=== PATIENT | female | born 1965 | race African-American/Black ===

== ENCOUNTER 2020-03-27 10:25 | Outpatient (REF) | payer MEDICARE, SELFPAY ==
[2020-03-27 11:06] LABS: MANUAL DIFF FLAG NO
[2020-03-27 11:11] LABS: Basophils Absolute Auto 0.1 X10*3/uL (0.0-0.2); Basophils Percent Auto 0.4 % (0-2); Eosinophils Absolute Auto 0.1 X10*3/uL (0.0-0.4); Eosinophils Percent Auto 0.5 % (0-4); Hematocrit 41.2 % (37-47); Hemoglobin 13.3 g/dl (12.0-16.0); Imm Gran Abs Auto 0.06 X10*3/uL (0.00-0.03); Imm Gran Pct Auto 0.5 % (0.0-0.4); Lymphocytes Percent Auto 23.2 % (20-40); Mean Corpuscular HGB Conc 32.3 g/dl (31.0-35.0); Mean Corpuscular Hemoglobin 26.7 pg (27.0-33.0); Mean Corpuscular Volume 82.7 fL (80-98); Mean Platelet Volume 10.6 fL (9.4-12.3); Monocytes Percent Auto 8.1 % (2-11); Neutrophils Absolute Auto 8.7 X10*3/uL (2.0-8.3); Neutrophils Percent Auto 67.3 % (45-73); Platelet Count 304 X10*3/uL (160-400); Red Blood Count 4.98 X10*6/uL (4.20-5.50); Red Cell Distribution Width 13.5 % (11.0-16.0); White Blood Count 12.9 X10*3/uL (4.8-10.8)
[2020-03-27 11:12] LABS: Estimated Average Glucose 229 mg/dL; Hemoglobin A1c % 9.6 %
[2020-03-27 11:41] LABS: Anion Gap 14 (12-20); Blood Urea Nitrogen 8 mg/dL (9-16); Calcium 9.7 mg/dL (8.4-10.2); Carbon Dioxide 30 mmol/L (22-29); Chloride 101 mmol/L (96-108); Estimated Glomerular Filt Rate > 60; Glucose Fasting 198 mg/dL (60-99); Potassium 4.3 mmol/l (3.3-5.1); Sodium 141 mmol/L (135-145)
[2020-03-27 12:03] LABS: TSH reflex Free T4 0.39 mIU/mL (0.32-4.0)
== END 2020-03-27 10:26 | disposition home or self-care (01) ==
LOC: HO.LAB 10:25
PROVIDERS: PCP Nurse Practitioner Family; Visit Provider Nurse Practitioner Family
DX: Z00.00 Encounter for general adult medical examination without abnormal findings (principal)
CPT/HCPCS: 36415; 80048; 83036; 84443; 85025

== ENCOUNTER → 2020-04-28 12:36 | Outpatient (BNV) | payer MEDICARE, MEDICAID, SELFPAY | PROVIDERS: PCP Nurse Practitioner Family; Referring Provider Nurse Practitioner Family; Visit Provider Internal Medicine | DX: Z85.3 Personal history of malignant neoplasm of breast (principal); Z90.11 Acquired absence of right breast and nipple; Z92.21 Personal history of antineoplastic chemotherapy; Z92.3 Personal history of irradiation | CPT/HCPCS: 99202; 99204; 99213 ==

== ENCOUNTER 2020-05-04 10:19 | Outpatient (REF) | payer MEDICARE, MEDICAID, SELFPAY ==
[2020-05-04 11:01] LABS: MANUAL DIFF FLAG NO
[2020-05-04 11:08] LABS: Basophils Absolute Auto 0.1 X10*3/uL (0.0-0.2); Basophils Percent Auto 0.6 % (0-2); Eosinophils Absolute Auto 0.1 X10*3/uL (0.0-0.4); Eosinophils Percent Auto 1.1 % (0-4); Hematocrit 37.8 % (37-47); Hemoglobin 12.6 g/dl (12.0-16.0); Imm Gran Abs Auto 0.02 X10*3/uL (0.00-0.03); Imm Gran Pct Auto 0.2 % (0.0-0.4); Lymphocytes Percent Auto 31.4 % (20-40); Mean Corpuscular HGB Conc 33.3 g/dl (31.0-35.0); Mean Corpuscular Hemoglobin 26.8 pg (27.0-33.0); Mean Corpuscular Volume 80.4 fL (80-98); Mean Platelet Volume 10.8 fL (9.4-12.3); Monocytes Absolute Auto 0.7 X10*3/uL (0.1-1.2); Monocytes Percent Auto 7.4 % (2-11); Neutrophils Absolute Auto 5.7 X10*3/uL (2.0-8.3); Neutrophils Percent Auto 59.3 % (45-73); Platelet Count 290 X10*3/uL (160-400); Red Cell Distribution Width 13.2 % (11.0-16.0); White Blood Count 9.6 X10*3/uL (4.8-10.8)
[2020-05-04 11:19] LABS: Estimated Average Glucose 272 mg/dL; Hemoglobin A1c % 11.1 %
[2020-05-04 11:50] LABS: Alanine Aminotransferase 12 U/L (0-31); Alkaline Phosphatase 159 U/L (39-117); Anion Gap 11 (12-20); Aspartate Amino Transferase 11 U/L (5-31); Bilirubin Total 0.5 mg/dL (0.0-1.0); Blood Urea Nitrogen 8 mg/dL (9-16); Calcium 9.2 mg/dL (8.4-10.2); Carbon Dioxide 30 mmol/L (22-29); Chloride 101 mmol/L (96-108); Cholesterol 167 mg/dL; Estimated Glomerular Filt Rate > 60; Glucose Fasting 291 mg/dL (60-99); HDL Cholesterol 42 mg/dL; LDL Cholesterol Calculated 104 mg/dl; Potassium 4.2 mmol/L (3.3-5.1); Sodium 138 mmol/L (135-145); Total Protein 6.6 g/dL (6.5-8.0); Triglycerides 105 mg/dL
[2020-05-04 12:15] LABS: Creatinine Urine 124.36 mg/dL; Microalbum/Creatinine Ratio Ur 13.6 ug/mg cr
== END 2020-05-04 10:20 | disposition home or self-care (01) ==
LOC: HO.LAB 10:19
PROVIDERS: PCP Nurse Practitioner Family; Visit Provider Nurse Practitioner Family
DX: Z00.00 Encounter for general adult medical examination without abnormal findings (principal); E78.00 Pure hypercholesterolemia, unspecified; E11.9 Type 2 diabetes mellitus without complications
CPT/HCPCS: 36415; 80053; 80061; 82043; 83036; 85025

== ENCOUNTER 2020-08-23 10:38 | Inpatient (IN) | payer MEDICARE, MEDICAID, SELFPAY ==
--- NOTE | ~2020-08-23 | CT_ITS ---
EXAMINATION: CT ABDOMEN AND PELVIS WITHOUT CONTRAST CLINICAL INFORMATION: Diffuse abdominal pain and diarrhea with elevated white count COMPARISON: None TECHNIQUE: Multidetector volumetric imaging was performed from the superior aspect of the liver through the pubic symphysis. Sagittal and coronal reformatted images were obtained on the technologist's workstation. This CT examination was performed using dose optimization techniques as appropriate, variously including the following: *Automated exposure control *Adjustment of mA and/or kV according to patient size (this includes techniques or standardized protocols for targeted exams where dose is matched to indication/reason for exam; i.e. extremities or head) *Use of iterative reconstruction technique DLP: 508 mGy-cm FINDINGS: LUNG BASES: The visualized lung bases are unremarkable. No pleural or pericardial effusion. LIVER, GALLBLADDER, AND BILIARY TREE: The liver is normal in size, shape, and attenuation. No focal hepatic lesion or biliary ductal dilatation is present. Status post cholecystectomy. PANCREAS: Unremarkable. SPLEEN: Unremarkable. ADRENAL GLANDS: Unremarkable. KIDNEYS AND URETERS: The kidneys are normal in size, shape, and attenuation. No hydronephrosis, hydroureter, or calculi seen. No perinephric stranding. BLADDER: Unremarkable. GASTROINTESTINAL TRACT: No free air is evident. There is small amount of free fluid seen about the pelvis. There are fluid distended loops of small bowel present measuring up to 4 cm in diameter the distal ileum is decompressed.. The colon is decompressed. The appendix is prominent at 9 mm in diameter however no periappendiceal inflammatory change is identified and there is noted to be some gas within the appendix. Distended loops of small bowel can be seen anteriorly and there is a grouping of loops centrally and I cannot definitely see a transition point due to difficulty in out loops of bowel. There is some matting of loops of bowel adjacent to the anterior abdominal wall previous incision site midline in position. It appears as if transition point lies somewhere in that location. No evidence of colitis. ABDOMINAL WALL: No significant hernia is appreciated. LYMPH NODES: No lymphadenopathy appreciated. VASCULAR: Unremarkable. PELVIC VISCERA: No abnormal pelvic mass identified. Small amount of free fluid is seen. There appear to be some bilateral adnexal calcifications. These may be related to dermoid tumors are possible mucinous cystic tumors or pedunculated calcified fibroids. A malignant mucus cystadenocarcinoma would seem less likely. OSSEOUS STRUCTURES: No suspicious destructive bony lesion is identified. There is degenerative change seen involving both sacroiliac joints. There is degenerative disc disease of the lower lumbar spine most significant at the L5-S1 level. CT/CT abdomen pelvis wo con IMPRESSION: Appearance of early or partial small bowel obstruction with some matting of loops of bowel without intervening fat or contrast within the bowel making it difficult to evaluate for transition point however the transition point region appears to be anterior midline aspect near the umbilicus. Small amount of free fluid about the pelvis. Prominent appendix at 9 mm in diameter but without adjacent inflammatory change. Pelvic calcifications as described.
--- NOTE | ~2020-08-23 | XR_ITS ---
EXAMINATION: XR ABDOMEN COMPLETE CLINICAL INDICATION: Small bowel obstruction, follow-up. COMPARISON: CT scan of the abdomen and pelvis dated 08/23/2020. TECHNIQUE: 2 views of the abdomen. FINDINGS: Several gas-filled loops of small bowel are seen predominantly in the left midabdomen without significant dilatation. Mild gas and stool seen within the colon distally to the rectum. Surgical clips overlie the right upper quadrant. The osseous structures are unchanged. XR/XR abdomen min 2V IMPRESSION: Nonobstructive bowel gas pattern. This represents interval improvement in appearance of small bowel loops compared to the previous CT scan. Short-term radiographic follow-up is recommended as clinically indicated to assess for change.
[2020-08-23 11:06] VITALS: BP 129/72; PULSE 102; RESP 20; TEMP 36.9; O2SAT 96; BMI 28.8
[2020-08-23 11:37] LABS: MANUAL DIFF FLAG NO
[2020-08-23 11:45] LABS: Basophils Absolute Auto 0.1 X10*3/uL (0.0-0.2); Basophils Percent Auto 0.4 % (0-2); Eosinophils Percent Auto 0.2 % (0-4); Hemoglobin 14.9 g/dl (12.0-16.0); Imm Gran Abs Auto 0.08 X10*3/uL (0.00-0.03); Imm Gran Pct Auto 0.5 % (0.0-0.4); Lymphocytes Absolute Auto 2.7 X10*3/uL (1.2-4.9); Lymphocytes Percent Auto 15.9 % (20-40); Mean Corpuscular HGB Conc 33.1 g/dl (31.0-35.0); Mean Corpuscular Hemoglobin 27.3 pg (27.0-33.0); Mean Corpuscular Volume 82.6 fL (80-98); Mean Platelet Volume 10.9 fL (9.4-12.3); Monocytes Absolute Auto 0.7 X10*3/uL (0.1-1.2); Monocytes Percent Auto 4.3 % (2-11); Neutrophils Absolute Auto 13.4 X10*3/uL (2.0-8.3); Neutrophils Percent Auto 78.7 % (45-73); Platelet Count 349 X10*3/uL (160-400); Red Blood Count 5.45 X10*6/uL (4.20-5.50); Red Cell Distribution Width 13.2 % (11.0-16.0)
[2020-08-23 12:00] VITALS: BP 133/68; PULSE 97; RESP 20; TEMP 36.9; O2SAT 96
--- NOTE | 2020-08-23 12:20 | ED_ITS ---
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 Mode of arrival: ambulatory Limitations: no limitations History of Present Illness HPI Narrative: 55 yo female hx of HTN, HLD, DM s/p breast cancer in remission here with 1 day of abdominal pain n/v/d no recent antibiotics, no sick contacts, no food exposures MD elicited complaint: nausea, vomiting, diarrhea and abdominal pain Onset (ago): day(s) (1) Associated nausea: Yes Associated abdominal pain: Yes Location of pain: diffuse Radiation: diffuse Pain consistency: constant Severity: moderate Quality: cramping Exacerbating factors: none Relieving factors: none Associated symptoms: headaches, loss of appetite, malaise and nausea/vomiting Related Data Home Medications Medication Instructions Recorded Confirmed pen needle, diabetic 32 gauge x #50 ea 05/22/20 08/22/20 insulin lispro [Humalog KwikPen 5 unit SUBCUT DAILY 08/23/20 Insulin] Previous Rx's Medication Instructions Recorded blood-glucose meter #1 ea 04/02/20 cyclobenzaprine 10 mg tablet 10 mg PO BEDTIME 30 Days #30 tab 04/02/20 ibuprofen 800 mg tablet 800 mg PO Q8H PRN 10 Days #30 tab 04/02/20 losartan 50 mg tablet 50 mg PO DAILY 90 Days #90 tab 04/02/20 insulin glargine 100 unit/mL 30 unit SUBCUT DAILY 30 Days #9 ml 04/12/20 subcutaneous solution lancets 28 gauge #100 ea 05/01/20 simvastatin 20 mg tablet 20 mg PO BEDTIME 90 Days #90 tab 05/01/20 sitagliptin 100 mg tablet 100 mg PO DAILY 90 Days #90 tab 05/01/20 blood sugar diagnostic #50 ea 05/22/20 pen needle, diabetic 32 gauge x #100 ea 05/22/20 blood sugar diagnostic #100 ea 05/23/20 gabapentin 300 mg capsule 300 mg PO DAILY 30 Days #30 cap 08/22/20 Allergies Allergy/AdvReac Type Severity Reaction Status Date / Time acetaminophen Allergy upset Verified 08/23/20 11:11 [From Dologesic-DF] stomach dexbrompheniramine Allergy upset Verified 08/23/20 11:11 [From Dologesic-DF] stomach metformin AdvReac upset Verified 08/23/20 11:11 stomach Review of Systems Review of Systems: Constitutional : No Weight loss, No Fever, pos Chills ENT/Mouth : No sore throat, No Rhinorrhea Eyes: No Swelling, No Redness Cardiovascular : No Chest Pain, No SOB, NoEdema Respiratory : No Cough, No Sputum, No Wheezing Gastrointestinal : Positive Nausea, Positive Vomiting, positive Diarrhea, posit kris abdominal Pain, No Hematochezia, No Melena Genitourinary : No Dysuria, No Urinary Frequency, No Hematuria, No Urgency Musculoskeletal : No joint pain, No Myalgias, No Joint Swelling Skin : No Skin Lesions, No rash Neuro : No Weakness, No Numbness, No Dizziness, No Headache Psych : No Anxiety/Panic, No Depression Heme/Lymph: No Bruising, No Lymphadenopathy Endocrine : No Polyuria, No Polydipsia All other systems reviewed and are negative. Gastrointestinal: Gastrointestinal: Reports nausea PMFSH Past Medical History Attestation statement: The following information was validated with the patient. Medical History Diabetes Diabetes DMII (diabetes mellitus, type 2) H/O breast lump High cholesterol Hypertension Ovarian cyst Physical exam Surgical History H/O eye surgery History of section Hx of cholecystectomy Family History Family History Father Prostate cancer Social History Social History Alcohol intake: never Patient Tobacco Use Status: Never used Tobacco Cigarette Packs Per Day: 0 Cigarettes Per Day: 0 Years Smoked: 0 Advance Directives: Yes Advance Directives Information Provided: Yes Advance Directives on File: No Patient : No Physical Exam Vital Signs: Vital Signs: Last Vital Signs Temp 98.2 F 08/23/20 15:36 Pulse 102 H 08/23/20 15:36 Resp 18 08/23/20 15:36 BP 139/67 08/23/20 15:36 Pulse Ox 98 08/23/20 15:36 Body Mass Index 28.8 Appearance: Alert. Oriented X3. No acute distress. Eyes: Pupils equal, round and reactive to light. ENT: Pharynx normal. Neck: Normal inspection. Neck supple. CVS: Normal heart rate and rhythm. Pulses normal. Respiratory: No respiratory distress. Breath sounds normal. Abdomen: Soft and mild diffuse ttp no rebound or guarding Skin: Skin warm and dry. Normal skin color. Normal skin turgor. Extremities: No lower extremity edema. No calf ttp Neuro: Oriented X 3. No motor deficit. No sensory deficit. Course Course Course Narrative: plan to admit to surgery at this time message sent to Dr. Goldman 346pm leukocytosis and tachycardia due to pain and vomiting and not infection or severe sepsis Procedures EJ/Peripheral Line Arm L: Time Out Performed: Yes Skin Cleansed in Sterile Fashion: Yes Size (gauge): 20 IV Secured and Dressing Applied: No Patient Tolerated Procedure: well MDM - Nausea/Vomiting/Diarrhea MDM Narrative Medical decision making narrative: 55 yo female hx of HTN, HLD, DM s/p breast cancer in remission here with 1 day of abdominal pain n/v/d no recent antibiotics, no sick contacts, no food exposures, prior c section and ovarian cyst removal at this time will need labs, cultures, IVF, IV morphine for pain CT scan for colitis dispo per results and findings. Lab Data Result diagrams: 08/23/20 11:30 08/23/20 11:30 Labs: Lab Results 08/23/20 08/23/20 08/23/20 Range/Units 11:30 11:30 11:30 WBC 17.0 H (4.8-10.8) X10*3/uL RBC 5.45 (4.20-5.50) X10*6/uL Hgb 14.9 (12.0-16.0) g/dl Hct 45.0 (37-47) % MCV 82.6 (80-98) fL MCH 27.3 (27.0-33.0) pg MCHC 33.1 (31.0-35.0) g/dl RDW 13.2 (11.0-16.0) % Plt Count 349 (160-400) X10*3/uL MPV 10.9 (9.4-12.3) fL Immature Gran % (Auto) 0.5 H (0.0-0.4) % Neut % (Auto) 78.7 H (45-73) % Lymph % (Auto) 15.9 L (20-40) % [place] % (Auto) 4.3 (2-11) % Eos % (Auto) 0.2 (0-4) % Baso % (Auto) 0.4 (0-2) % Lymph # (Auto) 2.7 (1.2-4.9) X10*3/uL [place] # (Auto) 0.7 (0.1-1.2) X10*3/uL Eos # (Auto) 0.0 (0.0-0.4) X10*3/uL Baso # (Auto) 0.1 (0.0-0.2) X10*3/uL Abs Immat Gran (auto) 0.08 H (0.00-0.03) X10*3/uL Absolute Neuts (auto) 13.4 H (2.0-8.3) X10*3/uL Absolute Nucleated RBC 0.000 (0.0-0.012) X10*3/uL Nucleated RBC % (auto) 0.0 (0.0-0.2) /100WBC Sodium 137 (135-145) mmol/L Potassium 4.9 (3.3-5.1) mmol/L Chloride 99 (96-108) mmol/L Carbon Dioxide 27 (22-29) mmol/L Anion Gap 16 (12-20) BUN 11 (9-16) mg/dL Creatinine 0.75 (0.5-1.4) mg/dL Estim Creat Clear Calc 86.6 Estimated GFR > 60 Random Glucose 358 H* (60-115) mg/dL Lactic Acid (0.5-2.0) mmol/L Calcium 10.0 D (8.4-10.2) mg/dL Magnesium 2.1 (1.6-2.6) mg/dL Total Bilirubin 0.7 (0.0-1.0) mg/dL Direct Bilirubin 0.2 (0.0-0.5) mg/dL AST 14 (5-31) U/L ALT 14 (0-31) U/L Alkaline Phosphatase 168 H (39-117) U/L Total Protein 7.5 (6.5-8.0) g/dL Albumin 4.4 (3.5-5.0) g/dL Lipase < 4 L (8-78) U/L Urine Color Urine Appearance Urine pH (5.0-8.0) Ur Specific [place] (1.005-1.025) Urine Protein (NEG-TRACE) MG/DL Urine Glucose (UA) (NEG) MG/DL Urine Ketones (NEG) MG/DL Urine Blood (NEG) Urine Nitrite (NEG) Ur Leukocyte Esterase (NEG) COVID-19 ([facility]) (Negative) COVID-19 Clin Com 08/23/20 08/23/20 08/23/20 Range/Units 12:48 12:48 15:38 WBC (4.8-10.8) X10*3/uL RBC (4.20-5.50) X10*6/uL Hgb (12.0-16.0) g/dl Hct (37-47) % MCV (80-98) fL MCH (27.0-33.0) pg MCHC (31.0-35.0) g/dl RDW (11.0-16.0) % Plt Count (160-400) X10*3/uL MPV (9.4-12.3) fL Immature Gran % (Auto) (0.0-0.4) % Neut % (Auto) (45-73) % Lymph % (Auto) (20-40) % [place] % (Auto) (2-11) % Eos % (Auto) (0-4) % Baso % (Auto) (0-2) % Lymph # (Auto) (1.2-4.9) X10*3/uL [place] # (Auto) (0.1-1.2) X10*3/uL Eos # (Auto) (0.0-0.4) X10*3/uL Baso # (Auto) (0.0-0.2) X10*3/uL Abs Immat Gran (auto) (0.00-0.03) X10*3/uL Absolute Neuts (auto) (2.0-8.3) X10*3/uL Absolute Nucleated RBC (0.0-0.012) X10*3/uL Nucleated RBC % (auto) (0.0-0.2) /100WBC Sodium (135-145) mmol/L Potassium (3.3-5.1) mmol/L Chloride (96-108) mmol/L Carbon Dioxide (22-29) mmol/L Anion Gap (12-20) BUN (9-16) mg/dL Creatinine (0.5-1.4) mg/dL Estim Creat Clear Calc Estimated GFR Random Glucose (60-115) mg/dL Lactic Acid 1.3 (0.5-2.0) mmol/L Calcium (8.4-10.2) mg/dL Magnesium (1.6-2.6) mg/dL Total Bilirubin (0.0-1.0) mg/dL Direct Bilirubin (0.0-0.5) mg/dL AST (5-31) U/L ALT (0-31) U/L Alkaline Phosphatase (39-117) U/L Total Protein (6.5-8.0) g/dL Albumin (3.5-5.0) g/dL Lipase (8-78) U/L Urine Color YELLOW Urine Appearance CLEAR Urine pH 6.0 (5.0-8.0) Ur Specific [place] 1.025 (1.005-1.025) Urine Protein NEG (NEG-TRACE) MG/DL Urine Glucose (UA) 500 H (NEG) MG/DL Urine Ketones >=80 (NEG) MG/DL Urine Blood NEG (NEG) Urine Nitrite NEG (NEG) Ur Leukocyte Esterase NEG (NEG) COVID-19 ([facility]) Negative (Negative) COVID-19 Clin Com See Note Discharge Plan Discharge Clinical Impression: SBO (small bowel obstruction) Abdominal pain Qualifiers: Abdominal location: generalized Qualified Code(s): R10.84 - Generalized abdominal pain Vomiting Qualifiers: Vomiting type: unspecified Vomiting Intractability: non-intractable Nausea presence: with nausea Qualified Code(s): R11.2 - Nausea with vomiting, unspecified Leukocytosis Qualifiers: Leukocytosis type: unspecified Qualified Code(s): D72.829 - Elevated white blood cell count, unspecified Patient Disposition: Admitted As Inpatient
[2020-08-23 12:36] LABS: Anion Gap 16 (12-20); Blood Urea Nitrogen 11 mg/dL (9-16); Carbon Dioxide 27 mmol/L (22-29); Chloride 99 mmol/L (96-108); Creatinine Clr Calc Pharmacy 86.6; Estimated Glomerular Filt Rate > 60; Glucose Random 358 mg/dL (60-115); Lipase < 4 U/L (8-78); Potassium 4.9 mmol/L (3.3-5.1); Sodium 137 mmol/L (135-145)
[2020-08-23] MEDS: Morphine Sulfate 4 MG/ML CARTRIDGE IVPUSH (13:04)
[2020-08-23] MEDS: ondansetron HCL 4 MG/2 ML VIAL IVPUSH (13:04)
[2020-08-23] MEDS: Insulin Regular, Human 100 UNIT/ML 3 ML VIAL IVPUSH (13:04)
[2020-08-23] MEDS: 0.9 % Sodium Chloride 1,000 ML 999 ML IVCONT (13:06)
[2020-08-23 13:54] LABS: COVID-19 Test Negative (Negative); IDNOW Serial# 9DD0AD1C
[2020-08-23 15:08] LABS: Alanine Aminotransferase 14 U/L (0-31); Albumin Level 4.4 g/dL (3.5-5.0); Alkaline Phosphatase 168 U/L (39-117); Aspartate Amino Transferase 14 U/L (5-31); Bilirubin Direct 0.2 mg/dL (0.0-0.5); Bilirubin Total 0.7 mg/dL (0.0-1.0); Magnesium 2.1 mg/dL (1.6-2.6); Total Protein 7.5 g/dL (6.5-8.0)
--- NOTE | 2020-08-23 15:08 | PC.NURSE ---
Pt very difficult stick- multiple staff members at bedside. Pt IV infiltrated in CT, removed.
[2020-08-23 15:22] VITALS: BP 115/66; PULSE 100; RESP 18; TEMP 37.1; O2SAT 98
[2020-08-23 15:31] LABS: Lactic Acid 1.3 mmol/L (0.5-2.0)
[2020-08-23 15:36] VITALS: BP 139/67; PULSE 102; RESP 18; TEMP 36.8; O2SAT 98
[2020-08-23 15:45] LABS: Appearance Urine CLEAR; Color Urine YELLOW; Glucose Urine UA 500 MG/DL (NEG); Leukocyte Esterase Urine NEG (NEG); Nitrite Urine NEG (NEG); Specific Gravity - Urine 1.025 (1.005-1.025); Urine Blood NEG (NEG); Urine Ketones >=80 MG/DL (NEG); Urine Protein NEG (NEG-TRACE)
--- NOTE | 2020-08-23 16:38 | PM.HPGS ---
History of Present Illness History of Present Illness Date of Service: 08/23/20 Chief complaint: nausea, diarrhea, abd pain Narrative: Inna Metcalf is a 55 year old female With a past medical history of hypertension, hyperlipidemia, diabetes mellitus, and breast cancer status post mastectomy now presenting with complaints of nausea and vomiting of 1 day duration. She also reports diffuse abdominal pain associated with nausea and vomiting. She reports previous episodes of similar pain usually associated with urinary retention. She reports a liquid bowel movement yesterday afternoon. Her last episode of vomiting was at approximately 11:00 o'clock this morning. She reports previous abdominal surgery for an ovarian cyst and section. She subsequent presents to the emergency department and was noted to be diffusely tender to palpation. WBC is elevated to 17,000. CT of the abdomen and pelvis revealed the appearance of an early or partial small-bowel obstruction with some matting of loops of bowel without intervening fat or contrast within the bowel making it difficult to evaluate for a transition point however the transition point region appears to be to the anterior midline aspect near the umbilicus. She is admitted to the surgical service for management of this partial small-bowel obstruction. Review of Systems Review of Systems: Yes all other systems are reviewed and are negative Constitutional: Constitutional: Reports body ache(s), Reports headache(s) and Reports poor appetite ENT: Reports headache(s) Cardiovascular: Cardiovascular: Denies dyspnea Respiratory: Respiratory: Denies chest congestion, Denies cough, Denies dyspnea, Denies stridor and Denies wheezing Gastrointestinal: Gastrointestinal: Reports abdominal pain, Denies melena, Denies hematochezia, Denies heartburn, Reports diarrhea, Reports nausea and Reports vomiting Genitourinary: Genitourinary: Reports no additional female genitourinary complaints Neurologic: Reports headache(s) Hematologic/Lymphatic: Hematologic/Lymphatic: Denies lymphadenopathy Allergic/Immunologic: Allergic/Immunologic: Denies wheezing PMFSH Past Medical History Medical History Diabetes Diabetes DMII (diabetes mellitus, type 2) H/O breast lump High cholesterol Hypertension Ovarian cyst Physical exam Family History Family History Father Prostate cancer Surgical History Surgical History H/O eye surgery History of section Hx of cholecystectomy Social History Social History Alcohol intake: never Patient Tobacco Use Status: Never used Tobacco Cigarette Packs Per Day: 0 Cigarettes Per Day: 0 Years Smoked: 0 Advance Directives: Yes Advance Directives Information Provided: Yes Advance Directives on File: No Patient : No Meds Allergies Allergy/AdvReac Type Severity Reaction Status Date / Time acetaminophen Allergy upset Verified 08/23/20 11:11 [From Dologesic-DF] stomach dexbrompheniramine Allergy upset Verified 08/23/20 11:11 [From Dologesic-DF] stomach metformin AdvReac upset Verified 08/23/20 11:11 stomach Active Medications: Current Medications Generic Name Dose Route Start Last Admin Trade Name Freq PRN Reason Stop Dose Admin Pharmacy Consult 1 each 08/23/20 15:47 Consult Rx Perform Med Rec MISCELLANE ONCE PRN Consult order Home Medications Medication Instructions Recorded Confirmed Last Taken Type pen needle, diabetic 32 gauge x #50 ea 05/22/20 08/22/20 Unknown History insulin lispro [Humalog KwikPen 5 unit SUBCUT DAILY 08/23/20 Unknown History Insulin] Physical Exam Vital Signs: Vital Signs: Last Vital Signs Temp 98.2 F 08/23/20 15:36 Pulse 102 H 08/23/20 15:36 Resp 18 08/23/20 15:36 BP 139/67 08/23/20 15:36 Pulse Ox 98 08/23/20 15:36 Body Mass Index 28.8 Const: General: cooperative, comfortable, no acute distress, alert and awake Nutritional Appearance: average body habitus Orientation/consciousness: patient oriented x3 Eyes: Sclerae: sclerae normal EOM: EOMs intact bilaterally Resp: Effort & Inspection: normal respiratory effort Auscultation: clear to auscultation bilaterally GI: Inspection: Yes normal to inspection Palpation (GI): Soft to palpation, Tenderness to palpation present (GI) in the LUQ, no guarding, not rigid and hepatosplenomegaly present Percussion: Yes normal to percussion Rectal Exam - Female: deferred Skin: General skin exam: no rashes or lesions noted Neuro: General: patient oriented x3 Extrem: General: Yes no clubbing, cyanosis or edema Results Results Labs: Short CBC 08/23/20 Range/Units 11:30 WBC 17.0 H (4.8-10.8) X10*3/uL Hgb 14.9 (12.0-16.0) g/dl Hct 45.0 (37-47) % Plt Count 349 (160-400) X10*3/uL BMP 08/23/20 11:30 Sodium 137 Potassium 4.9 Chloride 99 Carbon Dioxide 27 BUN 11 Creatinine 0.75 Calcium 10.0 D Liver Function 08/23/20 Range/Units 11:30 Total Bilirubin 0.7 (0.0-1.0) mg/dL Direct Bilirubin 0.2 (0.0-0.5) mg/dL AST 14 (5-31) U/L ALT 14 (0-31) U/L Alkaline Phosphatase 168 H (39-117) U/L Albumin 4.4 (3.5-5.0) g/dL Urine. 08/23/20 Range/Units 15:38 Urine Color YELLOW Urine Appearance CLEAR Urine pH 6.0 (5.0-8.0) Ur Specific [place] 1.025 (1.005-1.025) Urine Protein NEG (NEG-TRACE) MG/DL Urine Glucose (UA) 500 H (NEG) MG/DL Assessment and Plan (1) Partial obstruction of small intestine: Status: Acute 55-year-old female patient with prior history of abdominal surgery presenting now with complaints of nausea, vomiting, diarrhea, found to have dilated loops of small bowel suggestive of an early small-bowel obstruction. Laboratories are noted for a elevated WBC. She denies any current nausea or vomiting since 11:00 o'clock this morning. I recommended a admission with bowel rest and possible nasogastric tube if nausea and vomiting returns. She expressed understanding and agrees with the plan Procedures Date of Service Date of Service: 08/23/20
[2020-08-23] MEDS: Lactated Ringers 1,000 ML 100 ML IVCONT (17:35)
[2020-08-23 17:39] VITALS: BP 115/66; PULSE 102; RESP 18; TEMP 37.2; O2SAT 98
--- NOTE | 2020-08-23 17:45 | HE.PHANOTE ---
Pharmacy Consult ? Medication Reconciliation Pharmacy has completed the medication reconciliation and the following issue requires provider intervention: the patient states that she hasn't been taking her insulin. She states that she injected some last night but wasn't sure which kind. She was recently prescribed Gabapentin for neuropathy but hasn't picked up the new prescription yet. Elizabeth Tamayo, PharmD [phone]
--- NOTE | 2020-08-23 18:53 | PC.NURSE ---
Tried to call nurse-nurse report at [phone]. Nurse unavailable and will call back.
[2020-08-23 20:00] VITALS: BP 146/88; PULSE 95; RESP 19; TEMP 37.1; O2SAT 97
[2020-08-23 20:25] LABS: Glucose, Whole Blood 227 mg/dL (60-115)
[2020-08-23] MEDS: Insulin Lispro 100 UNIT/ML 3 ML VIAL SUBCUT (21:29)
[2020-08-24] VITALS (7 sets, daily range): BP systolic 106–118; BP diastolic 63–74; PULSE 85–93; RESP 14–18; TEMP 36.1–36.7; O2SAT 94–98
[2020-08-24] MEDS: Lactated Ringers 1,000 ML 100 ML IVCONT ×3 (03:23→23:43)
[2020-08-24 06:25] LABS: MANUAL DIFF FLAG NO
[2020-08-24 06:50] LABS: Basophils Absolute Auto 0.1 X10*3/uL (0.0-0.2); Basophils Percent Auto 0.4 % (0-2); Eosinophils Absolute Auto 0.2 X10*3/uL (0.0-0.4); Eosinophils Percent Auto 1.3 % (0-4); Hematocrit 38.6 % (37-47); Hemoglobin 12.7 g/dl (12.0-16.0); Imm Gran Abs Auto 0.04 X10*3/uL (0.00-0.03); Imm Gran Pct Auto 0.3 % (0.0-0.4); Lymphocytes Absolute Auto 3.7 X10*3/uL (1.2-4.9); Lymphocytes Percent Auto 30.8 % (20-40); Mean Corpuscular HGB Conc 32.9 g/dl (31.0-35.0); Mean Corpuscular Hemoglobin 27.1 pg (27.0-33.0); Mean Corpuscular Volume 82.3 fL (80-98); Mean Platelet Volume 10.7 fL (9.4-12.3); Monocytes Absolute Auto 1.1 X10*3/uL (0.1-1.2); Monocytes Percent Auto 8.8 % (2-11); Neutrophils Percent Auto 58.4 % (45-73); Platelet Count 269 X10*3/uL (160-400); Red Blood Count 4.69 X10*6/uL (4.20-5.50); Red Cell Distribution Width 13.2 % (11.0-16.0)
[2020-08-24 07:09] LABS: Blood Urea Nitrogen 12 mg/dL (9-16); Estimated Glomerular Filt Rate > 60; Glucose Random 183 mg/dL (60-115)
[2020-08-24 07:29] LABS: Anion Gap 14 (12-20); Calcium 8.8 mg/dL (8.4-10.2); Carbon Dioxide 25 mmol/L (22-29); Chloride 104 mmol/L (96-108); Potassium 3.5 mmol/L (3.3-5.1); Sodium 139 mmol/L (135-145)
[2020-08-24 07:54] LABS: Glucose, Whole Blood 182 mg/dL (60-115)
[2020-08-24] MEDS: Insulin Lispro 100 UNIT/ML 3 ML VIAL SUBCUT ×3 (08:00→21:08)
[2020-08-24] MEDS: Ibuprofen 400 MG TABLET PO ×2 (08:00→17:57)
--- NOTE | 2020-08-24 08:00 | PM.PNGS ---
Subjective Subjective Date of Service: 08/24/20 Interval history: Inna was evaluated today with the assistance of an cognos tm1 developer. she reports no abdominal pain, nausea, or vomiting. She is passing some flatus but denies any bowel movement. She reports being hungry and would like to start some liquids. Physical Exam Vital Signs: Vital Signs: Last Vital Signs Temp 97.6 F 08/24/20 03:05 Pulse 87 08/24/20 03:05 Resp 16 08/24/20 03:05 BP 109/65 08/24/20 03:05 Pulse Ox 96 08/24/20 03:05 Body Mass Index 28.8 Const: General: cooperative, comfortable, no acute distress, alert and awake Resp: Effort & Inspection: normal respiratory effort GI: Inspection: Yes normal to inspection Palpation (GI): Soft to palpation, nontender and no guarding Percussion: Yes normal to percussion Auscultation: normal bowel sounds Skin: Other: Warm, dry, no rash Progress Note: A&P Assessment and plan (1) Partial obstruction of small intestine: Status: Acute Assessment and Plan: 55-year-old female with a previous history of previous pelvic surgery admitted with a partial small-bowel obstruction and abdominal pain. Her symptoms are much improved this morning and she denies any further nausea, vomiting, or abdominal pain. A nasogastric tube was not placed due to her improving symptoms. I will start clear liquids today and advance slowly over the next 24 hours. If she tolerates a clear liquids she will be advanced to a solid diet. Fall Risk Details Current Medications: Current Medications Generic Name Dose Route Start Last Admin Trade Name Freq PRN Reason Stop Dose Admin Hydromorphone HCl 0.5 mg 08/23/20 17:06 Hydromorphone Hcl 0.5 Mg/0.5 Ml Syringe IVPUSH Q4H PRN Pain, Severe (Pain Scale 7-10) Lactated Ringer's 1,000 mls @ 100 mls/hr 08/23/20 17:00 08/24/20 03:23 Lr IVCONT 100 mls/hr .Q10H JOE Administration Ibuprofen 400 mg 08/24/20 07:49 Ibuprofen 400 Mg Tablet PO Q6H PRN headache Insulin Human Lispro 0 unit 08/23/20 21:00 08/23/20 21:29 Insulin Lispro 100 Unit/Ml 3 Ml Vial SUBCUT 4 unit QIDACHS [facility] Administration Protocol Ondansetron HCl 4 mg 08/23/20 17:06 Ondansetron Hcl 4 Mg/2 Ml Vial IVPUSH Q8H PRN Nausea and Vomiting Pharmacy Consult 1 each 08/23/20 15:47 Consult Rx Perform Med Rec MISCELLANE ONCE PRN Consult order Sodium Chloride 3 ml 08/24/20 00:00 08/24/20 07:29 0.9 % Sodium Chloride Flush 3 Ml Syringe IVFLUSH Not Given QSHIFT [facility] Temazepam 15 mg 08/23/20 17:06 Temazepam 15 Mg Capsule PO BEDTIME PRN Insomnia Time Spent With Patient Time: Total time spent is greater than 50% in coordination of care (as documented) at patient's floor/unit and/or counseling patient: Time with patient: 15 - 24 minutes Procedures Date of Service Date of Service: 08/24/20
[2020-08-24 11:20] LABS: Glucose, Whole Blood 207 mg/dL (60-115)
--- NOTE | 2020-08-24 12:26 | MHC.CM.PN ---
CM MET WITH PT WITH THE ASSISTANCE OF [facility] [place]. PT REPORTS SHE LIVES WITH HER SISTER, IS INDEPENDENT WITH SELF CARE AND USES NO DME. PT REPORTS SHE DOES NOT HAVE SERVICES AT HOME HOWEVER SHE IS WORKING ON GETTING THEM. PT REPORTS SHE ONLY MOVED FROM [place] IN [place] SO HAS NO YET BEEN ABLE TO ESTABLISH SERVICES. PT REPORTS SHE DOES HAVE A PCP BUT SHE DOES NOT KNOW THE NAME SHE HAS ONLY SEEN THEM ONCE AND IS UNSURE OF THE OFFICE NAME OR LOCATION THE AREA IS STILL FAIRLY NEW TO HER. SHE BELIEVES IT MAY BE [facility], CM WILL CALL TO CONFIRM. IMM DELIVERED VERBALLY. CURRENT DC PLAN IS HOME WITH NO SERVICES FAMILY TO TRANSPORT
--- NOTE | 2020-08-24 15:08 | MHC.CLN ---
PT REPORTED WT LOSS X 3 YEARS AGO R/T NEW DX DM AND CHANGE IN EATING HABITS. PT STATED SHE IS CURRENTLY HAPPY AT HER CURRENT WT 167# AND GOAL IS TO MAINTAIN WT PT DOES NOT TRIGGER FOR SIGNIFICANT WT LOSS AT THIS TIME PO INTAKE FAIR TO GOOD TOLERATING C/L DIET WILL F/U NEEDED
[2020-08-24 16:28] LABS: Glucose, Whole Blood 114 mg/dL (60-115)
[2020-08-24] MEDS: ondansetron HCL 4 MG/2 ML VIAL IVPUSH (16:42)
[2020-08-24] MEDS: HYDROmorphone HCl 0.5 MG/0.5 ML SYRINGE IVPUSH (16:42)
[2020-08-24 21:03] LABS: Glucose, Whole Blood 185 mg/dL (60-115)
[2020-08-25 03:29] VITALS: BP 120/67; PULSE 87; RESP 18; TEMP 36.2; O2SAT 95
[2020-08-25 07:23] VITALS: BP 131/75; PULSE 90; RESP 18; TEMP 36.1; O2SAT 97
[2020-08-25 07:49] LABS: Glucose, Whole Blood 115 mg/dL (60-115)
--- NOTE | 2020-08-25 07:52 | P.PNGS_ITS ---
Subjective Subjective Date of Service: 08/25/20 Interval history: Patient evaluated with the assistance of a medical reception. She reports minimal abdominal pain in the lower abdomen. She reports passing flatus but no BM in the last 24 hours. She denies nausea or vomiting after taking the liquids. Physical Exam Vital Signs: Vital Signs: Last Vital Signs Temp 97.0 F 08/25/20 07:23 Pulse 90 08/25/20 07:23 Resp 18 08/25/20 07:23 BP 131/75 08/25/20 07:23 Pulse Ox 97 08/25/20 07:23 Body Mass Index 28.8 Const: General: cooperative, healthy appearing, comfortable and no acute distress Resp: Effort & Inspection: normal respiratory effort GI: Other: soft, non-distended, non-tympanic, mild tenderness to deep palpation in the lower abdomen. Skin: General skin exam: no rashes or lesions noted Extrem: General: Yes capillary refill normal and Yes no clubbing, cyanosis or edema Progress Note: A&P Assessment and plan (1) Partial obstruction of small intestine: Status: Acute Assessment and Plan: Overall patient is improved and is passing flatus this morning. She is tolerating clear liquids and would like to try solid diet today. I encouraged to ambulate with assistance today which will help with her bowel function. I will check and abdominal xray today to follow up the SBO. Fall Risk Details Current Medications: Current Medications Generic Name Dose Route Start Last Admin Trade Name Freq PRN Reason Stop Dose Admin Acetaminophen 650 mg 08/24/20 08:00 Acetaminophen 325 Mg Tablet PO QID PRN headache, temp > 101 Hydromorphone HCl 0.5 mg 08/23/20 17:06 08/24/20 16:42 Hydromorphone Hcl 0.5 Mg/0.5 Ml Syringe IVPUSH 0.5 mg Q4H PRN Administration Pain, Severe (Pain Scale 7-10) Lactated Ringer's 1,000 mls @ 100 mls/hr 08/23/20 17:00 08/24/20 23:43 Lr IVCONT 100 mls/hr .Q10H JOE Administration Ibuprofen 400 mg 08/24/20 07:49 08/24/20 17:57 Ibuprofen 400 Mg Tablet PO 400 mg Q6H PRN Administration headache Insulin Human Lispro 0 unit 08/23/20 21:00 08/24/20 21:08 Insulin Lispro 100 Unit/Ml 3 Ml Vial SUBCUT 2 unit QIDACHS [facility] Administration Protocol Ondansetron HCl 4 mg 08/23/20 17:06 08/24/20 16:42 Ondansetron Hcl 4 Mg/2 Ml Vial IVPUSH 4 mg Q8H PRN Administration Nausea and Vomiting Pharmacy Consult 1 each 08/23/20 15:47 Consult Rx Perform Med Rec MISCELLANE ONCE PRN Consult order Sodium Chloride 3 ml 08/24/20 00:00 08/25/20 01:02 0.9 % Sodium Chloride Flush 3 Ml Syringe IVFLUSH Not Given QSHIFT [facility] Temazepam 15 mg 08/23/20 17:06 Temazepam 15 Mg Capsule PO BEDTIME PRN Insomnia Time Spent With Patient Time: Total time spent is greater than 50% in coordination of care (as documented) at patient's floor/unit and/or counseling patient: Time with patient: 15 - 24 minutes Procedures Date of Service Date of Service: 08/25/20
--- NOTE | 2020-08-25 09:42 | P.PNIM_ITS ---
Subjective Subjective Date of Service: 08/25/20 Interval History: feels betterr this am c/o mild abd pain ,passing flatus tolerated clear liquid det no nausea no vomiting no issues overnight. ROS General no headache, no dizziness, no fever chills. CVS no chest pain, no palpitation. Respiratory no cough ,no sob. Gastrointestinal no nausea no vomiting, mild abdominal pain Physical Exam Vital Signs: Vital Signs: Last Vital Signs Temp 97.0 F 08/25/20 07:23 Pulse 90 08/25/20 07:23 Resp 18 08/25/20 07:23 BP 131/75 08/25/20 07:23 Pulse Ox 97 08/25/20 07:23 Body Mass Index 28.8 General resting comfortably in no acute distress. Neck supple no JVD. CVS regular rate rhythm, Respiratory lungs clear to auscultation, no respiratory distress, no wheeze, no rhonchi. Gastrointestinal abdomen soft, nontender, bowel sounds audible, no guarding , no rigidity. Extremities no edema. Neuro nonfocal, speech clear. Skin no rash Objective Data Current Medications Generic Name Dose Route Start Last Admin Trade Name Freq PRN Reason Stop Dose Admin Acetaminophen 650 mg 08/24/20 08:00 Acetaminophen 325 Mg Tablet PO QID PRN headache, temp > 101 Hydromorphone HCl 0.5 mg 08/23/20 17:06 08/24/20 16:42 Hydromorphone Hcl 0.5 Mg/0.5 Ml Syringe IVPUSH 0.5 mg Q4H PRN Administration Pain, Severe (Pain Scale 7-10) Lactated Ringer's 1,000 mls @ 100 mls/hr 08/23/20 17:00 08/25/20 09:09 Lr IVCONT Infused .Q10H JOE Infusion Ibuprofen 400 mg 08/24/20 07:49 08/24/20 17:57 Ibuprofen 400 Mg Tablet PO 400 mg Q6H PRN Administration headache Insulin Human Lispro 0 unit 08/23/20 21:00 08/25/20 09:08 Insulin Lispro 100 Unit/Ml 3 Ml Vial SUBCUT Not Given QIDACHS [facility] Protocol Ondansetron HCl 4 mg 08/23/20 17:06 08/24/20 16:42 Ondansetron Hcl 4 Mg/2 Ml Vial IVPUSH 4 mg Q8H PRN Administration Nausea and Vomiting Pharmacy Consult 1 each 08/23/20 15:47 Consult Rx Perform Med Rec MISCELLANE ONCE PRN Consult order Sodium Chloride 3 ml 08/24/20 00:00 08/25/20 09:08 0.9 % Sodium Chloride Flush 3 Ml Syringe IVFLUSH Not Given QSHIFT JOE Temazepam 15 mg 08/23/20 17:06 Temazepam 15 Mg Capsule PO BEDTIME PRN Insomnia Labs CBC & Chem 7: 08/24/20 05:53 08/24/20 05:53 Microbiology Microbiology Results: Microbiology 08/23/20 12:48 Blood - Venous Blood Culture - Preliminary No growth after 24 hours. 08/23/20 12:48 Blood - Venous Blood Culture - Preliminary No growth after 24 hours. Assessment and Plan (1) Partial obstruction of small intestine: Status: Acute (2) DMII (diabetes mellitus, type 2): Status: Acute (3) Leukocytosis: Status: Acute (4) Hypertension: Status: Acute (5) High cholesterol: Status: Acute Assessment and Plan: 55-year-old female admitted with abdominal pain nausea and vomiting and diagnosed to have partial small-bowel obstruction Partial small-bowel obstruction Patient feeling better passing flatus, but no bowel movement, no nausea,no vomiting, tolerating clear liquid diet, being followed by General surgery diet advanced to regular today Will DC IV fluid encourage out of bed to chair and ambulation, WBC trending down. Further treatment plan as per surgery Diabetes mellitus Blood sugar 115 this a.m. Lantus and pre meal insulin on hold since patient was on clear liquid, continue insulin sliding scale Patient started on regular diet today if by mouth intake is stable resume home medication. resume gabapentin upon dc Hypertension blood pressure stable,not on antihypertensive medications. Hyperlipidemia follow low-fat diet not on statins. History of breast cancer is status post right mastectomy outpatient follow-up with Dr. Gallegos.
--- NOTE | 2020-08-25 10:26 | CONS_ITS ---
DATE OF SERVICE: 08/24/2020 CONSULTING PHYSICIAN: Dr. Goldman. REASON FOR CONSULTATION: Medical management for diabetes. HISTORY OF PRESENTING ILLNESS: This is a 55-year-old female patient with past medical history significant for diabetes mellitus, on insulin; history of hyperlipidemia, history of breast cancer; status post resection of ovarian cyst; status post ; and cholecystectomy, presented to [facility] due to symptoms of nausea, vomiting, and diffuse abdominal pain. Blood work revealed a WBC count of 17,000. CT abdomen and pelvis revealed early or partial small-bowel obstruction. The patient admitted under General Surgery, and Medicine was consulted. At present, the patient is feeling better, complaining of mild abdominal discomfort and nausea that improved with use of Zofran. She has had no vomiting since this morning, has been dry heaving. She has had no bowel movement but passing flatus. She denies any headache, denies any urinary symptoms. She has been managed conservatively by General Surgery, currently on clear liquid diet and IV fluids. PAST MEDICAL HISTORY: Significant for, 1. Diabetes mellitus type 2, on insulin. 2. Hyperlipidemia. 3. Hypertension. PAST SURGICAL HISTORY: Status post section, status post cholecystectomy, status post eye surgery. FAMILY HISTORY: Father had prostate cancer. No other significant family history. SOCIAL HISTORY: The patient denies tobacco use or alcohol abuse. Denies illicit drug use. REVIEW OF SYSTEMS: [employer]TS MARK[employer]ER: The patient denies any headache. Had mild lightheadedness earlier that is now improved. GI: Had some nausea, dry heaving, and complain of persistent mild left lower abdominal discomfort. : No urinary symptoms of urgency or frequency. SKIN: Denies any rashes. All other systems are reviewed and are negative. PHYSICAL EXAMINATION: GENERAL: The patient is resting comfortably, no acute distress. NECK: Supple. No JVD. LUNGS: Clear to auscultation bilaterally. No wheeze or rhonchi. HEART: Regular rate and rhythm. ABDOMEN: Soft, mild left lower quadrant tenderness. No rebound. No rigidity. No palpable masses. Bowel sounds are audible. EXTREMITIES: Without clubbing, cyanosis, or edema. NEURO: Nonfocal. LABORATORY DATA: WBC count 12,000, hemoglobin 12.7, hematocrit 38.6, and a platelet count of 269. Sodium 139, potassium 3.5, chloride 104, bicarb 25, BUN 12 and a creatinine of 0.57, blood sugar 114. ASSESSMENT/PLAN: This is a 55-year-old female with prior history of , status post cholecystectomy, presented to [facility] with nausea, vomiting, abdominal pain, and diagnosed to have partial small-bowel obstruction, currently being managed by General Surgery conservatively with improvement in symptoms, now on clear liquid diet. 1. Diabetes mellitus. Since the patient is on clear liquid diet with decreased by mouth intake, we will hold off on scheduled Lantus and premeal insulin. Continue the patient on insulin sliding scale and follow blood sugars q.i.d. 2. History of hyperlipidemia, not on statins. Recommend low-fat diet. 3. History of hypertension. Current blood pressure is stable. Hold off on antihypertensive medications. 4. Deep vein thrombosis prophylaxis. Continue compression boots as per General Surgery. Thank you for allowing us to participate in the care of this patient. We will continue to follow this patient along with you. MD JD Frank/HIRAL / [phone]
[2020-08-25 11:39] VITALS: BP 135/82; PULSE 88; RESP 18; TEMP 36.1; O2SAT 96
[2020-08-25 11:45] LABS: Glucose, Whole Blood 277 mg/dL (60-115)
[2020-08-25] MEDS: Insulin Lispro 100 UNIT/ML 3 ML VIAL SUBCUT ×3 (11:52→20:55)
[2020-08-25] MEDS: Acetaminophen 325 MG TABLET 650 MG PO (14:47)
[2020-08-25 15:45] VITALS: BP 113/68; PULSE 86; RESP 15; TEMP 36.2; O2SAT 96
[2020-08-25 16:05] LABS: Glucose, Whole Blood 238 mg/dL (60-115)
[2020-08-25] MEDS: 0.9 % Sodium Chloride Flush 3 ML SYRINGE IVFLUSH ×2 (17:42→23:54)
[2020-08-25] MEDS: ondansetron HCL 4 MG/2 ML VIAL IVPUSH (17:47)
[2020-08-25 20:00] VITALS: BP 136/71; PULSE 88; RESP 15; TEMP 36.2; O2SAT 97
[2020-08-25 20:37] LABS: Glucose, Whole Blood 279 mg/dL (60-115)
[2020-08-26] VITALS: BP 107/53; PULSE 81; RESP 16; TEMP 36.5; O2SAT 96
[2020-08-26 03:59] VITALS: BP 119/57; PULSE 84; RESP 16; TEMP 36.5; O2SAT 98
[2020-08-26 07:09] VITALS: BP 112/56; PULSE 94; RESP 16; O2SAT 99
[2020-08-26] MEDS: Acetaminophen 325 MG TABLET 650 MG PO (07:36)
[2020-08-26] MEDS: Insulin Lispro 100 UNIT/ML 3 ML VIAL SUBCUT ×2 (07:36→11:46)
[2020-08-26] MEDS: 0.9 % Sodium Chloride Flush 3 ML SYRINGE IVFLUSH (07:37)
[2020-08-26 07:57] LABS: Glucose, Whole Blood 157 mg/dL (60-115)
[2020-08-26] MEDS: SITagliptin Phosphate 100 MG TABLET PO (10:30)
[2020-08-26] MEDS: Insulin Glargine,Hum.rec.anlog 100 UNIT/ML 10 ML VIAL 15 UNIT SUBCUT (10:30)
[2020-08-26 11:11] LABS: Glucose, Whole Blood 288 mg/dL (60-115)
[2020-08-26 11:45] VITALS: BP 119/63; PULSE 84; RESP 16; TEMP 36.1; O2SAT 99
--- NOTE | 2020-08-26 12:56 | P.PNIM_ITS ---
Subjective Subjective Date of Service: 08/26/20 Interval History: history taken in Croatian from pt tolerating solid diet, passing flatus, denies abd pain/distension Physical Exam Vital Signs: Vital Signs: Last Vital Signs Temp 97 F 08/26/20 11:45 Pulse 84 08/26/20 11:45 Resp 16 08/26/20 11:45 BP 119/63 08/26/20 11:45 Pulse Ox 99 08/26/20 11:45 Body Mass Index 28.8 Gen: in no acute distress HEENT: sclera anicteric, moist mucus membranes Neck: supple Lungs: clear to auscultation bilaterally Heart: regular rate and rhythm, no murmurs Abd: soft, non-tender, non-distended, normal active bowel sounds present Ext: no edema Skin: warm/well-perfused Neuro: alert and oriented Psych: appropriate affect Objective Data Current Medications Generic Name Dose Route Start Last Admin Trade Name Freq PRN Reason Stop Dose Admin Acetaminophen 650 mg 08/24/20 08:00 08/26/20 07:36 Acetaminophen 325 Mg Tablet PO 650 mg QID PRN Administration headache, temp > 101 Hydromorphone HCl 0.5 mg 08/23/20 17:06 08/24/20 16:42 Hydromorphone Hcl 0.5 Mg/0.5 Ml Syringe IVPUSH 0.5 mg Q4H PRN Administration Pain, Severe (Pain Scale 7-10) Ibuprofen 400 mg 08/24/20 07:49 08/24/20 17:57 Ibuprofen 400 Mg Tablet PO 400 mg Q6H PRN Administration headache Insulin Glargine 15 unit 08/26/20 09:00 08/26/20 10:30 Insulin Glargine,Hum.Rec.Anlog 100 Unit/Ml 10 Ml Vial SUBCUT 15 unit DAILY JOE Administration Insulin Human Lispro 0 unit 08/23/20 21:00 08/26/20 11:46 Insulin Lispro 100 Unit/Ml 3 Ml Vial SUBCUT 6 unit QIDACHS JOE Administration Protocol Ondansetron HCl 4 mg 08/23/20 17:06 08/25/20 17:47 Ondansetron Hcl 4 Mg/2 Ml Vial IVPUSH 4 mg Q8H PRN Administration Nausea and Vomiting Pharmacy Consult 1 each 08/23/20 15:47 Consult Rx Perform Med Rec MISCELLANE ONCE PRN Consult order Sitagliptin Phosphate 100 mg 08/26/20 09:00 08/26/20 10:30 Sitagliptin Phosphate 100 Mg Tablet PO 100 mg DAILY JOE Administration Sodium Chloride 3 ml 08/24/20 00:00 08/26/20 07:37 0.9 % Sodium Chloride Flush 3 Ml Syringe IVFLUSH 3 ml QSHIFT JOE Administration Temazepam 15 mg 08/23/20 17:06 Temazepam 15 Mg Capsule PO BEDTIME PRN Insomnia Labs CBC & Chem 7: 08/24/20 05:53 08/24/20 05:53 Microbiology Microbiology Results: Microbiology 08/23/20 12:48 Blood - Venous Blood Culture - Preliminary No growth after 48 hours. 08/23/20 12:48 Blood - Venous Blood Culture - Preliminary No growth after 48 hours. Assessment and Plan (1) Partial obstruction of small intestine: Status: Acute (2) DMII (diabetes mellitus, type 2): Status: Acute (3) Leukocytosis: Status: Acute (4) Hypertension: Status: Acute (5) High cholesterol: Status: Acute Assessment and Plan: hospital d#4 55yo F with DM2, HTN admitted to surgical service with pSBO medicine consultation for management of comorbid conditions # DM2, A1c 11.1 (05/04/20) - resume Lantus (half-dose, then full-dose upon d/c home) and Januvia, continue correction-dose Humalog, f/u with PCP # HTN - not on meds and BP is controlled # hx breast CA - s/p R mastectomy, outpt f/u with Dr Gallegos # pSBO - off IV fluids, diet advanced, dispo as per Surgery # VTE ppx - SCDs
--- NOTE | 2020-08-26 14:23 | PM.PNGS ---
Subjective Subjective Date of Service: 08/26/20 Interval history: Patient reports feeling well today. She denies any nausea vomiting or abdominal pain. She is tolerating regular diet without difficulty. She also reports passing gas. Physical Exam Vital Signs: Vital Signs: Last Vital Signs Temp 97 F 08/26/20 11:45 Pulse 84 08/26/20 11:45 Resp 16 08/26/20 11:45 BP 119/63 08/26/20 11:45 Pulse Ox 99 08/26/20 11:45 Body Mass Index 28.8 Const: General: cooperative, healthy appearing, comfortable and no acute distress GI: Inspection: Yes normal to inspection, No distended and Yes obesity Palpation (GI): Soft to palpation, not firm, nontender, no guarding, not rigid and No hepatosplenomegaly present Extrem: General: Yes normal to inspection, Yes full ROM, Yes no clubbing, cyanosis or edema and Yes no calf tenderness Progress Note: A&P Assessment and plan (1) Partial obstruction of small intestine: Status: Acute Assessment and Plan: This is a 55-year-old lady who was admitted with partial small bowel obstruction that now has evidence of return of bowel function. Patient will be discharged home and to follow up with her primary care doctor once she is discharged. Fall Risk Details Current Medications: Current Medications Generic Name Dose Route Start Last Admin Trade Name Freq PRN Reason Stop Dose Admin Acetaminophen 650 mg 08/24/20 08:00 08/26/20 07:36 Acetaminophen 325 Mg Tablet PO 650 mg QID PRN Administration headache, temp > 101 Hydromorphone HCl 0.5 mg 08/23/20 17:06 08/24/20 16:42 Hydromorphone Hcl 0.5 Mg/0.5 Ml Syringe IVPUSH 0.5 mg Q4H PRN Administration Pain, Severe (Pain Scale 7-10) Ibuprofen 400 mg 08/24/20 07:49 08/24/20 17:57 Ibuprofen 400 Mg Tablet PO 400 mg Q6H PRN Administration headache Insulin Glargine 15 unit 08/26/20 09:00 08/26/20 10:30 Insulin Glargine,Hum.Rec.Anlog 100 Unit/Ml 10 Ml Vial SUBCUT 15 unit DAILY JOE Administration Insulin Human Lispro 0 unit 08/23/20 21:00 08/26/20 11:46 Insulin Lispro 100 Unit/Ml 3 Ml Vial SUBCUT 6 unit QIDACHS JOE Administration Protocol Ondansetron HCl 4 mg 08/23/20 17:06 08/25/20 17:47 Ondansetron Hcl 4 Mg/2 Ml Vial IVPUSH 4 mg Q8H PRN Administration Nausea and Vomiting Pharmacy Consult 1 each 08/23/20 15:47 Consult Rx Perform Med Rec MISCELLANE ONCE PRN Consult order Sitagliptin Phosphate 100 mg 08/26/20 09:00 08/26/20 10:30 Sitagliptin Phosphate 100 Mg Tablet PO 100 mg DAILY JOE Administration Sodium Chloride 3 ml 08/24/20 00:00 08/26/20 07:37 0.9 % Sodium Chloride Flush 3 Ml Syringe IVFLUSH 3 ml QSHIFT JOE Administration Temazepam 15 mg 08/23/20 17:06 Temazepam 15 Mg Capsule PO BEDTIME PRN Insomnia Time Spent With Patient Time: Total time spent is greater than 50% in coordination of care (as documented) at patient's floor/unit and/or counseling patient: Time with patient: less than 15 minutes Procedures Date of Service Date of Service: 08/26/20
--- NOTE | 2020-08-26 15:24 | MHC.CM.PN ---
PT CLEARED TO DC HOME TODAY WITH NO SERVICES. FAMILY TO TRANSPORT
--- NOTE | 2020-08-27 11:15 | P.DS_ITS ---
DS: Providers Provider Date of Service: 08/26/20 Date of admission: 08/23/20 16:56 Date of discharge: 08/26/20 Primary care physician: Annalise Arguelles NP Admitting clinician: Waldo Goldman Consults: 08/23/20 17:06 Consult to Hospitalist Routine Consulting Provider: Hospitalist Reason For Exam: partial small-bowel obstruction, DM, med manageme Attending physician on discharge: Waldo Goldman DS: Diagnosis Discharge Diagnosis (1) Partial obstruction of small intestine: Status: Acute DS: Medications Discharge Medications Home Medications: Home Medications Medication Instructions Recorded Confirmed pen needle, diabetic 32 gauge x #50 ea 05/22/20 08/22/20 cyclobenzaprine 10 mg PO BEDTIME PRN 08/23/20 08/23/20 insulin lispro [Humalog KwikPen 16 unit SUBCUT TID 08/23/20 08/23/20 Insulin] Previous Rx's Medication Instructions Recorded blood-glucose meter #1 ea 04/02/20 insulin glargine 100 unit/mL 30 unit SUBCUT DAILY 30 Days #9 ml 04/12/20 subcutaneous solution lancets 28 gauge #100 ea 05/01/20 sitagliptin 100 mg tablet 100 mg PO DAILY 90 Days #90 tab 05/01/20 blood sugar diagnostic #50 ea 05/22/20 pen needle, diabetic 32 gauge x #100 ea 05/22/20 blood sugar diagnostic #100 ea 05/23/20 gabapentin 300 mg capsule 300 mg PO DAILY 30 Days #30 cap 08/22/20 DS: Summary Time Spent with Patient Time attestation: Inna Metcalf is a 55 year old female with a past medical history of hypertension, hyperlipidemia, diabetes mellitus, and breast cancer status post mastectomy now presenting with complaints of nausea and vomiting of 1 day duration. She also reports diffuse abdominal pain associated with nausea and vomiting. She reports previous episodes of similar pain usually associated with urinary retention. She reports a liquid bowel movement yesterday afternoon. Her last episode of vomiting was at approximately 11:00 o'clock this morning. She reports previous abdominal surgery for an ovarian cyst and section. She subsequent presents to the emergency department and was noted to be diffusely tender to palpation. WBC is elevated to 17,000. CT of the abdomen and pelvis revealed the appearance of an early or partial small-bowel obstruction with some matting of loops of bowel without intervening fat or contrast within the bowel making it difficult to evaluate for a transition point however the transition point region appears to be to the anterior midline aspect near the umbilicus. She is admitted to the surgical service for management of this partial small-bowel obstruction. On the 2nd hospital day the patient reported that her symptoms were much improved she denied any nausea, vomiting, or abdominal pain. On examination her abdomen is soft and nondistended with normal bowel sounds. Her small-bowel obstruction appeared to be improving therefore she was started on clear liquids with a plan to advance over the next 24 hours if tolerated well. On the 3rd hospital day the patient again reported improvement in her symptoms. She tolerated the clear liquids without increased pain or nausea and vomiting. She felt ready to advance her diet. Abdominal x-ray confirmed resolution of the dilated a loops of small bowel. On examination her abdomen is soft and nondistended. No tenderness was elicited. She was subsequently advanced to a soft diet. After 24 hours this diet was well tolerated without nausea and vomiting she was subsequently discharged to home on hospital day 4. She was instructed to remain on a low residue diet . She should follow up in our office in approximately 1-2 weeks and call sooner for increased abdominal pain, nausea or vomiting. Discharge coordination time: Less than 30 minutes Quality: Stroke Does the patient have a stroke diagnosis?: No Physical Exam Vital Signs: Vital Signs: Last Vital Signs Temp 97 F 08/26/20 11:45 Pulse 84 08/26/20 11:45 Resp 16 08/26/20 11:45 BP 119/63 08/26/20 11:45 Pulse Ox 99 08/26/20 11:45 Body Mass Index 28.8 Const: General: cooperative, healthy appearing, comfortable and no acute distress Resp: Effort & Inspection: normal respiratory effort, no stridor and not tachypneic Auscultation: no wheezes GI: Inspection: Yes normal to inspection Palpation (GI): Soft to palpation, not firm, nontender, no guarding, not rigid and no hepatosplenomegaly Skin: General skin exam: no rashes or lesions noted Extrem: General: No edema DS: Data Data Completed and Pending Completed studies during hospitalization [Text1]: Procedures Insertion of Infusion Device into Upper Vein, Percutaneous Approach (08/23/20) Labs on day of discharge: Preliminary micro results at discharge 08/23/20 12:48 Blood Culture - Preliminary Blood - Venous No growth after 48 hours. 08/23/20 12:48 Blood Culture - Preliminary Blood - Venous No growth after 48 hours. Discharge Plan Discharge Patient Disposition: Home, Self-Care Discharge Diagnosis: Partial small-bowel obstruction Referrals: Annalise Arguelles NP [Primary Care Provider] - 1 Week Discharge Medications: Continued (DME) blood-glucose meter [FreeStyle [place] Lite] Kit See Rx Instructions .ROUTE .MEDSUPPLY Qty: 1 RF: 0 Lantus U-100 Insulin 100 unit/mL solution 30 unit subcut DAILY 30 Days Qty: 9 RF: 0 (DME) pen needle, diabetic [Comfort EZ Pen [employer]] 32 gauge x 5/32 needle See Rx Instructions .ROUTE .MEDSUPPLY Qty: 50 RF: 0 (DME) pen needle, diabetic [[employer] Pen Needle] 32 gauge x 5/32 needle See Rx Instructions .ROUTE .MEDSUPPLY Qty: 100 RF: 0 (DME) blood sugar diagnostic Strip See Rx Instructions .ROUTE .MEDSUPPLY Qty: 50 RF: 1 (DME) Freestyle [employer] Test Strips Strip See Rx Instructions .ROUTE .MEDSUPPLY Qty: 100 RF: 0 insulin lispro [Humalog KwikPen Insulin] 100 unit/mL insulin pen 16 unit subcut TID RF: 0 cyclobenzaprine 10 mg tablet 10 mg PO BEDTIME PRN (Reason: Muscle Spasm) RF: 0 gabapentin 300 mg capsule 300 mg PO DAILY 30 Days Qty: 30 RF: 3 Januvia 100 mg tablet 100 mg PO DAILY 90 Days Qty: 90 RF: 0 (DME) lancets [FreeStyle Lancets] 28 gauge misc See Rx Instructions .ROUTE .MEDSUPPLY Qty: 100 RF: 0 Discharge Orders: Discharge Order (Routine); Ordered 08/26/20 Ordered By: Yuliya Pineda Activity on Discharge: As tolerated Stand Alone Forms: Patient Portal Discharge page Activity Restrictions/Additional Instructions: Patient may resume prehospitalization activities, diet, and medications. Patient should follow up with her primary care doctor once discharged within 2 weeks. Patient should call Dr. Goldman's office with any questions or concerns such as increasing abdominal pain persistent nausea or vomiting. Care Plan Goals: Returned to baseline health Health Concerns: Obesity Plan of Treatment: Patient will follow-up with her primary care doctor as an outpatient. Assessment: Resolution of partial small bowel obstruction Discharge Date/Time: 08/26/20 16:30
== END 2020-08-26 16:30 | disposition home or self-care (01) | DRG 390 ==
LOC: HO.ED 15:49 → HO.EDOVER 17:26 → HO.S3 18:39
PROVIDERS: Admitting Provider Surgery; Emergency Provider Emergency Medicine; PCP Nurse Practitioner Family; Visit Provider Surgery
DX: K56.600 Partial intestinal obstruction, unspecified as to cause (principal); E11.9 Type 2 diabetes mellitus without complications; E78.5 Hyperlipidemia, unspecified; Z90.11 Acquired absence of right breast and nipple; Z20.822 Contact with and (suspected) exposure to COVID-19; Z85.3 Personal history of malignant neoplasm of breast; Z79.4 Long term (current) use of insulin; Z79.899 Other long term (current) drug therapy
CPT/HCPCS: 36415; 74019; 74176; 80048; 80076; 81003; 82947; 83605; 83690; 83735; 85025; 87040; 87635; 96374; 96375; 99285; J1170; J2270; J2405

== ENCOUNTER → 2020-09-20 14:14 | Outpatient (BNVA) | payer MEDICARE, MEDICAID, SELFPAY | PROVIDERS: PCP Physician Assistant; Visit Provider Nurse Practitioner Gerontology | DX: E11.65 Type 2 diabetes mellitus with hyperglycemia (principal); E11.40 Type 2 diabetes mellitus with diabetic neuropathy, unspecified; E78.00 Pure hypercholesterolemia, unspecified | CPT/HCPCS: 82947; 96372; 99212; J1815 ==

== ENCOUNTER → 2020-09-27 10:19 | Outpatient (BNVA) | payer MEDICARE, MEDICAID, SELFPAY | PROVIDERS: PCP Physician Assistant; Visit Provider Nurse Practitioner Gerontology | DX: E11.65 Type 2 diabetes mellitus with hyperglycemia (principal); E11.40 Type 2 diabetes mellitus with diabetic neuropathy, unspecified; E78.00 Pure hypercholesterolemia, unspecified | CPT/HCPCS: 82947; 96372; 99212; J1815 ==

== ENCOUNTER → 2020-10-10 10:34 | Outpatient (BNVA) | payer MEDICARE, MEDICAID, SELFPAY | PROVIDERS: PCP Physician Assistant; Visit Provider Dietitian, Registered | DX: E11.65 Type 2 diabetes mellitus with hyperglycemia (principal); Z79.4 Long term (current) use of insulin | CPT/HCPCS: 97802 ==

== ENCOUNTER → 2020-11-07 09:04 | Outpatient (BNVA) | payer MEDICARE, MEDICAID, SELFPAY | PROVIDERS: PCP Physician Assistant; Visit Provider Dietitian, Registered | DX: E11.65 Type 2 diabetes mellitus with hyperglycemia (principal) | CPT/HCPCS: 97803 ==

== ENCOUNTER → 2020-12-19 09:51 | Outpatient (BNVA) | payer MEDICARE, MEDICAID, SELFPAY | PROVIDERS: PCP Physician Assistant; Visit Provider Dietitian, Registered | DX: E11.65 Type 2 diabetes mellitus with hyperglycemia (principal); Z71.3 Dietary counseling and surveillance | CPT/HCPCS: 97803 ==

== ENCOUNTER → 2021-01-11 14:03 | Outpatient (BNVA) | payer MEDICARE, MEDICAID, SELFPAY | PROVIDERS: PCP Physician Assistant; Visit Provider Nurse Practitioner Gerontology | DX: E11.65 Type 2 diabetes mellitus with hyperglycemia (principal); E11.40 Type 2 diabetes mellitus with diabetic neuropathy, unspecified; E78.00 Pure hypercholesterolemia, unspecified; E78.5 Hyperlipidemia, unspecified; I10 Essential (primary) hypertension; Z88.6 Allergy status to analgesic agent; Z88.8 Allergy status to other drugs, medicaments and biological substances; Z79.4 Long term (current) use of insulin; Z79.899 Other long term (current) drug therapy | CPT/HCPCS: 82947; 83036; 99212 ==

== ENCOUNTER → 2021-01-30 10:15 | Outpatient (BNVA) | payer MEDICARE, MEDICAID, SELFPAY | PROVIDERS: PCP Physician Assistant; Visit Provider Dietitian, Registered | DX: E11.65 Type 2 diabetes mellitus with hyperglycemia (principal) | CPT/HCPCS: 97803 ==

== ENCOUNTER → 2021-03-14 10:43 | Outpatient (BNVA) | payer MEDICARE, MEDICAID, SELFPAY | PROVIDERS: PCP Physician Assistant; Visit Provider Dietitian, Registered | DX: E11.65 Type 2 diabetes mellitus with hyperglycemia (principal); Z79.4 Long term (current) use of insulin | CPT/HCPCS: 97803 ==

== ENCOUNTER → 2021-05-02 12:49 | Outpatient (BNVA) | payer MEDICARE, MEDICAID, SELFPAY | PROVIDERS: PCP Physician Assistant; Visit Provider Dietitian, Registered | DX: E11.65 Type 2 diabetes mellitus with hyperglycemia (principal); Z79.4 Long term (current) use of insulin; Z79.84 Long term (current) use of oral hypoglycemic drugs | CPT/HCPCS: 97803 ==

== ENCOUNTER → 2021-05-21 12:46 | Outpatient (BNVA) | payer MEDICARE, MEDICAID, SELFPAY | PROVIDERS: PCP Physician Assistant; Visit Provider Registered Nurse Diabetes Educator | DX: E11.9 Type 2 diabetes mellitus without complications (principal) | CPT/HCPCS: 95250 ==

== ENCOUNTER 2021-05-29 10:16 | Outpatient (REF) | payer MEDICARE, MEDICAID, SELFPAY ==
--- NOTE | ~2021-05-29 | MM_ITS ---
EXAMINATION: MM SCREENING DIGITAL BREAST TOMOSYNTHESIS, LEFT CLINICAL INFORMATION: Screening. Asymptomatic. Prior outside mammography from [place] unavailable. Personal history right mastectomy, 2007. No known family history breast cancer. Age 56. COMPARISON: None (current study represents new baseline exam). TECHNIQUE: Digital breast tomosynthesis is performed in both the craniocaudal and mediolateral oblique views along with computer-aided detection (CAD). Synthesized 2D images are generated from the tomosynthesis. FINDINGS: There are scattered areas of fibroglandular density (ACR BI-RADS breast composition Category b). Parenchymal pattern is unremarkable. There is no mass or architectural abnormality. No skin thickening or coarsening of the Fei's ligaments. Axillary nodes are unremarkable. There are grouped circumferentially arranged relatively coarse calcifications mid 12:00 position. As this represents new baseline, patient will be recalled to obtain additional magnification views to fully characterize. MM/MM tomosynthesis screening LT IMPRESSION: Grouped relatively coarse calcifications central 12:00 mid breast. ASSESSMENT: BI-RADS 0: Incomplete - Need Additional Imaging Evaluation RECOMMENDATION: 1. Additional views of the left breast (magnification CC, magnification ML). 2. Radiology department staff will contact the patient for additional imaging. This patient's information was entered into a reminder system with a target due date for their next mammogram.
== END 2021-05-29 10:17 | disposition home or self-care (01) ==
LOC: HO.MAMMO 10:16
PROVIDERS: PCP Physician Assistant; Visit Provider Physician Assistant
DX: Z12.31 Encounter for screening mammogram for malignant neoplasm of breast (principal)
CPT/HCPCS: 77063; 77067

== ENCOUNTER → 2021-06-04 12:52 | Outpatient (BNVA) | payer MEDICARE, MEDICAID, SELFPAY | PROVIDERS: PCP Physician Assistant; Visit Provider Nurse Practitioner Gerontology | DX: E11.65 Type 2 diabetes mellitus with hyperglycemia (principal); E11.40 Type 2 diabetes mellitus with diabetic neuropathy, unspecified; E78.00 Pure hypercholesterolemia, unspecified; Z79.4 Long term (current) use of insulin | CPT/HCPCS: 82947; 99212 ==

== ENCOUNTER 2021-06-26 08:53 | Outpatient (REF) | payer MEDICARE, MEDICAID, SELFPAY ==
--- NOTE | ~2021-06-26 | MM_ITS ---
EXAMINATION: MM DIAGNOSTIC DIGITAL MAMMOGRAPHY, LEFT CLINICAL INFORMATION: Recall from new baseline screening for grouped relatively coarse calcifications central mid 12:00 left breast. Prior history right mastectomy for mass, 2007. Prior outside mammography from [place] no longer available. COMPARISON: Mammography: 05/29/2021 (new baseline, BI-RADS 0). TECHNIQUE: Digital mammography is performed in the following views: Magnification CC, magnification ML FINDINGS: There are scattered areas of fibroglandular density (ACR BI-RADS breast composition Category b). The magnification views show loosely grouped relatively coarse calcifications in the central 12:00 left breast. They are peripherally arranged on the CC view. This may be related to fibroadenomatous change. Chronicity is unknown. Results are discussed with the patient at time of visit, using an full time staff interpreter. MM/MM added views LT IMPRESSION: Loosely grouped relatively coarse calcifications central 12:00 mid left breast, possibly fibroadenomatous change. Chronicity unknown, prior outside mammography no longer available. ASSESSMENT: BI-RADS 3: Probably Benign RECOMMENDATION: Diagnostic left mammography in 6 months. This patient's information was entered into a reminder system with a target due date for their next mammogram.
== END 2021-06-26 08:54 | disposition home or self-care (01) ==
LOC: HO.MAMMO 08:53
PROVIDERS: PCP Physician Assistant; Visit Provider Physician Assistant
DX: R92.1 Mammographic calcification found on diagnostic imaging of breast (principal)
CPT/HCPCS: 77065

== ENCOUNTER → 2021-07-03 12:50 | Outpatient (BNVA) | payer MEDICARE, MEDICAID, SELFPAY | PROVIDERS: PCP Physician Assistant; Visit Provider Dietitian, Registered | DX: E11.65 Type 2 diabetes mellitus with hyperglycemia (principal) | CPT/HCPCS: 97803 ==

== ENCOUNTER → 2021-07-04 12:46 | Outpatient (BNVA) | payer MEDICARE, MEDICAID, SELFPAY | PROVIDERS: PCP Physician Assistant; Visit Provider Registered Nurse Diabetes Educator | DX: E11.40 Type 2 diabetes mellitus with diabetic neuropathy, unspecified (principal); Z79.4 Long term (current) use of insulin | CPT/HCPCS: 99211 ==

== ENCOUNTER → 2021-08-07 12:17 | Outpatient (BNVA) | payer MEDICARE, MEDICAID, SELFPAY | PROVIDERS: PCP Physician Assistant; Visit Provider Registered Nurse Diabetes Educator | DX: E11.40 Type 2 diabetes mellitus with diabetic neuropathy, unspecified (principal); Z79.4 Long term (current) use of insulin | CPT/HCPCS: 99211 ==

== ENCOUNTER 2021-08-14 09:19 | Outpatient (REF) | payer MEDICARE, MEDICAID, SELFPAY ==
[2021-08-14 09:51] LABS: Hemoglobin 13.3 g/dl (12.0-16.0); Mean Corpuscular HGB Conc 31.7 g/dl (31.0-35.0); Mean Corpuscular Hemoglobin 26.3 pg (27.0-33.0); Mean Corpuscular Volume 83.2 fL (80.0-98.0); Mean Platelet Volume 10.4 fL (9.4-12.3); Platelet Count 303 X10*3/uL (160-400); Red Blood Count 5.05 X10*6/uL (4.20-5.50); Red Cell Distribution Width 13.9 % (11.0-16.0); White Blood Count 12.8 X10*3/uL (4.8-10.8)
[2021-08-14 10:34] LABS: Estimated Average Glucose 260 mg/dL; Hemoglobin A1c % 10.7 %
[2021-08-14 10:44] LABS: Alanine Aminotransferase 14 U/L (0-31); Alkaline Phosphatase 127 U/L (39-117); Anion Gap 12 (12-20); Aspartate Amino Transferase 12 U/L (5-31); Bilirubin Total 0.4 mg/dL (0.0-1.0); Blood Urea Nitrogen 8 mg/dL (9-16); Calcium 9.5 mg/dL (8.4-10.2); Carbon Dioxide 27 mmol/L (22-29); Chloride 105 mmol/L (96-108); Cholesterol 130 mg/dL; Estimated Glomerular Filt Rate > 60; Glucose Fasting 183 mg/dL (60-99); HDL Cholesterol 43 mg/dL; LDL Cholesterol Calculated 72 mg/dl; Potassium 4.5 mmol/L (3.3-5.1); Sodium 139 mmol/L (135-145); Total Protein 6.7 g/dL (6.5-8.0); Triglycerides 77 mg/dL
== END 2021-08-14 09:20 | disposition home or self-care (01) ==
LOC: HO.LAB 09:19
PROVIDERS: Absent Provider Physician Assistant; PCP Physician Assistant; Visit Provider Nurse Practitioner Gerontology
DX: E11.65 Type 2 diabetes mellitus with hyperglycemia (principal); I10 Essential (primary) hypertension; Z79.4 Long term (current) use of insulin
CPT/HCPCS: 36415; 80053; 80061; 82043; 83036; 85027

== ENCOUNTER → 2021-10-16 12:05 | Outpatient (BNVA) | payer MEDICARE, MEDICAID, SELFPAY | PROVIDERS: PCP Physician Assistant; Visit Provider Registered Nurse Diabetes Educator | DX: E11.65 Type 2 diabetes mellitus with hyperglycemia (principal) | CPT/HCPCS: 99211 ==

== ENCOUNTER → 2021-11-06 12:46 | Outpatient (BNVA) | payer MEDICARE, MEDICAID, SELFPAY | PROVIDERS: PCP Physician Assistant; Visit Provider Dietitian, Registered | DX: E11.65 Type 2 diabetes mellitus with hyperglycemia (principal); Z71.3 Dietary counseling and surveillance | CPT/HCPCS: 97803 ==

== ENCOUNTER 2021-12-25 13:04 | Outpatient (REF) | payer MEDICARE, MEDICAID, SELFPAY ==
--- NOTE | ~2021-12-25 | MM_ITS ---
EXAMINATION: MM DIAGNOSTIC DIGITAL BREAST TOMOSYNTHESIS, LEFT CLINICAL INFORMATION: Right mastectomy, 2007. Probable benign calcifications central left breast noted at new baseline 2021. COMPARISON: Mammography: 06/26/2021, 05/29/2021 (new baseline, BI-RADS 0). TECHNIQUE: Digital breast tomosynthesis is performed in both the craniocaudal and mediolateral oblique views along with computer-aided detection (CAD). Synthesized 2D images are generated from the tomosynthesis. Additional magnification left CC x2 and magnification left ML views are obtained. FINDINGS: There are scattered areas of fibroglandular density (ACR BI-RADS breast composition Category b). Parenchymal pattern is similar to prior studies. No developing density or interval mass or architectural abnormality. The axilla and skin contours are unremarkable. The relatively coarse circumferentially oriented calcifications central 12:00 mid left breast are stable from prior diagnostic exam, possibly fibroadenomatous change. They will be reassessed again in 6 months at time of annual exam. Results are provided to the patient at time of visit by the technologist. MM/MM tomosynthesis diagnostic LT IMPRESSION: Probable benign calcifications central 12:00 similar to prior diagnostic exam. ASSESSMENT: BI-RADS 3: Probably Benign RECOMMENDATION: Diagnostic mammography in 6 months. This patient's information was entered into a reminder system with a target due date for their next mammogram.
== END 2021-12-25 13:05 | disposition home or self-care (01) ==
LOC: HO.MAMMO 13:04
PROVIDERS: Visit Provider Physician Assistant
DX: R92.1 Mammographic calcification found on diagnostic imaging of breast (principal)
CPT/HCPCS: 77061; 77065

== ENCOUNTER → 2022-02-13 12:52 | Outpatient (BNVA) | payer MEDICARE, MEDICAID, SELFPAY | PROVIDERS: PCP Physician Assistant; Visit Provider Dietitian, Registered | DX: E11.65 Type 2 diabetes mellitus with hyperglycemia (principal) | CPT/HCPCS: 97803 ==

== ENCOUNTER → 2022-02-26 13:44 | Outpatient (BNVA) | payer MEDICARE, MEDICAID, SELFPAY | PROVIDERS: PCP Physician Assistant; Visit Provider Registered Nurse Diabetes Educator | DX: E11.65 Type 2 diabetes mellitus with hyperglycemia (principal) | CPT/HCPCS: 99211 ==

== ENCOUNTER → 2022-03-20 08:38 | Outpatient (BNVA) | payer MEDICARE, MEDICAID, SELFPAY | PROVIDERS: PCP Physician Assistant; Visit Provider Registered Nurse Diabetes Educator | DX: E11.65 Type 2 diabetes mellitus with hyperglycemia (principal); Z79.4 Long term (current) use of insulin | CPT/HCPCS: 99211 ==

== ENCOUNTER 2022-06-06 07:59 | Outpatient (REF) | payer MEDICARE, MEDICAID, SELFPAY ==
[2022-06-06 09:01] LABS: Hematocrit 41.5 % (37.0-47.0); Hemoglobin 13.4 g/dl (12.0-16.0); Mean Corpuscular HGB Conc 32.3 g/dl (31.0-35.0); Mean Corpuscular Volume 83.5 fL (80.0-98.0); Mean Platelet Volume 10.6 fL (9.4-12.3); Platelet Count 309 X10*3/uL (160-400); Red Blood Count 4.97 X10*6/uL (4.20-5.50); Red Cell Distribution Width 13.5 % (11.0-16.0); White Blood Count 11.7 X10*3/uL (4.8-10.8)
[2022-06-06 09:12] LABS: Estimated Average Glucose 232 mg/dL; Hemoglobin A1c % 9.7 %
[2022-06-06 09:33] LABS: Alanine Aminotransferase 16 U/L (0-31); Alkaline Phosphatase 153 U/L (39-117); Anion Gap 12 (12-20); Aspartate Amino Transferase 13 U/L (5-31); Bilirubin Total 0.5 mg/dL (0.0-1.0); Blood Urea Nitrogen 10 mg/dL (9-16); Calcium 9.5 mg/dL (8.4-10.2); Carbon Dioxide 29 mmol/L (22-29); Chloride 104 mmol/L (96-108); Cholesterol 139 mg/dL; Estimated Glomerular Filt Rate > 60; Glucose Fasting 244 mg/dL (60-99); HDL Cholesterol 40 mg/dL; LDL Cholesterol Calculated 75 mg/dl; Potassium 4.7 mmol/L (3.3-5.1); Sodium 140 mmol/L (135-145); Total Protein 6.5 g/dL (6.5-8.0); Triglycerides 121 mg/dL
[2022-06-06 09:55] LABS: TSH reflex Free T4 0.34 uIU/mL (0.32-4.0)
[2022-06-06 10:16] LABS: Creatinine Urine 146.72 mg/dL; Microalbum/Creatinine Ratio Ur 8.8 ug/mg cr
== END 2022-06-06 08:00 | disposition home or self-care (01) ==
LOC: HO.LAB 07:59
PROVIDERS: PCP Physician Assistant; Visit Provider Physician Assistant
DX: I10 Essential (primary) hypertension (principal); E78.00 Pure hypercholesterolemia, unspecified; E11.40 Type 2 diabetes mellitus with diabetic neuropathy, unspecified; Z79.4 Long term (current) use of insulin
CPT/HCPCS: 36415; 80053; 80061; 82043; 83036; 84443; 85027

== ENCOUNTER → 2022-06-18 12:22 | Outpatient (BNVA) | payer MEDICARE, MEDICAID, SELFPAY | PROVIDERS: PCP Physician Assistant; Visit Provider Dietitian, Registered | DX: E11.65 Type 2 diabetes mellitus with hyperglycemia (principal); Z79.4 Long term (current) use of insulin | CPT/HCPCS: 97803 ==

== ENCOUNTER 2022-06-26 13:04 | Outpatient (REF) | payer OTHER, SELFPAY ==
--- NOTE | ~2022-06-26 | MM_ITS ---
EXAMINATION: MM DIAGNOSTIC DIGITAL BREAST TOMOSYNTHESIS, LEFT CLINICAL INFORMATION: Short interval six-month follow-up calcifications left breast initially noted at new baseline mammography 05/29/2021. Personal history right mastectomy, 2007. COMPARISON: Mammography: 12/25/2021, 06/26/2021, 05/29/2021 (new baseline, BI-RADS 0). TECHNIQUE: Digital breast tomosynthesis is performed in both the craniocaudal and mediolateral oblique views along with computer-aided detection (CAD). Synthesized 2D images are generated from the tomosynthesis. Additional magnification left CC x4 and magnification left ML views are obtained. FINDINGS: There are scattered areas of fibroglandular density (ACR BI-RADS breast composition Category b). Parenchymal pattern is similar to prior studies and there is no developing density or interval architectural abnormality. The axilla and skin contours are unremarkable. The left breast calcifications for follow-up central breast mid depth are increased in number from prior diagnostic exam. The calcifications are relatively coarse, although new smaller heterogeneous forms are also present which vary in size and morphology. Stereotactic sampling is therefore recommended. Results are discussed with the patient at time of visit, using an surveillance sensor officer. Results and biopsy recommendation called to chief contract officer (Radha) for provider TRISHA Harper on 06/26/2022. MM/MM tomosynthesis diagnostic LT IMPRESSION: Increased heterogeneous calcifications mid left breast. ASSESSMENT: BI-RADS 4: Suspicious RECOMMENDATION: Stereotactic sampling left breast calcifications. This patient's information was entered into a reminder system with a target due date for their next mammogram.
== END 2022-06-26 13:05 | disposition home or self-care (01) ==
LOC: HO.MAMMO 13:04
PROVIDERS: PCP Physician Assistant; Visit Provider Physician Assistant
DX: R92.1 Mammographic calcification found on diagnostic imaging of breast (principal); Z90.11 Acquired absence of right breast and nipple
CPT/HCPCS: 77061; 77065

== ENCOUNTER 2022-07-19 09:05 | Outpatient (REF) | payer OTHER, SELFPAY ==
--- NOTE | ~2022-07-19 | MM_ITS ---
EXAMINATION: STEREOTACTIC TOMOSYNTHESIS-GUIDED VACUUM-ASSISTED BREAST BIOPSY, LEFT BREAST SPECIMEN RADIOGRAPH, LEFT BREAST POST PROCEDURE DIGITAL MAMMOGRAM, LEFT BREAST CLINICAL INFORMATION: Indeterminate grouping of calcifications central left breast. COMPARISON: June 26, 2022 and studies dating back to May 29, 2021 . TECHNIQUE/PROCEDURE: Informed consent was obtained from the patient after discussion of the benefits, risks, and alternatives to biopsy today. Patient appeared to understand. Gave opportunity for questions. Patient signed consent form. BIOPSY TABLE: [employer] Affirm Prone Biopsy System. LESION: Grouping of calcifications central left breast. LOCAL ANESTHESIA: 10 mL 1% lidocaine; 20 mL 1% lidocaine with epinephrine. DERMATOTOMY: Single skin kamila dermatotomy performed. NEEDLE: Subarctic Limitediva 9-gauge vacuum assisted core biopsy device. APPROACH: craniocaudal. TARGETING: Digital breast tomosynthesis used for targeting. CORES: 13. CLIP: StionurMark T-shaped marker. SPECIMEN RADIOGRAPH: Specimen radiograph is taken in separate room using digital mammography. The index calcifications are in the excised cores. POST PROCEDURE UNILATERAL DIGITAL MAMMOGRAM: The post biopsy mammogram is performed in separate room using separate digital mammography equipment from the biopsy procedure. 2 views are obtained. There are scattered areas of fibroglandular density (breast composition category: b). The clip marker is in position. The calcifications are markedly decreased at the biopsy site. No gross hematoma. The patient tolerated the procedure well. No immediate complications. Home instructions reviewed with the patient. Final pathology results are pending. MM/MM stereotactic biopsy LT IMPRESSION: 1. Digital tomosynthesis-guided core biopsy left breast with clip placement. 2. Specimen radiograph taken and post procedure mammogram. There is satisfactory positioning of the biopsy clip. 3. Final pathology results pending. An addendum report will be issued.
[2022-07-19] MEDS: Lidocaine HCl 1 % 20 ML VIAL 9 ML SUBCUT (11:35)
[2022-07-19] MEDS: Sodium Bicarbonate 8.4% 50 MEQ/50 ML VIAL SUBCUT (11:36)
[2022-07-19] MEDS: Lidocaine HCl 1% PF/Epi 1:200,000 30 ML VIAL 20 ML SUBCUT (11:38)
== END 2022-07-19 09:06 | disposition home or self-care (01) ==
LOC: HO.MAMMO 09:05
PROVIDERS: PCP Physician Assistant; Visit Provider Surgery
DX: R92.0 Mammographic microcalcification found on diagnostic imaging of breast (principal)
CPT/HCPCS: 19081; 88305; 99202; A4648

== ENCOUNTER → 2022-07-26 10:59 | Outpatient (BNVA) | payer OTHER, SELFPAY | PROVIDERS: PCP Physician Assistant; Referring Provider Physician Assistant; Visit Provider Surgery | DX: R92.0 Mammographic microcalcification found on diagnostic imaging of breast (principal) | CPT/HCPCS: 99212 ==

== ENCOUNTER → 2022-07-29 10:48 | Outpatient (BNVA) | payer OTHER, SELFPAY | PROVIDERS: PCP Physician Assistant; Visit Provider Registered Nurse Diabetes Educator | DX: E11.40 Type 2 diabetes mellitus with diabetic neuropathy, unspecified (principal); Z79.4 Long term (current) use of insulin | CPT/HCPCS: 99211 ==

== ENCOUNTER → 2022-07-30 12:07 | Outpatient (BNVA) | payer OTHER, SELFPAY | PROVIDERS: PCP Physician Assistant; Visit Provider Internal Medicine Endocrinology, Diabetes & Metabolism | DX: E11.65 Type 2 diabetes mellitus with hyperglycemia (principal); E78.5 Hyperlipidemia, unspecified; E11.40 Type 2 diabetes mellitus with diabetic neuropathy, unspecified | CPT/HCPCS: 82947; 99212 ==

== ENCOUNTER → 2022-09-25 11:27 | Outpatient (BNVA) | payer OTHER, SELFPAY | PROVIDERS: PCP Physician Assistant; Visit Provider Dietitian, Registered | DX: E11.65 Type 2 diabetes mellitus with hyperglycemia (principal) | CPT/HCPCS: 97803 ==

== ENCOUNTER 2023-01-06 09:54 | Outpatient (AMB) | payer OTHER, SELFPAY ==
[2023-01-06 09:55] VITALS: BP 122/78; PULSE 86; RESP 16; O2SAT 99; BMI 31.7
--- NOTE | 2023-01-06 09:55 | MHC.PC.OV ---
Vital Signs 01/06/23 09:55 Height 5 ft 4 in Weight 184 lb 8 oz BMI 31.7 BP 122/78 Blood Pressure Location Lt brachial Position Sitting Respiration 16 Pulse 86 Pulse Source Pulse Oximeter Pulse Oximetry (%) 99 Oxygen Delivery Method Room Air Intake Visit Reasons: DM F/U Industrial Relations Manager Required: Yes Industrial Relations Manager Language: [place]an Accompanied by: Self / Same As Patient Allergies acetaminophen [From [facility]] Allergy (Verified 01/06/23 10:13) upset stomach dexbrompheniramine [From [facility]] Allergy (Verified 01/06/23 10:13) upset stomach metformin Adverse Reaction (Verified 01/06/23 10:13) upset stomach Medication List - Last Reconciled 01/06/23 by Alan Nesbitt PA-C albuterol sulfate 2.5 mg (3 mL) inhalation Q6H PRN 30 days albuterol sulfate 90 mcg/actuation 1 inh inhalation QID PRN 30 days atorvastatin 20 mg PO BEDTIME 90 days blood sugar diagnostic As directed blood sugar diagnostic (OneTouch Ultra Test strips) Testing 4 times a day blood-glucose meter (OneTouch Ultra2 Meter) Testing 4 times a day cyclobenzaprine 5 mg PO DAILY 10 days [Diabetic shoes & 3 pair inserts as directed] docusate sodium 100 mg PO BID 30 days dulaglutide (Trulicity) 3 mg (0.5 mL) subcut QWEEK 28 days empagliflozin (Jardiance) 25 mg PO QAM 90 days flash glucose scanning reader (FreeStyle Ashley 2 Gleason) As directed flash glucose sensor (FreeStyle Ashley 2 Sensor kit) As directed change every 14 days insulin glargine (Lantus Solostar U-100 Insulin) 25 units (0.25 mL) subcut QAM lancets Testing 4 times a day meloxicam 15 mg PO DAILY 30 days nebulizers (VixOne Nebulizer-Adult Mask) As directed nebulizers As directed Novolog FlexPen U-100 Insulin (insulin aspart U-100) 12 units (0.12 mL) subcut TID NS pen needle, diabetic (Comfort EZ Pen [place]) As directed pen needle, diabetic (BD Ultra-Fine Carmen Pen Needle) As directed pen needle, diabetic (AboutTime Pen Needle) Daily Tobacco use date assessed: 09/11/22 Dental Screening Dental Screen Date: 01/06/23 Did you have a dental visit in the last 12 months?: No Did you have a dental problem in the last 6 months where you did not have access to dental care?: No Was dental information given to patient?: Patient declined HPI DM F/U HPI Details Patient is a 57-year-old female here today for follow-up visit. ? ?Patient is [place]an-speaking so we have used a translator and interpreter. 56-year-old female with past medical history significant for breast cancer right total mastectomy, diabetes, high cholesterol, hypertension. CHRONIC MEDICAL CONDITIONS--> .. Breast cancer :? Patient was diagnosed with right breast cancer at the age of 43 in [place].? She underwent right mastectomy followed by adjuvant chemotherapy and radiation. Is followed by a oncologist annually.? Seems that there is an order for mammogram patient has not been called. .. DMII:? Continues to follow Endocrinology.? Has been more compliant with using her insulin injections in her A1c has improved.? Now seeing an assembly leader. Also was given the freestyle Ashley though has not been able to use this as she does not understand how to place it on herself. She reports having low sugars in the night (55-60) (Today in office used nurse navigator to help give some Education on placing on the Ashley.) ?Report blood sugars are 150-250 she reports less polyuria. Reports she is seeing a analytical laboratory technician now whom advised her on low carb diet and taking her insulin daily. She seems to have some developmental delay and her sister (Stephanie) helps her with her medications and medical decisions. .. Asthma:? Reports her asthma has been okay.? Now has her own home nebulizer and rescue inhaler.? She denies any asthma exacerbations. . Hyperlipidemia:? Patient's cholesterol acceptable for a cardiovascular risk.? Will continue her current dose of atorvastatin. Goal LDL to be below 100 Laboratory Tests 09/11/22 10:38 Hgb A1c (Clinic) 9.4 H [facility] Medical History (Updated 01/06/23 @ 10:16 by Alan Nesbitt PA-C) COVID-19 Type 2 diabetes mellitus with diabetic neuropathy, unspecified Diabetes type 2, uncontrolled H/O breast lump DMII (diabetes mellitus, type 2) Hypertension High cholesterol Ovarian cyst Diabetes Physical exam Surgical History History of breast biopsy Hx of subtotal mastectomy of right breast (~2007) H/O eye surgery Hx of cholecystectomy History of section Family History Father Prostate cancer Mother Diabetes Brother Diabetes Social History Household Members: Family Housing: House Do you presently have visiting nurse or other home services: No Alcohol intake: never Patient Tobacco Use Status: Never used Tobacco Cigarette Packs Per Day: 0 Cigarettes Per Day: 0 Years Smoked: 0 e-Cigarette/Vaping Use: Never Used Second Hand Smoke Exposure: No service: No Current occupational status: unemployed Cognitive needs: No Hearing needs: No Vision needs: Yes Questionnaire Thrive Questionnaire Date Thrive assessed: 06/11/22 JASON-7 AMB Questionnaire JASON-7 Date JASON - 7 assessed: 06/11/22 Source: Developed by Drs. Darrell Gomez, Peggy Ferrer, Lam Alvarado and colleagues, with an educational oren from [employer]. Review of Systems Const Denies headache(s) Eyes Denies loss of vision ENT Denies vertigo, Denies dizziness, Denies headache(s) and Denies sore throat Card Denies chest pain, Denies leg edema and Denies lightheadedness Resp Denies cough, Denies hemoptysis and Denies wheezing GI Denies abdominal pain, Denies melena, Denies constipation, Denies diarrhea and Denies vomiting Denies urinary frequency, Denies dysuria and Denies urinary urgency Musc Denies arthralgias, Denies joint swelling, Denies numbness and Denies tingling Neuro Denies Abnormal speech present, Denies behavioral changes, Denies vertigo, Denies dizziness, Denies headache(s), Denies loss of vision, Denies memory loss, Denies numbness and Denies tingling Psych Denies anxiety, Denies behavioral changes, Denies depression, Denies memory loss and Denies panic attacks Nakul/Lymph Denies easy bleeding and Denies easy bruising Aller/Immun Denies wheezing Physical exam (Primary Care) Vital Signs: Last Vital Signs Pulse 86 01/06/23 09:55 Resp 16 01/06/23 09:55 BP 122/78 01/06/23 09:55 Pulse Ox 99 01/06/23 09:55 Oxygen Delivery Method Room Air 01/06/23 09:55 BMI result Body Mass Index 31.7 Tobacco/Smoking Status: Tobacco use Status Tobacco use date assessed 09/11/22 01/06/23 09:55 Patient Tobacco Use Status Never used Tobacco 01/06/23 09:55 e-Cigarette/Vaping Use Never Used 01/06/23 09:55 Thrive Assessment: Date of Thrive Assessment Date Thrive assessed 06/11/22 01/06/23 09:55 Const General: healthy appearing, no acute distress, alert and awake Nutritional Appearance: well nourished Orientation/consciousness: oriented to person, oriented to place and oriented to time HENMT Ears: TM's normal bilaterally General nose exam: Normal nasal mucous membranes and turbinates present Eyes Conjunctivae: conjunctivae normal Sclerae: sclerae normal Pupils: Equal, round and reactive pupils present Neck Neck: Yes no lymphadenopathy and Yes no JVD Thyroid: Thyroid normal Carotids: no bruits Resp Effort & Inspection: normal respiratory effort and not tachypneic Auscultation: no crackles, no rales, no rhonchi and no wheezes Cardio Rate: regular rate Rhythm: regular rhythm Heart sounds: no murmurs and normal S1 and S2 GI Palpation (GI): Soft to palpation, nontender, no hepatomegaly and no splenomegaly Auscultation: normal bowel sounds Skin General skin exam: no rashes or lesions noted and dry skin Neuro General: oriented to person, oriented to place and oriented to time Cranial nerves: Yes Equal, round and reactive pupils present Speech: No Abnormal speech present Gait exam (Neuro): Normal gait present Motor exam (neuro): no tremor noted Extrem Right upper extremity: full ROM Left upper extremity: full ROM Right lower extremity: full ROM; no edema Left lower extremity: full ROM; no edema Psych Mental Status: mental status grossly normal Speech and movement: Normal speech and movement present Affect: normal affect Attitude: cooperative Thought process: Normal thought process present Office Procedures Flu Questionnaire Does the patient have a severe egg allergy?: No Does the patient have severe life threatening allergies?: No Does the patient have a fever or illness today?: No Has the patient ever had Guillain-Drummond Syndrome?: No Has the patient ever had any past reaction to a flu shot?: No Results AMB Hemoglobin A1c AMB Hemoglobin A1c 10.3 % Last Edit by MARIO Sherman on 01/06/23 10:18 Immunizations flu vacc [id number] 6mos up(PF) 60 mcg(15 mcgx4)/0.5 mL IM syringe Performing Provider: Alan Nesbitt PA-C Performing Location: [facility] Administered by: MARIO Sherman on 01/06/23 10:18 Dose Route Admin Location Dispensed Lot Number Expiration Date NDC Blindstitch Machine Operator 0.5 mL IM Left Deltoid 0.5 mL [id number] 09/21/23 [id number] [employer] VIS Given Date VIS Provided VIS Publication Date 01/06/23 Single Vaccine 20 Eligibility Eligibility Date Funding Source Not VFC Eligible 01/06/23 Private Results Reviewed Results Reviewed: Laboratory Last Values Hgb A1c (Clinic) 10.3 % (4.0-6.0) H 01/06/23 10:18 Assessment and Plan Assessment & Plan (1) Type 2 diabetes mellitus with diabetic neuropathy, unspecified: Code(s): E11.40 - Type 2 diabetes mellitus with diabetic neuropathy, unspecified Qualifiers: Diabetes mellitus skilled nursing insulin use: with skilled nursing use Qualified Code(s): E11.40 - Type 2 diabetes mellitus with diabetic neuropathy, unspecified; Z79.4 - shelter (current) use of insulin Plan: Patient's type 2 diabetes suboptimally controlled with A1c at 10.3. She reports during her day program she does eat a lot of carbohydrates that is offered to her (bread and rice). Will increase her NovoLog dose from 12 to 15 units before each meal. She is using glucose monitor. She does report having some low sugars throughout the night. Advised to change her Lantus to nighttime administration. Would like to see change management consultant for foot care and nail grooming. Will be follow-up with endocrinology (2) Hypertension: Code(s): I10 - Essential (primary) hypertension Qualifiers: Hypertension type: primary hypertension Qualified Code(s): I10 - Essential (primary) hypertension Plan: Patient blood pressure acceptable today in office. Has been able to manage blood pressure without medication. Goal blood pressure to be below 140/90 (3) Obese: Code(s): E66.9 - Obesity, unspecified Qualifiers: Body mass index: BMI 30.0-30.9 Obesity classification: adult class 1 (BMI 30 - 34.9) Obesity type: due to excess calories Serious obesity comorbidity presence: with serious comorbidity Qualified Code(s): E66.09 - Other obesity due to excess calories; Z68.30 - Body mass index [BMI] 30.0-30.9, adult Plan: Patient does understand her BMI is over 30 will work on being more physically active and adapting to diabetic diet speaks weight. (4) High cholesterol: Code(s): E78.00 - Pure hypercholesterolemia, unspecified Plan: Patient's most recent fasting lipid panel showing acceptable total cholesterol and LDL . Goal LDL is to remain below 100 Orders: Orders AMB Hemoglobin A1c 01/06/23 E11.40 - Type 2 diabetes mellitus with diabetic neuropathy, unspecified, E11.65 - Type 2 diabetes mellitus with hyperglycemia Influenza [id number] Immunization 01/06/23 Z23 - Encounter for immunization Referrals Podiatry Referral E11.40 - Type 2 diabetes mellitus with diabetic neuropathy, unspecified, Z79.4 - shelter (current) use of insulin Medications: Changed From Novolog FlexPen U-100 Insulin (insulin aspart U-100) 12 units (0.12 mL) subcut TID 15 mL 5RF NS E11.40 - Type 2 diabetes mellitus with diabetic neuropathy, unspecified, Z79.4 - terminal operations supervisor (current) use of insulin To Novolog FlexPen U-100 Insulin (insulin aspart U-100) 15 units (0.15 mL) subcut TID 15 mL 5RF NS E11.40 - Type 2 diabetes mellitus with diabetic neuropathy, unspecified, Z79.4 - terminal operations supervisor (current) use of insulin Refilled atorvastatin 20 mg PO BEDTIME 90 days 90 tabs 2RF E78.00 - Pure hypercholesterolemia, unspecified docusate sodium 100 mg PO BID 30 days 60 caps 3RF K59.01 - Slow transit constipation Novolog FlexPen U-100 Insulin (insulin aspart U-100) 12 units (0.12 mL) subcut TID 15 mL 5RF NS empagliflozin (Jardiance) 25 mg PO QAM 90 days 90 tabs 2RF E11.65 - Type 2 diabetes mellitus with hyperglycemia insulin glargine (Lantus Solostar U-100 Insulin) 25 units (0.25 mL) subcut QAM 15 mL 2RF E11.40 - Type 2 diabetes mellitus with diabetic neuropathy, unspecified Coding Level of Care Code Est Pt Level 4 (11524) Diagnoses Type 2 diabetes mellitus with diabetic neuropathy, with long-term current use of insulin E11.40; Z79.4 Diabetes mellitus long term care social worker insulin use: with long term care social worker use Primary hypertension I10 Hypertension type: primary hypertension Class 1 obesity due to excess calories with serious comorbidity and body mass index (BMI) of 30.0 to 30.9 in adult E66.09; Z68.30 Body mass index: BMI 30.0-30.9 Obesity classification: adult class 1 (BMI 30 - 34.9) Obesity type: due to excess calories Serious obesity comorbidity presence: with serious comorbidity High cholesterol E78.00
== END 2023-01-06 10:32 | disposition home or self-care (01) ==
PROVIDERS: PCP Physician Assistant; Visit Provider Physician Assistant
DX: E11.40 Type 2 diabetes mellitus with diabetic neuropathy, unspecified (principal); E11.65 Type 2 diabetes mellitus with hyperglycemia; Z23 Encounter for immunization
CPT/HCPCS: 83036; 90471; 90686; 99214

== ENCOUNTER 2023-01-21 13:30 | Outpatient (AMB) | payer OTHER, SELFPAY ==
[2023-01-21 13:50] VITALS: BMI 30.9
--- NOTE | 2023-01-21 13:50 | A.OFFVIS_ITS ---
Intake VS Expanded 01/21/23 13:50 Height 5 ft 4 in Weight 180 lb 1.883 oz BMI 30.9 Intake Visit Reasons: T2DM Allergies acetaminophen [From Dologesic-DF] Allergy (Verified 01/06/23 10:13) upset stomach dexbrompheniramine [From Dologesic-DF] Allergy (Verified 01/06/23 10:13) upset stomach metformin Adverse Reaction (Verified 01/06/23 10:13) upset stomach HPI Nutrition Presentation Details Pt presents for MNT f/u for T2DM Pt reports having had episodes of increased frequency of pastries related to fam activities and omitting dm meds. Pt reports participating in [facility] prog in [facility], participates from [employer] kfast and lunch there and nurse assist with medication management while at the program. typical meal coffee w diet sugar B: scrambled eggs with urrutia, 2 slice of bread and milk /coffee Lunch: potato salad with chicken and glass of milk Dinner: salad (chicken, lettuce , tomato, vinegar ) or baked potato with ground beef Water fruits 1-2 /d ve serving/ 5 x/wk milk 2-3 serving/d protein 6-10 oz/d starches> 20 serving/d fluids: water, crystal light exercise: treadmill avail at the program, tries to walk 10 min daily Most Recent Diabetes Results: No Data to Display [facility] Medical History (Updated 01/06/23 @ 10:16 by Alan Nesbitt PA-C) COVID-19 Type 2 diabetes mellitus with diabetic neuropathy, unspecified Diabetes type 2, uncontrolled H/O breast lump DMII (diabetes mellitus, type 2) Hypertension High cholesterol Ovarian cyst Diabetes Physical exam Surgical History History of breast biopsy Hx of subtotal mastectomy of right breast (~2007) H/O eye surgery Hx of cholecystectomy History of section Family History Father Prostate cancer Mother Diabetes Brother Diabetes Social History Household Members: Family Housing: House Do you presently have visiting nurse or other home services: No Alcohol intake: never Patient Tobacco Use Status: Never used Tobacco Cigarette Packs Per Day: 0 Cigarettes Per Day: 0 Years Smoked: 0 e-Cigarette/Vaping Use: Never Used Second Hand Smoke Exposure: No service: No Current occupational status: unemployed Cognitive needs: No Hearing needs: No Vision needs: Yes Assessment & Plan Assessment & Plan (1) Diabetes type 2, uncontrolled: Code(s): E11.65 - Type 2 diabetes mellitus with hyperglycemia Qualifiers: Glycemic state: with hyperglycemia Qualified Code(s): E11.65 - Type 2 diabetes mellitus with hyperglycemia Plan: Review modification of simples sugars , snacks Rec: 1400 carlos /day high fiber, low in fat Exercise Recommendation and engaging in physical activity goal 30 minutes daily for overall health est kcal needs: 1400 ( MSJ ) est prot needs: 76 g/day (1 g/kg bw) est fluid needs: 1900 ml/d (25 ml/kg bw) Educate patient on: (R= Reviewed, V = verbalizes understanding N/R= Needs review N/A= not applicable) * food and its relationship to blood sugar and insulin (humalog)- R * Sources of carbohydrates and foods sources without carbohydrates - R * low sugar options for over the counter medications and always confirm with pharmacist: R * Healthy Plate method concept: R V Patient Instructions: Escoja theo fruta y theo racion de proteina en vez de reposteria - bernardo la lista de opciones Mantenganse en movimiento, camine 15-20 minutes diario Coja todos cathy medicamentos nae los receto hammond medico HAve a fruit in place of pastries or have a lean protein Keep physically active as able, walking 15-20 minutes daily take all medications as prescribed by your doctor Coding Level of Care Code Nutr Indiv Subseq (41476) Diagnoses Uncontrolled type 2 diabetes mellitus with hyperglycemia E11.65 Glycemic state: with hyperglycemia Time Spent (min) 30
== END 2023-01-21 14:07 | disposition home or self-care (01) ==
PROVIDERS: PCP Physician Assistant; Visit Provider Dietitian, Registered
DX: E11.65 Type 2 diabetes mellitus with hyperglycemia (principal)

== ENCOUNTER → 2023-01-21 13:30 | Outpatient (BNVA) | payer OTHER, SELFPAY | PROVIDERS: PCP Physician Assistant; Visit Provider Dietitian, Registered | DX: E11.65 Type 2 diabetes mellitus with hyperglycemia (principal) | CPT/HCPCS: 97803 ==

== ENCOUNTER 2023-01-22 14:05 | Outpatient (REF) | payer OTHER, SELFPAY ==
--- NOTE | ~2023-01-22 | MM_ITS ---
EXAMINATION: MM DIAGNOSTIC DIGITAL MAMMOGRAPHY, LEFT CLINICAL INFORMATION: 6 month follow-up status post benign biopsy for calcifications in the 12:00 axis left breast. Pathology demonstrated fibroadenomatous change with calcifications and focal usual ductal hyperplasia. No evidence of malignancy or atypia. COMPARISON: Mammography: Stereotactic biopsy 07/11/2022. Left mammography 06/26/2022, 12/25/2021, 06/26/2021, and 05/29/2021. TECHNIQUE: Digital left mammography is performed in craniocaudal and mediolateral oblique views along with computer-aided detection (CAD). FINDINGS: There are scattered areas of fibroglandular density (ACR BI-RADS breast composition Category b). All the previously seen calcifications at the 12:00 axis have been removed. There are no persisting calcifications. There is a small 1.0 cm hematoma which appears to be resolving at the biopsy site. Of note, the biopsy clip appears position 7 cm below and 2 cm anteromedial biopsy site. There are no suspicious masses, new suspicious grouped calcifications, or areas of architectural distortion in the left breast. The parenchymal pattern is stable from prior exams. MM/MM diagnostic mammo unilat LT IMPRESSION: 1. 1.0 cm resolving hematoma at the biopsy site 12:00 left breast. Because of this, recommend six-month interval follow-up diagnostic left breast mammography to include standard views, in order to assess for resolution. 2. No residual calcifications present. 3. No findings suspicious for malignancy left breast. ASSESSMENT: BI-RADS BI-RADS 1 - Negative RECOMMENDATION: 1 year F/U This patient's information was entered into a reminder system with a target due date for their next mammogram.
== END 2023-01-22 14:06 | disposition home or self-care (01) ==
LOC: HO.MAMMO 14:05
PROVIDERS: PCP Physician Assistant; Visit Provider Surgery
DX: R92.0 Mammographic microcalcification found on diagnostic imaging of breast (principal)
CPT/HCPCS: 77062; 77065

== ENCOUNTER → 2023-01-22 14:30 | Outpatient (BNV) | payer OTHER, SELFPAY | PROVIDERS: PCP Physician Assistant; Visit Provider Radiology Diagnostic Radiology | DX: S20.01XA Contusion of right breast, initial encounter (principal) | CPT/HCPCS: 77065 ==

== ENCOUNTER 2023-02-04 12:16 | Outpatient (AMB) | payer OTHER, SELFPAY ==
--- NOTE | 2023-02-04 13:10 | MHC.AMDMED ---
Intake Intake Visit Reasons: DM2 f/u Computer Network And Systems Engineer Required: Yes Computer Network And Systems Engineer Language: Financial Operations Clerk Name: Elkin [id number] Information Interpreted: non-clinical & clinical Accompanied by: Self / Same As Patient Allergies acetaminophen [From Dologesic-DF] Allergy (Verified 01/06/23 10:13) upset stomach dexbrompheniramine [From Dologesic-DF] Allergy (Verified 01/06/23 10:13) upset stomach metformin Adverse Reaction (Verified 01/06/23 10:13) upset stomach HPI Comprehensive Diabetes Asmnt Most Recent Diabetes Results: Microalb/Creat Ratio 8.8 ug/mg cr 06/06/22 Cholesterol 139 mg/dL 06/06/22 HDL Cholesterol 40 mg/dL 06/06/22 Triglycerides 121 mg/dL 06/06/22 Creatinine 0.70 mg/dL (0.5-1.4) 06/06/22 Blood Urea Nitrogen 10 mg/dL (9-16) 06/06/22 Sodium 140 mmol/L (135-145) 06/06/22 Potassium 4.7 mmol/L (3.3-5.1) 06/06/22 Chloride 104 mmol/L (96-108) 06/06/22 Carbon Dioxide 29 mmol/L (22-29) 06/06/22 Calcium 9.5 mg/dL (8.4-10.2) 06/06/22 AST 13 U/L (5-31) 06/06/22 ALT 16 U/L (0-31) 06/06/22 Total Protein 6.5 g/dL (6.5-8.0) 06/06/22 Albumin 4.0 g/dL (3.5-5.0) 06/06/22 [facility] Medical History (Updated 01/06/23 @ 10:16 by Alan Nesbitt PA-C) COVID-19 Type 2 diabetes mellitus with diabetic neuropathy, unspecified Diabetes type 2, uncontrolled H/O breast lump DMII (diabetes mellitus, type 2) Hypertension High cholesterol Ovarian cyst Diabetes Physical exam Surgical History History of breast biopsy Hx of subtotal mastectomy of right breast (~2007) H/O eye surgery Hx of cholecystectomy History of section Family History Father Prostate cancer Mother Diabetes Brother Diabetes Social History Household Members: Family Housing: House Do you presently have visiting nurse or other home services: No Alcohol intake: never Patient Tobacco Use Status: Never used Tobacco Cigarette Packs Per Day: 0 Cigarettes Per Day: 0 Years Smoked: 0 e-Cigarette/Vaping Use: Never Used Second Hand Smoke Exposure: No service: No Current occupational status: unemployed Cognitive needs: No Hearing needs: No Vision needs: Yes Assessment & Plan Assessment & Plan (1) Type 2 diabetes mellitus with diabetic neuropathy, unspecified: Code(s): E11.40 - Type 2 diabetes mellitus with diabetic neuropathy, unspecified Qualifiers: Diabetes mellitus shelter insulin use: with shelter use Qualified Code(s): E11.40 - Type 2 diabetes mellitus with diabetic neuropathy, unspecified; Z79.4 - termite technician (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 0% Hyperglycemia:? 95% Time in Range:? 5% Average glucose for the last 2 weeks? 295 mg/dL Patient's last A1c done at PCP office in December 2022 10.3% That visit PCP increase NovoLog to 15 units prior to meals Patient is currently taking Lantus 25 daily, recommended to patient to increase to 20 units daily Message sent to Dr. Enamorado to either increase dose Trulicity from 3 mg weekly to 4.5 mg, patient has appointment with coming up on 02/17 consider using Jocelyn Clinical evidence of hypoglycemia on Dexcom G7 download, patient mentioned she had 1 low blood glucose of 47 mg/dL Reviewed with patient how to treat hypoglycemia with rule of 15s Hypoglycemic handout given to patient in Telugu Reviewed how to interpret trend arrows Reminded patient that to check finger sticks if symptoms do not match sensor reading. Discussed lag time between finger stick and sensor data.? Patient able to insert sensor with assistance from nurse at her day program .? Patient Instructions: Incrementar Lantus de 25 unidades a 28 unidades. Seguimiento con enfermera de educaci?n en diabetes en 2 meses. Coding Level of Care Code Est Pt Level 1 (11521) Diagnoses Type 2 diabetes mellitus with diabetic neuropathy, with long-term current use of insulin E11.40; Z79.4 Diabetes mellitus shelter insulin use: with shelter use
== END 2023-02-04 13:17 | disposition home or self-care (01) ==
LOC: HO.ENCR 12:16
PROVIDERS: PCP Physician Assistant; Visit Provider Registered Nurse Diabetes Educator
DX: E11.40 Type 2 diabetes mellitus with diabetic neuropathy, unspecified (principal); Z79.4 Long term (current) use of insulin

== ENCOUNTER → 2023-02-04 12:16 | Outpatient (BNVA) | payer OTHER, SELFPAY | PROVIDERS: PCP Physician Assistant; Visit Provider Registered Nurse Diabetes Educator | DX: E11.40 Type 2 diabetes mellitus with diabetic neuropathy, unspecified (principal); Z79.4 Long term (current) use of insulin | CPT/HCPCS: 99211 ==

== ENCOUNTER 2023-02-17 11:11 | Outpatient (AMB) | payer OTHER, SELFPAY ==
[2023-02-17 11:20] VITALS: BP 123/64; PULSE 100; BMI 30.2
--- NOTE | 2023-02-17 11:20 | MHC.OFFVIS ---
Intake Vital Signs 02/17/23 11:20 Height 5 ft 4 in Weight 176 lb BMI 30.2 BP 123/64 Blood Pressure Location Rt brachial Position Sitting Pulse 100 Intake Visit Reasons: F/u after mammogram Intake Note: Patient here f/u after mammo on 01-22-23. Patient reports no breast changes. Denies nipple discharge. Health And Nutrition Specialist Required: No Accompanied by: Self / Same As Patient Allergies acetaminophen [From Dologesic-DF] Allergy (Verified 02/17/23 11:21) upset stomach dexbrompheniramine [From Dologesic-DF] Allergy (Verified 02/17/23 11:21) upset stomach metformin Adverse Reaction (Verified 02/17/23 11:21) upset stomach HPI HPI Comments History of Present Illness Details Patient presents for follow-up status post left stereotactic biopsy 6 months ago. Postprocedure biopsy demonstrates resolving hematoma but no other acute pathology. Patient has no breast issues or complaints. She is status post right modified radical mastectomy. [facility] Medical History COVID-19 Type 2 diabetes mellitus with diabetic neuropathy, unspecified Diabetes type 2, uncontrolled H/O breast lump DMII (diabetes mellitus, type 2) Hypertension High cholesterol Ovarian cyst Diabetes Physical exam Surgical History History of breast biopsy Hx of subtotal mastectomy of right breast (~2007) H/O eye surgery Hx of cholecystectomy History of section Family History Father Prostate cancer Mother Diabetes Brother Diabetes Household Members: Family Housing: House Do you presently have visiting nurse or other home services: No Alcohol intake: never Patient Tobacco Use Status: Never used Tobacco Cigarette Packs Per Day: 0 Cigarettes Per Day: 0 Years Smoked: 0 e-Cigarette/Vaping Use: Never Used Second Hand Smoke Exposure: No service: No Current occupational status: unemployed Cognitive needs: No Hearing needs: No Vision needs: Yes Physical Exam Vital Signs: Last Vital Signs Pulse 100 02/17/23 11:20 BP 123/64 02/17/23 11:20 BMI result Body Mass Index 30.2 Chest Other: Right modified radical mastectomy scar well healed. No periclavicular axillary adenopathy. Left breast demonstrates no obvious mass , discharge , adenopathy or skin changes. Assessment & Plan Assessment & Plan (1) Abnormal finding on mammography, microcalcification: Comment: Patient is scheduled for stereotactic left breast biopsy today. She will see me in few days time for follow-up regarding results. All questions were answered. Entire interview and exam was in the presence of my biomedical engineering aide will also served as an certified nurse aide. Code(s): R92.0 - Mammographic microcalcification found on diagnostic imaging of breast Plan: Recent mammogram recommendation is for six-month follow-up left mammogram. Patient will see me after the study. She is encouraged to self breast exam during the interim. All questions answered. Orders: Orders MM diagnostic mammo unilat LT 6 Months R92.0 - Mammographic microcalcification found on diagnostic imaging of breast Coding Level of Care Code Est Pt Level 4 (48369) Diagnoses Abnormal finding on mammography, microcalcification R92.0
== END 2023-02-17 11:30 | disposition home or self-care (01) ==
PROVIDERS: PCP Physician Assistant; Visit Provider Surgery
DX: R92.0 Mammographic microcalcification found on diagnostic imaging of breast (principal)
CPT/HCPCS: 99214

== ENCOUNTER → 2023-02-17 11:11 | Outpatient (BNVA) | payer OTHER, SELFPAY | PROVIDERS: PCP Physician Assistant; Visit Provider Surgery | DX: E11.65 Type 2 diabetes mellitus with hyperglycemia (principal); E11.40 Type 2 diabetes mellitus with diabetic neuropathy, unspecified; Z79.4 Long term (current) use of insulin; Z79.85 Long-term (current) use of injectable non-insulin antidiabetic drugs; R92.0 Mammographic microcalcification found on diagnostic imaging of breast; Z90.11 Acquired absence of right breast and nipple | CPT/HCPCS: 82947; 99212 ==

== ENCOUNTER 2023-02-17 13:36 | Outpatient (AMB) | payer OTHER, SELFPAY ==
--- NOTE | 2023-02-17 13:36 | MHC.OFFVIS ---
Intake Vital Signs 02/17/23 13:39 Height 5 ft 4 in Weight 180 lb 5.41 oz BMI 31.0 BP 124/72 Blood Pressure Location Lt radial Position Sitting Pulse 93 Pulse Source Pulse Oximeter Intake Visit Reasons: DM2 Intake Note: Patient present today to follow up on Type 2 Diabetes Mellitus. Last Diabetic Eye exam: Unsure when last appointment was, Has upcoming appt on May 2023 Last Podiatry Visit: Has upcoming appt on 03/04/23. Random Glucose: 235 mg/dl HgA1C: 10.3% 01/06/23 Professor Of Biology Required: Yes Professor Of Biology Language: Noodle Maker Name: Jacquelyn, Medical Staff CMI Information Interpreted: non-clinical & clinical Accompanied by: Self / Same As Patient Allergies acetaminophen [From Dologesic-DF] Allergy (Verified 02/17/23 13:40) upset stomach dexbrompheniramine [From Dologesic-DF] Allergy (Verified 02/17/23 13:40) upset stomach metformin Adverse Reaction (Verified 02/17/23 13:40) upset stomach Medication List - Last Reconciled 02/17/23 by Darrell Enamorado MD albuterol sulfate 2.5 mg (3 mL) inhalation Q6H PRN 30 days albuterol sulfate 90 mcg/actuation 1 inh inhalation QID PRN 30 days atorvastatin 20 mg PO BEDTIME 90 days blood sugar diagnostic As directed blood sugar diagnostic (OneTouch Ultra Test strips) Testing 4 times a day blood-glucose meter (OneTouch Ultra2 Meter) Testing 4 times a day cyclobenzaprine 5 mg PO DAILY 10 days [Diabetic shoes & 3 pair inserts as directed] docusate sodium 100 mg PO BID 30 days dulaglutide (Trulicity) 3 mg (0.5 mL) subcut QWEEK 28 days empagliflozin (Jardiance) 25 mg PO QAM 90 days flash glucose scanning reader (FreeStyle Ashley 2 [place]) As directed flash glucose sensor (FreeStyle Ashley 2 Sensor kit) As directed change every 14 days insulin glargine (Lantus Solostar U-100 Insulin) 28 units subcut QAM lancets Testing 4 times a day meloxicam 15 mg PO DAILY 30 days nebulizers (VixOne Nebulizer-Adult Mask) As directed nebulizers As directed Novolog FlexPen U-100 Insulin (insulin aspart U-100) 15 units (0.15 mL) subcut TID NS pen needle, diabetic (Comfort EZ Pen [place]) As directed pen needle, diabetic (BD Ultra-Fine Carmen Pen Needle) As directed pen needle, diabetic (AboutTime Pen Needle) Daily HPI HPI Comments History of Present Illness Details Patient is a 57 year old female with DM type 2 diagnosed around the year 1999, who presents for management of diabetes. Past medical history: DM2, HLD Micro and macrovascular complications: + neuropathy, CVA, CAD, PVD Diabetes medications: Lantus 28 units, Trulicity 4.5 mg mg/dl. Jardiance 25mg Humalog S/S Humalog S/S 70-130-? take 0 units 131-180- take 2 units 181-240- 4 units ?241-300- 6 units 301- 350= 8 units 351-400- 10 units >400=- 12 units call MD Blood glucose monitoring: Dexcom download shows a sensors be 93% of the time. Average glucose is 311 with standard deviation 65. 2% range with 98 % hypoglycemia and no hypoglycemia. Pattern shows persistent hyperglycemia throughout the day with increase after breakfast Symptoms reported: + numbness, tingling, cramping in lower extremities Hypoglycemia: very rare Hyperglycemia: denies urinary frequency, +nocturia 4x/night , polydypsia Ophthalmology exam: has appt May 2023 Laboratory Tests 04/18/21 11:28 Hgb A1c (Clinic) 10.4 H PFSH Medical History COVID-19 Type 2 diabetes mellitus with diabetic neuropathy, unspecified Diabetes type 2, uncontrolled H/O breast lump DMII (diabetes mellitus, type 2) Hypertension High cholesterol Ovarian cyst Diabetes Physical exam Surgical History History of breast biopsy Hx of subtotal mastectomy of right breast (~2007) H/O eye surgery Hx of cholecystectomy History of section Family History Father Prostate cancer Mother Diabetes Brother Diabetes Household Members: Family Housing: House Do you presently have visiting nurse or other home services: No Alcohol intake: never Patient Tobacco Use Status: Never used Tobacco Cigarette Packs Per Day: 0 Cigarettes Per Day: 0 Years Smoked: 0 e-Cigarette/Vaping Use: Never Used Second Hand Smoke Exposure: No service: No Current occupational status: unemployed Cognitive needs: No Hearing needs: No Vision needs: Yes Physical Exam Vital Signs: Last Vital Signs Pulse 93 02/17/23 13:39 BP 124/72 02/17/23 13:39 BMI result Body Mass Index 31.0 Absence of Cushingoid features. Absence of acromegalic features. Neck exam reveals nl size thyroid about 15 gms. No thyroid nodules palpable. No carotid bruits present. Lungs CTA. Heart S1 S2, Reg R/R. No M/R/ G. Skin exam reveals absence of vitiligo or acanthosis nigricans. Abdominal exam reveals Soft NT/ND with NA BS. No organomegaly present. Neck Other: . Extrem Other: Visual exam of foot performed. No ulcerations or open lesions. No onchomycosis, no callouses.Pulses 2 + distally Sensation intact to monofilament exam. Vibratory sensation sensed is decreased with 128 Hz tuning fork Results Reviewed Results Reviewed: Laboratory Last Values Glucose (Clinic) 235 mg/dL (60-115) H 02/17/23 13:46 Assessment & Plan Assessment & Plan (1) Type 2 diabetes mellitus with diabetic neuropathy, unspecified: Code(s): E11.40 - Type 2 diabetes mellitus with diabetic neuropathy, unspecified Qualifiers: Diabetes mellitus senior living insulin use: with terminal make up operator use Qualified Code(s): E11.40 - Type 2 diabetes mellitus with diabetic neuropathy, unspecified; Z79.4 - ocean transportation intermediary (current) use of insulin Plan: This 57-year-old female with history of type 2 diabetes being treated with Trulicity, Jardiance and basal-bolus insulin with poor glycemic control and known microvascular and macrovascular complications namely + neuropathy, CVA, CAD, PVD. The plan is to increase the Lantus to 40 units. Will switch Trulicity to Ozempic and if not tolerated then mounjaro . Went over side effects of Ozempic and Mounjaro including but not limited to nausea, vomiting risk of pancreatitis Mounjaro 2.5 mg samples given the patient lot number [id number] expiration date 07/28/2024 Medications: New semaglutide (Ozempic) for 4 weeks 0.25 mg (0.368 mL) subcut QWEEK 3 mL 0RF Discontinued dulaglutide (Trulicity) Can be given by Nurse/ staff at [facility] staff Discontinued Reason: Doctor's Order 3 mg (0.5 mL) subcut QWEEK 28 days 2 mL 4RF E11.40 - Type 2 diabetes mellitus with diabetic neuropathy, unspecified, Z79.4 - ocean transportation intermediary (current) use of insulin Coding Level of Care Code Est Pt Level 4 (87667) Diagnoses Type 2 diabetes mellitus with diabetic neuropathy, with long-term current use of insulin E11.40; Z79.4 Diabetes mellitus terminal make up operator insulin use: with senior living use
[2023-02-17 13:39] VITALS: BP 124/72; PULSE 93; BMI 31.0
[2023-02-17 13:56] LABS: Glucose, Whole Blood 235 mg/dL (60-115)
== END 2023-02-17 14:08 | disposition home or self-care (01) ==
PROVIDERS: PCP Physician Assistant; Visit Provider Internal Medicine Endocrinology, Diabetes & Metabolism
DX: E11.40 Type 2 diabetes mellitus with diabetic neuropathy, unspecified (principal); Z79.4 Long term (current) use of insulin
CPT/HCPCS: 99214

== ENCOUNTER 2023-03-23 01:52 | Emergency (ER) | payer OTHER, SELFPAY ==
[2023-03-23 02:00] VITALS: BP 152/60; PULSE 112; O2SAT 96
[2023-03-23 02:09] LABS: Glucose, Whole Blood 67 mg/dL (60-115)
[2023-03-23 02:10] VITALS: BP 128/60; PULSE 106; RESP 16; TEMP 36.7; O2SAT 94; BMI 41.5
[2023-03-23 03:52] VITALS: BP 122/62; PULSE 96; RESP 18; TEMP 36.7; O2SAT 95
[2023-03-23 03:59] LABS: Glucose, Whole Blood 83 mg/dL (60-115)
--- NOTE | 2023-03-23 04:06 | ECG_ITS ---
Test Reason : PALPITATIONS Blood Pressure : / mmHG Vent. Rate : 090 BPM Atrial Rate : 090 BPM P-R Int : 144 ms QRS Dur : 070 ms QT Int : 382 ms P-R-T Axes : 040 006 003 degrees QTc Int : 467 ms Normal sinus rhythm Normal ECG No previous ECGs available Referred By: Generic ED Physician Electronically Signed By:WILSON TESFAYE
[2023-03-23 04:33] LABS: Basophils Absolute Auto 0.1 X10*3/uL (0.0-0.2); Basophils Percent Auto 0.5 % (0-2); Eosinophils Absolute Auto 0.1 X10*3/uL (0.0-0.4); Eosinophils Percent Auto 0.6 % (0-4); Hematocrit 38.8 % (37.0-47.0); Hemoglobin 12.7 g/dl (12.0-16.0); Imm Gran Abs Auto 0.08 X10*3/uL (0.00-0.03); Imm Gran Pct Auto 0.5 % (0.0-0.4); Lymphocytes Percent Auto 11.2 % (20-40); MANUAL DIFF FLAG NO; Mean Corpuscular HGB Conc 32.7 g/dl (31.0-35.0); Mean Corpuscular Hemoglobin 26.5 pg (27.0-33.0); Mean Platelet Volume 10.5 fL (9.4-12.3); Monocytes Absolute Auto 1.1 X10*3/uL (0.1-1.2); Monocytes Percent Auto 6.3 % (2-11); Neutrophils Absolute Auto 14.4 x10*3/uL (2.0-8.3); Neutrophils Percent Auto 80.9 % (45-73); Platelet Count 248 X10*3/uL (160-400); Red Blood Count 4.79 X10*6/uL (4.20-5.50); Red Cell Distribution Width 14.2 % (11.0-16.0); White Blood Count 17.7 X10*3/uL (4.8-10.8)
--- NOTE | 2023-03-23 06:43 | ED.GENADULT ---
HPI - General Adult General Chief complaint: General Medical Stated complaint: LOW BLOOD SUGAR Time Seen by Provider: 03/23/23 06:40 Source: patient, EMS, RN notes reviewed and aba tutor Mode of arrival: EMS Limitations: no limitations History of Present Illness HPI narrative: 57 year old Malay speaking female with pmhx significant for asthma, T2DM, neuropathy, HTN, HDL presents to the ED today via EMS from home for evaluation of hypoglycemia. Patient reports being woken up by her glucose monitor at 0100 this morning and noted it read a glucose 47. She was unable to increase her sugar at home, prompting her to call EMS. On arrival, she reports slight chest pain with palpitations. EMS reported a sugar of 72 and was given aspirin enroute which resolved her pain. POC on arrival 67. Denies fever, chills, headache, dizziness, SOB, abd pain, n/v, diarrhea. Related Data Home Medications Medication Instructions Recorded Confirmed pen needle, diabetic 32 gauge x #50 ea 05/22/20 01/06/23 (Comfort EZ Pen [place]) insulin glargine 100 unit/mL (3 28 unit subcut QAM 02/17/23 mL) subcutaneous pen (Lantus Solostar U-100 Insulin) Previous Rx's Medication Instructions Recorded blood sugar diagnostic #50 ea 05/22/20 Diabetic shoes & 3 pair inserts #1 ea 01/11/21 nebulizers (VixOne Nebulizer-Adult #1 ea 04/05/21 Mask) albuterol sulfate 2.5 mg/3 mL 2.5 mg (3 mL) inhalation Q6H PRN 04/18/21 (0.083 %) solution for nebulization shortness of breath or wheezing 30 days #180 mL nebulizers #1 ea 04/18/21 blood-glucose meter (OneTouch #1 ea 07/01/22 Ultra2 Meter) flash glucose scanning reader #1 ea 08/06/22 (FreeStyle Ashley 2 [place]) flash glucose sensor (FreeStyle #2 ea 08/06/22 Ashley 2 Sensor kit) cyclobenzaprine 5 mg tablet 5 mg PO DAILY 10 days #10 tabs 09/11/22 lancets #200 ea 09/11/22 meloxicam 15 mg tablet 15 mg PO DAILY 30 days #30 tabs 09/11/22 pen needle, diabetic 32 gauge x #50 ea 09/11/22 (AboutTime Pen Needle) pen needle, diabetic 32 gauge x #100 ea 09/11/22 (BD Ultra-Fine Carmen Pen Needle) albuterol sulfate 90 mcg/actuation 1 inh inhalation QID PRN shortness 01/01/23 aerosol inhaler of breath or wheezing 30 days #8.5 grams blood sugar diagnostic (OneTouch #100 ea 01/01/23 Ultra Test strips) Novolog FlexPen U-100 Insulin 100 15 unit (0.15 mL) subcut TID #15 mL 01/06/23 unit/mL (3 mL) subcutaneous (insulin aspart U-100) atorvastatin 20 mg tablet 20 mg PO BEDTIME 90 days #90 tabs 01/06/23 docusate sodium 100 mg capsule 100 mg PO BID 30 days #60 caps 01/06/23 empagliflozin 25 mg tablet 25 mg PO QAM 90 days #90 tabs 01/06/23 (Jardiance) tirzepatide 2.5 mg/0.5 mL 2.5 mg (0.5 mL) subcut QWEEK 4 03/19/23 subcutaneous pen injector weeks #2 mL (Mountejinderro) Allergies Allergy/AdvReac Type Severity Reaction Status Date / Time acetaminophen Allergy upset Verified 02/17/23 13:40 [From Dologesic-DF] stomach dexbrompheniramine Allergy upset Verified 02/17/23 13:40 [From Dologesic-DF] stomach metformin AdvReac upset Verified 02/17/23 13:40 stomach Review of Systems Review of Systems: Constitutional: No fever, chills, fatigue, night sweats, weight changes ENT/Mouth: No ear pain, hearing loss, nasal congestion, sinus pain, rhinorrhea, sore throat Eyes: No eye pain, swelling, redness, vision changes, discharge Cardio: No chest pain, palpitations, OLSON, orthopnea, peripheral edema Pulm: No SOB, cough, sputum, wheezing, dyspnea, hemoptysis GI: No nausea, vomiting, hematemesis, abdominal pain, diarrhea, constipation, hematochezia, melena : No irregular bleeding, dysuria, frequency, urgency, hesitancy, hematuria, flank pain, urinary flow changes, urinary incontinence or retention MSK: No back pain, neck pain, joint pain, myalgias Skin: No lesions, rashes Neuro: No weakness, numbness, paresthesias, LOC, dizziness, headache All other systems reviewed and are negative. [facility] Past Medical History Attestation statement: The following information was validated with the patient. Source: old records reviewed and nursing notes reviewed Medical History COVID-19 Type 2 diabetes mellitus with diabetic neuropathy, unspecified Diabetes type 2, uncontrolled H/O breast lump DMII (diabetes mellitus, type 2) Hypertension High cholesterol Ovarian cyst Diabetes Physical exam Surgical History History of breast biopsy Hx of subtotal mastectomy of right breast (~2007) H/O eye surgery Hx of cholecystectomy History of section Family History Family History Father Prostate cancer Mother Diabetes Brother Diabetes Social History Social History Household Members: Family Housing: House Do you presently have visiting nurse or other home services: No Alcohol intake: never Patient Tobacco Use Status: Never used Tobacco Cigarette Packs Per Day: 0 Cigarettes Per Day: 0 Years Smoked: 0 e-Cigarette/Vaping Use: Never Used Second Hand Smoke Exposure: No Advance Directives: No Advance Directives Information Provided: No service: No Current occupational status: unemployed Cognitive needs: No Hearing needs: No Vision needs: Yes Physical Exam ED Vital Signs: Vital Signs - 24 hr 03/23/23 02:10 03/23/23 03:52 03/23/23 12:03 Temperature 98.0 F 98.0 F 97.7 F Pulse Rate 106 H 96 92 Respiratory Rate 16 18 16 Blood Pressure 128/60 122/62 124/64 Pulse Oximetry 94 95 97 Oxygen Delivery Method Room Air Room Air Room Air BMI result Body Mass Index 41.5 Patient initially tachycardic to 106, now vitals are within normal limits. Const General: cooperative, comfortable, no acute distress, alert and awake Orientation/consciousness: patient oriented x3 Limitations: no limitations HENMT Head: Yes normal to inspection Eyes General: appearance normal, both eyes and all related structures Conjunctivae: conjunctivae normal Sclerae: sclerae normal Pupils: Equal, round and reactive pupils present Neck Neck: Yes normal visual inspection Resp Effort & Inspection: normal respiratory effort, able to speak in complete sentences, no respiratory distress and no use of accessory muscles Auscultation: clear to auscultation bilaterally and no wheezes Cardio Rate: regular rate Rhythm: regular rhythm Heart sounds: S1 normal heart sound present Peripheral pulses: radial pulses present GI Inspection: Yes normal to inspection Palpation (GI): Soft to palpation, nontender and no guarding Skin General skin exam: no rashes or lesions noted Neuro General: patient oriented x3, gait normal and moves all extremities Cranial nerves: Yes Equal, round and reactive pupils present Extrem General: Yes normal to inspection Course Course Course Narrative: 0825- patient with leukocytosis to 17.7 with left shift. Initial POC on arrival 67. Repeat 83. POC at present 135 > no longer hypoglycemic. EKG showing normal sinus rhythm at a rate of 90 beats per minute, QT 382, QTC 467, no acute ischemic changes or ST elevations. chemistry without acute electrolyte abnormality requiring intervention. troponin 5.4 > will repeat. > on my initial exam, patient is denying complaints at present. She states she is feeling much better and her chest pain and palpitations have resolved. 1040-- Patient signed out to my colleague LYUBOV Royal pending second troponin and disposition. Patient stable at the end of my shift. Reevaluation(s) Reevaluation #1: Troponin negative x2, EKG nonischemic unlikely ACS. UA without infection. Educated patient on diagnosis and treatment plan, answered all question, patient verbalizes understanding. At this time patient will be discharged home, advised to return with new or worsening symptoms. Educated on worrisome signs and symptoms and when to return. At this time I feel comfortable discharge home. Time: 12:26 Medical Decision Making Medical Decision Making MDM Narrative: 57 year old female with pmhx significant for asthma, T2DM, neuropathy, HTN, HDL presents to the ED today via EMS from home for evaluation of hypoglycemia. Patient initially tachycardic to 106. Vital signs now WNL. Patient is nontoxic appearing and in NAD. Lying comfortably in bed. RRR. Lungs CTA b/l. Abd soft, ND/NT, no rebound or guarding. Clinical concern for hypoglycemia, electrolyte abnormality, anemia. Unlikely pneumonia, UTI, viral syndrome. Plan for EKG, labs, UA, and repeat POC. Differential Diagnosis Differential Diagnoses: The differential diagnosis associated with the presentation includes as above. Admission/Observation Consideration of admission/observation: Escalation of care including admission/observation considered In this patient with T2DM and hypoglycemia, admission was considered. Lab Data MDM Lab Attestation statement: I reviewed the patient's lab results. as above. 03/23/23 04:29 03/23/23 07:26 Labs: Lab Results 03/23/23 03/23/23 03/23/23 Range/Units 02:06 03:51 04:29 WBC 17.7 H (4.8-10.8) X10*3/uL RBC 4.79 (4.20-5.50) X10*6/uL Hgb 12.7 (12.0-16.0) g/dl Hct 38.8 (37.0-47.0) % MCV 81.0 (80.0-98.0) fL MCH 26.5 L (27.0-33.0) pg MCHC 32.7 (31.0-35.0) g/dl RDW 14.2 (11.0-16.0) % Plt Count 248 (160-400) X10*3/uL MPV 10.5 (9.4-12.3) fL Immature Gran % (Auto) 0.5 H (0.0-0.4) % Neut % (Auto) 80.9 H (45-73) % Lymph % (Auto) 11.2 L (20-40) % Carson % (Auto) 6.3 (2-11) % Eos % (Auto) 0.6 (0-4) % Baso % (Auto) 0.5 (0-2) % Lymph # (Auto) 2.0 (1.2-4.9) X10*3/uL Carson # (Auto) 1.1 (0.1-1.2) X10*3/uL Eos # (Auto) 0.1 (0.0-0.4) X10*3/uL Baso # (Auto) 0.1 (0.0-0.2) X10*3/uL Abs Immat Gran (auto) 0.08 H (0.00-0.03) X10*3/uL Absolute Neuts (auto) 14.4 H (2.0-8.3) x10*3/uL Absolute Nucleated RBC 0.000 (0.0-0.012) X10*3/uL Nucleated RBC % (auto) 0.0 (0.0-0.2) /100WBC Sodium (135-145) mmol/L Potassium (3.3-5.1) mmol/L Chloride (96-108) mmol/L Carbon Dioxide (22-29) mmol/L Anion Gap (12-20) BUN (9-16) mg/dL Creatinine (0.5-1.4) mg/dL Estim Creat Clear Calc Estimated GFR POC Glucose 67 83 (60-115) mg/dL Random Glucose (60-115) mg/dL Calcium (8.4-10.2) mg/dL Troponin I High Sens (<3.5-17.0) ng/L Urine Color Urine Appearance Urine pH (5.0-9.0) Ur Specific [place] (1.005-1.025) Urine Protein (Neg-Trace) mg/dL Urine Glucose (UA) (Negative) mg/dL Urine Ketones (Negative) mg/dL Urine Blood (Negative) Urine Nitrite (Negative) Ur Leukocyte Esterase (Negative) Urine RBC (0-2) /HPF Urine WBC (0-5) /HPF Ur Squamous Epith Cells (0-2) /HPF Urine Bacteria (None Seen) Hyaline Casts (0-2) /LPF 03/23/23 03/23/23 03/23/23 Range/Units 07:11 07:26 10:15 WBC (4.8-10.8) X10*3/uL RBC (4.20-5.50) X10*6/uL Hgb (12.0-16.0) g/dl Hct (37.0-47.0) % MCV (80.0-98.0) fL MCH (27.0-33.0) pg MCHC (31.0-35.0) g/dl RDW (11.0-16.0) % Plt Count (160-400) X10*3/uL MPV (9.4-12.3) fL Immature Gran % (Auto) (0.0-0.4) % Neut % (Auto) (45-73) % Lymph % (Auto) (20-40) % Carson % (Auto) (2-11) % Eos % (Auto) (0-4) % Baso % (Auto) (0-2) % Lymph # (Auto) (1.2-4.9) X10*3/uL Carson # (Auto) (0.1-1.2) X10*3/uL Eos # (Auto) (0.0-0.4) X10*3/uL Baso # (Auto) (0.0-0.2) X10*3/uL Abs Immat Gran (auto) (0.00-0.03) X10*3/uL Absolute Neuts (auto) (2.0-8.3) x10*3/uL Absolute Nucleated RBC (0.0-0.012) X10*3/uL Nucleated RBC % (auto) (0.0-0.2) /100WBC Sodium 137 (135-145) mmol/L Potassium 3.7 D (3.3-5.1) mmol/L Chloride 107 (96-108) mmol/L Carbon Dioxide 21 L (22-29) mmol/L Anion Gap 13 (12-20) BUN 12 (9-16) mg/dL Creatinine 0.54 (0.5-1.4) mg/dL Estim Creat Clear Calc 152.7 Estimated GFR > 60 POC Glucose 135 H (60-115) mg/dL Random Glucose 151 H (60-115) mg/dL Calcium 8.9 D (8.4-10.2) mg/dL Troponin I High Sens 5.4 5.2 (<3.5-17.0) ng/L Urine Color Urine Appearance Urine pH (5.0-9.0) Ur Specific [place] (1.005-1.025) Urine Protein (Neg-Trace) mg/dL Urine Glucose (UA) (Negative) mg/dL Urine Ketones (Negative) mg/dL Urine Blood (Negative) Urine Nitrite (Negative) Ur Leukocyte Esterase (Negative) Urine RBC (0-2) /HPF Urine WBC (0-5) /HPF Ur Squamous Epith Cells (0-2) /HPF Urine Bacteria (None Seen) Hyaline Casts (0-2) /LPF 03/23/ Range/Units 12:11 WBC (4.8-10.8) X10*3/uL RBC (4.20-5.50) X10*6/uL Hgb (12.0-16.0) g/dl Hct (37.0-47.0) % MCV (80.0-98.0) fL MCH (27.0-33.0) pg MCHC (31.0-35.0) g/dl RDW (11.0-16.0) % Plt Count (160-400) X10*3/uL MPV (9.4-12.3) fL Immature Gran % (Auto) (0.0-0.4) % Neut % (Auto) (45-73) % Lymph % (Auto) (20-40) % Carson % (Auto) (2-11) % Eos % (Auto) (0-4) % Baso % (Auto) (0-2) % Lymph # (Auto) (1.2-4.9) X10*3/uL Carson # (Auto) (0.1-1.2) X10*3/uL Eos # (Auto) (0.0-0.4) X10*3/uL Baso # (Auto) (0.0-0.2) X10*3/uL Abs Immat Gran (auto) (0.00-0.03) X10*3/uL Absolute Neuts (auto) (2.0-8.3) x10*3/uL Absolute Nucleated RBC (0.0-0.012) X10*3/uL Nucleated RBC % (auto) (0.0-0.2) /100WBC Sodium (135-145) mmol/L Potassium (3.3-5.1) mmol/L Chloride (96-108) mmol/L Carbon Dioxide (22-29) mmol/L Anion Gap (12-20) BUN (9-16) mg/dL Creatinine (0.5-1.4) mg/dL Estim Creat Clear Calc Estimated GFR POC Glucose (60-115) mg/dL Random Glucose (60-115) mg/dL Calcium (8.4-10.2) mg/dL Troponin I High Sens (<3.5-17.0) ng/L Urine Color Yellow Urine Appearance Clear Urine pH 5.5 (5.0-9.0) Ur Specific [place] >= 1.030 H (1.005-1.025) Urine Protein Negative (Neg-Trace) mg/dL Urine Glucose (UA) >=1000 H (Negative) mg/dL Urine Ketones 15 (Negative) mg/dL Urine Blood Negative (Negative) Urine Nitrite Negative (Negative) Ur Leukocyte Esterase Negative (Negative) Urine RBC 0-2 (0-2) /HPF Urine WBC 6-10 (0-5) /HPF Ur Squamous Epith Cells 3-5 (0-2) /HPF Urine Bacteria Trace (None Seen) Hyaline Casts 0-2 (0-2) /LPF Independent Interpretation I performed an independent interpretation of an: EKG Interpretation: EKG showing normal sinus rhythm at a rate of 90 beats per minute, QT 382, QTC 467, no acute ischemic changes or ST elevations. Independent Historian Clinical information obtained from an independent historian. History obtained from or confirmed by: EMS External Record Review External record reviewed: Inpatient record, Office record, Outpatient record, Prior outpatient labs, Prior outpatient radiology, Primary care record, Outside ED record and Other Chronic Conditions Patient?s care impacted by: Diabetes and Hypertension Critical Care Time Critical Care Time Critical Care Time: No Discharge Plan Discharge Clinical Impression: Hypoglycemia Patient Disposition: Home, Self-Care Additional Instructions: Take your medications as prescribed. If you were prescribed antibiotics today, it is important that you take your medication to their entirety, do not skip any doses, do not finish them early. Follow-up with your primary care provider this week. Return to the emergency department with new or worsening symptoms. Such as fevers, chills, chest pain, shortness of breath, nausea, vomiting, dizziness, headache, vision changes, lethargy In case of emergency call 911 Prescriptions: No Action (DME) pen needle, diabetic [Comfort EZ Pen [place]] 32 gauge x 5/32 needle See Rx Instructions .ROUTE .MEDSUPPLY Qty: 50 Rx Instructions: As directed (DME) blood sugar diagnostic Strip See Rx Instructions .ROUTE .MEDSUPPLY Qty: 50 1RF Rx Instructions: As directed (DME) VixOne Nebulizer-Adult Mask Misc See Rx Instructions .Route Qty: 1 0RF Rx Instructions: As directed (DME) blood-glucose meter [OneTouch Ultra2 Meter] Misc See Rx Instructions .Route Qty: 1 0RF Rx Instructions: Testing 4 times a day (DME) FreeStyle Ashley 2 [place] Misc See Rx Instructions .Route Qty: 1 0RF Rx Instructions: As directed (DME) FreeStyle Ashley 2 Sensor Kit See Rx Instructions .Route Qty: 2 5RF Rx Instructions: As directed change every 14 days albuterol sulfate 90 mcg/actuation HFA aerosol inhaler 1 inh inhalation QID PRN (Reason: shortness of breath or wheezing) 30 Days Qty: 8.5 3RF (DME) OneTouch Ultra Test Strip See Rx Instructions .Route Qty: 100 6RF Rx Instructions: Testing 4 times a day Mounjaro 2.5 mg/0.5 mL pen injector 2.5 mg subcut QWEEK 28 Days Qty: 2 4RF albuterol sulfate 2.5 mg /3 mL (0.083 %) solution for nebulization 2.5 mg inhalation Q6H PRN (Reason: shortness of breath or wheezing) 30 Days Qty: 180 3RF (DME) nebulizers [facility] [place] See Rx Instructions .Route Qty: 1 0RF Rx Instructions: As directed (DME) pen needle, diabetic [AboutTime Pen Needle] 32 gauge x 5/32 needle See Rx Instructions .ROUTE .MEDSUPPLY Qty: 50 11RF Rx Instructions: Daily (DME) pen needle, diabetic [BD Ultra-Fine Carmen Pen Needle] 32 gauge x 5/32 needle See Rx Instructions .ROUTE .MEDSUPPLY Qty: 100 6RF Rx Instructions: As directed meloxicam 15 mg tablet 15 mg PO DAILY 30 Days Qty: 30 3RF (DME) lancets [facility] [place] See Rx Instructions .Route Qty: 200 6RF Rx Instructions: Testing 4 times a day cyclobenzaprine 5 mg tablet 5 mg PO DAILY 10 Days Qty: 10 0RF atorvastatin 20 mg tablet 20 mg PO BEDTIME 90 Days Qty: 90 2RF docusate sodium 100 mg capsule 100 mg PO BID 30 Days Qty: 60 3RF Jardiance 25 mg tablet 25 mg PO QAM 90 Days Qty: 90 2RF insulin aspart U-100 [Novolog FlexPen U-100 Insulin] 100 unit/mL (3 mL) insulin pen 15 unit subcut TID Qty: 15 5RF (DME) Diabetic shoes & 3 pair inserts Diabetic shoes & 3 pair insert kit See Rx Instructions .ROUTE .MEDSUPPLY Qty: 1 0RF Rx Instructions: as directed insulin glargine [Lantus Solostar U-100 Insulin] 100 unit/mL (3 mL) insulin pen 28 unit subcut QAM Referrals: Alan Nesbitt PA-C [Primary Care Provider] - 2 days Interventions: ED Discharge Assessment Last Done: 03/23/23 12:30 Discharge Date/Time: 03/23/23 12:52
--- NOTE | 2023-03-23 07:12 | MHC.EDTECH ---
Assumed care of PT @ 0700. EKG completed.
[2023-03-23 07:17] LABS: Glucose, Whole Blood 135 mg/dL (60-115)
[2023-03-23 07:47] LABS: Anion Gap 13 (12-20); Blood Urea Nitrogen 12 mg/dL (9-16); Calcium 8.9 mg/dL (8.4-10.2); Carbon Dioxide 21 mmol/L (22-29); Chloride 107 mmol/L (96-108); Creatinine Clr Calc Pharmacy 152.7; Estimated Glomerular Filt Rate > 60; Glucose Random 151 mg/dL (60-115); Potassium 3.7 mmol/L (3.3-5.1); Sodium 137 mmol/L (135-145)
[2023-03-23 07:55] LABS: Troponin-I High Sensitivity 5.4 ng/L (<3.5-17.0)
[2023-03-23 10:44] LABS: Troponin-I High Sensitivity 5.2 ng/L (<3.5-17.0)
[2023-03-23 12:03] VITALS: BP 124/64; PULSE 92; RESP 16; TEMP 36.5; O2SAT 97
[2023-03-23 12:22] LABS: Appearance Urine Clear; Color Urine Yellow; Glucose Urine UA >=1000 mg/dL (Negative); Leukocyte Esterase Urine Negative (Negative); Nitrite Urine Negative (Negative); PH 5.5 (5.0-9.0); Specific Gravity - Urine >= 1.030 (1.005-1.025); UMIC TRIGGER UACC YES; Urine Blood Negative (Negative); Urine Ketones 15 mg/dL (Negative); Urine Protein Negative (Neg-Trace)
[2023-03-23 12:35] LABS: Bacteria Urine Trace (None Seen); Hyaline Casts Urine 0-2 /LPF (0-2); RBC Urine 0-2 /HPF (0-2); UACC Culture Trigger YES
== END 2023-03-23 12:52 | disposition home or self-care (01) ==
PROVIDERS: Physician Assistant Medical; Emergency Provider Emergency Medicine; PCP Physician Assistant
DX: E11.649 Type 2 diabetes mellitus with hypoglycemia without coma (principal); I10 Essential (primary) hypertension
CPT/HCPCS: 36415; 80048; 81001; 82947; 84484; 85025; 87086; 87147; 93005; 99284

== ENCOUNTER → 2023-03-23 04:06 | Outpatient (BNV) | payer OTHER, SELFPAY | PROVIDERS: Emergency Provider Emergency Medicine; PCP Physician Assistant; Visit Provider Internal Medicine | DX: R00.2 Palpitations (principal) | CPT/HCPCS: 93010 ==

== ENCOUNTER 2023-04-02 08:33 | Outpatient (REF) | payer OTHER, SELFPAY ==
[2023-04-02 09:54] LABS: Hematocrit 42.9 % (37.0-47.0); Hemoglobin 13.5 g/dl (12.0-16.0); Mean Corpuscular HGB Conc 31.5 g/dl (31.0-35.0); Mean Corpuscular Hemoglobin 26.3 pg (27.0-33.0); Mean Corpuscular Volume 83.5 fL (80.0-98.0); Mean Platelet Volume 10.7 fL (9.4-12.3); Platelet Count 295 X10*3/uL (160-400); Red Blood Count 5.14 X10*6/uL (4.20-5.50); Red Cell Distribution Width 14.3 % (11.0-16.0); White Blood Count 12.4 X10*3/uL (4.8-10.8)
[2023-04-02 10:43] LABS: Alanine Aminotransferase 20 U/L (0-31); Alkaline Phosphatase 137 U/L (39-117); Anion Gap 11 (12-20); Aspartate Amino Transferase 15 U/L (5-31); Bilirubin Total 0.4 mg/dL (0.0-1.0); Blood Urea Nitrogen 10 mg/dL (9-16); Calcium 9.6 mg/dL (8.4-10.2); Carbon Dioxide 29 mmol/L (22-29); Chloride 109 mmol/L (96-108); Cholesterol 122 mg/dL (<200); Estimated Glomerular Filt Rate > 60; Glucose Fasting 181 mg/dL (60-99); HDL Cholesterol 48 mg/dL (>40); LDL Cholesterol Calculated 65 mg/dL (<100); Potassium 4.1 mmol/L (3.3-5.1); Sodium 145 mmol/L (135-145); Total Protein 6.9 g/dL (6.5-8.0); Triglycerides 48 mg/dL (<150)
== END 2023-04-02 08:34 | disposition home or self-care (01) ==
LOC: HO.LAB 08:33
PROVIDERS: PCP Physician Assistant; Visit Provider Physician Assistant
DX: E11.65 Type 2 diabetes mellitus with hyperglycemia (principal)
CPT/HCPCS: 36415; 80053; 80061; 85027

== ENCOUNTER 2023-04-10 13:31 | Emergency (ER) | payer OTHER, SELFPAY ==
[2023-04-10 13:42] VITALS: BP 142/69; PULSE 98; RESP 19; TEMP 36.6; O2SAT 96; BMI 39.9
--- NOTE | 2023-04-10 13:44 | ED.GENADULT ---
HPI - General Adult General Chief complaint: Upper Respiratory Symptoms Stated complaint: Body pain, fever, congestion Time Seen by Provider: 04/10/23 15:42 Source: patient, RN notes reviewed and old records reviewed Mode of arrival: ambulatory History of Present Illness HPI narrative: 58-year-old female with a past medical history of diabetes, HTN, HLD, ovarian cyst, presenting to the ED complaining of myalgias, body aches, congestion, dry cough, chest discomfort with cough and mild SOB times 2-3 days. Denies known fever, travel, pedal edema, sore throat. Admits is in day program & exposed to many people Related Data Home Medications Medication Instructions Recorded Confirmed pen needle, diabetic 32 gauge x #50 ea 05/22/20 01/06/23 (Comfort EZ Pen [place]) insulin glargine 100 unit/mL (3 28 unit subcut QAM 02/17/23 mL) subcutaneous pen (Lantus Solostar U-100 Insulin) Previous Rx's Medication Instructions Recorded blood sugar diagnostic #50 ea 05/22/20 Diabetic shoes & 3 pair inserts #1 ea 01/11/21 nebulizers (VixOne Nebulizer-Adult #1 ea 04/05/21 Mask) albuterol sulfate 2.5 mg/3 mL 2.5 mg (3 mL) inhalation Q6H PRN 04/18/21 (0.083 %) solution for nebulization shortness of breath or wheezing 30 days #180 mL nebulizers #1 ea 04/18/21 blood-glucose meter (OneTouch #1 ea 07/01/22 Ultra2 Meter) flash glucose scanning reader #1 ea 08/06/22 (FreeStyle Ashley 2 [place]) flash glucose sensor (FreeStyle #2 ea 08/06/22 Ashley 2 Sensor kit) cyclobenzaprine 5 mg tablet 5 mg PO DAILY 10 days #10 tabs 09/11/22 lancets #200 ea 09/11/22 meloxicam 15 mg tablet 15 mg PO DAILY 30 days #30 tabs 09/11/22 pen needle, diabetic 32 gauge x #50 ea 09/11/22 (AboutTime Pen Needle) pen needle, diabetic 32 gauge x #100 ea 09/11/22 (BD Ultra-Fine Carmen Pen Needle) albuterol sulfate 90 mcg/actuation 1 inh inhalation QID PRN shortness 01/01/23 aerosol inhaler of breath or wheezing 30 days #8.5 grams blood sugar diagnostic (OneTouch #100 ea 01/01/23 Ultra Test strips) Novolog FlexPen U-100 Insulin 100 15 unit (0.15 mL) subcut TID #15 mL 01/06/23 unit/mL (3 mL) subcutaneous (insulin aspart U-100) atorvastatin 20 mg tablet 20 mg PO BEDTIME 90 days #90 tabs 01/06/23 docusate sodium 100 mg capsule 100 mg PO BID 30 days #60 caps 01/06/23 empagliflozin 25 mg tablet 25 mg PO QAM 90 days #90 tabs 01/06/23 (Jardiance) tirzepatide 2.5 mg/0.5 mL 2.5 mg (0.5 mL) subcut QWEEK 4 03/19/23 subcutaneous pen injector weeks #2 mL (Mounjaro) benzonatate 100 mg capsule 100 mg PO TID PRN cough #14 caps 04/10/23 Allergies Allergy/AdvReac Type Severity Reaction Status Date / Time acetaminophen Allergy upset Verified 02/17/23 13:40 [From Dologesic-DF] stomach dexbrompheniramine Allergy upset Verified 02/17/23 13:40 [From Dologesic-DF] stomach metformin AdvReac upset Verified 02/17/23 13:40 stomach Review of Systems Review of Systems: Constitutional: + Fever, No Chills ENT/Mouth: No Ear Pain, No Nasal Congestion, No Sinus Pain, No Hoarseness, No sore throat, N+o Rhinorrhea, No Swallowing Difficulty Cardiovascular: + Chest Pain, + SOB Respiratory: + Cough, No Sputum, No Wheezing Gastrointestinal: No Nausea, No Vomiting, No Abdominal pain Musculoskeletal: No joint pain, + Myalgias, No Joint Swelling Skin: No Skin Lesions, No rash Neuro: No Weakness Yes all other systems are reviewed and are negative Constitutional: Constitutional: Reports as per [facility] Past Medical History Attestation statement: The following information was validated with the patient. Source: old records reviewed Onset Date is defined in the Problem List Problems that require an onset date and time if occurred within 24 hrs of arrival to the ED Aortic Dissection and Rupture; Neurologic impairment; Cardiopulmonary Arrest; Endotracheal Intubation; Insertion or Replacement of Mechanical Circulatory Assist Device Medical History COVID-19 Type 2 diabetes mellitus with diabetic neuropathy, unspecified Diabetes type 2, uncontrolled H/O breast lump DMII (diabetes mellitus, type 2) Hypertension High cholesterol Ovarian cyst Diabetes Physical exam Surgical History History of breast biopsy Hx of subtotal mastectomy of right breast (~2007) H/O eye surgery Hx of cholecystectomy History of section Family History Family History Father Prostate cancer Mother Diabetes Brother Diabetes Social History Social History Household Members: Family Housing: House Do you presently have visiting nurse or other home services: No Alcohol intake: never Patient Tobacco Use Status: Never used Tobacco Cigarette Packs Per Day: 0 Cigarettes Per Day: 0 Years Smoked: 0 e-Cigarette/Vaping Use: Never Used Second Hand Smoke Exposure: No Advance Directives: No Advance Directives Information Provided: No service: No Current occupational status: unemployed Cognitive needs: No Hearing needs: No Vision needs: Yes Physical Exam ED Vital Signs: Vital Signs - 24 hr 04/10/23 13:42 Temperature 98 F Pulse Rate 98 Respiratory Rate 19 Blood Pressure 142/69 H Pulse Oximetry 96 Oxygen Delivery Method Room Air BMI result Body Mass Index 39.9 Const General: cooperative, healthy appearing and no acute distress Orientation/consciousness: patient oriented x3 Limitations: no limitations HENMT Head: Yes normal to inspection and Yes atraumatic Ears: hearing grossly normal bilaterally General nose exam: Normal external nose present Face and sinus: Yes normal facial exam Eyes General: appearance normal, both eyes and all related structures EOM: EOMs intact bilaterally Neck Neck: Yes normal visual inspection and Yes no meningeal signs Resp Effort & Inspection: normal respiratory effort and no respiratory distress Auscultation: clear to auscultation bilaterally and no wheezes Cardio Rate: regular rate Heart sounds: S1 normal heart sound present and S2 normal heart sound present Skin Rashes: no rashes Wounds: no wounds Neuro General: patient oriented x3, tone normal and no meningeal signs Cranial nerves: Yes CN's II-XII intact bilaterally Gait exam (Neuro): Normal gait present Extrem General: Yes normal to inspection and Yes no pedal edema Course Course Course Narrative: RME- 58-year-old female presents for evaluation of flu-like symptoms, cough, nasal congestion. Sent for viral swabs. She is quite well appearing with stable vital signs. -influenza a positive Results discussed with patient including worrisome signs and symptoms and strict return precautions, and when to return to the emergency department. They verbalized understanding and feel safe for discharge at this time. Medications Administered Discontinued Medications Generic Name Dose Route Start Last Admin Trade Name Freq PRN Reason Stop Dose Admin Albuterol Sulfate 2 puff 04/10/23 16:01 04/10/23 16:09 Albuterol Sulfate 90 Mcg 8 Gm Inhaler INHALE 04/10/23 16:02 2 puff ONCE ONE Administration Medical Decision Making Medical Decision Making MDM Narrative: 58-year-old female with a past medical history of diabetes, HTN, HLD, ovarian cyst, presenting to the ED complaining of myalgias, body aches, congestion, dry cough, chest discomfort with cough and mild SOB times 2-3 days. On exam vital signs stable, NAD, nontoxic appearing, lungs CTA. Talking in complete sentences. Concern for viral illness vs bronchitis. Lower suspicion for pneumonia at this time. Unlikely ACS/PE or DVT Plan: Viral testing Please refer to course for remaining clinical decision making, interpretation of labs/imaging results, and discussions with consultants and/or family members. Differential Diagnosis Differential Diagnoses: The differential diagnosis associated with the presentation includes As above Lab Data [facility] Lab Attestation statement: I reviewed the patient's lab results. Labs: Lab Results 04/10/23 Range/Units 14:24 COVID-19 (ZAHRA) Negative (Negative) COVID-19 Clin Com See Note Influenza Type A (RASHIDA) Positive A (Negative) Influenza Type B (RASHIDA) Negative (Negative) Influenza A & B Note See Note Radiology Impression Discussion of test interpretation with radiology: I have reviewed the radiologist's reading. External Record Review External record reviewed: Inpatient record, Office record, Outpatient record, Prior outpatient labs, Prior outpatient radiology, Primary care record and Outside ED record Tests considered The following testing was considered but not selected: As above Discharge Plan Discharge Clinical Impression: Influenza A Patient Disposition: Home, Self-Care Instructions: Influenza (DC) Additional Instructions: You have the flu No antibiotics are indicated at this time Make sure you are staying hydrated. Drink plenty of fluids. Rest Alternate Tylenol and Motrin at home as needed for body aches and fever Follow-up with your doctor. If symptoms persist or worsen return to the emergency department *If you are a child & not tolerating liquid or urinating for more than 6 hours, or fevers are uncontrolled with medications at home, return to the emergency department* Usted tiene la gripe No est?n indicados antibi?ticos en juan momento. Aseg?rate de mantenerte hidratado. Beber mucho l?quido. Descansar [place]ter[place] Tylenol y Motrin en casa seg?n sea necesario para los elsie corporales y la fiebre. Clarence un seguimiento con hammond m?dico. Si los s?ntomas persisten o empeoran, regrese al departamento de emergencias. *Si es ni?o y no tolera l?quidos ni orina susy m?s de 6 horas, o la fiebre no se controla con medicamentos en casa, regrese al departamento de emergencias* Prescriptions: New benzonatate 100 mg capsule 100 mg PO TID PRN (Reason: cough) Qty: 14 0RF No Action (DME) pen needle, diabetic [Comfort EZ Pen [place]] 32 gauge x 5/32 needle See Rx Instructions .ROUTE .MEDSUPPLY Qty: 50 Rx Instructions: As directed (DME) blood sugar diagnostic Strip See Rx Instructions .ROUTE .MEDSUPPLY Qty: 50 1RF Rx Instructions: As directed (DME) VixOne Nebulizer-Adult Mask Misc See Rx Instructions .Route Qty: 1 0RF Rx Instructions: As directed (DME) blood-glucose meter [OneTouch Ultra2 Meter] Misc See Rx Instructions .Route Qty: 1 0RF Rx Instructions: Testing 4 times a day (DME) FreeStyle Ashley 2 [place] Misc See Rx Instructions .Route Qty: 1 0RF Rx Instructions: As directed (DME) FreeStyle Ashley 2 Sensor Kit See Rx Instructions .Route Qty: 2 5RF Rx Instructions: As directed change every 14 days albuterol sulfate 90 mcg/actuation HFA aerosol inhaler 1 inh inhalation QID PRN (Reason: shortness of breath or wheezing) 30 Days Qty: 8.5 3RF (DME) OneTouch Ultra Test Strip See Rx Instructions .Route Qty: 100 6RF Rx Instructions: Testing 4 times a day Mounjaro 2.5 mg/0.5 mL pen injector 2.5 mg subcut QWEEK 28 Days Qty: 2 4RF albuterol sulfate 2.5 mg /3 mL (0.083 %) solution for nebulization 2.5 mg inhalation Q6H PRN (Reason: shortness of breath or wheezing) 30 Days Qty: 180 3RF (DME) nebulizers Misc See Rx Instructions .Route Qty: 1 0RF Rx Instructions: As directed (DME) pen needle, diabetic [AboutTime Pen Needle] 32 gauge x 5/32 needle See Rx Instructions .ROUTE .MEDSUPPLY Qty: 50 11RF Rx Instructions: Daily (DME) pen needle, diabetic [BD Ultra-Fine Carmen Pen Needle] 32 gauge x 5/32 needle See Rx Instructions .ROUTE .MEDSUPPLY Qty: 100 6RF Rx Instructions: As directed meloxicam 15 mg tablet 15 mg PO DAILY 30 Days Qty: 30 3RF (DME) lancets Misc See Rx Instructions .Route Qty: 200 6RF Rx Instructions: Testing 4 times a day cyclobenzaprine 5 mg tablet 5 mg PO DAILY 10 Days Qty: 10 0RF atorvastatin 20 mg tablet 20 mg PO BEDTIME 90 Days Qty: 90 2RF docusate sodium 100 mg capsule 100 mg PO BID 30 Days Qty: 60 3RF Jardiance 25 mg tablet 25 mg PO QAM 90 Days Qty: 90 2RF insulin aspart U-100 [Novolog FlexPen U-100 Insulin] 100 unit/mL (3 mL) insulin pen 15 unit subcut TID Qty: 15 5RF (DME) Diabetic shoes & 3 pair inserts Diabetic shoes & 3 pair insert kit See Rx Instructions .ROUTE .MEDSUPPLY Qty: 1 0RF Rx Instructions: as directed insulin glargine [Lantus Solostar U-100 Insulin] 100 unit/mL (3 mL) insulin pen 28 unit subcut QAM Referrals: Alan Nesbitt PA-C [Primary Care Provider] - 3 days Stand Alone Forms: Work/School Release Interventions: ED Discharge Assessment Last Done: 04/10/23 16:18 Discharge Date/Time: 04/10/23 16:18 Print Language: Polish
[2023-04-10 14:51] LABS: COVID-19 Test Negative (Negative); IDNOW Serial# 152EDE1D
[2023-04-10 14:55] LABS: IDNOW Serial# 9DB6401D; Influenza A Positive (Negative); Influenza B2 Negative (Negative)
[2023-04-10] MEDS: Albuterol Sulfate 90 MCG 8 GM INHALER 2 PUFF INHALE (16:09)
== END 2023-04-10 16:18 | disposition home or self-care (01) ==
LOC: HO.ED 16:12
PROVIDERS: Physician Assistant; Emergency Provider Emergency Medicine; PCP Physician Assistant
DX: J10.1 Influenza due to other identified influenza virus with other respiratory manifestations (principal); M79.10 Myalgia, unspecified site; R50.9 Fever, unspecified; Z11.52 Encounter for screening for COVID-19; Z20.828 Contact with and (suspected) exposure to other viral communicable diseases
CPT/HCPCS: 87502; 87635; 99282; 99284

== ENCOUNTER 2023-04-21 13:21 | Outpatient (AMB) | payer OTHER, SELFPAY ==
--- NOTE | 2023-04-21 13:52 | MHC.AMDMED ---
Intake Intake Visit Reasons: DM2/CONFIRMED Aircraft Systems Technician Required: Yes Aircraft Systems Technician Language: Data Reduction Technician Name: Manuela [facility] [place] Accompanied by: Self / Same As Patient Allergies acetaminophen [From Dologesic-DF] Allergy (Verified 02/17/23 13:40) upset stomach dexbrompheniramine [From Dologesic-DF] Allergy (Verified 02/17/23 13:40) upset stomach metformin Adverse Reaction (Verified 02/17/23 13:40) upset stomach HPI Comprehensive Diabetes Asmnt Most Recent Diabetes Results: Cholesterol 122 mg/dL (<200) 04/02/23 HDL Cholesterol 48 mg/dL (>40) 04/02/23 Triglycerides 48 mg/dL (<150) 04/02/23 Creatinine 0.62 mg/dL (0.5-1.4) 04/02/23 Blood Urea Nitrogen 10 mg/dL (9-16) 04/02/23 Sodium 145 mmol/L (135-145) 04/02/23 Potassium 4.1 mmol/L (3.3-5.1) 04/02/23 Chloride 109 mmol/L (96-108) H 04/02/23 Carbon Dioxide 29 mmol/L (22-29) 04/02/23 Calcium 9.6 mg/dL (8.4-10.2) 04/02/23 AST 15 U/L (5-31) 04/02/23 ALT 20 U/L (0-31) 04/02/23 Total Protein 6.9 g/dL (6.5-8.0) 04/02/23 Albumin 4.0 g/dL (3.5-5.0) 04/02/23 [facility] Medical History COVID-19 Type 2 diabetes mellitus with diabetic neuropathy, unspecified Diabetes type 2, uncontrolled H/O breast lump DMII (diabetes mellitus, type 2) Hypertension High cholesterol Ovarian cyst Diabetes Physical exam Surgical History History of breast biopsy Hx of subtotal mastectomy of right breast (~2007) H/O eye surgery Hx of cholecystectomy History of section Family History Father Prostate cancer Mother Diabetes Brother Diabetes Social History Household Members: Family Housing: House Do you presently have visiting nurse or other home services: No Alcohol intake: never Patient Tobacco Use Status: Never used Tobacco Cigarette Packs Per Day: 0 Cigarettes Per Day: 0 Years Smoked: 0 e-Cigarette/Vaping Use: Never Used Second Hand Smoke Exposure: No service: No Current occupational status: unemployed Cognitive needs: No Hearing needs: No Vision needs: Yes Assessment & Plan Assessment & Plan (1) Diabetes type 2, uncontrolled: Code(s): E11.65 - Type 2 diabetes mellitus with hyperglycemia Qualifiers: Glycemic state: with hyperglycemia Qualified Code(s): E11.65 - Type 2 diabetes mellitus with hyperglycemia Plan: Personal Continuous Glucose Monitor: Patients CGM information reviewed Reviewed patient's sensor data: Hypoglycemia: ? 0% Hyperglycemia:? 94% Time in Range:? 6% Average glucose for the last 2 weeks? 283 mg/dL Patient reports that she has been treated for the flu, and being given nebulizer treatments and albuterol for her asthma in the past 3 weeks Reports she is currently taking Lantus 40 units which was increased at last visit with Dr. Enamorado in January 2023 She is now taking Mounjaro 2.5 mg Discussed the effects that illness and certain medications can have on glucose levels Reviewed how to interpret trend arrows Reminded patient that to check finger sticks if symptoms do not match sensor reading. Discussed lag time between finger stick and sensor data.? Patient able to insert sensor independently at home without issue.? Message sent to Dr. Enamorado to update Lantus dose and increase measure dose if appropriate Coding Level of Care Code Est Pt Level 1 (15508) Diagnoses Uncontrolled type 2 diabetes mellitus with hyperglycemia E11.65 Glycemic state: with hyperglycemia
== END 2023-04-21 14:04 | disposition home or self-care (01) ==
PROVIDERS: PCP Physician Assistant; Visit Provider Registered Nurse Diabetes Educator
DX: E11.65 Type 2 diabetes mellitus with hyperglycemia (principal)

== ENCOUNTER → 2023-04-21 13:21 | Outpatient (BNVA) | payer OTHER, SELFPAY | PROVIDERS: PCP Physician Assistant; Visit Provider Registered Nurse Diabetes Educator | DX: E11.65 Type 2 diabetes mellitus with hyperglycemia (principal) | CPT/HCPCS: 99211 ==

== ENCOUNTER 2023-04-22 12:38 | Outpatient (AMB) | payer OTHER, SELFPAY ==
[2023-04-22 12:41] VITALS: BP 120/70; PULSE 100; O2SAT 98; BMI 39.5
--- NOTE | 2023-04-22 12:41 | A.OFFPC_ITS ---
Vital Signs 04/22/23 12:41 Height 4 ft 8 in Weight 176 lb 4 oz BMI 39.5 BP 120/70 Blood Pressure Location Lt brachial Position Sitting Pulse 100 Pulse Source Pulse Oximeter Pulse Oximetry (%) 98 Oxygen Delivery Method Room Air Intake Visit Reasons: R/S from 04/10-DM FU Intake Note: Patient is here to follow up on DMII. Furniture And Bedding Inspector Required: Yes Furniture And Bedding Inspector Language: Turkish Accompanied by: Self / Same As Patient Allergies acetaminophen [From [facility]] Allergy (Verified 04/22/23 13:03) upset stomach dexbrompheniramine [From [facility]] Allergy (Verified 04/22/23 13:03) upset stomach metformin Adverse Reaction (Verified 04/22/23 13:03) upset stomach Medication List - Last Reconciled 04/22/23 by Alan Nesbitt PA-C albuterol sulfate 2.5 mg (3 mL) inhalation Q6H PRN 30 days albuterol sulfate 90 mcg/actuation 1 inh inhalation QID PRN 30 days atorvastatin 20 mg PO BEDTIME 90 days blood sugar diagnostic As directed blood sugar diagnostic (OneTouch Ultra Test strips) Testing 4 times a day blood-glucose meter (OneTouch Ultra2 Meter) Testing 4 times a day cyclobenzaprine 5 mg PO DAILY 10 days [Diabetic shoes & 3 pair inserts as directed] docusate sodium 100 mg PO BID 30 days empagliflozin (Jardiance) 25 mg PO QAM 90 days flash glucose scanning reader (FreeStyle Ashley 2 [place]) As directed flash glucose sensor (FreeStyle Ashley 2 Sensor kit) As directed change every 14 days insulin glargine (Lantus Solostar U-100 Insulin) 40 units subcut QAM lancets Testing 4 times a day meloxicam 15 mg PO DAILY 30 days nebulizers (VixOne Nebulizer-Adult Mask) As directed nebulizers As directed Novolog FlexPen U-100 Insulin (insulin aspart U-100) 15 units (0.15 mL) subcut TID NS pen needle, diabetic (Comfort EZ Pen Hiko) As directed pen needle, diabetic (BD Ultra-Fine Carmen Pen Needle) As directed pen needle, diabetic (AboutTime Pen Needle) Daily tirzepatide (Mounjaro) 5 mg (0.5 mL) subcut QWEEK Tobacco use date assessed: 04/22/23 Dental Screening Dental Screen Date: 04/22/23 HPI R/S from 04/10-DM FU HPI Details Patient is a 58-year-old female here today for follow-up visit. ? ?Patient is Turkish-speaking so we have used a swing grinder. 56-year-old female with past medical his tory significant for breast cancer right total mastectomy, diabetes, high cholesterol, hypertension. CHRONIC MEDICAL CONDITIONS--> .. Breast cancer :? Patient was diagnosed with right breast cancer at the age of 43 in [place].? She underwent right mastectomy followed by adjuvant chemotherapy and radiation. Is followed by a oncologist annually.? Seems that there is an order for mammogram patient has not been called. .. DMII:? Continues to follow Endocrinology.? Has been more compliant with using her insulin injections . She did have an episode of hypoglycemia where her blood sugar was 37 which prompted an ER visit. Unfortunately today A1c is above 10. ?. Reports she is seeing a certified maintenance welder now whom advised her on low carb diet and taking her insulin daily. She seems to have some developmental delay and her sister (Stephanie) helps her with her medications and medical decisions. .. Asthma:? Reports her asthma has been okay.? Now has her own home nebulizer and rescue inhaler.? She denies any asthma exacerbations. . Hyperlipidemia:? Patient's cholesterol acceptable for a cardiovascular risk.? Will continue her current dose of atorvastatin. Goal LDL to be below 100 Laboratory Tests 01/06/23 04/02/23 04/02/23 10:18 08:53 08:53 WBC 12.4 H RBC 5.14 Hgb 13.5 Hgb A1c (Clinic) 10.3 H Cholesterol 122 LDL Cholesterol, C alc 65 04/22/23 12:39 WBC RBC Hgb Hgb A1c (Clinic) 10.3 H Cholesterol LDL Cholesterol, C alc [facility] Medical History COVID-19 Type 2 diabetes mellitus with diabetic neuropathy, unspecified Diabetes type 2, uncontrolled H/O breast lump DMII (diabetes mellitus, type 2) Hypertension High cholesterol Ovarian cyst Diabetes Physical exam Surgical History History of breast biopsy Hx of subtotal mastectomy of right breast (~2007) H/O eye surgery Hx of cholecystectomy History of section Family History Father Prostate cancer Mother Diabetes Brother Diabetes Social History Household Members: Family Housing: House Do you presently have visiting nurse or other home services: No Alcohol intake: never Patient Tobacco Use Status: Never used Tobacco Cigarette Packs Per Day: 0 Cigarettes Per Day: 0 Years Smoked: 0 e-Cigarette/Vaping Use: Never Used Second Hand Smoke Exposure: No service: No Current occupational status: unemployed Cognitive needs: No Hearing needs: No Vision needs: Yes Questionnaire PHQ-9 Over the last 2 weeks, how often have you been bothered by any of the following problems? 1. Little interest or pleasure in doing things: not at all 2. Feeling down, depressed, or hopeless: not at all 3. Trouble falling or staying asleep, or sleeping too much: not at all 4. Feeling tired or having little energy: not at all 5. Poor appetite or overeating: not at all 6. Feeling bad about yourself - or that you are a failure or have let yourself or your family down: not at all 7. Trouble concentrating on things, such as reading the newspaper or watching television: not at all 8. Moving or speaking so slowly that other people could have noticed. Or the opposite - being so fidgety or restless that you have been moving around a lot more than usual: not at all 9. Thoughts that you would be better off or of hurting yourself in some way: not at all Total score: 0 Depression Screening Interpretation: Negative Depression Screening Done: Yes 51921 - PHQ-9 Billing: Yes Source: Developed by Drs. Darrell Gomez, Peggy Ferrer, Lam Alvarado and colleagues, with an educational oren from [employer]. Thrive Questionnaire Date Thrive assessed: 04/22/23 I am a: Patient What is your living situation today?: I have a steady place to live Within the past 12 months, did the food you bought not last and you didn't have the money to get more?: Never true Within the past 12 months, did you worry whether your food would run out before you got money to buy more?: Never true Do you have trouble paying for medicines?: No Do you have trouble getting transportation to medical appointments?: No Do you have trouble paying your heating and electricity bill?: No Do you have trouble taking care of your child, family member or friend?: No Do you have trouble with day-to-day activities such as bathing, preparing meals, shopping, managing finances, etc.?: No Are you currently unemployed and looking for a job?: No Are you interested in more education?: No Please select the resources that you would like help with: None Currently or been in a relationship where the following occur: no concerns reported THRIVE Score: 0 AUDIT C Alcohol Use Questionnaire (AUDIT-C) 1. How often do you have a drink containing alcohol?: Never 3. How often do you have six or more drinks on one occasion?: Never Total Score: 0 JASON-7 AMB Questionnaire JASON-7 Date JASON - 7 assessed: 04/22/23 Feeling nervous, anxious, or on edge: 0 = Not at all Not being able to stop or control worryin = Not at all Worrying too much about different things: 0 = Not at all Trouble relaxin = Not at all Being so restless that it is hard to sit still: 0 = Not at all Becoming easily annoyed or irritable: 0 = Not at all Feeling afraid as if something awful might happen: 0 = Not at all Total JASON-7 score (0-4 normal; 5-9 mild; 10-14 moderate; 15-21 severe): 0 Source: Developed by Drs. Darrell Gomez, Peggy Fererr, Lam Alvarado and colleagues, with an educational oren from [employer]. JASON-7 Assessment Billing JASON-7 Assessment Tool: JASON-7 Assessment 23594 Review of Systems Const Denies headache(s) Eyes Denies loss of vision ENT Denies vertigo, Denies dizziness, Denies headache(s) and Denies sore throat Card Denies chest pain, Denies leg edema and Denies lightheadedness Resp Reports cough, Denies hemoptysis and Denies wheezing GI Denies abdominal pain, Denies melena, Denies constipation, Denies diarrhea and Denies vomiting Denies urinary frequency, Denies dysuria and Denies urinary urgency Musc Denies arthralgias, Denies joint swelling, Denies numbness and Denies tingling Neuro Denies Abnormal speech present, Denies behavioral changes, Denies vertigo, Denies dizziness, Denies headache(s), Denies loss of vision, Denies memory loss, Denies numbness and Denies tingling Psych Denies anxiety, Denies behavioral changes, Denies depression, Denies memory loss and Denies panic attacks Nakul/Lymph Denies easy bleeding and Denies easy bruising Aller/Immun Denies wheezing Physical exam (Primary Care) Vital Signs: Last Vital Signs Pulse 100 04/22/23 12:41 BP 120/70 04/22/23 12:41 Pulse Ox 98 04/22/23 12:41 Oxygen Delivery Method Room Air 04/22/23 12:41 BMI result Body Mass Index 39.5 Tobacco/Smoking Status: Tobacco use Status Tobacco use date assessed 04/22/23 04/22/23 12:47 Patient Tobacco Use Status Never used Tobacco 04/22/23 12:47 e-Cigarette/Vaping Use Never Used 04/22/23 12:47 PHQ-9: PHQ-9 Score PHQ-9: Total score 0 04/22/23 13:16 Depression Screening Interpretation: Negative Thrive Assessment: Date of Thrive Assessment Date Thrive assessed 04/22/23 04/22/23 12:51 Currently or been in a relationship where the following occur: no concerns reported Const General: healthy appearing, no acute distress, alert and awake Nutritional Appearance: well nourished Orientation/consciousness: oriented to person, oriented to place and oriented to time [facility] Ears: TM's normal bilaterally General nose exam: Normal nasal mucous membranes and turbinates present Eyes Conjunctivae: conjunctivae normal Sclerae: sclerae normal Pupils: Equal, round and reactive pupils present Neck Neck: Yes no lymphadenopathy and Yes no JVD Thyroid: Thyroid normal Carotids: no bruits Resp Effort & Inspection: normal respiratory effort and not tachypneic Auscultation: no crackles, no rales, no rhonchi and no wheezes Cardio Rate: regular rate Rhythm: regular rhythm Heart sounds: no murmurs and normal S1 and S2 GI Palpation (GI): Soft to palpation, nontender, no hepatomegaly and no splenomegaly Auscultation: normal bowel sounds Skin General skin exam: no rashes or lesions noted and dry skin Neuro General: oriented to person, oriented to place and oriented to time Cranial nerves: Yes Equal, round and reactive pupils present Speech: No Abnormal speech present Gait exam (Neuro): Normal gait present Motor exam (neuro): no tremor noted Extrem Right upper extremity: full ROM Left upper extremity: full ROM Right lower extremity: full ROM; no edema Left lower extremity: full ROM; no edema Psych Mental Status: mental status grossly normal Speech and movement: Normal speech and movement present Affect: normal affect Attitude: cooperative Thought process: Normal thought process present Results AMB Hemoglobin A1c AMB Hemoglobin A1c 10.3 % Last Edit by MARIO Sherman on 04/22/23 12:56 Results Reviewed Results Reviewed: Laboratory Last Values Hgb A1c (Clinic) 10.3 % (4.0-6.0) H 04/22/23 12:39 Assessment and Plan Assessment & Plan (1) Type 2 diabetes mellitus with diabetic neuropathy, unspecified: Code(s): E11.40 - Type 2 diabetes mellitus with diabetic neuropathy, unspecified Qualifiers: Diabetes mellitus snf insulin use: with snf use Qualified Code(s): E11.40 - Type 2 diabetes mellitus with diabetic neuropathy, unspecified; Z79.4 - halfway (current) use of insulin Plan: Patient's type 2 diabetes suboptimally controlled with A1c at 10.3. Now followed by spool cleaner hand. She reports during her day program she does eat a lot of carbohydrates that is offered to her (bread and rice). Will increase her NovoLog dose from 18 units before each meal. She is using glucose monitor. She did an episode of hypoglycemia a few weeks ago. Advised to change her Lantus to 45 U. Goal A1c is to be below 7.0 (2) Hypertension: Code(s): I10 - Essential (primary) hypertension Qualifiers: Hypertension type: primary hypertension Qualified Code(s): I10 - Essential (primary) hypertension Plan: Patient blood pressure acceptable today in office. Has been able to manage blood pressure without medication. Goal blood pressure to be below 140/90 (3) Obese: Code(s): E66.9 - Obesity, unspecified Qualifiers: Body mass index: BMI 30.0-30.9 Obesity classification: adult class 1 (BMI 30 - 34.9) Obesity type: due to excess calories Serious obesity comorbidity presence: with serious comorbidity Qualified Code(s): E66.09 - Other obesity due to excess calories; Z68.30 - Body mass index [BMI] 30.0-30.9, adult Plan: Patient does understand her BMI is over 30 will work on being more physically active and adapting to diabetic diet speaks weight. (4) High cholesterol: Code(s): E78.00 - Pure hypercholesterolemia, unspecified Plan: Patient's most recent fasting lipid panel showing acceptable total cholesterol and LDL . Goal LDL is to remain below 100 (5) Cough: Code(s): R05.9 - Cough, unspecified Qualifiers: Cough type: subacute Qualified Code(s): R05.2 - Subacute cough Plan: Recently had the flu and does have a residual cough. She reports cough tablets been helpful. Would like a refill on this cough medication Orders: Orders AMB Hemoglobin A1c 04/22/23 E11.65 - Type 2 diabetes mellitus with hyperglycemia Medications: New benzonatate 200 mg PO TID 5 days 15 caps 0RF E11.40 - Type 2 diabetes mellitus with diabetic neuropathy, unspecified, R05.9 - Cough, unspecified, Z79.4 - superintendent terminal (current) use of insulin Changed From insulin glargine (Lantus Solostar U-100 Insulin) 40 units subcut QAM E11.40 - Type 2 diabetes mellitus with diabetic neuropathy, unspecified To insulin glargine (Lantus Solostar U-100 Insulin) 45 units subcut QAM E11.40 - Type 2 diabetes mellitus with diabetic neuropathy, unspecified From Novolog FlexPen U-100 Insulin (insulin aspart U-100) 15 units (0.15 mL) subcut TID 15 mL 5RF NS E11.40 - Type 2 diabetes mellitus with diabetic neuropathy, unspecified, Z79.4 - halfway (current) use of insulin To Novolog FlexPen U-100 Insulin (insulin aspart U-100) 18 units (0.18 mL) subcut TID 15 mL 5RF NS E11.40 - Type 2 diabetes mellitus with diabetic neuropathy, unspecified, Z79.4 - halfway (current) use of insulin Coding Level of Care Code Est Pt Level 4 (47915) Diagnoses Type 2 diabetes mellitus with diabetic neuropathy, with long-term current use of insulin E11.40; Z79.4 Diabetes mellitus watermelon harvesting supervisor insulin use: with watermelon harvesting supervisor use Primary hypertension I10 Hypertension type: primary hypertension Class 1 obesity due to excess calories with serious comorbidity and body mass index (BMI) of 30.0 to 30.9 in adult E66.09; Z68.30 Body mass index: BMI 30.0-30.9 Obesity classification: adult class 1 (BMI 30 - 34.9) Obesity type: due to excess calories Serious obesity comorbidity presence: with serious comorbidity High cholesterol E78.00 Subacute cough R05.2 Cough type: subacute Additional Codes JASON-7 Assessment Billing - JASON-7 Assessment Tool: JASON-7 Assessment [id number] ([id number])
== END 2023-04-22 13:26 | disposition home or self-care (01) ==
PROVIDERS: PCP Physician Assistant; Visit Provider Physician Assistant
DX: E11.65 Type 2 diabetes mellitus with hyperglycemia (principal)
CPT/HCPCS: 83036; 99214

== ENCOUNTER 2023-04-24 17:33 | Emergency (ER) | payer OTHER, SELFPAY ==
--- NOTE | ~2023-04-24 | XR_ITS ---
EXAMINATION: XR CHEST CLINICAL INFORMATION: Weakness. COMPARISON: None available. TECHNIQUE: 2 views of the chest were obtained. FINDINGS: No airspace consolidation. No pleural effusion or pneumothorax. Unremarkable cardiomediastinal silhouette. Right upper quadrant surgical clips. XR/XR chest 2V IMPRESSION: No acute cardiopulmonary findings.
[2023-04-24 17:46] VITALS: BP 165/91; PULSE 102; RESP 20; TEMP 36.9; O2SAT 96; BMI 30.3
--- NOTE | 2023-04-24 17:51 | ED.GENADULT ---
HPI - General Adult General Chief complaint: Altered Mental Status Stated complaint: high blood sugar, in 400's Time Seen by Provider: 04/24/23 20:17 Source: patient and reimbursement specialist Mode of arrival: ambulatory History of Present Illness HPI narrative: 58-year-old female arrives from home with concerns that her blood sugar was elevated after eating. She has no other complaints of fever, chills, nausea, vomiting, abdominal discomfort or urinary symptoms. She reports that her monitor reveals the glucose is 235 presently. Related Data Home Medications Medication Instructions Recorded Confirmed pen needle, diabetic 32 gauge x #50 ea 05/22/20 04/22/23 (Comfort EZ Pen [place]) insulin glargine 100 unit/mL (3 45 unit subcut QAM 04/22/23 04/22/23 mL) subcutaneous pen (Lantus Solostar U-100 Insulin) Previous Rx's Medication Instructions Recorded blood sugar diagnostic #50 ea 05/22/20 Diabetic shoes & 3 pair inserts #1 ea 01/11/21 nebulizers (VixOne Nebulizer-Adult #1 ea 04/05/21 Mask) albuterol sulfate 2.5 mg/3 mL 2.5 mg (3 mL) inhalation Q6H PRN 04/18/21 (0.083 %) solution for nebulization shortness of breath or wheezing 30 days #180 mL nebulizers #1 ea 04/18/21 blood-glucose meter (OneTouch #1 ea 07/01/22 Ultra2 Meter) flash glucose scanning reader #1 ea 08/06/22 (FreeStyle [place] 2 [place]) flash glucose sensor (FreeStyle #2 ea 08/06/22 Ashley 2 Sensor kit) cyclobenzaprine 5 mg tablet 5 mg PO DAILY 10 days #10 tabs 09/11/22 meloxicam 15 mg tablet 15 mg PO DAILY 30 days #30 tabs 09/11/22 pen needle, diabetic 32 gauge x #50 ea 09/11/22 (AboutTime Pen Needle) pen needle, diabetic 32 gauge x #100 ea 09/11/22 (BD Ultra-Fine Carmen Pen Needle) albuterol sulfate 90 mcg/actuation 1 inh inhalation QID PRN shortness 01/01/23 aerosol inhaler of breath or wheezing 30 days #8.5 grams blood sugar diagnostic (OneTouch #100 ea 01/01/23 Ultra Test strips) atorvastatin 20 mg tablet 20 mg PO BEDTIME 90 days #90 tabs 01/06/23 docusate sodium 100 mg capsule 100 mg PO BID 30 days #60 caps 01/06/23 empagliflozin 25 mg tablet 25 mg PO QAM 90 days #90 tabs 01/06/23 (Jardiance) lancets #200 ea 04/21/23 tirzepatide 5 mg/0.5 mL 5 mg (0.5 mL) subcut QWEEK #2 mL 04/21/23 subcutaneous pen injector (Mounjaro) Novolog FlexPen U-100 Insulin 100 18 unit (0.18 mL) subcut TID #15 mL 04/22/23 unit/mL (3 mL) subcutaneous (insulin aspart U-100) benzonatate 200 mg capsule 200 mg PO TID 5 days #15 caps 04/22/23 Allergies Allergy/AdvReac Type Severity Reaction Status Date / Time acetaminophen Allergy upset Verified 04/22/23 13:03 [From Dologesic-DF] stomach dexbrompheniramine Allergy upset Verified 04/22/23 13:03 [From Dologesic-DF] stomach metformin AdvReac upset Verified 04/22/23 13:03 stomach Review of Systems Review of Systems: Pertinent positives and negatives as stated in HPI [facility], [facility] Past Medical History Source: nursing notes reviewed Medical History COVID-19 Type 2 diabetes mellitus with diabetic neuropathy, unspecified Diabetes type 2, uncontrolled H/O breast lump DMII (diabetes mellitus, type 2) Hypertension High cholesterol Ovarian cyst Diabetes Physical exam Surgical History History of breast biopsy Hx of subtotal mastectomy of right breast (~2007) H/O eye surgery Hx of cholecystectomy History of section Family History Family History Father Prostate cancer Mother Diabetes Brother Diabetes Social History Social History Household Members: Family Housing: House Do you presently have visiting nurse or other home services: No Alcohol intake: never Patient Tobacco Use Status: Never used Tobacco Cigarette Packs Per Day: 0 Cigarettes Per Day: 0 Years Smoked: 0 e-Cigarette/Vaping Use: Never Used Second Hand Smoke Exposure: No Advance Directives: No Advance Directives Information Provided: No service: No Current occupational status: unemployed Cognitive needs: No Hearing needs: No Vision needs: Yes Physical Exam ED Vital Signs: Vital Signs - 24 hr 04/24/23 17:46 04/24/23 20:30 Temperature 98.4 F 98.2 F Pulse Rate 102 H 93 Respiratory Rate 20 17 Blood Pressure 165/91 H 127/61 Pulse Oximetry 96 97 Oxygen Delivery Method Room Air Room Air BMI result Body Mass Index 30.3 VITAL SIGNS: Reviewed. GENERAL: Well developed, well nourished, in no acute distress. HEAD: Normocephalic/atraumatic EYES: PERRLA, EOMI EARS: Ext canals without abnormality NOSE: Nares patent bilateral OROPHARYNX: no oral lesions noted, posterior pharynx clear NECK: Supple, no adenopathy LUNGS: Normal breath sounds. No adventitious sounds or accessory muscle use. SpO2<97> CARDIOVASCULAR: Regular rate and rhythm without noted murmurs, no JVD or lower extremity edema. ABDOMEN: Soft, non-tender, non-distended with bowel sounds. MUSCULOSKELETAL: No tenderness, deformities, or effusions noted on gross inspection. EXTREMITIES: No cyanosis, clubbing or edema. SKIN: Inspection of the skin reveals no rashes NEUROLOGIC: Alert and oriented x 4. Strength and sensation to light touch were grossly intact x 4. Course Course Course Narrative: RME- 58-year-old female presents for evaluation of ?high blood sugar. ? She reports her blood sugar is 383 and has been high ?because they gave me a medication for cough. She is given benzonatate on 04/10/2023 after testing positive for the flu. Medical Decision Making Medical Decision Making MDM Narrative: 58-year-old female with history and clinical presentation, DDX: Hyperglycemia without evidence of DKA or HHS. I have no clinical suspicion for acute bacterial or viral infection. I reviewed all investigations and patient has a chronically stable mild elevation of leukocyte without left shift and there is no anemia or thrombocytopenia. Chemistry indices do not demonstrate an NENITA and there is no electrolyte or liver enzyme derangements, alkaline phosphatase is chronically elevated. Urinalysis negative for UTI. Viral testing is negative for COVID-19/influenza. Chest x-ray negative for infiltrate or evidence of venous congestion otherwise my interpretation is in agreement with radiology's impression. My interpretation is patient experienced normal rise in blood sugar after eating a meal and values are now resolving and stabilizing. Patient has no concerning symptoms at this time and is otherwise discharged home. Differential Diagnosis Differential Diagnoses: The differential diagnosis associated with the presentation includes Please see the discussion above Admission/Observation Consideration of admission/observation: Escalation of care including admission/observation considered Please see the discussion above Lab Data MDM Lab Attestation statement: I reviewed the patient's lab results. Please see the discussion above 04/24/23 18:14 04/24/23 18:13 Labs: Lab Results 04/24/23 04/24/23 04/24/23 Range/Units 18:13 18:14 20:32 WBC 11.9 H (4.8-10.8) X10*3/uL RBC 4.88 (4.20-5.50) X10*6/uL Hgb 13.3 (12.0-16.0) g/dl Hct 40.1 (37.0-47.0) % MCV 82.2 (80.0-98.0) fL MCH 27.3 (27.0-33.0) pg MCHC 33.2 (31.0-35.0) g/dl RDW 13.9 (11.0-16.0) % Plt Count 397 D (160-400) X10*3/uL MPV 10.5 (9.4-12.3) fL Immature Gran % (Auto) 0.3 (0.0-0.4) % Neut % (Auto) 61.7 (45-73) % Lymph % (Auto) 27.6 (20-40) % [place] % (Auto) 9.1 (2-11) % Eos % (Auto) 0.8 (0-4) % Baso % (Auto) 0.5 (0-2) % Lymph # (Auto) 3.3 (1.2-4.9) X10*3/uL [place] # (Auto) 1.1 (0.1-1.2) X10*3/uL Eos # (Auto) 0.1 (0.0-0.4) X10*3/uL Baso # (Auto) 0.1 (0.0-0.2) X10*3/uL Abs Immat Gran (auto) 0.04 H (0.00-0.03) X10*3/uL Absolute Neuts (auto) 7.3 (2.0-8.3) x10*3/uL Absolute Nucleated RBC 0.000 (0.0-0.012) X10*3/uL Nucleated RBC % (auto) 0.0 (0.0-0.2) /100WBC Sodium 141 (135-145) mmol/L Potassium 3.3 (3.3-5.1) mmol/L Chloride 105 (96-108) mmol/L Carbon Dioxide 30 H (22-29) mmol/L Anion Gap 9 L (12-20) BUN 11 (9-16) mg/dL Creatinine 0.71 (0.5-1.4) mg/dL Estim Creat Clear Calc 97.3 Estimated GFR > 60 Random Glucose 265 H (60-115) mg/dL Calcium 9.6 (8.4-10.2) mg/dL Total Bilirubin 0.2 (0.0-1.0) mg/dL AST 13 (5-31) U/L ALT 15 (0-31) U/L Alkaline Phosphatase 184 H (39-117) U/L Total Protein 7.1 (6.5-8.0) g/dL Albumin 4.0 (3.5-5.0) g/dL Lipase 14 (8-78) U/L Beta-Hydroxybutyrate 0.07 (0.02-0.27) mmol/L COVID-19 (ZAHRA) Negative (Negative) COVID-19 Clin Com See Note Influenza Type A (RASHIDA) Negative (Negative) Influenza Type B (RASHIDA) Negative (Negative) Influenza A & B Note See Note Radiology Impression Discussion of test interpretation with radiology: I have reviewed the radiologist's reading. Radiologist Impression: Please see the discussion above External Record Review External record reviewed: Outpatient record, Prior outpatient labs and Prior outpatient radiology Chronic Conditions Patient?s care impacted by: Diabetes and Hypertension Critical Care Time Critical Care Time Critical Care Time: Yes Total Critical Care Time: 30 Attestation: I personally attest to this time spent taking care of the patient. Discharge Plan Discharge Clinical Impression: Hyperglycemia due to diabetes mellitus Patient Disposition: Home, Self-Care Instructions: Diabetic Hyperglycemia (ED) Additional Instructions: 1. Reanudar todos los medicamentos caseros seg?n lo recetado. 2. Clarence un seguimiento con hammond proveedor de atenci?n primaria el lunes por la ma?minoo. Regrese a la ce de emergencias si los s?ntomas empeoran. 1. Resume all home medications as prescribed. 2. Follow-up with your primary care provider on Friday morning. Return to the ER for any worsening symptoms. Prescriptions: No Action (DME) pen needle, diabetic [Comfort EZ Pen [place]] 32 gauge x 5/32 needle See Rx Instructions .ROUTE .MEDSUPPLY Qty: 50 Rx Instructions: As directed (DME) blood sugar diagnostic Strip See Rx Instructions .ROUTE .MEDSUPPLY Qty: 50 1RF Rx Instructions: As directed (DME) VixOne Nebulizer-Adult Mask Misc See Rx Instructions .Route Qty: 1 0RF Rx Instructions: As directed (DME) blood-glucose meter [OneTouch Ultra2 Meter] Misc See Rx Instructions .Route Qty: 1 0RF Rx Instructions: Testing 4 times a day (DME) FreeStyle Ashley 2 [place] Misc See Rx Instructions .Route Qty: 1 0RF Rx Instructions: As directed (DME) FreeStyle Ashley 2 Sensor Kit See Rx Instructions .Route Qty: 2 5RF Rx Instructions: As directed change every 14 days albuterol sulfate 90 mcg/actuation HFA aerosol inhaler 1 inh inhalation QID PRN (Reason: shortness of breath or wheezing) 30 Days Qty: 8.5 3RF (DME) OneTouch Ultra Test Strip See Rx Instructions .Route Qty: 100 6RF Rx Instructions: Testing 4 times a day (DME) lancets Misc See Rx Instructions .Route Qty: 200 6RF Rx Instructions: Testing 4 times a day Mounjaro 5 mg/0.5 mL pen injector 5 mg subcut QWEEK Qty: 2 5RF albuterol sulfate 2.5 mg /3 mL (0.083 %) solution for nebulization 2.5 mg inhalation Q6H PRN (Reason: shortness of breath or wheezing) 30 Days Qty: 180 3RF (DME) nebulizers Misc See Rx Instructions .Route Qty: 1 0RF Rx Instructions: As directed (DME) pen needle, diabetic [AboutTime Pen Needle] 32 gauge x 5/32 needle See Rx Instructions .ROUTE .MEDSUPPLY Qty: 50 11RF Rx Instructions: Daily (DME) pen needle, diabetic [BD Ultra-Fine Carmen Pen Needle] 32 gauge x 5/32 needle See Rx Instructions .ROUTE .MEDSUPPLY Qty: 100 6RF Rx Instructions: As directed meloxicam 15 mg tablet 15 mg PO DAILY 30 Days Qty: 30 3RF cyclobenzaprine 5 mg tablet 5 mg PO DAILY 10 Days Qty: 10 0RF atorvastatin 20 mg tablet 20 mg PO BEDTIME 90 Days Qty: 90 2RF docusate sodium 100 mg capsule 100 mg PO BID 30 Days Qty: 60 3RF Jardiance 25 mg tablet 25 mg PO QAM 90 Days Qty: 90 2RF insulin aspart U-100 [Novolog FlexPen U-100 Insulin] 100 unit/mL (3 mL) insulin pen 18 unit subcut TID Qty: 15 5RF insulin glargine [Lantus Solostar U-100 Insulin] 100 unit/mL (3 mL) insulin pen 45 unit subcut QAM benzonatate 200 mg capsule 200 mg PO TID 5 Days Qty: 15 0RF (DME) Diabetic shoes & 3 pair inserts Diabetic shoes & 3 pair insert kit See Rx Instructions .ROUTE .MEDSUPPLY Qty: 1 0RF Rx Instructions: as directed Referrals: Alan Nesbitt PA-C [Primary Care Provider] - Print Language: Yakut
[2023-04-24 18:35] LABS: MANUAL DIFF FLAG NO
[2023-04-24 18:38] LABS: Basophils Absolute Auto 0.1 X10*3/uL (0.0-0.2); Basophils Percent Auto 0.5 % (0-2); Eosinophils Absolute Auto 0.1 X10*3/uL (0.0-0.4); Eosinophils Percent Auto 0.8 % (0-4); Hematocrit 40.1 % (37.0-47.0); Hemoglobin 13.3 g/dl (12.0-16.0); Imm Gran Abs Auto 0.04 X10*3/uL (0.00-0.03); Imm Gran Pct Auto 0.3 % (0.0-0.4); Lymphocytes Absolute Auto 3.3 X10*3/uL (1.2-4.9); Lymphocytes Percent Auto 27.6 % (20-40); Mean Corpuscular HGB Conc 33.2 g/dl (31.0-35.0); Mean Corpuscular Hemoglobin 27.3 pg (27.0-33.0); Mean Corpuscular Volume 82.2 fL (80.0-98.0); Mean Platelet Volume 10.5 fL (9.4-12.3); Monocytes Absolute Auto 1.1 X10*3/uL (0.1-1.2); Monocytes Percent Auto 9.1 % (2-11); Neutrophils Absolute Auto 7.3 x10*3/uL (2.0-8.3); Neutrophils Percent Auto 61.7 % (45-73); Platelet Count 397 X10*3/uL (160-400); Red Blood Count 4.88 X10*6/uL (4.20-5.50); Red Cell Distribution Width 13.9 % (11.0-16.0); White Blood Count 11.9 X10*3/uL (4.8-10.8)
[2023-04-24 18:57] LABS: Alanine Aminotransferase 15 U/L (0-31); Alkaline Phosphatase 184 U/L (39-117); Anion Gap 9 (12-20); Aspartate Amino Transferase 13 U/L (5-31); Bilirubin Total 0.2 mg/dL (0.0-1.0); Blood Urea Nitrogen 11 mg/dL (9-16); Calcium 9.6 mg/dL (8.4-10.2); Carbon Dioxide 30 mmol/L (22-29); Chloride 105 mmol/L (96-108); Creatinine Clr Calc Pharmacy 97.3; Estimated Glomerular Filt Rate > 60; Glucose Random 265 mg/dL (60-115); Lipase 14 U/L (8-78); Potassium 3.3 mmol/L (3.3-5.1); Sodium 141 mmol/L (135-145); Total Protein 7.1 g/dL (6.5-8.0)
[2023-04-24 20:00] LABS: Beta-Hydroxybutyrate 0.07 mmol/L (0.02-0.27)
[2023-04-24 20:30] VITALS: BP 127/61; PULSE 93; RESP 17; TEMP 36.8; O2SAT 97
[2023-04-24 20:53] LABS: COVID-19 Test Negative (Negative); IDNOW Serial# 152EDE1D
[2023-04-24 20:56] LABS: IDNOW Serial# 08D9AD1C; Influenza A Negative (Negative); Influenza B2 Negative (Negative)
[2023-04-24 21:06] LABS: Appearance Urine Clear; Color Urine Yellow; Glucose Urine UA >=1000 mg/dL (Negative); Leukocyte Esterase Urine Negative (Negative); Nitrite Urine Negative (Negative); PH 5.5 (5.0-9.0); Specific Gravity - Urine >= 1.030 (1.005-1.025); UMIC TRIGGER UACC YES; Urine Blood Negative (Negative); Urine Ketones Negative (Negative); Urine Protein Negative (Neg-Trace)
[2023-04-24 21:12] LABS: Bacteria Urine None Seen (None Seen); Hyaline Casts Urine 0-2 /LPF (0-2); RBC Urine 0-2 /HPF (0-2); Squamous Epithelial Cell Urine 0-2 /HPF (0-2); WBC Urine 0-5 /HPF (0-5)
== END 2023-04-24 21:41 | disposition home or self-care (01) ==
PROVIDERS: Physician Assistant; Emergency Provider Student in an Organized Health Care Education/Training Program; PCP Physician Assistant
DX: E11.65 Type 2 diabetes mellitus with hyperglycemia (principal); I10 Essential (primary) hypertension; E78.5 Hyperlipidemia, unspecified; Z79.4 Long term (current) use of insulin; Z79.02 Long term (current) use of antithrombotics/antiplatelets; Z11.52 Encounter for screening for COVID-19
CPT/HCPCS: 36415; 71046; 80053; 81001; 82010; 83690; 85025; 87502; 87635; 99283; 99284

== ENCOUNTER 2023-05-22 13:35 | Outpatient (AMB) | payer OTHER, SELFPAY ==
--- NOTE | 2023-05-22 14:15 | A.OFFVIS_ITS ---
Intake Intake Visit Reasons: DM2 [employer] Teacher Required: Yes [employer] Teacher Language: Lottery Office Manager Name: Aileen [id number] Allergies acetaminophen [From Dologesic-DF] Allergy (Verified 04/22/23 13:03) upset stomach dexbrompheniramine [From Dologesic-DF] Allergy (Verified 04/22/23 13:03) upset stomach metformin Adverse Reaction (Verified 04/22/23 13:03) upset stomach HPI Comprehensive Diabetes Asmnt Most Recent Diabetes Results: Microalb/Creat Ratio 8.8 ug/mg cr 06/06/22 Cholesterol 122 mg/dL (<200) 04/02/23 HDL Cholesterol 48 mg/dL (>40) 04/02/23 Triglycerides 48 mg/dL (<150) 04/02/23 Creatinine 0.71 mg/dL (0.5-1.4) 04/24/23 Blood Urea Nitrogen 11 mg/dL (9-16) 04/24/23 Sodium 141 mmol/L (135-145) 04/24/23 Potassium 3.3 mmol/L (3.3-5.1) 04/24/23 Chloride 105 mmol/L (96-108) 04/24/23 Carbon Dioxide 30 mmol/L (22-29) H 04/24/23 Calcium 9.6 mg/dL (8.4-10.2) 04/24/23 AST 13 U/L (5-31) 04/24/23 ALT 15 U/L (0-31) 04/24/23 Total Protein 7.1 g/dL (6.5-8.0) 04/24/23 Albumin 4.0 g/dL (3.5-5.0) 04/24/23 [facility] Medical History COVID-19 Type 2 diabetes mellitus with diabetic neuropathy, unspecified Diabetes type 2, uncontrolled H/O breast lump DMII (diabetes mellitus, type 2) Hypertension High cholesterol Ovarian cyst Diabetes Physical exam Surgical History History of breast biopsy Hx of subtotal mastectomy of right breast (~2007) H/O eye surgery Hx of cholecystectomy History of section Family History Father Prostate cancer Mother Diabetes Brother Diabetes Social History Household Members: Family Housing: House Do you presently have visiting nurse or other home services: No Alcohol intake: never Patient Tobacco Use Status: Never used Tobacco Cigarette Packs Per Day: 0 Cigarettes Per Day: 0 Years Smoked: 0 e-Cigarette/Vaping Use: Never Used Second Hand Smoke Exposure: No service: No Current occupational status: unemployed Cognitive needs: No Hearing needs: No Vision needs: Yes Assessment & Plan Assessment & Plan (1) Type 2 diabetes mellitus with diabetic neuropathy, unspecified: Code(s): E11.40 - Type 2 diabetes mellitus with diabetic neuropathy, unspecified Qualifiers: Diabetes mellitus terminal manager insulin use: with retirement use Qualified Code(s): E11.40 - Type 2 diabetes mellitus with diabetic neuropathy, unspecified; Z79.4 - USP (current) use of insulin Plan: Learning objectives: The patient was provided with verbal and written education on the following topics as outlined below. Assess patient education level/literacy/barriers Patient questions/concerns, patient's glucose levels have improved from an average of 283 mg/dL at last visit, to an average of 234 mg/dL today. Patient had an increase of Mounjaro 2 5 mg in the past 4 weeks Patient's glucose is still above target 75%, 25% at target Will send a message to Dr. Enamorado to increase Mounjaro dose to 7.5 mg Instructed patient if she begins experience it patterns of hypoglycemia before next visit, to call for adjustment in Lantus The patient met all learning objectives and was able to verbalize understanding and provide teach back of education topics discussed . The patient was provided with the opportunity to ask questions and all questions were answered. Topics covered in today?s session included: Insulin/Injectables (If applicable) * Storage/care of insulin?? * Injection sites? * Site rotation? * Onset, peak, duration * Drawing up insulin? * Injecting insulin/other injectables? * Sharps disposal Continuous blood glucose monitoring (if applicable) Hypoglycemia and Hyperglycemia * Signs and symptoms? * Causes?? * Treatment? * Preventing hypoglycemia? * When to seek medical attention * Blood glucose targets and how you feel when your blood glucose is in and out of your target ranges. * Monitoring and knowing your A1C. * What can make blood glucose go up and down and preventing high and low blood glucose. * Review of blood sugar targets in expected goal range and outside of expected goal range. * Problem solving and preventing hyper/hypoglycemia. * Sick day management of diabetes. * Using blood sugar results in decision making process in managing diabetes. ?Patient was receptive to information provided and participated in the discussion. Asked?appropriate questions and demonstrated good understanding of the topics discussed.? ? Educational Materials: The patient was provided with the following written educational materials: Target Goal handout Smart Goal: Patient will increase Mounjaro to 7.5 mg weekly Patient Response to instructions: Comprehension of Instructions: fair Readiness to make changes:? Contemplation How confident they feel about making changes: Fair Patient Instructions: Follow-up with substance abuse rn in 6 weeks Coding Level of Care Code Est Pt Level 1 (59777) Diagnoses Type 2 diabetes mellitus with diabetic neuropathy, with long-term current use of insulin E11.40; Z79.4 Diabetes mellitus retirement insulin use: with terminal manager use
== END 2023-05-22 14:19 | disposition home or self-care (01) ==
PROVIDERS: PCP Physician Assistant; Visit Provider Registered Nurse Diabetes Educator
DX: E11.40 Type 2 diabetes mellitus with diabetic neuropathy, unspecified (principal); Z79.4 Long term (current) use of insulin

== ENCOUNTER → 2023-05-22 13:35 | Outpatient (BNVA) | payer OTHER, SELFPAY | PROVIDERS: PCP Physician Assistant; Visit Provider Registered Nurse Diabetes Educator | DX: E11.40 Type 2 diabetes mellitus with diabetic neuropathy, unspecified (principal); Z79.4 Long term (current) use of insulin | CPT/HCPCS: 99211 ==

== ENCOUNTER 2023-06-18 13:49 | Outpatient (AMB) | payer OTHER, SELFPAY ==
[2023-06-18 13:57] VITALS: BP 128/70; PULSE 103; BMI 31.1
--- NOTE | 2023-06-18 13:57 | MHC.OFFVIS ---
Intake Vital Signs 06/18/23 13:57 Height 5 ft 4 in Weight 181 lb 3.52 oz BMI 31.1 BP 128/70 Blood Pressure Location Lt brachial Position Sitting Pulse 103 H Pulse Source Pulse Oximeter Intake Visit Reasons: f/u Type 2 DM-confirmed Intake Note: Patient presents today to follow up on D2MT. Last Diabetic Eye exam: 10/2022 Last Podiatry Visit: 05/2023 Random Glucose: 217 mg/dl HgA1c: 10.3% 04/22/23 Human Resources Leader Required: Yes Human Resources Leader Language: Horse Show Manager Name: M[facility]ika medical staff Information Interpreted: non-clinical & clinical Accompanied by: Self / Same As Patient Allergies acetaminophen [From Dologesic-DF] Allergy (Verified 06/18/23 14:03) upset stomach dexbrompheniramine [From Dologesic-DF] Allergy (Verified 06/18/23 14:03) upset stomach metformin Adverse Reaction (Verified 06/18/23 14:03) upset stomach Medication List - Last Reconciled 06/18/23 by Darrell Enamorado MD albuterol sulfate 2.5 mg (3 mL) inhalation Q6H PRN 30 days albuterol sulfate 90 mcg/actuation 1 inh inhalation QID PRN 30 days atorvastatin 20 mg PO BEDTIME 90 days benzonatate 200 mg PO TID 5 days blood sugar diagnostic As directed blood sugar diagnostic (OneTouch Ultra Test strips) Testing 4 times a day blood-glucose meter (OneTouch Ultra2 Meter) Testing 4 times a day cyclobenzaprine 5 mg PO DAILY 10 days [Diabetic shoes & 3 pair inserts as directed] docusate sodium 100 mg PO BID 30 days empagliflozin (Jardiance) 25 mg PO QAM 90 days flash glucose scanning reader (FreeStyle Ashley 2 [place]) As directed flash glucose sensor (FreeStyle Ashley 2 Sensor kit) As directed change every 14 days insulin glargine (Lantus Solostar U-100 Insulin) 45 units subcut QAM lancets Testing 4 times a day meloxicam 15 mg PO DAILY 30 days nebulizers (VixOne Nebulizer-Adult Mask) As directed nebulizers As directed Novolog FlexPen U-100 Insulin (insulin aspart U-100) 18 units (0.18 mL) subcut TID NS pen needle, diabetic (Comfort EZ Pen [place]) As directed tirzepatide (Mounjaro) 7.5 mg (0.5 mL) subcut QWEEK HPI HPI Comments History of Present Illness Details Patient is a 58 year old female with DM type 2 diagnosed around the year 1999, who presents for management of diabetes. Past medical history: DM2, HLD Micro and macrovascular complications: + neuropathy, CVA, CAD, PVD Diabetes medications: Lantus 40 units, Mounjaro 7.5 mg Qwkly . Jardiance 25mg Novolog 18 units Ac Blood glucose monitoring: Dexcom download shows a sensors be 100% of the time. Average glucose is 230 with standard deviation 67 and GMI of 8.8 . 25% range with 74 % hyperglycemia and <1% hypoglycemia. Pattern shows persistent hyperglycemia throughout the day with increase after breakfast Symptoms reported: + numbness, tingling, cramping in lower extremities Hypoglycemia: very rare every 2 wks Hyperglycemia: denies urinary frequency, +nocturia 4x/night , polydypsia Ophthalmology exam: Oct 2023 Laboratory Tests 04/18/21 11:28 Hgb A1c (Clinic) 10.4 H PFSH Medical History COVID-19 Type 2 diabetes mellitus with diabetic neuropathy, unspecified Diabetes type 2, uncontrolled H/O breast lump DMII (diabetes mellitus, type 2) Hypertension High cholesterol Ovarian cyst Diabetes Physical exam Surgical History History of breast biopsy Hx of subtotal mastectomy of right breast (~2007) H/O eye surgery Hx of cholecystectomy History of section Family History Father Prostate cancer Mother Diabetes Brother Diabetes Social History Household Members: Family Housing: House Do you presently have visiting nurse or other home services: No Alcohol intake: never Patient Tobacco Use Status: Never used Tobacco Cigarette Packs Per Day: 0 Years Smoked: 0 e-Cigarette/Vaping Use: Never Used Second Hand Smoke Exposure: No service: No Current occupational status: unemployed Cognitive needs: No Hearing needs: No Vision needs: Yes Physical Exam Absence of Cushingoid features. Absence of acromegalic features. Neck exam reveals nl size thyroid about 15 gms. No thyroid nodules palpable. No carotid bruits present. Lungs CTA. Heart S1 S2, Reg R/R. No M/R/ G. Skin exam reveals absence of vitiligo or acanthosis nigricans. Abdominal exam reveals Soft NT/ND with NA BS. No organomegaly present. Neck Other: . Extrem Other: Visual exam of foot performed. No ulcerations or open lesions. No onchomycosis, no callouses.Pulses 2 + distally Sensation intact to monofilament exam. 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 The plan is to increase the Lantus to 50 units. and Novolog to 24 . Will increase Mounjaro to 10 mg Qwkly. Will have patient follow up with asthma educator. 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) use of insulin To Novolog FlexPen U-100 Insulin (insulin aspart U-100) 24 units before breakfast and 18 units before lunch and dinner subcutaneously 3 times a day; 15 mL 5RF NS E11.40 - Type 2 diabetes mellitus with diabetic neuropathy, unspecified, Z79.4 - nursing home (current) use of insulin From insulin glargine (Lantus Solostar U-100 Insulin) 45 units subcut QAM E11.40 - Type 2 diabetes mellitus with diabetic neuropathy, unspecified To insulin glargine (Lantus Solostar U-100 Insulin) 50 units subcut QAM E11.40 - Type 2 diabetes mellitus with diabetic neuropathy, unspecified Refilled empagliflozin (Jardiance) 25 mg PO QAM 90 tabs 2RF 90 days E11.65 - Type 2 diabetes mellitus with hyperglycemia Discontinued tirzepatide (Mounjaro) Discontinued Reason: Doctor's Order 7.5 mg (0.5 mL) subcut QWEEK 2 mL 5RF Coding Level of Care Code Est Pt Level 4 (05568) Diagnoses Type 2 diabetes mellitus with diabetic neuropathy, with long-term current use of insulin E11.40; Z79.4 Diabetes mellitus laundry assistant insulin use: with residential use
[2023-06-18 14:08] LABS: Glucose, Whole Blood 217 mg/dL (60-115)
== END 2023-06-18 14:19 | disposition home or self-care (01) ==
PROVIDERS: PCP Physician Assistant; Visit Provider Internal Medicine Endocrinology, Diabetes & Metabolism
DX: E11.40 Type 2 diabetes mellitus with diabetic neuropathy, unspecified (principal); Z79.4 Long term (current) use of insulin
CPT/HCPCS: 99214

== ENCOUNTER → 2023-06-18 13:49 | Outpatient (BNVA) | payer OTHER, SELFPAY | PROVIDERS: PCP Physician Assistant; Visit Provider Internal Medicine Endocrinology, Diabetes & Metabolism | DX: E11.40 Type 2 diabetes mellitus with diabetic neuropathy, unspecified (principal); Z79.4 Long term (current) use of insulin | CPT/HCPCS: 82947; 99212 ==

== ENCOUNTER 2023-06-19 13:42 | Outpatient (AMB) | payer OTHER, SELFPAY ==
[2023-06-19 14:33] VITALS: BMI 30.8
--- NOTE | 2023-06-19 14:33 | A.OFFVIS_ITS ---
Intake VS Expanded 06/19/23 14:33 Height 5 ft 4 in Weight 179 lb 3.773 oz BMI 30.8 Intake Visit Reasons: T2DM/LVM Allergies acetaminophen [From Dologesic-DF] Allergy (Verified 06/18/23 14:03) upset stomach dexbrompheniramine [From Dologesic-DF] Allergy (Verified 06/18/23 14:03) upset stomach metformin Adverse Reaction (Verified 06/18/23 14:03) upset stomach HPI Nutrition Presentation Details Pt presents for MNT f/u for T2DM Pt reports participating at [employer] Typical meal intake: B: Oatmeal or sandwich ( ham/cheese) , water or milk or cranberry juice light L: pasta salad or hamburger or tuna sandwich or cornflakes, milk dinner: soup or salad or starchy vegetable Reports doing well, no questions or concerns during this appt Most Recent Diabetes Results: Cholesterol 122 mg/dL (<200) 04/02/23 HDL Cholesterol 48 mg/dL (>40) 04/02/23 Triglycerides 48 mg/dL (<150) 04/02/23 Creatinine 0.71 mg/dL (0.5-1.4) 04/24/23 Blood Urea Nitrogen 11 mg/dL (9-16) 04/24/23 Sodium 141 mmol/L (135-145) 04/24/23 Potassium 3.3 mmol/L (3.3-5.1) 04/24/23 Chloride 105 mmol/L (96-108) 04/24/23 Carbon Dioxide 30 mmol/L (22-29) H 04/24/23 Calcium 9.6 mg/dL (8.4-10.2) 04/24/23 AST 13 U/L (5-31) 04/24/23 ALT 15 U/L (0-31) 04/24/23 Total Protein 7.1 g/dL (6.5-8.0) 04/24/23 Albumin 4.0 g/dL (3.5-5.0) 04/24/23 [facility] Medical History COVID-19 Type 2 diabetes mellitus with diabetic neuropathy, unspecified Diabetes type 2, uncontrolled H/O breast lump DMII (diabetes mellitus, type 2) Hypertension High cholesterol Ovarian cyst Diabetes Physical exam Surgical History History of breast biopsy Hx of subtotal mastectomy of right breast (~2007) H/O eye surgery Hx of cholecystectomy History of section Family History Father Prostate cancer Mother Diabetes Brother Diabetes Social History Household Members: Family Housing: House Do you presently have visiting nurse or other home services: No Alcohol intake: never Patient Tobacco Use Status: Never used Tobacco Cigarette Packs Per Day: 0 Years Smoked: 0 e-Cigarette/Vaping Use: Never Used Second Hand Smoke Exposure: No service: No Current occupational status: unemployed Cognitive needs: No Hearing needs: No Vision needs: Yes Assessment & Plan Assessment & Plan (1) Diabetes type 2, uncontrolled: Code(s): E11.65 - Type 2 diabetes mellitus with hyperglycemia Qualifiers: Glycemic state: with hyperglycemia Qualified Code(s): E11.65 - Type 2 diabetes mellitus with hyperglycemia Plan: Review modification of simples sugars , snacks Rec: 1400 carlos /day high fiber, low in fat Exercise Recommendation and engaging in physical activity goal 30 minutes daily for overall health est kcal needs: 1400 ( MSJ ) est prot needs: 76 g/day (1 g/kg bw) est fluid needs: 1900 ml/d (25 ml/kg bw) Educate patient on: (R= Reviewed, V = verbalizes understanding N/R= Needs review N/A= not applicable) * food and its relationship to blood sugar and insulin (humalog)- R * Sources of carbohydrates and foods sources without carbohydrates - R * low sugar options for over the counter medications and always confirm with pharmacist: R * Healthy Plate method concept: R V * low sodium food concepts: R Patient Instructions: Choose low sodium foods , fruit in place of pastry 1 time a day at least choose low sodium seasonings - see list as references Coding Level of Care Code Nutr Indiv Subseq (37444) Diagnoses Uncontrolled type 2 diabetes mellitus with hyperglycemia E11.65 Glycemic state: with hyperglycemia Time Spent (min) 25
== END 2023-06-19 14:45 | disposition home or self-care (01) ==
PROVIDERS: PCP Physician Assistant; Visit Provider Dietitian, Registered
DX: E11.65 Type 2 diabetes mellitus with hyperglycemia (principal)

== ENCOUNTER → 2023-06-19 13:42 | Outpatient (BNVA) | payer OTHER, SELFPAY | PROVIDERS: PCP Physician Assistant; Visit Provider Dietitian, Registered | DX: E11.65 Type 2 diabetes mellitus with hyperglycemia (principal); E11.40 Type 2 diabetes mellitus with diabetic neuropathy, unspecified; Z90.49 Acquired absence of other specified parts of digestive tract; Z71.3 Dietary counseling and surveillance | CPT/HCPCS: 97803 ==

== ENCOUNTER 2023-07-13 19:43 | Emergency (ER) | payer OTHER, SELFPAY ==
[2023-07-13 19:53] VITALS: BP 146/70; PULSE 85; RESP 16; TEMP 36.8; O2SAT 98; BMI 40.3
[2023-07-13 20:17] LABS: IDNOW Serial# 08D9AD1C; Strep A Nucleic Acid Negative (Negative)
[2023-07-13 20:51] LABS: Influenza A PCR NEGATIVE (Negative); Influenza B PCR NEGATIVE (Negative); Resp Syncy Virus RNA Qual PCR NEGATIVE (Negative); SARS COV2 PCR INHOUSE NEGATIVE (Negative)
--- NOTE | 2023-07-13 22:53 | ED.URI ---
HPI - URI/Sore Throat General Chief Complaint: Upper Respiratory Symptoms Stated Complaint: left side pain/headache Time Seen by Provider: 07/13/23 22:53 Source: patient Mode of arrival: ambulatory Limitations: language barrier (Bhutanese speaking only, it senior software engineer java used) History of Present Illness HPI Narrative: 58-year-old female with history diabetes mellitus, hypertension, cervical cancer presents emergency department for evaluation of cough, sore throat and left neck swelling. The patient states she was in [place] for 9 days and just returned home. She states that over the last 4 days she has had a sore throat, rhinorrhea, nonproductive cough, left ear pain and left neck swelling. She states she is having difficulty swallowing secondary to her throat pain. She denied fever or chills. The patient's daughter started her on amoxicillin and she is taken 2 doses with no improvement of her symptoms. She has not been taking any pain medications. Related Data Home Medications ?Medication ?Instructions ?Recorded ?Confirmed pen needle, diabetic 32 gauge x #50 ea 05/22/20 06/13/23 (Comfort EZ Pen [place]) Diabetic shoes & 3 pair inserts 06/13/23 06/13/23 insulin glargine 100 unit/mL (3 50 unit subcut QAM 06/18/23 06/18/23 mL) subcutaneous pen (Lantus Solostar U-100 Insulin) Previous Rx's ?Medication ?Instructions ?Recorded blood sugar diagnostic #50 ea 05/22/20 nebulizers (VixOne Nebulizer-Adult #1 ea 04/05/21 Mask) albuterol sulfate 2.5 mg/3 mL 2.5 mg (3 mL) inhalation Q6H PRN 04/18/21 (0.083 %) solution for nebulization shortness of breath or wheezing 30 days #180 mL nebulizers #1 ea 04/18/21 blood-glucose meter (OneTouch #1 ea 07/01/22 Ultra2 Meter) flash glucose scanning reader #1 ea 08/06/22 (FreeStyle Ashley 2 [place]) flash glucose sensor (FreeStyle #2 ea 08/06/22 Ashley 2 Sensor kit) cyclobenzaprine 5 mg tablet 5 mg PO DAILY 10 days #10 tabs 09/11/22 meloxicam 15 mg tablet 15 mg PO DAILY 30 days #30 tabs 09/11/22 albuterol sulfate 90 mcg/actuation 1 inh inhalation QID PRN shortness 01/01/23 aerosol inhaler of breath or wheezing 30 days #8.5 grams blood sugar diagnostic (OneTouch #100 ea 01/01/23 Ultra Test strips) atorvastatin 20 mg tablet 20 mg PO BEDTIME 90 days #90 tabs 01/06/23 docusate sodium 100 mg capsule 100 mg PO BID 30 days #60 caps 01/06/23 lancets #200 ea 04/21/23 benzonatate 200 mg capsule 200 mg PO TID 5 days #15 caps 04/22/23 Novolog FlexPen U-100 Insulin 100 See Rx Instructions subcut TID #15 06/18/23 unit/mL (3 mL) subcutaneous mL (insulin aspart U-100) empagliflozin 25 mg tablet 25 mg PO QAM 90 days #90 tabs 06/18/23 (Jardiance) tirzepatide 10 mg/0.5 mL 10 mg (0.5 mL) subcut QWEEK #2 mL 06/18/23 subcutaneous pen injector (Jocelyn) acetaminophen 500 mg tablet 1,000 mg (2 x 500 mg) PO Q6H PRN 07/13/23 (Tylenol Extra Strength) fever or pain #20 tabs amoxicillin 500 mg capsule 500 mg PO TID 7 days #21 caps 07/13/23 ibuprofen 400 mg tablet 400 mg PO TID PRN fever or pain 07/13/23 #30 tabs Allergies Allergy/AdvReac Type Severity Reaction Status Date / Time acetaminophen Allergy upset Verified 07/13/23 19:54 [From Dologesic-DF] stomach dexbrompheniramine Allergy upset Verified 07/13/23 19:54 [From Dologesic-DF] stomach metformin AdvReac upset Verified 07/13/23 19:54 stomach Review of Systems Review of Systems: Yes all other systems are reviewed and are negative [facility] Past Medical History [facility] Narrative: Social history: She denies tobacco, alcohol and drug use. Medical History COVID-19 Type 2 diabetes mellitus with diabetic neuropathy, unspecified Diabetes type 2, uncontrolled H/O breast lump DMII (diabetes mellitus, type 2) Hypertension High cholesterol Ovarian cyst Diabetes Physical exam Surgical History History of breast biopsy Hx of subtotal mastectomy of right breast (~2007) H/O eye surgery Hx of cholecystectomy History of section Family History Family History Father Prostate cancer Mother Diabetes Brother Diabetes Social History Social History Household Members: Family Housing: House Do you presently have visiting nurse or other home services: No Alcohol intake: never Patient Tobacco Use Status: Never used Tobacco Cigarette Packs Per Day: 0 Years Smoked: 0 e-Cigarette/Vaping Use: Never Used Second Hand Smoke Exposure: No Advance Directives: No Advance Directives Information Provided: No service: No Current occupational status: unemployed Cognitive needs: No Hearing needs: No Vision needs: Yes Physical Exam Vital Signs: Vital Signs: Last Vital Signs Temp 98.3 F 07/13/23 19:53 Pulse 85 07/13/23 19:53 Resp 16 07/13/23 19:53 BP 146/70 H 07/13/23 19:53 Pulse Ox 98 07/13/23 19:53 O2 Del Method Room Air 07/13/23 19:53 BMI result Body Mass Index 40.3 Vital signs were normal Exam: General: Awake, alert in no distress Head: Normocephalic, atraumatic EENT: PERRL, Lids normal, sclera normal, conjunctiva normal, nose normal , ears normal, throat posterior erythema with no exudates, uvula is midline, no trismus, no drooling Neck: Supple, tender, left anterior cervical and jugulodigastric lymph nodes, no posterior lymph nodes Lung: breath sounds symmetric, no wheezing, rales or rhonchi Chest: symmetric movement, nontender Heart: regular rate and rhythm, normal S1, S2 no murmurs or rubs Abdomen: soft, non-tender, nondistended, normal bowel sounds Psych: Pleasant, cooperative Medical Decision Making Medical Decision Making MDM Narrative: 58-year-old female history of diabetes mellitus, asthma who presents emergency department for evaluation of 4 days of rhinorrhea, throat pain, difficulty swallowing, left ear pain, left neck swelling, nonproductive cough with no fever chills, shortness of breath or chest pain. Vital signs were normal. Physical examination did reveal posterior erythema with no exudates, left neck swelling secondary to adenopathy. Differential diagnosis: ?Includes but is not limited to viral pharyngitis, bacterial pharyngitis, tonsillitis, your infection, COVID-19, influenza, RSV Following evaluation was ordered: COVID-19, RSV, influenza, rapid strep Patient was initially treated with the following: Ibuprofen 40 mg orally Course: My independent interpretation patient's laboratory evaluation as follows: COVID-19, influenza, RSV were negative. Rapid strep was negative. Patient's findings are consistent with a bacterial pharyngitis with left-sided cervical adenopathy. Patient was started on amoxicillin 500 mg 3 times a day for 7 days, ibuprofen 400 mg every 6 hours as needed for pain or fever and Tylenol 1000 mg every 6 hours as needed for pain or fever. She was given printed and verbal instructions and discharged home Lab Data MDM Lab Attestation statement: I reviewed the patient's lab results. Labs: Lab Results 07/13/23 Range/Units 20:03 Influenza Type A (PCR) NEGATIVE (Negative) Influenza Type B (PCR) NEGATIVE (Negative) RSV RNA Qual (PCR) NEGATIVE (Negative) SARS-CoV-2 RNA (RT-PCR) NEGATIVE (Negative) S. pyogenes GrpA RASHIDA Negative (Negative) Discharge Plan Discharge Clinical Impression: Adenopathy, cervical Pharyngitis Qualifiers: Pharyngitis/tonsillitis etiology: other specified organisms Qualified Code(s): J02.8 - Acute pharyngitis due to other specified organisms Patient Disposition: Home, Self-Care Instructions: Pharyngitis (ED) Additional Instructions: Take amoxicillin 500 mg, 1 pill 3 times a day for 7 days, this is an antibiotic that will treat a bacterial throat infection and bacterial ear infection. The swelling on the left side of your neck is caused by reactive lymph nodes due to your infection and the should improve with the antibiotic therapy. Take ibuprofen 400 mg pills, 1 pills every 6 hours as needed for pain or fever. Take Tylenol (acetaminophen) 500 mg pills, 2 pills every 6 hours as needed for pain or fever. Use 8 oz of warm water with 1 tbsp of salt mixed in it, gargle this salt water 3 times a day for the next 3 days and this should improve your throat pain as well. Follow-up with your doctor in 2 days. Please return to the emergency department if your symptoms get worse or if you develop any symptoms that are concerning to you. Your COVID-19, influenza and RSV tests were negative. Your rapid strep test was negative. Prescriptions: New amoxicillin 500 mg capsule 500 mg PO TID 7 Days Qty: 21 0RF acetaminophen [Tylenol Extra Strength] 500 mg tablet 1,000 mg PO Q6H PRN (Reason: fever or pain) Qty: 20 0RF ibuprofen 400 mg tablet 400 mg PO TID PRN (Reason: fever or pain) Qty: 30 0RF No Action (DME) pen needle, diabetic [Comfort EZ Pen [place]] 32 gauge x 5/32 needle See Rx Instructions .ROUTE .MEDSUPPLY Qty: 50 Rx Instructions: As directed (DME) blood sugar diagnostic Strip See Rx Instructions .ROUTE .MEDSUPPLY Qty: 50 1RF Rx Instructions: As directed (DME) VixOne Nebulizer-Adult Mask Misc See Rx Instructions .Route Qty: 1 0RF Rx Instructions: As directed (DME) blood-glucose meter [OneTouch Ultra2 Meter] Misc See Rx Instructions .Route Qty: 1 0RF Rx Instructions: Testing 4 times a day (DME) FreeStyle Ashley 2 [place] Misc See Rx Instructions .Route Qty: 1 0RF Rx Instructions: As directed (DME) FreeStyle Ashley 2 Sensor Kit See Rx Instructions .Route Qty: 2 5RF Rx Instructions: As directed change every 14 days albuterol sulfate 90 mcg/actuation HFA aerosol inhaler 1 inh inhalation QID PRN (Reason: shortness of breath or wheezing) 30 Days Qty: 8.5 3RF (DME) OneTouch Ultra Test Strip See Rx Instructions .Route Qty: 100 6RF Rx Instructions: Testing 4 times a day (DME) lancets Misc See Rx Instructions .Route Qty: 200 6RF Rx Instructions: Testing 4 times a day (DME) Diabetic shoes & 3 pair inserts Diabetic shoes & 3 pair insert kit See Rx Instructions Rx Instructions: as directed albuterol sulfate 2.5 mg /3 mL (0.083 %) solution for nebulization 2.5 mg inhalation Q6H PRN (Reason: shortness of breath or wheezing) 30 Days Qty: 180 3RF (DME) nebulizers Misc See Rx Instructions .Route Qty: 1 0RF Rx Instructions: As directed meloxicam 15 mg tablet 15 mg PO DAILY 30 Days Qty: 30 3RF cyclobenzaprine 5 mg tablet 5 mg PO DAILY 10 Days Qty: 10 0RF atorvastatin 20 mg tablet 20 mg PO BEDTIME 90 Days Qty: 90 2RF docusate sodium 100 mg capsule 100 mg PO BID 30 Days Qty: 60 3RF benzonatate 200 mg capsule 200 mg PO TID 5 Days Qty: 15 0RF Mounjaro 10 mg/0.5 mL pen injector 10 mg subcut QWEEK Qty: 2 4RF insulin aspart U-100 [Novolog FlexPen U-100 Insulin] 100 unit/mL (3 mL) insulin pen See Rx Instructions subcut TID Qty: 15 5RF Rx Instructions: 24 units before breakfast and 18 units before lunch and dinner subcutaneously 3 times a day; insulin glargine [Lantus Solostar U-100 Insulin] 100 unit/mL (3 mL) insulin pen 50 unit subcut QAM Jardiance 25 mg tablet 25 mg PO QAM 90 Days Qty: 90 2RF Print Language: Bhutanese
[2023-07-13 23:42] VITALS: BP 127/59; PULSE 87; RESP 18; TEMP 37.1; O2SAT 94
[2023-07-13] MEDS: Ibuprofen 400 MG TABLET PO (23:51)
[2023-07-13 23:53] VITALS: BP 127/59; PULSE 87; RESP 18; TEMP 37.1; O2SAT 94
== END 2023-07-13 23:55 | disposition home or self-care (01) ==
PROVIDERS: Emergency Provider Emergency Medicine Emergency Medical Services; PCP Physician Assistant
DX: J02.8 Acute pharyngitis due to other specified organisms (principal); R59.0 Localized enlarged lymph nodes; R51.9 Headache, unspecified; R05.9 Cough, unspecified; J02.9 Acute pharyngitis, unspecified; Z03.818 Encounter for observation for suspected exposure to other biological agents ruled out
CPT/HCPCS: 0241U; 87651; 99283

== ENCOUNTER 2023-07-17 13:49 | Emergency (ER) | payer OTHER, SELFPAY ==
--- NOTE | ~2023-07-17 | XR_ITS ---
EXAMINATION: XR CHEST CLINICAL INFORMATION: Cough. COMPARISON: 04/24/2023 TECHNIQUE: 2 views of the chest were obtained. FINDINGS: The cardiomediastinal silhouette is stable. There is no focal lung consolidation or pleural effusion. The bony structures and soft tissues are unremarkable. XR/XR chest 2V IMPRESSION: No acute cardiopulmonary process.
--- NOTE | ~2023-07-17 | US_ITS ---
EXAMINATION: US VENOUS ULTRASOUND WITH DOPPLER LOWER EXTREMITY, BILATERAL CLINICAL INFORMATION: Bilateral lower extremity swelling. Recent travel. COMPARISON: None available. TECHNIQUE: Ultrasound of the deep veins is performed from the hip to the calf with compression sonography and color and pulse Doppler assessment. Spectral analysis with color-flow imaging is performed. FINDINGS: RIGHT: There is normal venous compression and respiratory variation and augmented flow. The visualized common femoral vein, superficial femoral vein, profunda femoral vein, popliteal vein, and the trifurcation region shows no evidence of deep venous thrombosis. There is no significant popliteal fossa cyst. LEFT: There is normal venous compression and respiratory variation and augmented flow. The visualized common femoral vein, superficial femoral vein, profunda femoral vein, popliteal vein, and the trifurcation region shows no evidence of deep venous thrombosis. There is no significant popliteal fossa cyst. If the patient's symptoms persist, followup ultrasound in 5 days 7 days might be of value to exclude proximal propagation from a non-visualized calf vein. US/US venous duplex LE BI IMPRESSION: No DVT demonstrated in the bilateral lower extremities.
--- NOTE | 2023-07-17 13:59 | ED_ITS ---
HPI - General Adult General Chief complaint: General Medical Stated complaint: Swollen feet - diabetic Time Seen by Provider: 07/17/23 20:52 Source: patient, RN notes reviewed, old records reviewed and seat cover maker Mode of arrival: ambulatory Limitations: language barrier History of Present Illness HPI narrative: 58-year-old female with past medical history significant for tendonitis, history of breast cancer, constipation, type 2 diabetes, asthma, hypertension presents for evaluation of leg swelling. Patient reports bilateral leg swelling started this morning She states that she has never had swollen legs in the past. She reports last she returned my plane from [place] Denies any fevers, chills, cough, shortness of breath, chest pain, abdominal pain Patient denies any history of heart failure. She denies excessive fluid intake She reports that she has on a bariatric diet Related Data Home Medications ?Medication ?Instructions ?Recorded ?Confirmed pen needle, diabetic 32 gauge x #50 ea 05/22/20 06/13/23 (Comfort EZ Pen [place]) Diabetic shoes & 3 pair inserts 06/13/23 06/13/23 insulin glargine 100 unit/mL (3 50 unit subcut QAM 06/18/23 06/18/23 mL) subcutaneous pen (Lantus Solostar U-100 Insulin) Previous Rx's ?Medication ?Instructions ?Recorded blood sugar diagnostic #50 ea 05/22/20 nebulizers (VixOne Nebulizer-Adult #1 ea 04/05/21 Mask) albuterol sulfate 2.5 mg/3 mL 2.5 mg (3 mL) inhalation Q6H PRN 04/18/21 (0.083 %) solution for nebulization shortness of breath or wheezing 30 days #180 mL nebulizers #1 ea 04/18/21 blood-glucose meter (OneTouch #1 ea 07/01/22 Ultra2 Meter) flash glucose scanning reader #1 ea 08/06/22 (FreeStyle Ashley 2 Deport) flash glucose sensor (FreeStyle #2 ea 08/06/22 Ashley 2 Sensor kit) cyclobenzaprine 5 mg tablet 5 mg PO DAILY 10 days #10 tabs 09/11/22 meloxicam 15 mg tablet 15 mg PO DAILY 30 days #30 tabs 09/11/22 albuterol sulfate 90 mcg/actuation 1 inh inhalation QID PRN shortness 01/01/23 aerosol inhaler of breath or wheezing 30 days #8.5 grams blood sugar diagnostic (OneTouch #100 ea 01/01/23 Ultra Test strips) atorvastatin 20 mg tablet 20 mg PO BEDTIME 90 days #90 tabs 01/06/23 docusate sodium 100 mg capsule 100 mg PO BID 30 days #60 caps 01/06/23 lancets #200 ea 04/21/23 benzonatate 200 mg capsule 200 mg PO TID 5 days #15 caps 04/22/23 Novolog FlexPen U-100 Insulin 100 See Rx Instructions subcut TID #15 06/18/23 unit/mL (3 mL) subcutaneous mL (insulin aspart U-100) empagliflozin 25 mg tablet 25 mg PO QAM 90 days #90 tabs 06/18/23 (Jardiance) tirzepatide 10 mg/0.5 mL 10 mg (0.5 mL) subcut QWEEK #2 mL 06/18/23 subcutaneous pen injector (Mounjaro) acetaminophen 500 mg tablet 1,000 mg (2 x 500 mg) PO Q6H PRN 07/13/23 (Tylenol Extra Strength) fever or pain #20 tabs amoxicillin 500 mg capsule 500 mg PO TID 7 days #21 caps 07/13/23 ibuprofen 400 mg tablet 400 mg PO TID PRN fever or pain 07/13/23 #30 tabs furosemide 20 mg tablet (Lasix) 20 mg PO DAILY #5 tabs 07/17/23 Allergies Allergy/AdvReac Type Severity Reaction Status Date / Time acetaminophen Allergy upset Verified 07/17/23 14:01 [From Dologesic-DF] stomach dexbrompheniramine Allergy upset Verified 07/17/23 14:01 [From Dologesic-DF] stomach metformin AdvReac upset Verified 07/17/23 14:01 stomach Review of Systems 2 Constitutional: Constitutional: Denies body ache(s), Denies chills and Denies frequent falls Eyes: Eyes: Denies blurry vision ENT: Denies sore throat Cardiovascular: Cardiovascular: Denies chest pain, Reports pedal edema, Reports leg edema and Denies dyspnea Respiratory: Respiratory: Denies cough and Denies dyspnea Gastrointestinal: Gastrointestinal: Denies abdominal pain, Denies nausea and Denies vomiting Genitourinary: Genitourinary: Denies dysuria Musculoskeletal: Musculoskeletal: Denies back pain Integumentary/Breasts: Skin/Breast: Denies rash Neurologic: Denies frequent falls PMFSH Past Medical History Medical History COVID-19 Type 2 diabetes mellitus with diabetic neuropathy, unspecified Diabetes type 2, uncontrolled H/O breast lump DMII (diabetes mellitus, type 2) Hypertension High cholesterol Ovarian cyst Diabetes Physical exam Surgical History History of breast biopsy Hx of subtotal mastectomy of right breast (~2007) H/O eye surgery Hx of cholecystectomy History of section Family History Family History Father Prostate cancer Mother Diabetes Brother Diabetes Social History Social History Household Members: Family Housing: House Do you presently have visiting nurse or other home services: No Alcohol intake: never Patient Tobacco Use Status: Never used Tobacco Cigarette Packs Per Day: 0 Years Smoked: 0 Smoked in Last 30 Days: No e-Cigarette/Vaping Use: Never Used Second Hand Smoke Exposure: No Use of substances other than those prescribed or required for medical reasons: No Advance Directives: No Advance Directives Information Provided: Yes Do you have a plan to hurt others: No Plan Patient : No service: No Current occupational status: unemployed Cognitive needs: No Hearing needs: No Vision needs: Yes Physical Exam ED Vital Signs: Vital Signs - 24 hr 07/17/23 14:00 07/17/23 20:49 07/17/23 22:38 Temperature 98.2 F 97.9 F 97.8 F Pulse Rate 88 90 94 Respiratory Rate 16 16 16 Blood Pressure 130/64 139/76 134/63 Pulse Oximetry 98 98 97 Oxygen Delivery Method Room Air Room Air Room Air BMI result Body Mass Index 31.3 Const General: healthy appearing, comfortable, no acute distress, alert and awake Nutritional Appearance: well nourished Orientation/consciousness: patient oriented x3 HENMT Head: Yes normocephalic and Yes atraumatic Eyes Eyelids: Yes eyelids normal Conjunctivae: conjunctivae normal Sclerae: sclerae normal Corneas: corneas normal Pupils: Equal, round and reactive pupils present EOM: EOMs intact bilaterally Neck Neck: Yes full ROM Resp Effort & Inspection: normal respiratory effort, able to speak in complete sentences, no audible wheezes and not labored Auscultation: clear to auscultation bilaterally Cardio Other: Patient has 2+ bilateral pitting edema to the lower extremities. No wounds, overlying skin changes Rate: regular rate Rhythm: regular rhythm Skin General skin exam: no rashes or lesions noted and elasticity normal Neuro General: patient oriented x3 Cranial nerves: Yes Equal, round and reactive pupils present and Yes Bilaterally intact EOM present Cognition (Neuro): normal cognition Extrem Other: Moving all extremities well without any obvious deformities Course Course Course Narrative: This is a rapid medical exam: Additional HPI, ROS, PE not included below will be deferred to primary provider. Patient is a 58-year-old female with history of T2DM, asthma, neuropathy, HTN presenting to the ED with complaint of swelling to feet, states she just noticed this morning. Denies chest pain or dyspnea. Plan: labs, UA Medical Decision Making Medical Decision Making [facility] Narrative: Patient complains of bilateral leg swelling. She denies any history of CHF, DVT or PE. Given that she just recently flew back from [place] we will get ultrasounds of lower extremities. However given her some side bilateral I feel that DVT is less likely. I ordered a chest x-ray which shows no evidence of pleural effusions or pulmonary edema. Patient likely has dependent edema. She will be encouraged to decrease salt intake, fluid intake we will give her 3 days of Lasix. Her vital signs are stable. There was no evidence of infectious process Differential Diagnosis Differential Diagnoses: The differential diagnosis associated with the presentation includes Dependent edema DVT Cellulitis Popliteal fossa cyst Pulmonary edema Lab Data [facility] Lab Attestation statement: I reviewed the patient's lab results. Mild leukocytosis to 11.7 that is chronic without left shift. No significant electrolyte abnormalities. Patient's glucose is elevated to 225 with no evidence of DKA. BNP is 16 07/17/23 14:21 07/17/23 14:21 Labs: Lab Results 07/17/23 07/17/23 07/17/23 Range/Units 14:21 20:52 21:16 WBC 11.7 H (4.8-10.8) X10*3/uL RBC 5.08 (4.20-5.50) X10*6/uL Hgb 13.4 (12.0-16.0) g/dl Hct 40.9 (37.0-47.0) % MCV 80.5 (80.0-98.0) fL MCH 26.4 L (27.0-33.0) pg MCHC 32.8 (31.0-35.0) g/dl RDW 14.7 (11.0-16.0) % Plt Count 303 (160-400) X10*3/uL MPV 10.0 (9.4-12.3) fL Immature Gran % (Auto) 0.4 (0.0-0.4) % Neut % (Auto) 63.4 (45-73) % Lymph % (Auto) 26.7 (20-40) % [place] % (Auto) 7.8 (2-11) % Eos % (Auto) 1.3 (0-4) % Baso % (Auto) 0.4 (0-2) % Lymph # (Auto) 3.1 (1.2-4.9) X10*3/uL [place] # (Auto) 0.9 (0.1-1.2) X10*3/uL Eos # (Auto) 0.2 (0.0-0.4) X10*3/uL Baso # (Auto) 0.1 (0.0-0.2) X10*3/uL Abs Immat Gran (auto) 0.05 H (0.00-0.03) X10*3/uL Absolute Neuts (auto) 7.4 (2.0-8.3) x10*3/uL Absolute Nucleated RBC 0.000 (0.0-0.012) X10*3/uL Nucleated RBC % (auto) 0.0 (0.0-0.2) /100WBC Sodium 141 (135-145) mmol/L Potassium 4.3 D (3.3-5.1) mmol/L Chloride 106 (96-108) mmol/L Carbon Dioxide 31 H (22-29) mmol/L Anion Gap 8 L (12-20) BUN 12 (9-16) mg/dL Creatinine 0.71 (0.5-1.4) mg/dL Estim Creat Clear Calc 92.0 Estimated GFR > 60 POC Glucose 93 (60-115) mg/dL Random Glucose 225 H (60-115) mg/dL Calcium 10.0 (8.4-10.2) mg/dL Total Bilirubin 0.2 (0.0-1.0) mg/dL AST 10 (5-31) U/L ALT 20 (0-31) U/L Alkaline Phosphatase 162 H (39-117) U/L B-Natriuretic Peptide 16 (<100) pg/mL Total Protein 7.2 (6.5-8.0) g/dL Albumin 4.0 (3.5-5.0) g/dL Urine Color Yellow Urine Appearance Clear Urine pH 6.0 (5.0-9.0) Ur Specific Gregory >= 1.030 H (1.005-1.025) Urine Protein Negative (Neg-Trace) mg/dL Urine Glucose (UA) >=1000 H (Negative) mg/dL Urine Ketones Negative (Negative) mg/dL Urine Blood Negative (Negative) Urine Nitrite Negative (Negative) Ur Leukocyte Esterase Negative (Negative) Urine RBC 0-2 (0-2) /HPF Urine WBC 0-5 (0-5) /HPF Ur Squamous Epith Cells 0-2 (0-2) /HPF Urine Bacteria None Seen (None Seen) Hyaline Casts 0-2 (0-2) /LPF Discharge Plan Discharge Clinical Impression: Dependent edema Patient Disposition: Home, Self-Care Instructions: Leg Edema (ED) Additional Instructions: Your workup in the ER today was reassuring. Your chest x-ray was clear, you do not have any blood clots on ultrasound. Take Lasix 20 mg daily for the next 5 days Avoid excessive water or salt intake Elevate your legs while at rest Prescriptions: New furosemide [Lasix] 20 mg tablet 20 mg PO DAILY Qty: 5 0RF No Action (DME) pen needle, diabetic [Comfort EZ Pen [place]] 32 gauge x 5/32 needle See Rx Instructions .ROUTE .MEDSUPPLY Qty: 50 Rx Instructions: As directed (DME) blood sugar diagnostic Strip See Rx Instructions .ROUTE .MEDSUPPLY Qty: 50 1RF Rx Instructions: As directed (DME) VixOne Nebulizer-Adult Mask Misc See Rx Instructions .Route Qty: 1 0RF Rx Instructions: As directed (DME) blood-glucose meter [OneTouch Ultra2 Meter] Misc See Rx Instructions .Route Qty: 1 0RF Rx Instructions: Testing 4 times a day (DME) FreeStyle Ashley 2 Deport Mis See Rx Instructions .Route Qty: 1 0RF Rx Instructions: As directed (DME) FreeStyle Ashley 2 Sensor Kit See Rx Instructions .Route Qty: 2 5RF Rx Instructions: As directed change every 14 days albuterol sulfate 90 mcg/actuation HFA aerosol inhaler 1 inh inhalation QID PRN (Reason: shortness of breath or wheezing) 30 Days Qty: 8.5 3RF (DME) OneTouch Ultra Test Strip See Rx Instructions .Route Qty: 100 6RF Rx Instructions: Testing 4 times a day (DME) lancets Misc See Rx Instructions .Route Qty: 200 6RF Rx Instructions: Testing 4 times a day (DME) Diabetic shoes & 3 pair inserts Diabetic shoes & 3 pair insert kit See Rx Instructions Rx Instructions: as directed amoxicillin 500 mg capsule 500 mg PO TID 7 Days Qty: 21 0RF acetaminophen [Tylenol Extra Strength] 500 mg tablet 1,000 mg PO Q6H PRN (Reason: fever or pain) Qty: 20 0RF ibuprofen 400 mg tablet 400 mg PO TID PRN (Reason: fever or pain) Qty: 30 0RF albuterol sulfate 2.5 mg /3 mL (0.083 %) solution for nebulization 2.5 mg inhalation Q6H PRN (Reason: shortness of breath or wheezing) 30 Days Qty: 180 3RF (DME) nebulizers [facility] [place] See Rx Instructions .Route Qty: 1 0RF Rx Instructions: As directed meloxicam 15 mg tablet 15 mg PO DAILY 30 Days Qty: 30 3RF cyclobenzaprine 5 mg tablet 5 mg PO DAILY 10 Days Qty: 10 0RF atorvastatin 20 mg tablet 20 mg PO BEDTIME 90 Days Qty: 90 2RF docusate sodium 100 mg capsule 100 mg PO BID 30 Days Qty: 60 3RF benzonatate 200 mg capsule 200 mg PO TID 5 Days Qty: 15 0RF Mounjaro 10 mg/0.5 mL pen injector 10 mg subcut QWEEK Qty: 2 4RF insulin aspart U-100 [Novolog FlexPen U-100 Insulin] 100 unit/mL (3 mL) insulin pen See Rx Instructions subcut TID Qty: 15 5RF Rx Instructions: 24 units before breakfast and 18 units before lunch and dinner subcutaneously 3 times a day; insulin glargine [Lantus Solostar U-100 Insulin] 100 unit/mL (3 mL) insulin pen 50 unit subcut QAM Jardiance 25 mg tablet 25 mg PO QAM 90 Days Qty: 90 2RF Print Language: Malagasy
[2023-07-17 14:00] VITALS: BP 130/64; PULSE 88; RESP 16; TEMP 36.8; O2SAT 98; BMI 31.3
[2023-07-17 14:27] LABS: MANUAL DIFF FLAG NO
[2023-07-17 14:32] LABS: Basophils Absolute Auto 0.1 X10*3/uL (0.0-0.2); Basophils Percent Auto 0.4 % (0-2); Eosinophils Absolute Auto 0.2 X10*3/uL (0.0-0.4); Eosinophils Percent Auto 1.3 % (0-4); Hematocrit 40.9 % (37.0-47.0); Hemoglobin 13.4 g/dl (12.0-16.0); Imm Gran Abs Auto 0.05 X10*3/uL (0.00-0.03); Imm Gran Pct Auto 0.4 % (0.0-0.4); Lymphocytes Absolute Auto 3.1 X10*3/uL (1.2-4.9); Lymphocytes Percent Auto 26.7 % (20-40); Mean Corpuscular HGB Conc 32.8 g/dl (31.0-35.0); Mean Corpuscular Hemoglobin 26.4 pg (27.0-33.0); Mean Corpuscular Volume 80.5 fL (80.0-98.0); Monocytes Absolute Auto 0.9 X10*3/uL (0.1-1.2); Monocytes Percent Auto 7.8 % (2-11); Neutrophils Absolute Auto 7.4 x10*3/uL (2.0-8.3); Neutrophils Percent Auto 63.4 % (45-73); Platelet Count 303 X10*3/uL (160-400); Red Blood Count 5.08 X10*6/uL (4.20-5.50); Red Cell Distribution Width 14.7 % (11.0-16.0); White Blood Count 11.7 X10*3/uL (4.8-10.8)
[2023-07-17 14:44] LABS: Alanine Aminotransferase 20 U/L (0-31); Alkaline Phosphatase 162 U/L (39-117); Anion Gap 8 (12-20); Aspartate Amino Transferase 10 U/L (5-31); Bilirubin Total 0.2 mg/dL (0.0-1.0); Blood Urea Nitrogen 12 mg/dL (9-16); Carbon Dioxide 31 mmol/L (22-29); Chloride 106 mmol/L (96-108); Estimated Glomerular Filt Rate > 60; Glucose Random 225 mg/dL (60-115); Potassium 4.3 mmol/L (3.3-5.1); Sodium 141 mmol/L (135-145); Total Protein 7.2 g/dL (6.5-8.0)
[2023-07-17 14:50] LABS: B Type Natriuretic Peptide 16 pg/mL (<100)
[2023-07-17 20:49] VITALS: BP 139/76; PULSE 90; RESP 16; TEMP 36.6; O2SAT 98
[2023-07-17 21:22] LABS: Glucose, Whole Blood 93 mg/dL (60-115)
[2023-07-17 21:23] LABS: Appearance Urine Clear; Color Urine Yellow; Glucose Urine UA >=1000 mg/dL (Negative); Leukocyte Esterase Urine Negative (Negative); Nitrite Urine Negative (Negative); Specific Gravity - Urine >= 1.030 (1.005-1.025); UMIC TRIGGER UACC YES; Urine Blood Negative (Negative); Urine Ketones Negative (Negative); Urine Protein Negative (Neg-Trace)
[2023-07-17 21:30] LABS: Bacteria Urine None Seen (None Seen); Hyaline Casts Urine 0-2 /LPF (0-2); RBC Urine 0-2 /HPF (0-2); Squamous Epithelial Cell Urine 0-2 /HPF (0-2); WBC Urine 0-5 /HPF (0-5)
[2023-07-17 22:38] VITALS: BP 134/63; PULSE 94; RESP 16; TEMP 36.6; O2SAT 97
[2023-07-18 00:02] VITALS: BP 117/67; PULSE 95; RESP 16; TEMP 36.6; O2SAT 98
[2023-07-18 00:10] VITALS: BP 117/67; PULSE 95; RESP 16; TEMP 36.6; O2SAT 98
== END 2023-07-18 00:11 | disposition home or self-care (01) ==
PROVIDERS: Registered Nurse Emergency; Emergency Provider Emergency Medicine; PCP Physician Assistant
DX: R60.0 Localized edema (principal); R05.9 Cough, unspecified; E11.9 Type 2 diabetes mellitus without complications; I10 Essential (primary) hypertension; Z79.899 Other long term (current) drug therapy; Z79.4 Long term (current) use of insulin
CPT/HCPCS: 36415; 71046; 80053; 81001; 82947; 83880; 85025; 93970; 99284

== ENCOUNTER 2023-07-23 13:35 | Outpatient (AMB) | payer OTHER, SELFPAY ==
[2023-07-23 13:50] VITALS: BP 134/68; PULSE 92; O2SAT 97; BMI 30.1
--- NOTE | 2023-07-23 13:50 | A.OFFPC_ITS ---
Vital Signs 07/23/23 13:50 Height 5 ft 4 in Weight 175 lb 8 oz BMI 30.1 BP 134/68 Blood Pressure Location Lt brachial Position Sitting Pulse 92 Pulse Source Pulse Oximeter Pulse Oximetry (%) 97 Oxygen Delivery Method Room Air Intake Visit Reasons: 3mth f/u Gas Appliance Adjuster Required: No Accompanied by: Daughter Allergies acetaminophen [From Dologesic-DF] Allergy (Verified 07/23/23 14:12) upset stomach dexbrompheniramine [From Dologesic-DF] Allergy (Verified 07/23/23 14:12) upset stomach metformin Adverse Reaction (Verified 07/23/23 14:12) upset stomach Medication List - Last Reconciled 07/23/23 by Alan Nesbitt PA-C acetaminophen (Tylenol Extra Strength) 1,000 mg (2 x 500 mg) PO Q6H PRN albuterol sulfate 2.5 mg (3 mL) inhalation Q6H PRN 30 days albuterol sulfate 90 mcg/actuation 1 inh inhalation QID PRN 30 days amoxicillin 500 mg PO TID 7 days atorvastatin 20 mg PO BEDTIME 90 days blood sugar diagnostic As directed blood sugar diagnostic (OneTouch Ultra Test strips) Testing 4 times a day blood-glucose meter (OneTouch Ultra2 Meter) Testing 4 times a day cyclobenzaprine 5 mg PO DAILY 10 days [Diabetic shoes & 3 pair inserts as directed] docusate sodium 100 mg PO BID 30 days empagliflozin (Jardiance) 25 mg PO QAM 90 days flash glucose scanning reader (FreeStyle Ashley 2 [place]) As directed flash glucose sensor (FreeStyle Ashley 2 Sensor kit) As directed change every 14 days furosemide (Lasix) 20 mg PO DAILY ibuprofen 400 mg PO TID PRN insulin glargine (Lantus Solostar U-100 Insulin) 50 units subcut QAM lancets Testing 4 times a day meloxicam 15 mg PO DAILY 30 days nebulizers (VixOne Nebulizer-Adult Mask) As directed nebulizers As directed Novolog FlexPen U-100 Insulin (insulin aspart U-100) 24 units before breakfast and 18 units before lunch and dinner subcutaneously 3 times a day; NS pen needle, diabetic (Comfort EZ Pen [place]) As directed tirzepatide (Mounjaro) 10 mg (0.5 mL) subcut QWEEK Tobacco use date assessed: 04/22/23 Dental Screening Dental Screen Date: 04/22/23 HPI 3mth f/u HPI Details Patient is a 58-year-old female here today for follow-up visit. ? ?Patient is [place]-speaking so we have used a interpreter for the deaf. 56-year-old female with past medical his tory significant for breast cancer right total mastectomy, diabetes, high cholesterol, hypertension. Recently seen at the [facility] for lower extremity edema, was placed on Lasix for few days and reports that edema has gotten better. Unclear etiology to this. Will supply patient with medical compression socks CHRONIC MEDICAL CONDITIONS--> .. Breast cancer :? Patient was diagnosed with right breast cancer at the age of 43 in [place].? She underwent right mastectomy followed by adjuvant chemotherapy and radiation. Is followed by a oncologist and general surgeon annually.? Seems that there is an order for mammogram patient has not been called. .. DMII:? Continues to follow Endocrinology.? Has been more compliant with using her insulin injections . Her blood sugars still fairly remain. A1c has improved to 9.1 from 10. Reports she is seeing a disability benefits specialist now whom advised her on low carb diet and taking her insulin daily. She seems to have some developmental delay and her sister (Stephanie) helps her with her medications and medical decisions. .. Asthma:? Reports her asthma has been okay.? Now has her own home nebulizer and rescue inhaler.? She denies any asthma exacerbations. . Hyperlipidemia:? Patient's cholesterol acceptable for a cardiovascular risk.? Will continue her current dose of atorvastatin. Goal LDL to be below 100 Laboratory Tests 06/06/22 07/17/23 08:17 14:21 WBC 11.7 H 11.7 H RBC 5.08 Random Glucose 225 H [facility] Medical History COVID-19 Type 2 diabetes mellitus with diabetic neuropathy, unspecified Diabetes type 2, uncontrolled H/O breast lump DMII (diabetes mellitus, type 2) Hypertension High cholesterol Ovarian cyst Diabetes Physical exam Surgical History History of breast biopsy Hx of subtotal mastectomy of right breast (~2007) H/O eye surgery Hx of cholecystectomy History of section Family History Father Prostate cancer Mother Diabetes Brother Diabetes Social History Household Members: Family Housing: House Do you presently have visiting nurse or other home services: No Alcohol intake: never Patient Tobacco Use Status: Never used Tobacco Cigarette Packs Per Day: 0 Years Smoked: 0 e-Cigarette/Vaping Use: Never Used Second Hand Smoke Exposure: No service: No Current occupational status: unemployed Cognitive needs: No Hearing needs: No Vision needs: Yes Questionnaire Thrive Questionnaire Date Thrive assessed: 04/22/23 JASON-7 AMB Questionnaire JASON-7 Date JASON - 7 assessed: 04/22/23 Source: Developed by Drs. Darrell Gomez, Peggy Ferrer, Lam Alvarado and colleagues, with an educational oren from [employer]. Review of Systems Const Denies headache(s) Eyes Denies loss of vision ENT Denies vertigo, Denies dizziness, Denies headache(s) and Denies sore throat Card Denies chest pain, Denies leg edema and Denies lightheadedness Resp Denies cough, Denies hemoptysis and Denies wheezing GI Denies abdominal pain, Denies melena, Denies constipation, Denies diarrhea and Denies vomiting Denies urinary frequency, Denies dysuria and Denies urinary urgency Musc Denies arthralgias, Denies joint swelling, Denies numbness and Denies tingling Neuro Denies Abnormal speech present, Denies behavioral changes, Denies vertigo, Denies dizziness, Denies headache(s), Denies loss of vision, Denies memory loss, Denies numbness and Denies tingling Psych Denies anxiety, Denies behavioral changes, Denies depression, Denies memory loss and Denies panic attacks Nakul/Lymph Denies easy bleeding and Denies easy bruising Aller/Immun Denies wheezing Physical exam (Primary Care) Vital Signs: Last Vital Signs Pulse 92 07/23/23 13:50 BP 134/68 07/23/23 13:50 Pulse Ox 97 07/23/23 13:50 Oxygen Delivery Method Room Air 07/23/23 13:50 BMI result Body Mass Index 30.1 Tobacco/Smoking Status: Tobacco use Status Tobacco use date assessed 04/22/23 07/23/23 13:50 Patient Tobacco Use Status Never used Tobacco 07/23/23 13:50 e-Cigarette/Vaping Use Never Used 07/23/23 13:50 Thrive Assessment: Date of Thrive Assessment Date Thrive assessed 04/22/23 07/23/23 13:50 Const General: healthy appearing, no acute distress, alert and awake Nutritional Appearance: well nourished Orientation/consciousness: oriented to person, oriented to place and oriented to time HENMT Ears: TM's normal bilaterally General nose exam: Normal nasal mucous membranes and turbinates present Eyes Conjunctivae: conjunctivae normal Sclerae: sclerae normal Pupils: Equal, round and reactive pupils present Neck Neck: Yes no lymphadenopathy and Yes no JVD Thyroid: Thyroid normal Carotids: no bruits Resp Effort & Inspection: normal respiratory effort and not tachypneic Auscultation: no crackles, no rales, no rhonchi and no wheezes Cardio Rate: regular rate Rhythm: regular rhythm Heart sounds: no murmurs and normal S1 and S2 GI Palpation (GI): Soft to palpation, nontender, no hepatomegaly and no splenomegaly Auscultation: normal bowel sounds Skin General skin exam: no rashes or lesions noted and dry skin Neuro General: oriented to person, oriented to place and oriented to time Cranial nerves: Yes Equal, round and reactive pupils present Speech: No Abnormal speech present Gait exam (Neuro): Normal gait present Motor exam (neuro): no tremor noted Extrem Right upper extremity: full ROM Left upper extremity: full ROM Right lower extremity: full ROM; no edema Left lower extremity: full ROM; no edema Psych Mental Status: mental status grossly normal Speech and movement: Normal speech and movement present Affect: normal affect Attitude: cooperative Thought process: Normal thought process present Results AMB Hemoglobin A1c AMB Hemoglobin A1c 9.1 % Last Edit by MARIO Sherman on 07/23/23 14:10 Results Reviewed Results Reviewed: Laboratory Last Values Hgb A1c (Clinic) 9.1 % (4.0-6.0) H 07/23/23 14:01 Assessment and Plan Assessment & Plan (1) Type 2 diabetes mellitus with diabetic neuropathy, unspecified: Code(s): E11.40 - Type 2 diabetes mellitus with diabetic neuropathy, unspecified Qualifiers: Diabetes mellitus custodial insulin use: with custodial use Qualified Code(s): E11.40 - Type 2 diabetes mellitus with diabetic neuropathy, unspecified; Z79.4 - alf (current) use of insulin Plan: Patient's type 2 diabetes suboptimally controlled ,, his A1c 9.1 Now followed by pattern changer. She reports during her day program she does eat a lot of carbohydrates that is offered to her (bread and rice). Will continue to follow pattern changer immunizations and controlling her hyperglycemia. Goal A1c is to be below 7.0 (2) Hypertension: Code(s): I10 - Essential (primary) hypertension Qualifiers: Hypertension type: primary hypertension Qualified Code(s): I10 - Essential (primary) hypertension Plan: Patient blood pressure acceptable today in office. Has been able to manage blood pressure without medication. Goal blood pressure to be below 140/90 (3) High cholesterol: Code(s): E78.00 - Pure hypercholesterolemia, unspecified Plan: Patient's most recent fasting lipid panel showing acceptable total cholesterol and LDL . Goal LDL is to remain below 100 (4) Lower extremity edema: Code(s): R60.0 - Localized edema Plan: Has little trace edema in the lower extremities. Does have spider angiomas over lower extremities a bother her. Will supply patient with medical compression socks for lower extremity edema. Orders: Orders Comprehensive Bard. Panel Fast Today E11.40 - Type 2 diabetes mellitus with diabetic neuropathy, unspecified, Z79.4 - buttermilk drier operator (current) use of insulin Microalbumin, Random (w Creat) Today I10 - Essential (primary) hypertension AMB Hemoglobin A1c Today E11.40 - Type 2 diabetes mellitus with diabetic neuropathy, unspecified, Z79.4 - alf (current) use of insulin Lipid Panel Today E78.00 - Pure hypercholesterolemia, unspecified Medications: New comp.stocking,knee,long,medium As directed 2 ea 0RF R60.0 - Localized edema Patient Instructions: Goal: A1c below 7.0 Barriers: Compliance to healthy eating habits and physical activity Coding Level of Care Code Est Pt Level 4 (38779) Diagnoses Type 2 diabetes mellitus with diabetic neuropathy, with long-term current use of insulin E11.40; Z79.4 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
== END 2023-07-23 14:29 | disposition home or self-care (01) ==
PROVIDERS: PCP Physician Assistant; Visit Provider Physician Assistant
DX: E11.40 Type 2 diabetes mellitus with diabetic neuropathy, unspecified (principal); Z79.4 Long term (current) use of insulin; I10 Essential (primary) hypertension; E78.00 Pure hypercholesterolemia, unspecified; R60.0 Localized edema
CPT/HCPCS: 83036; 99214

== ENCOUNTER 2023-07-30 14:47 | Outpatient (REF) | payer OTHER, SELFPAY ==
--- NOTE | ~2023-07-30 | MM_ITS ---
EXAMINATION: MM DIAGNOSTIC DIGITAL BREAST TOMOSYNTHESIS, LEFT CLINICAL INFORMATION: Screening left breast. Right breast mastectomy. Also, six-month follow-up left breast stereotactic biopsy induced small hematoma in the 12:00 axis, middle one third. Stereotactic biopsy 07/11/2022 result was benign with fibroadenomatous change, with calcifications, and focal usual ductal hyperplasia. No evidence of malignancy or atypia. COMPARISON: Mammography: 01/22/2023, stereotactic biopsy 07/19/2022, 06/26/2022, 12/25/2021. TECHNIQUE: Digital left breast tomosynthesis is performed in both the craniocaudal and mediolateral oblique views along with computer-aided detection (CAD). Synthesized 2D images are generated from the tomosynthesis. FINDINGS: There are scattered areas of fibroglandular density (ACR BI-RADS breast composition Category b). There is redemonstration of a small hematoma in the 12:00 axis of the central left breast, measuring approximately 0.8 x 2.0 cm, smaller than previously when it measured 1.0 x 2.4 cm. This is consistent with slow resolution, as expected. Again, the top hat biopsy clip noted in the inferior 6:00 left breast, have migrated near 7 cm inferior from the biopsy site. Otherwise, stable stromal pattern with no evidence of suspicious mass, suspicious grouped calcifications, or area of architectural distortion in the left breast. MM/MM tomosynthesis diagnostic LT IMPRESSION: There are no findings suspicious for malignancy in the left breast. There is a small residual slowly resolving hematoma from prior stereotactic biopsy 07/19/2022. This is benign. No evidence of recurrent calcifications. Recommend the patient resume routine annual left breast screening in one year. ASSESSMENT: BI-RADS BI-RADS 2 - Benign Findings RECOMMENDATION: 1 year F/U Results were provided to the patient at time of visit by the technologist. This patient's information was entered into a reminder system with a target due date for their next mammogram.
== END 2023-07-30 14:48 | disposition home or self-care (01) ==
LOC: HO.MAMMO 14:47
PROVIDERS: PCP Physician Assistant; Visit Provider Surgery
DX: R92.0 Mammographic microcalcification found on diagnostic imaging of breast (principal)
CPT/HCPCS: 77061; 77065

== ENCOUNTER → 2023-07-30 15:00 | Outpatient (BNV) | payer OTHER, SELFPAY | PROVIDERS: PCP Physician Assistant; Visit Provider Radiology Diagnostic Radiology | DX: R92.8 Other abnormal and inconclusive findings on diagnostic imaging of breast (principal) | CPT/HCPCS: 77065; G0279 ==

== ENCOUNTER 2023-09-03 08:44 | Outpatient (AMB) | payer OTHER, SELFPAY ==
[2023-09-03 08:49] VITALS: BP 124/86; PULSE 92
--- NOTE | 2023-09-03 08:49 | MHC.OFFVIS ---
Vital Signs 09/03/23 08:49 Height 5 ft 4 in Weight 175 lb BMI 30.0 BP 124/86 Blood Pressure Location Rt brachial Position Sitting Pulse 92 Intake Visit Reasons: 6m br exam Intake Note: Patient here for 6m f/u breast exam. Patient c/o: reports no concerns. MM: 07-30-2023. Distribution Accounting Clerk Required: No Accompanied by: Self / Same As Patient Allergies acetaminophen [From Dologesic-DF] Allergy (Verified 09/03/23 08:50) upset stomach dexbrompheniramine [From Dologesic-DF] Allergy (Verified 09/03/23 08:50) upset stomach metformin Adverse Reaction (Verified 09/03/23 08:50) upset stomach Medication List - Last Reconciled 09/03/23 by David Oakley MD acetaminophen (Tylenol Extra Strength) 1,000 mg (2 x 500 mg) PO Q6H PRN albuterol sulfate 2.5 mg (3 mL) inhalation Q6H PRN 30 days albuterol sulfate 90 mcg/actuation 1 inh inhalation QID PRN 30 days amoxicillin 500 mg PO TID 7 days atorvastatin 20 mg PO BEDTIME 90 days blood sugar diagnostic As directed blood sugar diagnostic (OneTouch Ultra Test strips) Testing 4 times a day blood-glucose meter (OneTouch Ultra2 Meter) Testing 4 times a day comp.stocking,knee,long,medium As directed cyclobenzaprine 5 mg PO DAILY 10 days [Diabetic shoes & 3 pair inserts as directed] docusate sodium 100 mg PO BID 30 days empagliflozin (Jardiance) 25 mg PO QAM 90 days flash glucose scanning reader (FreeStyle Ashley 2 [place]) As directed flash glucose sensor (FreeStyle Ashlye 2 Sensor kit) As directed change every 14 days furosemide (Lasix) 20 mg PO DAILY ibuprofen 400 mg PO TID PRN insulin glargine (Lantus Solostar U-100 Insulin) 50 units (0.5 mL) subcut QAM lancets Testing 4 times a day meloxicam 15 mg PO DAILY 30 days nebulizers (VixOne Nebulizer-Adult Mask) As directed nebulizers As directed Novolog FlexPen U-100 Insulin (insulin aspart U-100) 24 units before breakfast and 18 units before lunch and dinner subcutaneously 3 times a day; NS pen needle, diabetic (Comfort EZ Pen [place]) As directed tirzepatide (Mounjaro) 10 mg (0.5 mL) subcut QWEEK HPI Comments Details: Patient presents for follow-up. She has no breast issues or complaints. Status post right mastectomy in [place]. Her left breast is causing the symptoms. She does do occasional self-breast exam. [facility] Medical History COVID-19 Type 2 diabetes mellitus with diabetic neuropathy, unspecified Diabetes type 2, uncontrolled H/O breast lump DMII (diabetes mellitus, type 2) Hypertension High cholesterol Ovarian cyst Diabetes Physical exam Surgical History History of breast biopsy Hx of subtotal mastectomy of right breast (~2007) H/O eye surgery Hx of cholecystectomy History of section Family History Father Prostate cancer Mother Diabetes Brother Diabetes Social History Household Members: Family Housing: House Do you presently have visiting nurse or other home services: No Alcohol intake: never Patient Tobacco Use Status: Never used Tobacco Cigarette Packs Per Day: 0 Years Smoked: 0 e-Cigarette/Vaping Use: Never Used Second Hand Smoke Exposure: No service: No Current occupational status: unemployed Cognitive needs: No Hearing needs: No Vision needs: Yes Physical Exam Vital Signs: Last Vital Signs Pulse 92 09/03/23 08:49 BP 124/86 09/03/23 08:49 BMI result Body Mass Index 30.0 Chest Other: Chest breath sounds bilaterally. No obvious cervical periclavicular or axillary adenopathy bilaterally. Right mastectomy scar well healed. Left breast demonstrates no obvious mass, discharge, or skin changes. Assessment & Plan Assessment & Plan (1) History of breast cancer: Code(s): Z85.3 - Personal history of malignant neoplasm of breast Category: Surgical Plan: Current plan per radiologic recommendation is for 1 year follow-up left screening mammography. The meantime, patient is encouraged to do self-breast exams monthly. All questions answered. She will see me after her mammogram in 1 year's time or p.r.n.. (2) Status post right mastectomy: Code(s): Z90.11 - Acquired absence of right breast and nipple Category: Medical Plan: See above (3) Abnormal finding on mammography, microcalcification: Comment: Patient is scheduled for stereotactic left breast biopsy today. She will see me in few days time for follow-up regarding results. All questions were answered. Entire interview and exam was in the presence of my certified medical coding specialist will also served as an earth moving technician. Code(s): R92.0 - Mammographic microcalcification found on diagnostic imaging of breast Category: Surgical Plan: See above Orders: Orders MM diagnostic mammo unilat LT 11 Months R92.0 - Mammographic microcalcification found on diagnostic imaging of breast, Z85.3 - Personal history of malignant neoplasm of breast, Z90.11 - Acquired absence of right breast and nipple Coding Level of Care Code Est Pt Level 4 (18143) Diagnoses History of breast cancer Z85.3 Status post right mastectomy Z90.11 Abnormal finding on mammography, microcalcification R92.0
== END 2023-09-03 08:55 | disposition home or self-care (01) ==
PROVIDERS: PCP Physician Assistant; Visit Provider Surgery
DX: Z85.3 Personal history of malignant neoplasm of breast (principal); Z90.11 Acquired absence of right breast and nipple; R92.0 Mammographic microcalcification found on diagnostic imaging of breast
CPT/HCPCS: 99214

== ENCOUNTER → 2023-09-03 08:44 | Outpatient (BNVA) | payer OTHER, SELFPAY | PROVIDERS: PCP Physician Assistant; Visit Provider Surgery | DX: R92.0 Mammographic microcalcification found on diagnostic imaging of breast (principal); Z85.3 Personal history of malignant neoplasm of breast; Z90.11 Acquired absence of right breast and nipple | CPT/HCPCS: 99212 ==

== ENCOUNTER 2023-10-08 13:53 | Outpatient (AMB) | payer OTHER, SELFPAY ==
[2023-10-08 14:15] VITALS: BMI 30.8
--- NOTE | 2023-10-08 14:15 | A.OFFVIS_ITS ---
VS Expanded 10/08/23 14:15 10/15/23 09:16 Height 5 ft 4 in 5 ft 4 in Weight 179 lb 3.773 oz 179 lb BMI 30.8 30.7 Intake Visit Reasons: T2DM Allergies acetaminophen [From Dologesic-DF] Allergy (Verified 09/03/23 08:50) upset stomach dexbrompheniramine [From Dologesic-DF] Allergy (Verified 09/03/23 08:50) upset stomach metformin Adverse Reaction (Verified 09/03/23 08:50) upset stomach Nutrition Presentation Details: Pt presents for MNT for nutrition for type 2 diabetes Pt participates in community center program in [place], has breakfast/lunch there. Pt reports choosing starches/protein /fruits , sometimes has salads and protein for lunch Evening meal varies, Sand and fruit or chips and diet beverage or noodle/potato chicken soup (starch and broth) or low sugar cereals with milk Pt reports participating in [employer] Nutrition group session on Fridays Pt reports needing to make appt with Display Screen Fabricator Specialist BS Monitoring Most Recent Diabetes Results: Creatinine 0.71 mg/dL (0.5-1.4) 07/17/23 Blood Urea Nitrogen 12 mg/dL (9-16) 07/17/23 Sodium 141 mmol/L (135-145) 07/17/23 Potassium 4.3 mmol/L (3.3-5.1) 07/17/23 Chloride 106 mmol/L (96-108) 07/17/23 Carbon Dioxide 31 mmol/L (22-29) H 07/17/23 Calcium 10.0 mg/dL (8.4-10.2) 07/17/23 AST 10 U/L (5-31) 07/17/23 ALT 20 U/L (0-31) 07/17/23 Total Protein 7.2 g/dL (6.5-8.0) 07/17/23 Albumin 4.0 g/dL (3.5-5.0) 07/17/23 MKJ-Oiaankh-An.Jeor Equation Height: 5 ft 4 in Weight: 179 lb Resting Metabolic Rate: 1390.60 Calculated Activity Level: Sedentary Calories Needed to Maintain Weight: 1668.72 [facility] Medical History COVID-19 Type 2 diabetes mellitus with diabetic neuropathy, unspecified Diabetes type 2, uncontrolled H/O breast lump DMII (diabetes mellitus, type 2) Hypertension High cholesterol Ovarian cyst Diabetes Physical exam Surgical History History of breast biopsy Hx of subtotal mastectomy of right breast (~2007) H/O eye surgery Hx of cholecystectomy History of section Family History Father Prostate cancer Mother Diabetes Brother Diabetes Social History Household Members: Family Housing: House Do you presently have visiting nurse or other home services: No Alcohol intake: never Patient Tobacco Use Status: Never used Tobacco Cigarette Packs Per Day: 0 Years Smoked: 0 e-Cigarette/Vaping Use: Never Used Second Hand Smoke Exposure: No service: No Current occupational status: unemployed Cognitive needs: No Hearing needs: No Vision needs: Yes Assessment & Plan Assessment & Plan (1) Diabetes type 2, uncontrolled: Code(s): E11.65 - Type 2 diabetes mellitus with hyperglycemia Category: Medical Qualifiers: Glycemic state: with hyperglycemia Qualified Code(s): E11.65 - Type 2 diabetes mellitus with hyperglycemia Plan: Rec: [id number] carlos /day high fiber, low in fat est prot needs: 89 g/day (1 g/kg bw) est fluid needs: 2700 ml/d (30 ml/kg bw) Sodium: less than 2000 mg /day Educate patient on: (R= Reviewed, V = verbalizes understanding N/R= Needs review N/A= not applicable) * Including high fiber foods in diet Patient Instructions: Add carrots in place of potatoes to soups- Anadele zanahorias en vez de bebeto a las sopas Have a fruit/vegetable shake as mid afternoon snack (2 veg and 1 fruit) - Reemplaza el postre de la tarde por theo batida de vegetal : ejemplo 2 vegetales y 1 fruita Haz kleber de seguimiento con la educadora de diabetes- make appointment with internal controls manager Coding Level of Care Code Nutr Indiv Subseq (95854) Diagnoses Uncontrolled type 2 diabetes mellitus with hyperglycemia E11.65 Glycemic state: with hyperglycemia Time Spent (min) 30
[2023-10-15 09:16] VITALS: BMI 30.7
== END 2023-10-08 14:42 | disposition home or self-care (01) ==
PROVIDERS: PCP Physician Assistant; Visit Provider Dietitian, Registered
DX: E11.65 Type 2 diabetes mellitus with hyperglycemia (principal)

== ENCOUNTER → 2023-10-08 13:53 | Outpatient (BNVA) | payer OTHER, SELFPAY | PROVIDERS: PCP Physician Assistant; Visit Provider Dietitian, Registered | DX: E11.65 Type 2 diabetes mellitus with hyperglycemia (principal); Z71.3 Dietary counseling and surveillance | CPT/HCPCS: 97803 ==

== ENCOUNTER 2023-10-20 13:28 | Outpatient (AMB) | payer OTHER, SELFPAY ==
[2023-10-20 13:47] VITALS: BP 124/78; PULSE 95; BMI 30.3
--- NOTE | 2023-10-20 13:47 | MHC.OFFVIS ---
Vital Signs 10/20/23 13:47 Height 5 ft 4 in Weight 176 lb 12.972 oz BMI 30.3 BP 124/78 Blood Pressure Location Lt brachial Position Sitting Pulse 95 Pulse Source Pulse Oximeter Intake Visit Reasons: DM 2 Intake Note: New patient presents today for D2MT. Last Diabetic Eye exam: 10/2022 Last Podiatry Visit: 08/2023 Random Glucose:75 mg/dl HgA1c: 10.3% Orange Picking Supervisor Required: Yes Orange Picking Supervisor Language: Living Specialist Services: Orange Picking Supervisor Present Orange Picking Supervisor Name: Mimi Information Interpreted: non-clinical & clinical Accompanied by: Self / Same As Patient Allergies acetaminophen [From Dologesic-DF] Allergy (Verified 10/20/23 13:53) upset stomach dexbrompheniramine [From Dologesic-DF] Allergy (Verified 10/20/23 13:53) upset stomach metformin Adverse Reaction (Verified 10/20/23 13:53) upset stomach Medication List - Last Reconciled 10/20/23 by Irene Payne PA-C acetaminophen (Tylenol Extra Strength) 1,000 mg (2 x 500 mg) PO Q6H PRN albuterol sulfate 2.5 mg (3 mL) inhalation Q6H PRN 30 days albuterol sulfate 90 mcg/actuation 1 inh inhalation QID PRN 30 days amoxicillin 500 mg PO TID 7 days atorvastatin 20 mg PO BEDTIME 90 days blood sugar diagnostic As directed blood sugar diagnostic (OneTouch Ultra Test strips) Testing 4 times a day blood-glucose meter (OneTouch Ultra2 Meter) Testing 4 times a day comp.stocking,knee,long,medium As directed cyclobenzaprine 5 mg PO DAILY 10 days [Diabetic shoes & 3 pair inserts as directed] docusate sodium 100 mg PO BID 30 days empagliflozin (Jardiance) 25 mg PO QAM 90 days flash glucose scanning reader (FreeStyle Ashley 2 [place]) As directed flash glucose sensor (FreeStyle Ashley 2 Sensor kit) As directed change every 14 days furosemide (Lasix) 20 mg PO DAILY ibuprofen 400 mg PO TID PRN insulin glargine (Lantus Solostar U-100 Insulin) 50 units (0.5 mL) subcut QAM lancets Testing 4 times a day meloxicam 15 mg PO DAILY 30 days nebulizers (VixOne Nebulizer-Adult Mask) As directed nebulizers As directed Novolog FlexPen U-100 Insulin (insulin aspart U-100) 24 units before breakfast and 18 units before lunch and dinner subcutaneously 3 times a day; NS pen needle, diabetic (Comfort EZ Pen [place]) As directed tirzepatide (Mounjaro) 10 mg (0.5 mL) subcut QWEEK HPI HPI DM 2: Details: Pt is a 58 y/o female with a significant past medical history of type 2 diabetes, hypertension, hyperlipidemia, obesity, history of breast cancer presenting today for a diabetic follow-up. DM- Her a1c today is 10.3. She states that her glucose went up because she has been dealing with some increased stressors. Her son has been incarcerated and recently released from [facility] she has not heard from him in a couple weeks. She states that she is very worried and this has caused her blood sugars to elevate. She has been following up with a diabetic class weekly to help her with her diet. She states that this has been helpful. She is taking lantus 50 units, novolog 15 units 3 times a day, mounjaro 10 mg q weekly, jardiance 25 mg. She does tell me today that she has not been taking the NovoLog how it has been prescribed. Her higher blood sugars are during the meal times around 09:00 to 19:00. They go as high as 350. She has had a couple hypoglycemic events around 03:00 at 57. She treats with juice. CGM: Average glucose 243, GMI 9.1 %, usage 93%. Very high 45%, high 37%, in range 17%, low less than 1% -her main concern today is her neuropathy. She states that her feet are tingly in burn at night and this really bothers her. She has a history of peripheral neuropathy and would like something to help her with this. She does follow with a skirt clipper who told her that it would have to come from somebody else. She is on a statin. Not on an TONNY-inhibitor. [facility] Medical History COVID-19 Type 2 diabetes mellitus with diabetic neuropathy, unspecified Diabetes type 2, uncontrolled H/O breast lump DMII (diabetes mellitus, type 2) Hypertension High cholesterol Ovarian cyst Diabetes Physical exam Surgical History History of breast biopsy Hx of subtotal mastectomy of right breast (~2007) H/O eye surgery Hx of cholecystectomy History of section Family History Father Prostate cancer Mother Diabetes Brother Diabetes Social History Household Members: Family Housing: House Do you presently have visiting nurse or other home services: No Alcohol intake: never Patient Tobacco Use Status: Never used Tobacco Cigarette Packs Per Day: 0 Years Smoked: 0 e-Cigarette/Vaping Use: Never Used Second Hand Smoke Exposure: No service: No Current occupational status: unemployed Cognitive needs: No Hearing needs: No Vision needs: Yes Physical Exam Vital Signs: Last Vital Signs Pulse 95 10/20/23 13:47 BP 124/78 10/20/23 13:47 BMI result Body Mass Index 30.3 Const Orientation/consciousness: patient oriented x3 Neck Neck: Yes no lymphadenopathy Thyroid: Thyroid normal Carotids: no bruits Resp Auscultation: clear to auscultation bilaterally Cardio Rate: regular rate Rhythm: regular rhythm Heart sounds: S1 normal heart sound present and S2 normal heart sound present Peripheral pulses: dorsalis pedis present Neuro General: patient oriented x3, gait normal and no focal motor deficits Extrem Other: Diminished Monofilament sensation bilaterally. Diminished Vibratory sensation bilaterally. Skin intact. General: Yes normal to inspection Results AMB Hemoglobin A1c AMB Hemoglobin A1c 10.3 % Last Edit by CHELI Walter on 10/20/23 14:05 Results Reviewed Results Reviewed: Laboratory Last Values Glucose (Clinic) 75 mg/dL (60-115) 10/20/23 13:55 Hgb A1c (Clinic) 10.3 % (4.0-6.0) H 10/20/23 13:58 Laboratory Tests 07/17/23 07/17/23 07/23/23 14:21 20:52 14:01 Sodium 141 Potassium 4.3 D BUN 12 Creatinine 0.71 Estim Creat Clear Calc 92.0 Estimated GFR > 60 POC Glucose 93 Random Glucose 225 H Hgb A1c (Clinic) 9.1 H Assessment & Plan Assessment & Plan (1) Type 2 diabetes mellitus with diabetic neuropathy, unspecified: Code(s): E11.40 - Type 2 diabetes mellitus with diabetic neuropathy, unspecified Category: Medical Qualifiers: Diabetes mellitus senior care insulin use: with senior care use Qualified Code(s): E11.40 - Type 2 diabetes mellitus with diabetic neuropathy, unspecified; Z79.4 - senior living (current) use of insulin Plan: Advised to take novolog as prescribed. I will increase the mounjaro. Continue Jardiance and lantus dosing. will start gabapentin. Discussed risks and benefits and adverse effects of this medication including sedation. Advised her to avoid drinking and or driving while taking this medication. Advised her to inform her PCP. Follow-up in 3 months. Labs prior. Patient understands and agrees with this plan. (2) Diabetes type 2, uncontrolled: Code(s): E11.65 - Type 2 diabetes mellitus with hyperglycemia Category: Medical Qualifiers: Glycemic state: with hyperglycemia Qualified Code(s): E11.65 - Type 2 diabetes mellitus with hyperglycemia Plan: As above. (3) Hypertension: Code(s): I10 - Essential (primary) hypertension Category: Medical Qualifiers: Hypertension type: primary hypertension Qualified Code(s): I10 - Essential (primary) hypertension Plan: WNL today. Orders: Orders Hemoglobin A1c 3 Months E11.40 - Type 2 diabetes mellitus with diabetic neuropathy, unspecified, E11.65 - Type 2 diabetes mellitus with hyperglycemia, Z79.4 - buttermilk drier operator (current) use of insulin Microalbumin, Random (w Creat) 3 Months E11.40 - Type 2 diabetes mellitus with diabetic neuropathy, unspecified, E11.65 - Type 2 diabetes mellitus with hyperglycemia, Z79.4 - buttermilk drier operator (current) use of insulin AMB Hemoglobin A1c Today E11.40 - Type 2 diabetes mellitus with diabetic neuropathy, unspecified, Z13.9 - Encounter for screening, unspecified, Z79.4 - senior living (current) use of insulin Medications: New gabapentin 300 mg PO BEDTIME 90 caps 0RF tirzepatide (Mounjaro) 12.5 mg (0.5 mL) subcut QWEEK 2 mL 5RF glucose (Dex4 Glucose) until symptoms of low blood sugar are controlled 16 grams (4 x 4 gram) PO Q15M PRN 100 tabs 0RF hypoglycemia Refilled insulin glargine (Lantus Solostar U-100 Insulin) 50 units (0.5 mL) subcut QAM 15 mL 2RF E11.40 - Type 2 diabetes mellitus with diabetic neuropathy, unspecified Novolog FlexPen U-100 Insulin (insulin aspart U-100) 24 units before breakfast and 18 units before lunch and dinner subcutaneously 3 times a day; 15 mL 5RF NS E11.40 - Type 2 diabetes mellitus with diabetic neuropathy, unspecified, Z79.4 - senior living (current) use of insulin Discontinued tirzepatide (Mounjaro) Discontinued Reason: Doctor's Order 10 mg (0.5 mL) subcut QWEEK 2 mL 4RF Coding Level of Care Code Est Pt Level 4 (00753) Complex EM visit Add On G2211 Diagnoses Type 2 diabetes mellitus with diabetic neuropathy, with long-term current use of insulin E11.40; Z79.4 Diabetes mellitus buttermilk drier operator insulin use: with senior care use Uncontrolled type 2 diabetes mellitus with hyperglycemia E11.65 Glycemic state: with hyperglycemia Primary hypertension I10 Hypertension type: primary hypertension
[2023-10-20 14:00] LABS: Glucose, Whole Blood 75 mg/dL (60-115)
== END 2023-10-20 14:52 | disposition home or self-care (01) ==
PROVIDERS: PCP Physician Assistant; Visit Provider Physician Assistant
DX: E11.40 Type 2 diabetes mellitus with diabetic neuropathy, unspecified (principal); Z79.4 Long term (current) use of insulin; E11.65 Type 2 diabetes mellitus with hyperglycemia; I10 Essential (primary) hypertension; Z13.9 Encounter for screening, unspecified
CPT/HCPCS: 99214; G2211

== ENCOUNTER → 2023-10-20 13:28 | Outpatient (BNVA) | payer OTHER, SELFPAY | PROVIDERS: PCP Physician Assistant; Visit Provider Physician Assistant | DX: E11.65 Type 2 diabetes mellitus with hyperglycemia (principal); E11.40 Type 2 diabetes mellitus with diabetic neuropathy, unspecified; I10 Essential (primary) hypertension; Z79.4 Long term (current) use of insulin | CPT/HCPCS: 82947; 83036; 99212 ==

== ENCOUNTER 2023-10-28 13:16 | Outpatient (AMB) | payer OTHER, SELFPAY ==
--- NOTE | 2023-10-28 13:40 | A.OFFVIS_ITS ---
Intake Intake Visit Reasons: DM Child Care Worker Required: Yes Child Care Worker Language: Soft Tile Setter Name: Stephanie [id number] Information Interpreted: non-clinical & clinical Accompanied by: Self / Same As Patient Allergies acetaminophen [From Dologesic-DF] Allergy (Verified 10/20/23 13:53) upset stomach dexbrompheniramine [From Dologesic-DF] Allergy (Verified 10/20/23 13:53) upset stomach metformin Adverse Reaction (Verified 10/20/23 13:53) upset stomach HPI Comprehensive Diabetes Asmnt Most Recent Diabetes Results: Microalb/Creat Ratio 8.8 ug/mg cr 06/06/22 Cholesterol 122 mg/dL (<200) 04/02/23 HDL Cholesterol 48 mg/dL (>40) 04/02/23 Triglycerides 48 mg/dL (<150) 04/02/23 Creatinine 0.71 mg/dL (0.5-1.4) 07/17/23 Blood Urea Nitrogen 12 mg/dL (9-16) 07/17/23 Sodium 141 mmol/L (135-145) 07/17/23 Potassium 4.3 mmol/L (3.3-5.1) 07/17/23 Chloride 106 mmol/L (96-108) 07/17/23 Carbon Dioxide 31 mmol/L (22-29) H 07/17/23 Calcium 10.0 mg/dL (8.4-10.2) 07/17/23 AST 10 U/L (5-31) 07/17/23 ALT 20 U/L (0-31) 07/17/23 Total Protein 7.2 g/dL (6.5-8.0) 07/17/23 Albumin 4.0 g/dL (3.5-5.0) 07/17/23 [facility] Medical History COVID-19 Type 2 diabetes mellitus with diabetic neuropathy, unspecified Diabetes type 2, uncontrolled H/O breast lump DMII (diabetes mellitus, type 2) Hypertension High cholesterol Ovarian cyst Diabetes Physical exam Surgical History History of breast biopsy Hx of subtotal mastectomy of right breast (~2007) H/O eye surgery Hx of cholecystectomy History of section Family History Father Prostate cancer Mother Diabetes Brother Diabetes Social History Household Members: Family Housing: House Do you presently have visiting nurse or other home services: No Alcohol intake: never Patient Tobacco Use Status: Never used Tobacco Cigarette Packs Per Day: 0 Years Smoked: 0 e-Cigarette/Vaping Use: Never Used Second Hand Smoke Exposure: No service: No Current occupational status: unemployed Cognitive needs: No Hearing needs: No Vision needs: Yes Assessment & Plan Assessment & Plan (1) Type 2 diabetes mellitus with diabetic neuropathy, unspecified: Code(s): E11.40 - Type 2 diabetes mellitus with diabetic neuropathy, unspecified Qualifiers: Diabetes mellitus long-term insulin use: with terminal gauger use Qualified Code(s): E11.40 - Type 2 diabetes mellitus with diabetic neuropathy, unspecified; Z79.4 - residential (current) use of insulin Plan: Learning objectives: The patient was provided with verbal and written education on the following topics as outlined below. The patient met all learning objectives and was able to verbalize understanding and provide teach back of education topics discussed . The patient was provided with the opportunity to ask questions and all questions were answered. Patient Assessment Assess patient education level/literacy/barriers Patient questions/concerns, patient's last A1c on 10/20/2023 was 10.3%. At that visit physician's content assistant increase Mounjaro to 12.5% Review of patient's Dexcom data: Patient's average glucose for the past 14 days 241 mg/dL Patient above target 82% Patient at target 18% Patient below target 0% Patient has only taken 1 dose of Mounjaro 12.5%, patient does have upcoming appointment with PCP in November 2023 Reviewed with patient medications from her med list, she reports she is taking the Jardiance 25 mg daily She has not been taking her atorvastatin, or Lasix She is using gabapentin p.r.n. for neuropathy pain Patient reports she does carry glucose tabs, in the event of hypoglycemia Reviewed with patient target goals Exercise Medical clearance Effect of exercise on blood sugar Start slowly and gradually increase pace/duration over time Goal amount of exercise Checking blood glucose/have a source of carbs with you Medications (If applicable) * Name of medication * Dosing/administration instructions * Mechanism of action * Potential side effects * Potential adverse reaction and appropriate treatment * Review onset, peak, duration Assess for concerns re: insurance coverage, cost, barriers to compliance Insulin/Injectables (If applicable) * Storage/care of insulin * Injection sites * Site rotation * Onset, peak, duration * Drawing up insulin * Injecting insulin/other injectables * Sharps disposal Continuous blood glucose monitoring (if applicable) Hypoglycemia and Hyperglycemia * Signs and symptoms * Causes * Treatment * Preventing hypoglycemia * When to seek medical attention Know your goals * A1C * Blood sugar targets * Blood pressure * Cholesterol/LDL Urine microalbumin Smart Goal Assessment: Pt increased Moujaro to 12.5 mg Pt met goal:Pt All of the time/100%: Educational Materials: The patient was provided with the following written educational materials: ADCES 7 Healthy Behaviors Reducing Risks handout in Malay Patient Response to instructions: Comprehension of Instructions: Readiness to make changes: a How confident they feel about making changes: Letter of completion of diabetes Education program will be sent to referring provider Portions of this note were created using voice recognition software, please excuse any words or phrases that may have been misinterpreted. Patient Instructions: Incluir actividad diaria regular. ADA recomienda 30 minutos de ejercicio 5 d?as a la semana. P?rdida de peso, hable con el PCP o el cardi?logo antes de comenzar un nuevo plan. Mida el nivel de az?car en la candace seg?n las indicaciones; Ayuno y comida m?s mike de 2hpp. Observe las tendencias en los resultados. Utilice los resultados y eval?e c?mo los alimentos, la actividad f?ricardo y los medicamentos afectan los resultados de az?car en la candace. Lleve el gluc?metro o CGM a la pr?xima visita. Conocer los medicamentos para la diabetes, hammond acci?n, los efectos secundarios, la eficacia, la toxicidad, la dosis prescrita, el momento y la frecuencia de administraci?n apropiados, el efecto de las dosis olvidadas y retrasadas y las instrucciones de almacenamiento, viaje y seguridad. T?cnicas de resoluci?n de problemas para el seguimiento de episodios de hipo/hiperglucemia y tratamientos. Reducir los comportamientos de reducci?n de riesgos, dejar de fumar, ex?menes regulares de ojos, pies y dentales. Coding Level of Care Code Est Pt Level 1 (84670) Diagnoses Type 2 diabetes mellitus with diabetic neuropathy, with long-term current use of insulin E11.40; Z79.4 Diabetes mellitus terminal gauger insulin use: with long-term use
== END 2023-10-28 14:03 | disposition home or self-care (01) ==
PROVIDERS: PCP Physician Assistant; Visit Provider Registered Nurse Diabetes Educator
DX: E11.40 Type 2 diabetes mellitus with diabetic neuropathy, unspecified (principal); Z79.4 Long term (current) use of insulin

== ENCOUNTER → 2023-10-28 13:16 | Outpatient (BNVA) | payer OTHER, SELFPAY | PROVIDERS: PCP Physician Assistant; Visit Provider Registered Nurse Diabetes Educator | DX: E11.40 Type 2 diabetes mellitus with diabetic neuropathy, unspecified (principal); Z79.4 Long term (current) use of insulin | CPT/HCPCS: 99211 ==

== ENCOUNTER 2023-11-19 08:23 | Outpatient (REF) | payer OTHER, SELFPAY ==
[2023-11-19 11:23] LABS: Alanine Aminotransferase 14 U/L (0-31); Albumin Level 4.2 g/dL (3.5-5.0); Alkaline Phosphatase 126 U/L (39-117); Anion Gap 11 (12-20); Aspartate Amino Transferase 14 U/L (5-31); Bilirubin Total 0.4 mg/dL (0.0-1.0); Blood Urea Nitrogen 10 mg/dL (9-16); Calcium 10.2 mg/dL (8.4-10.2); Carbon Dioxide 28 mmol/L (22-29); Chloride 105 mmol/L (96-108); Cholesterol 175 mg/dL (<200); Estimated Glomerular Filt Rate > 60; Glucose Fasting 159 mg/dL (60-99); HDL Cholesterol 50 mg/dL (>40); LDL Cholesterol Calculated 111 mg/dL (<100); Potassium 4.4 mmol/L (3.3-5.1); Sodium 140 mmol/L (135-145); Total Protein 7.5 g/dL (6.5-8.0); Triglycerides 73 mg/dL (<150)
[2023-11-19 11:58] LABS: Creatinine Urine 54.45 mg/dL; Microalbum/Creatinine Ratio Ur 12.8 ug/mg cr (<30)
== END 2023-11-19 08:24 | disposition home or self-care (01) ==
LOC: HO.LAB 08:23
PROVIDERS: PCP Physician Assistant; Visit Provider Physician Assistant
DX: E11.40 Type 2 diabetes mellitus with diabetic neuropathy, unspecified (principal); Z79.4 Long term (current) use of insulin; I10 Essential (primary) hypertension; E78.00 Pure hypercholesterolemia, unspecified
CPT/HCPCS: 36415; 80053; 80061; 82043; 82570

== ENCOUNTER 2024-01-19 13:32 | Outpatient (AMB) | payer OTHER, SELFPAY ==
--- NOTE | 2024-01-19 13:36 | A.OFFVIS_ITS ---
Vital Signs 01/19/24 13:39 Height 5 ft 4 in Weight 178 lb 9.191 oz BMI 30.6 BP 132/60 Blood Pressure Location Rt brachial Position Sitting Pulse 105 H Pulse Source Pulse Oximeter Intake Visit Reasons: dm Intake Note: Patient presents today for a follow-up on D2MT. Last Diabetic Eye exam: 10/2022 Last Podiatry Visit: 08/2023 Most Recent HgA1c: 9.0%, 01/19/2024 Random Glucose: 161 mg/dL, Today Soaker Soda Worker Required: Yes Soaker Soda Worker Language: Icelandic Information Interpreted: non-clinical & clinical Accompanied by: Self / Same As Patient Allergies acetaminophen [From Dologesic-DF] Allergy (Verified 10/20/23 13:53) upset stomach dexbrompheniramine [From Dologesic-DF] Allergy (Verified 10/20/23 13:53) upset stomach metformin Adverse Reaction (Verified 10/20/23 13:53) upset stomach HPI HPI dm: Details: Pt is a 58 y/o female with a significant past medical history of type 2 diabetes, hypertension, hyperlipidemia, obesity, history of breast cancer presenting today for a diabetic follow-up. Soaker Soda Worker: Flavio [id number] DM- Her a1c was last 10.3. She is supposed to be taking lantus 50 units, novolog 15 units 3 times a day, mounjaro 12.5 mg q weekly, jardiance 25 mg. In the morning her blood sugars are around 300 in the morning but by the evening they go low. She states that she goes to a program and during the program they have been giving her NovoLog and she states that the dose ranges she believes from 10-20 units. By the afternoon her blood sugars are dropping low to 40-50. She states that she has to use the glucose tabs to elevate them. She does tell me today that she has not been taking the NovoLog or lantus how it has been prescribed. She has been using lantus 10-18 units nightly. She is using novolog 15-20 units TID CGM: dexcom g7 dl: Average glucose 272, GMI 9.8%. Very hyperglycemic 63%, hyperglycemic 24%, in range 13%. No hypoglycemic events. -at our last visit I started her on gabapentin for her peripheral neuropathy. She does follow with Podiatry.. She is on a statin. Not on an TONNY-inhibitor. CV: Blood pressure today in the office is 132/60. She is on furosemide for lower leg edema. She is compliant with atorvastatin 20 mg. PFSH Medical History COVID-19 Type 2 diabetes mellitus with diabetic neuropathy, unspecified Diabetes type 2, uncontrolled H/O breast lump DMII (diabetes mellitus, type 2) Hypertension High cholesterol Ovarian cyst Diabetes Physical exam Surgical History History of breast biopsy Hx of subtotal mastectomy of right breast (~2007) H/O eye surgery Hx of cholecystectomy History of section Family History Father Prostate cancer Mother Diabetes Brother Diabetes Social History Household Members: Family Housing: House Do you presently have visiting nurse or other home services: No Alcohol intake: never Patient Tobacco Use Status: Never used Tobacco Cigarette Packs Per Day: 0 Years Smoked: 0 e-Cigarette/Vaping Use: Never Used Second Hand Smoke Exposure: No service: No Current occupational status: unemployed Cognitive needs: No Hearing needs: No Vision needs: Yes Physical Exam Vital Signs: Last Vital Signs Pulse 105 H 01/19/24 13:39 BP 132/60 01/19/24 13:39 BMI result Body Mass Index 30.6 Const Orientation/consciousness: patient oriented x3 Neck Neck: Yes no lymphadenopathy Thyroid: Thyroid normal Carotids: no bruits Resp Auscultation: clear to auscultation bilaterally Cardio Rate: regular rate Rhythm: regular rhythm Heart sounds: S1 normal heart sound present and S2 normal heart sound present Peripheral pulses: dorsalis pedis present Neuro General: patient oriented x3, gait normal and no focal motor deficits Extrem Other: Diminished Monofilament sensation bilaterally. Diminished Vibratory sensation bilaterally. Skin intact. General: Yes normal to inspection Office Procedures Glucose Monitoring Details Details: see hpi 04288 - Glucose monitoring, continuous-physician I&R Procedure code (CPT) selection complete Results AMB Hemoglobin A1c AMB Hemoglobin A1c 9.0 % Last Edit by CHELI Lam on 01/19/24 14:10 Results Reviewed Results Reviewed: Laboratory Last Values Glucose (Clinic) 161 mg/dL (60-115) H 01/19/24 13:46 Laboratory Tests 10/20/23 11/19/23 11/19/23 13:58 08:51 08:57 Sodium 140 Potassium 4.4 Chloride 105 Carbon Dioxide 28 Anion Gap 11 L BUN 10 Creatinine 0.67 Estimated GFR > 60 Fasting Glucose 159 H Hgb A1c (Clinic) 10.3 H AST 14 ALT 14 Triglycerides 73 Cholesterol 175 LDL Cholesterol, Calc 111 H HDL Cholesterol 50 Urine Creatinine 54.45 Urine Microalbumin 7.0 Microalb/Creat Ratio 12.8 Assessment & Plan Assessment & Plan (1) Type 2 diabetes mellitus with diabetic neuropathy, unspecified: Code(s): E11.40 - Type 2 diabetes mellitus with diabetic neuropathy, unspecified Category: Medical Qualifiers: Diabetes mellitus half-way insulin use: with local intermodal truck driver use Qualified Code(s): E11.40 - Type 2 diabetes mellitus with diabetic neuropathy, unspecified; Z79.4 - moth exterminator (current) use of insulin Plan: use lantus EVERY night, start with 25 units Take the novolog 15 units three times a day with meals (breakfast, lunch and supper) continue jardiance increase mounjaro to 15 mg once a week We spent extensive discussing compliance. We reviewed again the risks associated with uncontrolled diabetes including kidney disease, eye disease, increased risk of stroke, heart attacks, infections, amputations etc.. Orders: Orders AMB Hemoglobin A1c Today E11.65 - Type 2 diabetes mellitus with hyperglycemia Medications: New tirzepatide (Mounjaro) 15 mg (0.5 mL) subcut QWEEK 2 mL 4RF Changed From insulin glargine (Lantus Solostar U-100 Insulin) 50 units (0.5 mL) subcut QAM 15 mL 2RF E11.40 - Type 2 diabetes mellitus with diabetic neuropathy, unspecified To insulin glargine (Lantus Solostar U-100 Insulin) 25 units (0.25 mL) subcut QAM 15 mL 2RF E11.40 - Type 2 diabetes mellitus with diabetic neuropathy, unspecified From Novolog FlexPen U-100 Insulin (insulin aspart U-100) 24 units before breakfast and 18 units before lunch and dinner subcutaneously 3 times a day; 15 mL 5RF NS E11.40 - Type 2 diabetes mellitus with diabetic neuropathy, unspecified, Z79.4 - moth exterminator (current) use of insulin To Novolog FlexPen U-100 Insulin (insulin aspart U-100) 15 units (0.15 mL) subcut TID 30 days 15 mL 5RF NS E11.40 - Type 2 diabetes mellitus with diabetic neuropathy, unspecified, Z79.4 - moth exterminator (current) use of insulin Discontinued tirzepatide (Mounjaro) Discontinued Reason: Doctor's Order 12.5 mg (0.5 mL) subcut QWEEK 2 mL 4RF Patient Instructions: use lantus EVERY night, start with 25 units Take the novolog 15 units three times a day with meals (breakfast, lunch and hammond pper) continue jardiance I increased mounjaro to 15 mg once a week Coding Level of Care Code Est Pt Level 4 (89613) Diagnoses Type 2 diabetes mellitus with diabetic neuropathy, with long-term current use of insulin E11.40; Z79.4 Diabetes mellitus local intermodal truck driver insulin use: with local intermodal truck driver use CPT Codes Details - CPT: 68271 - Glucose monitoring, continuous-physician I&R ([id number])
[2024-01-19 13:39] VITALS: BP 132/60; PULSE 105; BMI 30.6
[2024-01-19 13:50] LABS: Glucose, Whole Blood 161 mg/dL (60-115)
== END 2024-01-19 14:14 | disposition home or self-care (01) ==
LOC: HO.ENCR 13:33
PROVIDERS: PCP Physician Assistant; Visit Provider Physician Assistant
DX: E11.40 Type 2 diabetes mellitus with diabetic neuropathy, unspecified (principal); Z79.4 Long term (current) use of insulin; E11.65 Type 2 diabetes mellitus with hyperglycemia

== ENCOUNTER → 2024-01-19 13:32 | Outpatient (BNVA) | payer OTHER, SELFPAY | PROVIDERS: PCP Physician Assistant; Visit Provider Physician Assistant | DX: E11.40 Type 2 diabetes mellitus with diabetic neuropathy, unspecified (principal); Z79.4 Long term (current) use of insulin | CPT/HCPCS: 82947; 83036; 99212 ==

== ENCOUNTER 2024-01-26 14:17 | Outpatient (AMB) | payer OTHER, SELFPAY ==
--- NOTE | 2024-01-26 14:20 | A.OFFVIS_ITS ---
Vital Signs 01/26/24 14:35 Height 5 ft 4 in Weight 182 lb 12.211 oz BMI 31.4 BP 120/80 Blood Pressure Location Lt brachial Position Sitting Pulse 100 Pulse Source Pulse Oximeter Intake Visit Reasons: DM Intake Note: Patient presents today for D2MT follow up visit. Last Diabetic Eye exam: About 2 years Last Podiatry Visit: 11/2023 Random Glucose: 81 mg/dl HgA1c: 9.0% 01/19/24 Automatic Screwmaker Required: Yes Automatic Screwmaker Language: Sausage Mixer Services: Automatic Screwmaker Present Information Interpreted: non-clinical & clinical Accompanied by: Self / Same As Patient Allergies acetaminophen [From Dologesic-DF] Allergy (Verified 01/26/24 14:40) upset stomach dexbrompheniramine [From Dologesic-DF] Allergy (Verified 01/26/24 14:40) upset stomach metformin Adverse Reaction (Verified 01/26/24 14:40) upset stomach HPI HPI DM: Details: Pt is a 58 y/o female with a significant past medical history of type 2 diabetes, hypertension, hyperlipidemia, obesity, history of breast cancer presenting today for a diabetic follow-up. Automatic Screwmaker: Jacque [id number] DM- her previous A1c was 10.3 and last week was 9. She is supposed to be taking lantus 25 units, novolog 15 units 3 times a day, mounjaro 15 mg q weekly, jardiance 25 mg. -she states that she is sometimes getting low blood sugars in the afternoon. Upon further review she has been taking the NovoLog at 15 units with just a snack. She is taking it with breakfast, lunch and then in the mid afternoon and that is when her blood sugars are going low. She states that she did not realize she could take NovoLog with supper and then a few hours later take the Lantus. CGM: States that she needs a refill on the Avesthagen Ashley 2 sensors. She has been out of this for the last couple of weeks. She does follow with Podiatry.. She is on a statin. Not on an TONNY-inhibitor. CV: Blood pressure today in the office is 120/80. She is on furosemide for lower leg edema. She is compliant with atorvastatin 20 mg. [facility] Medical History COVID-19 Type 2 diabetes mellitus with diabetic neuropathy, unspecified Diabetes type 2, uncontrolled H/O breast lump DMII (diabetes mellitus, type 2) Hypertension High cholesterol Ovarian cyst Diabetes Physical exam Surgical History History of breast biopsy Hx of subtotal mastectomy of right breast (~2007) H/O eye surgery Hx of cholecystectomy History of section Family History Father Prostate cancer Mother Diabetes Brother Diabetes Social History Household Members: Family Housing: House Do you presently have visiting nurse or other home services: No Alcohol intake: never Patient Tobacco Use Status: Never used Tobacco Cigarette Packs Per Day: 0 Years Smoked: 0 e-Cigarette/Vaping Use: Never Used Second Hand Smoke Exposure: No service: No Current occupational status: unemployed Cognitive needs: No Hearing needs: No Vision needs: Yes Physical Exam Const Orientation/consciousness: patient oriented x3 Neck Neck: Yes no lymphadenopathy Thyroid: Thyroid normal Carotids: no bruits Resp Auscultation: clear to auscultation bilaterally Cardio Rate: regular rate Rhythm: regular rhythm Heart sounds: S1 normal heart sound present and S2 normal heart sound present Peripheral pulses: dorsalis pedis present Neuro General: patient oriented x3, gait normal and no focal motor deficits Extrem Other: Diminished Monofilament sensation bilaterally. Diminished Vibratory sensation b ilaterally. Skin intact. General: Yes normal to inspection Results Reviewed Results Reviewed: Laboratory Tests 10/20/23 11/19/23 01/19/24 13:58 08:57 14:09 Hgb A1c (Clinic) 10.3 H 9.0 H Triglycerides 73 Cholesterol 175 LDL Cholesterol, Calc 111 H HDL Cholesterol 50 Assessment & Plan Assessment & Plan (1) Diabetes type 2, uncontrolled: Code(s): E11.65 - Type 2 diabetes mellitus with hyperglycemia Category: Medical Qualifiers: Glycemic state: with hyperglycemia Qualified Code(s): E11.65 - Type 2 diabetes mellitus with hyperglycemia Plan: increase lantus to 30 units. Decrease novolog to 10 units with breakfast and lunch. Continue novlog 15 units with supper as that is her largest meal. We spent extensive time discussing basal insulin and mealtime insulin. She will call me if she has any questions or concerns but I will see her back in a few weeks to reassess. I have ordered sensors for her to so she may bring that data to that appointment. She will continue with the Mounjaro 15 mg weekly, Jardiance 25 mg daily. Reordered glucose tabs to use if needed. Rule of 15 discussed. We reviewed diet at length. I have strongly encouraged her to avoid processed foods. (2) Hypertension: Code(s): I10 - Essential (primary) hypertension Category: Medical Qualifiers: Hypertension type: primary hypertension Qualified Code(s): I10 - Essential (primary) hypertension Plan: Continue current regimen (3) High cholesterol: Code(s): E78.00 - Pure hypercholesterolemia, unspecified Category: Medical Plan: Well-controlled. Continue Lipitor. Medications: Changed From Novolog FlexPen U-100 Insulin (insulin aspart U-100) 15 units (0.15 mL) subcut TID 30 days 15 mL 5RF NS E11.40 - Type 2 diabetes mellitus with diabetic neuropathy, unspecified, Z79.4 - manager long term care (current) use of insulin To Novolog FlexPen U-100 Insulin (insulin aspart U-100) subcutaneously; 30 days 15 mL 5RF NS E11.40 - Type 2 diabetes mellitus with diabetic neuropathy, unspecified, Z79.4 - manager long term care (current) use of insulin From insulin glargine (Lantus Solostar U-100 Insulin) 25 units (0.25 mL) subcut QAM 15 mL 2RF E11.40 - Type 2 diabetes mellitus with diabetic neuropathy, unspecified To insulin glargine (Lantus Solostar U-100 Insulin) 30 units (0.3 mL) subcut QAM 15 mL 2RF E11.40 - Type 2 diabetes mellitus with diabetic neuropathy, unspecified Refilled glucose (Dex4 Glucose) until symptoms of low blood sugar are controlled 16 grams (4 x 4 gram) PO Q15M PRN 100 tabs 0RF hypoglycemia flash glucose sensor (FreeStyle Ashley 2 Sensor kit) As directed change every 14 days 2 ea 5RF Coding Level of Care Code Est Pt Level 4 (00454) Complex EM visit Add On G2211 Diagnoses Uncontrolled type 2 diabetes mellitus with hyperglycemia E11.65 Glycemic state: with hyperglycemia Primary hypertension I10 Hypertension type: primary hypertension High cholesterol E78.00
[2024-01-26 14:35] VITALS: BP 120/80; PULSE 100; BMI 31.4
[2024-01-26 14:47] LABS: Glucose, Whole Blood 81 mg/dL (60-115)
== END 2024-01-26 15:08 | disposition home or self-care (01) ==
LOC: HO.ENCR 14:18
PROVIDERS: PCP Physician Assistant; Visit Provider Physician Assistant
DX: E11.65 Type 2 diabetes mellitus with hyperglycemia (principal); I10 Essential (primary) hypertension; E78.00 Pure hypercholesterolemia, unspecified

== ENCOUNTER → 2024-01-26 14:17 | Outpatient (BNVA) | payer OTHER, SELFPAY | PROVIDERS: PCP Physician Assistant; Visit Provider Physician Assistant | DX: E11.65 Type 2 diabetes mellitus with hyperglycemia (principal); I10 Essential (primary) hypertension; E78.00 Pure hypercholesterolemia, unspecified | CPT/HCPCS: 82947; 99212 ==

== ENCOUNTER 2024-02-03 09:56 | Outpatient (AMB) | payer OTHER, SELFPAY ==
[2024-02-03 09:58] VITALS: BP 132/72; PULSE 88; O2SAT 98; BMI 31.0
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
== END 2024-02-03 10:36 | disposition home or self-care (01) ==
PROVIDERS: PCP Physician Assistant; Visit Provider Physician Assistant
DX: E11.40 Type 2 diabetes mellitus with diabetic neuropathy, unspecified (principal); Z79.4 Long term (current) use of insulin; E78.00 Pure hypercholesterolemia, unspecified; I10 Essential (primary) hypertension; Z12.4 Encounter for screening for malignant neoplasm of cervix; Z12.11 Encounter for screening for malignant neoplasm of colon; Z23 Encounter for immunization

== ENCOUNTER → 2024-02-03 09:56 | Outpatient (BNVA) | payer OTHER, SELFPAY | PROVIDERS: PCP Physician Assistant; Visit Provider Physician Assistant | DX: E11.40 Type 2 diabetes mellitus with diabetic neuropathy, unspecified (principal); E78.00 Pure hypercholesterolemia, unspecified; I10 Essential (primary) hypertension; Z79.4 Long term (current) use of insulin | CPT/HCPCS: 90471; 99212 ==

== ENCOUNTER 2024-03-01 13:56 | Outpatient (AMB) | payer OTHER, SELFPAY ==
[2024-03-01 13:59] VITALS: BMI 31.4
--- NOTE | 2024-03-01 13:59 | A.OFFVIS_ITS ---
VS Expanded 03/01/24 13:59 Height 5 ft 4 in Weight 182 lb 15.739 oz BMI 31.4 Intake Visit Reasons: T2DM/LVM Allergies acetaminophen [From Dologesic-DF] Allergy (Verified 02/03/24 10:11) upset stomach dexbrompheniramine [From Dologesic-DF] Allergy (Verified 02/03/24 10:11) upset stomach metformin Adverse Reaction (Verified 02/03/24 10:11) upset stomach Nutrition Presentation Details: Pt presents for MNT f/u T2DM Participates from breakfast/lunch at [employer] dinner: soup wit chicken , rice , carrots, water snack : 1/2 sand, water Physical activity:daily life activities, stairs at home BS Monitoring Most Recent Diabetes Results: Microalb/Creat Ratio 12.8 ug/mg cr (<30) 11/19/23 Cholesterol 175 mg/dL (<200) 11/19/23 HDL Cholesterol 50 mg/dL (>40) 11/19/23 Triglycerides 73 mg/dL (<150) 11/19/23 Creatinine 0.67 mg/dL (0.5-1.4) 11/19/23 Blood Urea Nitrogen 10 mg/dL (9-16) 11/19/23 Sodium 140 mmol/L (135-145) 11/19/23 Potassium 4.4 mmol/L (3.3-5.1) 11/19/23 Chloride 105 mmol/L (96-108) 11/19/23 Carbon Dioxide 28 mmol/L (22-29) 11/19/23 Calcium 10.2 mg/dL (8.4-10.2) 11/19/23 AST 14 U/L (5-31) 11/19/23 ALT 14 U/L (0-31) 11/19/23 Total Protein 7.5 g/dL (6.5-8.0) 11/19/23 Albumin 4.2 g/dL (3.5-5.0) 11/19/23 [facility] Medical History COVID-19 Type 2 diabetes mellitus with diabetic neuropathy, unspecified Diabetes type 2, uncontrolled H/O breast lump DMII (diabetes mellitus, type 2) Hypertension High cholesterol Ovarian cyst Diabetes Physical exam Surgical History History of breast biopsy Hx of subtotal mastectomy of right breast (~2007) H/O eye surgery Hx of cholecystectomy History of section Family History Father Prostate cancer Mother Diabetes Brother Diabetes Social History Household Members: Family Housing: House Do you presently have visiting nurse or other home services: No Alcohol intake: never Patient Tobacco Use Status: Never used Tobacco Cigarette Packs Per Day: 0 Years Smoked: 0 e-Cigarette/Vaping Use: Never Used Second Hand Smoke Exposure: No service: No Current occupational status: unemployed Cognitive needs: No Hearing needs: No Vision needs: Yes Assessment & Plan Assessment & Plan (1) Diabetes type 2, uncontrolled: Code(s): E11.65 - Type 2 diabetes mellitus with hyperglycemia Category: Medical Qualifiers: Glycemic state: with hyperglycemia Qualified Code(s): E11.65 - Type 2 diabetes mellitus with hyperglycemia Plan: Rec: [id number] carlos /day high fiber, low in fat est prot needs: 89 g/day (1 g/kg bw) est fluid needs: 2700 ml/d (30 ml/kg bw) Sodium: less than 2000 mg /day Educate patient on: (R= Reviewed, V = verbalizes understanding N/R= Needs review N/A= not applicable) * Including high fiber foods in diet * working on weight loss by reducing of fat intake Patient Instructions: Reduce on fried foods to 1 x/wk Choose ground poultry vs pork/beef work on weight loss, 5-10 lb less by nex f/u Coding Level of Care Code Nutr Indiv Subseq (23264) Diagnoses Uncontrolled type 2 diabetes mellitus with hyperglycemia E11.65 Glycemic state: with hyperglycemia Time Spent (min) 30
== END 2024-03-01 14:21 | disposition home or self-care (01) ==
PROVIDERS: PCP Physician Assistant; Visit Provider Dietitian, Registered
DX: E11.65 Type 2 diabetes mellitus with hyperglycemia (principal)

== ENCOUNTER → 2024-03-01 13:56 | Outpatient (BNVA) | payer OTHER, SELFPAY | PROVIDERS: PCP Physician Assistant; Visit Provider Dietitian, Registered | DX: E11.65 Type 2 diabetes mellitus with hyperglycemia (principal); E11.40 Type 2 diabetes mellitus with diabetic neuropathy, unspecified | CPT/HCPCS: 97803 ==

== ENCOUNTER 2024-03-25 08:28 | Outpatient (AMB) | payer OTHER, SELFPAY ==
--- NOTE | 2024-03-25 08:54 | A.OFFVIS_ITS ---
Intake Intake Visit Reasons: 60 min Check Out Clerk Required: Yes Check Out Clerk Language: [place] Accompanied by: Self / Same As Patient Allergies acetaminophen [From Dologesic-DF] Allergy (Verified 02/03/24 10:11) upset stomach dexbrompheniramine [From Dologesic-DF] Allergy (Verified 02/03/24 10:11) upset stomach metformin Adverse Reaction (Verified 02/03/24 10:11) upset stomach HPI Comprehensive Diabetes Asmnt Most Recent Diabetes Results: Microalb/Creat Ratio 12.8 ug/mg cr (<30) 11/19/23 Cholesterol 175 mg/dL (<200) 11/19/23 HDL Cholesterol 50 mg/dL (>40) 11/19/23 Triglycerides 73 mg/dL (<150) 11/19/23 Creatinine 0.67 mg/dL (0.5-1.4) 11/19/23 Blood Urea Nitrogen 10 mg/dL (9-16) 11/19/23 Sodium 140 mmol/L (135-145) 11/19/23 Potassium 4.4 mmol/L (3.3-5.1) 11/19/23 Chloride 105 mmol/L (96-108) 11/19/23 Carbon Dioxide 28 mmol/L (22-29) 11/19/23 Calcium 10.2 mg/dL (8.4-10.2) 11/19/23 AST 14 U/L (5-31) 11/19/23 ALT 14 U/L (0-31) 11/19/23 Total Protein 7.5 g/dL (6.5-8.0) 11/19/23 Albumin 4.2 g/dL (3.5-5.0) 11/19/23 [facility] Medical History COVID-19 Type 2 diabetes mellitus with diabetic neuropathy, unspecified Diabetes type 2, uncontrolled H/O breast lump DMII (diabetes mellitus, type 2) Hypertension High cholesterol Ovarian cyst Diabetes Physical exam Surgical History History of breast biopsy Hx of subtotal mastectomy of right breast (~2007) H/O eye surgery Hx of cholecystectomy History of section Family History Father Prostate cancer Mother Diabetes Brother Diabetes Social History Household Members: Family Housing: House Do you presently have visiting nurse or other home services: No Alcohol intake: never Patient Tobacco Use Status: Never used Tobacco Cigarette Packs Per Day: 0 Years Smoked: 0 e-Cigarette/Vaping Use: Never Used Second Hand Smoke Exposure: No service: No Current occupational status: unemployed Cognitive needs: No Hearing needs: No Vision needs: Yes Assessment & Plan Assessment & Plan (1) Diabetes type 2, uncontrolled: Code(s): E11.65 - Type 2 diabetes mellitus with hyperglycemia Qualifiers: Glycemic state: with hyperglycemia Qualified Code(s): E11.65 - Type 2 diabetes mellitus with hyperglycemia Plan: Learning objectives: The patient was provided with verbal and written education on the following topics as outlined below. Patient has not been using Dexcom G7 sensors, has a OneTouch ultra meter which had the incorrect date and time so we were unable to review glucose numbers from meter. Reset date and time in patient's glucose meter Patient given 3 Dexcom G7 sample sensors Instructed patient to make appointment with provider at end of the month for next A1c The patient met all learning objectives and was able to verbalize understanding and provide teach back of education topics discussed . The patient was provided with the opportunity to ask questions and all questions were answered. Topics covered in today?s session included: Target Goals: * Blood glucose targets and how you feel when your blood glucose is in and out of your target ranges. * Monitoring and knowing your A1C. * What can make blood glucose go up and down and preventing high and low blood glucose. * Review of blood sugar targets in expected goal range and outside of expected goal range. * Problem solving and preventing hyper/hypoglycemia. * Sick day management of diabetes. * Using blood sugar results in decision making process in managing diabetes. ?Patient was receptive to information provided and participated in the discussion. Asked?appropriate questions and demonstrated good understanding of the topics discussed.? ? Educational Materials: The patient was provided with the following written educational materials: Target Goal handout Smart Goal: Restart Dexcom G7 Portions of this note were created using voice recognition software, please excuse any words or phrases that may have been misinterpreted. Patient Instructions: Follow-up with Diabetes Education nurse in 2 months Coding Level of Care Code Est Pt Level 1 (55791) Diagnoses Uncontrolled type 2 diabetes mellitus with hyperglycemia E11.65 Glycemic state: with hyperglycemia
== END 2024-03-25 08:57 | disposition home or self-care (01) ==
PROVIDERS: PCP Physician Assistant; Visit Provider Registered Nurse Diabetes Educator
DX: E11.65 Type 2 diabetes mellitus with hyperglycemia (principal)

== ENCOUNTER → 2024-03-25 08:28 | Outpatient (BNVA) | payer OTHER, SELFPAY | PROVIDERS: PCP Physician Assistant; Visit Provider Registered Nurse Diabetes Educator | DX: E11.65 Type 2 diabetes mellitus with hyperglycemia (principal) | CPT/HCPCS: 99211 ==

== ENCOUNTER 2024-04-12 14:38 | Outpatient (REF) | payer OTHER, SELFPAY ==
--- NOTE | ~2024-04-12 | XR_ITS ---
EXAMINATION: XR CHEST CLINICAL INFORMATION: J06.9 - Acute upper respiratory infection, unspecified COMPARISON: Chest x-ray 07/17/2023 TECHNIQUE: 2 views of the chest were obtained. FINDINGS: The lungs are expanded without pneumonic consolidation. There is no pleural effusion or thickening. Heart size is borderline normal with prominent bilateral parahilar markings suggestive of mild CHF. No gross bony abnormality. XR/XR chest 2V IMPRESSION: Suspect mild pulmonary vascular congestion. Electronically signed by: Ananth Allison MD 04/12/2024 03:59 PM EST
[2024-04-12 18:49] LABS: Influenza A PCR NEGATIVE (Negative); Influenza B PCR NEGATIVE (Negative); Resp Syncy Virus RNA Qual PCR NEGATIVE (Negative); SARS COV2 PCR INHOUSE NEGATIVE (Negative)
== END 2024-04-12 14:39 | disposition home or self-care (01) ==
LOC: HO.XRAY 14:38
PROVIDERS: PCP Physician Assistant; Visit Provider Physician Assistant
DX: J06.9 Acute upper respiratory infection, unspecified (principal)
CPT/HCPCS: 0241U; 71046; 99212

== ENCOUNTER 2024-04-12 14:38 | Outpatient (AMB) | payer OTHER, SELFPAY ==
[2024-04-12 15:06] VITALS: BP 112/64; PULSE 102; TEMP 36.2; O2SAT 98; BMI 30.6
--- NOTE | 2024-04-12 15:06 | MHC.PC.OV ---
Vital Signs 04/12/24 15:06 Height 5 ft 4 in Weight 178 lb 8 oz BMI 30.6 BP 112/64 Blood Pressure Location Lt brachial Position Sitting Pulse 102 H Pulse Source Pulse Oximeter Temp 97.1 F Temp Source Temporal Artery Scan Pulse Oximetry (%) 98 Oxygen Delivery Method Room Air Intake Visit Reasons: Sore throat Intake Note: Pt presents with a two-week history of ongoing cough and sore throat, now accompanied by bilateral ear pain. Cognos Report Developer Required: No Cognos Report Developer Name: Pt refused; daughter interpre Accompanied by: daughter and grand kids Allergies acetaminophen [From Dologesic-DF] Allergy (Verified 04/12/24 15:15) upset stomach dexbrompheniramine [From Dologesic-DF] Allergy (Verified 04/12/24 15:15) upset stomach metformin Adverse Reaction (Verified 04/12/24 15:15) upset stomach Medication List - Last Reconciled 04/12/24 by Alan Nesbitt PA-C acetaminophen (Tylenol Extra Strength) 1,000 mg (2 x 500 mg) PO Q6H PRN albuterol sulfate 2.5 mg (3 mL) inhalation Q6H PRN 30 days albuterol sulfate 90 mcg/actuation 1 inh inhalation QID PRN 30 days atorvastatin 20 mg PO BEDTIME 90 days blood sugar diagnostic As directed blood sugar diagnostic (OneTouch Ultra Test strips) Testing 4 times a day blood-glucose meter (OneTouch Ultra2 Meter) Testing 4 times a day blood-glucose sensor (SecureWave G7 Sensor device) Use daily As directed to monitor glucose. change q 10 days comp.stocking,knee,long,medium As directed cyclobenzaprine 5 mg PO DAILY 10 days [Diabetic shoes & 3 pair inserts as directed] docusate sodium 100 mg PO BID 30 days empagliflozin (Jardiance) 25 mg PO QAM 90 days furosemide (Lasix) 20 mg PO DAILY gabapentin 300 mg PO BEDTIME glucose (Dex4 Glucose) 16 grams (4 x 4 gram) PO Q15M PRN ibuprofen 400 mg PO TID PRN insulin glargine (Lantus Solostar U-100 Insulin) 30 units (0.3 mL) subcut QAM lancets Testing 4 times a day meloxicam 15 mg PO DAILY 30 days nebulizers (VixOne Nebulizer-Adult Mask) As directed nebulizers As directed Novolog FlexPen U-100 Insulin (insulin aspart U-100) inject 10 units with breakfast and lunch. inject 15 units with supper 30 days NS pen needle, diabetic (Comfort EZ Pen [place]) As directed [Pentips 32 gauge x5/32 in needles As directed] tirzepatide (Mounjaro) 15 mg (0.5 mL) subcut QWEEK Tobacco use date assessed: 02/03/24 Dental Screening Dental Screen Date: 04/22/23 HPI Sore throat HPI Details Patient is a 59-year-old female here today for a sick visit. Over the last 2 weeks having a cough, bilateral ear pain, sore throat. Has been using [id number] cough cold medications with only limited relief. 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 Otherwise denies any fevers or chills. She reports her most pressing symptoms are her cough and bilateral ear pain. She has not been using her albuterol inhaler as she needs a refill. [facility] Medical History COVID-19 Type 2 diabetes mellitus with diabetic neuropathy, unspecified Diabetes type 2, uncontrolled H/O breast lump DMII (diabetes mellitus, type 2) Hypertension High cholesterol Ovarian cyst Diabetes Physical exam Surgical History History of breast biopsy Hx of subtotal mastectomy of right breast (~2007) H/O eye surgery Hx of cholecystectomy History of section Family History Father Prostate cancer Mother Diabetes Brother Diabetes Social History Household Members: Family Housing: House Do you presently have visiting nurse or other home services: No Alcohol intake: never Patient Tobacco Use Status: Never used Tobacco Cigarette Packs Per Day: 0 Years Smoked: 0 e-Cigarette/Vaping Use: Never Used Second Hand Smoke Exposure: No service: No Current occupational status: unemployed Cognitive needs: No Hearing needs: No Vision needs: Yes Questionnaire Thrive Questionnaire Date Thrive assessed: 04/22/23 JASON-7 AMB Questionnaire JASON-7 Date JASON - 7 assessed: 04/22/23 Source: Developed by Drs. Darrell Gomez, Peggy Ferrer, Lam Alvarado and colleagues, with an educational oren from [employer]. Review of Systems Const Denies headache(s) Eyes Denies loss of vision ENT Details: + bilateral ear pain Denies vertigo, Denies dizziness, Denies headache(s) and Reports sore throat Card Denies chest pain, Denies leg edema and Denies lightheadedness Resp Reports cough, Denies hemoptysis and Denies wheezing GI Denies abdominal pain, Denies melena, Denies constipation, Denies diarrhea and Denies vomiting Denies urinary frequency, Denies dysuria and Denies urinary urgency Musc Denies arthralgias, Denies joint swelling, Denies numbness and Denies tingling Neuro Denies Abnormal speech present, Denies behavioral changes, Denies vertigo, Denies dizziness, Denies headache(s), Denies loss of vision, Denies memory loss, Denies numbness and Denies tingling Psych Denies anxiety, Denies behavioral changes, Denies depression, Denies memory loss and Denies panic attacks Nakul/Lymph Denies easy bleeding and Denies easy bruising Aller/Immun Denies wheezing Physical exam (Primary Care) Vital Signs: Last Vital Signs Temp 97.1 F 04/12/24 15:06 Pulse 102 H 04/12/24 15:06 BP 112/64 04/12/24 15:06 Pulse Ox 98 04/12/24 15:06 Oxygen Delivery Method Room Air 04/12/24 15:06 BMI result Body Mass Index 30.6 Tobacco/Smoking Status: Tobacco use Status Tobacco use date assessed 02/03/24 04/12/24 15:13 Patient Tobacco Use Status Never used Tobacco 04/12/24 15:13 e-Cigarette/Vaping Use Never Used 04/12/24 15:13 Thrive Assessment: Date of Thrive Assessment Date Thrive assessed 04/22/23 04/12/24 15:13 Const General: healthy appearing, no acute distress, alert and awake Nutritional Appearance: well nourished Orientation/consciousness: oriented to person, oriented to place and oriented to time HENMT Ears: TM's normal bilaterally General nose exam: Normal nasal mucous membranes and turbinates present Eyes Conjunctivae: conjunctivae normal Sclerae: sclerae normal Pupils: Equal, round and reactive pupils present Neck Neck: Yes no lymphadenopathy and Yes no JVD Thyroid: Thyroid normal Carotids: no bruits Resp Effort & Inspection: normal respiratory effort and not tachypneic Auscultation: no crackles, no rales, no rhonchi and no wheezes Cardio Rate: regular rate Rhythm: regular rhythm Heart sounds: no murmurs and normal S1 and S2 GI Palpation (GI): Soft to palpation, nontender, no hepatomegaly and no splenomegaly Auscultation: normal bowel sounds Skin General skin exam: no rashes or lesions noted and dry skin Neuro General: oriented to person, oriented to place and oriented to time Cranial nerves: Yes Equal, round and reactive pupils present Speech: No Abnormal speech present Gait exam (Neuro): Normal gait present Motor exam (neuro): no tremor noted Extrem Right upper extremity: full ROM Left upper extremity: full ROM Right lower extremity: full ROM; no edema Left lower extremity: full ROM; no edema Psych Mental Status: mental status grossly normal Speech and movement: Normal speech and movement present Affect: normal affect Attitude: cooperative Thought process: Normal thought process present Coding Level of Care Code Est Pt Level 3 (27934) Diagnoses Viral upper respiratory tract infection J06.9 URI type: unspecified viral URI Assessment & Plan Assessment & Plan (1) URI (upper respiratory infection): Code(s): J06.9 - Acute upper respiratory infection, unspecified Category: Medical Qualifiers: URI type: unspecified viral URI Qualified Code(s): J06.9 - Acute upper respiratory infection, unspecified Plan: Patient's signs symptoms consistent with a upper respiratory tract infection. Her symptoms have been evident for 2 weeks now thus will send an antibiotic and send for chest x-ray to evaluate for walking pneumonia. Will patient with an albuterol inhaler and cough suppressant tablets. Will test for flu RSV and COVID Orders: Orders XR chest 2V Today J06.9 - Acute upper respiratory infection, unspecified SARS-CoV2/FLU/RSV Today J06.9 - Acute upper respiratory infection, unspecified Medications: New azithromycin For 250 mg dose pack: take 500 mg today (day 1), then 250 mg for 4 days (days 2-5) PO 6 tabs 0RF J06.9 - Acute upper respiratory infection, unspecified benzonatate 200 mg PO TID 5 days 15 caps 0RF J06.9 - Acute upper respiratory infection, unspecified, R05.9 - Cough, unspecified Refilled albuterol sulfate 90 mcg/actuation 1 inh inhalation QID 30 days PRN 8.5 grams 3RF shortness of breath or wheezing J45.20 - Mild intermittent asthma, uncomplicated
== END 2024-04-12 17:25 | disposition home or self-care (01) ==
PROVIDERS: PCP Physician Assistant; Visit Provider Physician Assistant
DX: J06.9 Acute upper respiratory infection, unspecified (principal)

== ENCOUNTER → 2024-04-12 15:39 | Outpatient (BNV) | payer OTHER, SELFPAY | PROVIDERS: PCP Physician Assistant; Visit Provider Radiology Diagnostic Radiology | DX: J06.9 Acute upper respiratory infection, unspecified (principal) | CPT/HCPCS: 71046 ==

== ENCOUNTER 2024-04-19 08:27 | Outpatient (AMB) | payer OTHER, SELFPAY ==
--- NOTE | 2024-04-19 08:31 | A.OFFVIS_ITS ---
Vital Signs 04/19/24 08:32 Height 5 ft 4 in Weight 177 lb 4.026 oz BMI 30.4 BP 136/76 Blood Pressure Location Lt brachial Position Sitting Pulse 98 Pulse Source Pulse Oximeter Intake Visit Reasons: DM Intake Note: Patient present today for Type 2 Diabetes Mellitus. Last Diabetic eye exam: 05/2023 Last Podiatry Visit: Doesn't have one Random Glucose: 255 mg/dl HgA1C: Assistance Representative Required: Yes Assistance Representative Language: Rug Touch Up Painter Services: Assistance Representative Present Assistance Representative Name: Roshan [phone] Information Interpreted: non-clinical & clinical Accompanied by: Self / Same As Patient Allergies acetaminophen [From Dologesic-DF] Allergy (Verified 04/19/24 08:38) upset stomach dexbrompheniramine [From Dologesic-DF] Allergy (Verified 04/19/24 08:38) upset stomach metformin Adverse Reaction (Verified 04/19/24 08:38) upset stomach Medication List - Last Reconciled 04/19/24 by Irene Payne PA-C acetaminophen (Tylenol Extra Strength) 1,000 mg (2 x 500 mg) PO Q6H PRN albuterol sulfate 2.5 mg (3 mL) inhalation Q6H PRN 30 days albuterol sulfate 90 mcg/actuation 1 inh inhalation QID PRN 30 days atorvastatin 20 mg PO BEDTIME 90 days azithromycin For 250 mg dose pack: take 500 mg today (day 1), then 250 mg for 4 days (days 2-5) PO benzonatate 200 mg PO TID 5 days blood sugar diagnostic As directed blood sugar diagnostic (OneTouch Ultra Test strips) Testing 4 times a day blood-glucose meter (OneTouch Ultra2 Meter) Testing 4 times a day blood-glucose sensor (Dexcom G7 Sensor device) Use daily As directed to monitor glucose. change q 10 days comp.stocking,knee,long,medium As directed cyclobenzaprine 5 mg PO DAILY 10 days [Diabetic shoes & 3 pair inserts as directed] docusate sodium 100 mg PO BID 30 days empagliflozin (Jardiance) 25 mg PO QAM 90 days furosemide (Lasix) 20 mg PO DAILY gabapentin 300 mg PO BEDTIME glucose (Dex4 Glucose) 16 grams (4 x 4 gram) PO Q15M PRN ibuprofen 400 mg PO TID PRN insulin glargine (Lantus Solostar U-100 Insulin) 30 units (0.3 mL) subcut QAM lancets Testing 4 times a day meloxicam 15 mg PO DAILY 30 days nebulizers (VixOne Nebulizer-Adult Mask) As directed nebulizers As directed Novolog FlexPen U-100 Insulin (insulin aspart U-100) inject 10 units with breakfast and lunch. inject 15 units with supper 30 days NS pen needle, diabetic (Comfort EZ Pen [place]) As directed [Pentips 32 gauge x5/32 in needles As directed] tirzepatide (Mounjaro) 15 mg (0.5 mL) subcut QWEEK HPI HPI DM: Details: Pt is a 58 y/o female with a significant past medical history of type 2 diabetes, hypertension, hyperlipidemia, obesity, history of breast cancer presenting today for a diabetic follow-up. Assistance Representative: Roshan Bradford [id number] DM- her previous A1c was 9 and today 10.4. She is supposed to be taking lantus 30 units, novolog 10 units 3 times a day, mounjaro 15 mg q weekly, jardiance 25 mg. -She states that she was only taking 12-20 units of lantus. She is often missing novolog doses. She is compliant with mounjaro and jardiance. -Does not tolerate metformin in the past CGM: dexcom download- 89% usage, average glucose 328, GMI 11.1. Standard deviation 59%. Very hyperglycemic 90%, hyperglycemic 9%, in range 1%, 0 hypoglycemia She does follow with Podiatry but states she needs a referral to [place]. She is on a statin. Not on an TONNY-inhibitor. CV: Blood pressure today in the office is 136/76. She is on furosemide for lower leg edema. She often forgets the atorvastatin 20 mg. [facility] Medical History (Updated 04/19/24 @ 08:48 by Irene Payne PA-C) COVID-19 Type 2 diabetes mellitus with diabetic neuropathy, unspecified Diabetes type 2, uncontrolled H/O breast lump DMII (diabetes mellitus, type 2) Hypertension High cholesterol Ovarian cyst Diabetes Physical exam Surgical History History of breast biopsy Hx of subtotal mastectomy of right breast (~2007) H/O eye surgery Hx of cholecystectomy History of section Family History Father Prostate cancer Mother Diabetes Brother Diabetes Social History Household Members: Family Housing: House Do you presently have visiting nurse or other home services: No Alcohol intake: never Patient Tobacco Use Status: Never used Tobacco Cigarette Packs Per Day: 0 Years Smoked: 0 e-Cigarette/Vaping Use: Never Used Second Hand Smoke Exposure: No service: No Current occupational status: unemployed Cognitive needs: No Hearing needs: No Vision needs: Yes Physical Exam Vital Signs: Last Vital Signs Pulse 98 04/19/24 08:32 BP 136/76 04/19/24 08:32 BMI result Body Mass Index 30.4 Const Orientation/consciousness: patient oriented x3 Neck Neck: Yes no lymphadenopathy Thyroid: Thyroid normal Carotids: no bruits Resp Auscultation: clear to auscultation bilaterally Cardio Rate: regular rate Rhythm: regular rhythm Heart sounds: S1 normal heart sound present and S2 normal heart sound present Peripheral pulses: dorsalis pedis present Neuro General: patient oriented x3, gait normal and no focal motor deficits Extrem Other: Monofilament sensation diminished bilaterally. Vibratory sensation intact bilaterally. Skin intact. General: Yes normal to inspection Results Reviewed Results Reviewed: Laboratory Tests 10/20/23 11/19/23 11/19/23 13:58 08:51 08:57 Creatinine 0.67 Estimated GFR > 60 Glucose (Clinic) Hgb A1c (Clinic) 10.3 H AST 14 ALT 14 Triglycerides 73 Cholesterol 175 LDL Cholesterol, Calc 111 H HDL Cholesterol 50 Urine Creatinine 54.45 Urine Microalbumin 7.0 Microalb/Creat Ratio 12.8 01/19/24 01/26/24 14:09 14:43 Creatinine Estimated GFR Glucose (Clinic) 81 Hgb A1c (Clinic) 9.0 H AST ALT Triglycerides Cholesterol LDL Cholesterol, Calc HDL Cholesterol Urine Creatinine Urine Microalbumin Microalb/Creat Ratio Assessment & Plan Assessment & Plan (1) Uncontrolled type 2 diabetes mellitus with hyperglycemia, with long-term current use of insulin: Code(s): E11.65 - Type 2 diabetes mellitus with hyperglycemia; Z79.4 - correction (current) use of insulin Category: Medical Plan: We spent extensive time today discussing the importance of compliance with medications. She is aware that she has an increased risk of a heart attack, stroke, blindness, amputations, infections, kidney disease etc.. We discussed setting reminders on her cell phone, pillboxes, having family members help. It is not as much of an issue with remembering versus just doing it. She states that she will often just skip the dose because it is not convenient. advised compliance of novolog increase the lantus to 30 units start glipizide 5 mg daily continue koko We are going to do a short term follow up. (2) Type 2 diabetes mellitus with diabetic neuropathy, unspecified: Code(s): E11.40 - Type 2 diabetes mellitus with diabetic neuropathy, unspecified Category: Medical Qualifiers: Diabetes mellitus detention insulin use: with detention use Qualified Code(s): E11.40 - Type 2 diabetes mellitus with diabetic neuropathy, unspecified; Z79.4 - correction (current) use of insulin Plan: Stable. On gabapentin. I did provide a referral to Podiatry. (3) High cholesterol: Code(s): E78.00 - Pure hypercholesterolemia, unspecified Category: Medical Plan: Discussed her LDL is not at goal. She is compliant with the atorvastatin. I will recheck lipids prior to her next appointment. Lipids and LFTs ordered. (4) Noncompliance: Code(s): Z91.199 - Patient's noncompliance with other medical treatment and regimen due to unspecified reason Category: Medical Plan: As above. Discussed high risk for adverse outcome. Orders: Orders AMB Hemoglobin A1c Today E11.65 - Type 2 diabetes mellitus with hyperglycemia, Z13.9 - Encounter for screening, unspecified, Z79.4 - correction (current) use of insulin Referrals Podiatry Referral E11.40 - Type 2 diabetes mellitus with diabetic neuropathy, unspecified, E11.65 - Type 2 diabetes mellitus with hyperglycemia, Z79.4 - correction (current) use of insulin Medications: New glipizide ER 5 mg PO DAILY 90 tabs 0RF Coding Level of Care Code Est Pt Level 4 (59216) Complex EM visit Add On G2211 Diagnoses Uncontrolled type 2 diabetes mellitus with hyperglycemia, with long-term current use of insulin E11.65; Z79.4 Type 2 diabetes mellitus with diabetic neuropathy, with long-term current use of insulin E11.40; Z79.4 Diabetes mellitus detention insulin use: with intermediate card tender use High cholesterol E78.00 Noncompliance Z91.199
[2024-04-19 08:32] VITALS: BP 136/76; PULSE 98; BMI 30.4
[2024-04-19 08:45] LABS: Glucose, Whole Blood 255 mg/dL (60-115)
== END 2024-04-19 08:58 | disposition home or self-care (01) ==
PROVIDERS: PCP Physician Assistant; Visit Provider Physician Assistant
DX: E11.65 Type 2 diabetes mellitus with hyperglycemia (principal); Z79.4 Long term (current) use of insulin; E11.40 Type 2 diabetes mellitus with diabetic neuropathy, unspecified; E78.00 Pure hypercholesterolemia, unspecified; Z91.199 Patient's noncompliance with other medical treatment and regimen due to unspecified reason; Z13.9 Encounter for screening, unspecified

== ENCOUNTER → 2024-04-19 08:27 | Outpatient (BNVA) | payer OTHER, SELFPAY | PROVIDERS: PCP Physician Assistant; Visit Provider Physician Assistant | DX: E11.65 Type 2 diabetes mellitus with hyperglycemia (principal); E11.40 Type 2 diabetes mellitus with diabetic neuropathy, unspecified; E78.00 Pure hypercholesterolemia, unspecified; Z79.4 Long term (current) use of insulin; Z91.199 Patient's noncompliance with other medical treatment and regimen due to unspecified reason | CPT/HCPCS: 82947; 83036; 99212 ==

== ENCOUNTER 2024-05-03 16:48 | Emergency (ER) | payer OTHER, SELFPAY ==
[2024-05-03 18:00] VITALS: BP 121/59; PULSE 108; RESP 16; TEMP 36.3; O2SAT 99; BMI 28.2
--- NOTE | 2024-05-03 18:06 | ED_ITS ---
HPI - General Adult General Chief complaint: Nausea/Vomiting/Diarrhea Stated complaint: Headache, nausea, diarrhea Time Seen by Provider: 05/04/24 01:46 Source: patient Limitations: language barrier History of Present Illness ED Provider: Alisia Stanford PA-C HPI narrative: 59-year-old female with a history of diabetes, hypertension, hyperlipidemia who presents with nausea vomiting diarrhea with headache x2 days. Unknown if patient has sick contacts with similar symptoms. Denies recent travel, recent hospitalization or use of antibiotics. Patient states her symptoms are starting to improve. Denies fever or cough cold symptoms, no abdominal pain. Related Data Home Medications ?Medication ?Instructions ?Recorded ?Confirmed Diabetic shoes & 3 pair inserts 06/13/23 04/19/24 Previous Rx's ?Medication ?Instructions ?Recorded blood sugar diagnostic #50 ea 05/22/20 nebulizers (VixOne Nebulizer-Adult #1 ea 04/05/21 Mask) albuterol sulfate 2.5 mg/3 mL 2.5 mg (3 mL) inhalation Q6H PRN 04/18/21 (0.083 %) solution for nebulization shortness of breath or wheezing 30 days #180 mL nebulizers #1 ea 04/18/21 blood-glucose meter (OneTouch #1 ea 07/01/22 Ultra2 Meter) cyclobenzaprine 5 mg tablet 5 mg PO DAILY 10 days #10 tabs 09/11/22 meloxicam 15 mg tablet 15 mg PO DAILY 30 days #30 tabs 09/11/22 blood sugar diagnostic (OneTouch #100 ea 01/01/23 Ultra Test strips) lancets #200 ea 04/21/23 empagliflozin 25 mg tablet 25 mg PO QAM 90 days #90 tabs 06/18/23 (Jardiance) acetaminophen 500 mg tablet 1,000 mg (2 x 500 mg) PO Q6H PRN 07/13/23 (Tylenol Extra Strength) fever or pain #20 tabs ibuprofen 400 mg tablet 400 mg PO TID PRN fever or pain 07/13/23 #30 tabs furosemide 20 mg tablet (Lasix) 20 mg PO DAILY #5 tabs 07/17/23 comp.stocking,knee,long,medium #2 ea 07/23/23 gabapentin 300 mg capsule 300 mg PO BEDTIME #90 caps 10/20/23 Pentips 32 gauge x5/32 in needles #1 ea 11/28/23 tirzepatide 15 mg/0.5 mL 15 mg (0.5 mL) subcut QWEEK #2 mL 01/19/24 subcutaneous pen injector (Mountejinderro) glucose 4 gram chewable tablet 16 g (4 x 4 gram) PO Q15M PRN 01/26/24 (Dex4 Glucose) hypoglycemia #100 tabs insulin glargine 100 unit/mL (3 30 unit (0.3 mL) subcut QAM #15 mL 01/26/24 mL) subcutaneous pen (Lantus Solostar U-100 Insulin) Novolog FlexPen U-100 Insulin 100 See Rx Instructions subcut 02/03/24 unit/mL (3 mL) subcutaneous .COMPLEX 30 days #15 mL (insulin aspart U-100) atorvastatin 20 mg tablet 20 mg PO BEDTIME 90 days #90 tabs 02/03/24 docusate sodium 100 mg capsule 100 mg PO BID 30 days #60 caps 02/03/24 pen needle, diabetic 32 gauge x #50 ea 02/03/24 (Comfort EZ Pen Mobile) albuterol sulfate 90 mcg/actuation 1 inh inhalation QID PRN shortness 04/12/24 aerosol inhaler of breath or wheezing 30 days #8.5 grams azithromycin 250 mg tablet See Rx Instructions PO .COMPLEX #6 04/12/24 tabs benzonatate 200 mg capsule 200 mg PO TID 5 days #15 caps 04/12/24 glipizide 5 mg tablet, extended 5 mg PO DAILY #90 tabs 04/19/24 release 24 hr blood-glucose sensor (Dexcom G7 #3 ea 04/23/24 Sensor device) dicyclomine 20 mg tablet 20 mg PO BID PRN abdominal pain #7 05/04/24 tabs ondansetron HCl 4 mg tablet 4 mg PO Q8H PRN nausea and 05/04/24 vomiting #10 tabs Allergies Allergy/AdvReac Type Severity Reaction Status Date / Time dexbrompheniramine Allergy upset Verified 05/03/24 18:05 [From Dologesic-DF] stomach metformin AdvReac upset Verified 05/03/24 18:05 stomach Review of Systems 2 Review of Systems: Yes all other systems are reviewed and are negative Constitutional: Constitutional: Reports fatigue, Denies fever(s), Reports headache(s) and Reports malaise ENT: Reports headache(s) Cardiovascular: Cardiovascular: Denies chest pain Respiratory: Respiratory: Denies cough Gastrointestinal: Gastrointestinal: Denies abdominal pain, Reports diarrhea, Reports nausea and Reports vomiting Musculoskeletal: Musculoskeletal: Reports myalgias Neurologic: Reports headache(s) Endocrine: Endocrine: Reports fatigue PMFSH Past Medical History Attestation statement: The following information was validated with the patient. Medical History (Updated 05/04/24 @ 03:49 by TRISHA Todd) COVID-19 Type 2 diabetes mellitus with diabetic neuropathy, unspecified Diabetes type 2, uncontrolled H/O breast lump DMII (diabetes mellitus, type 2) Hypertension High cholesterol Ovarian cyst Diabetes Physical exam Surgical History History of breast biopsy Hx of subtotal mastectomy of right breast (~2007) H/O eye surgery Hx of cholecystectomy History of section Family History Family History Father Prostate cancer Mother Diabetes Brother Diabetes Social History Social History Household Members: Family Housing: House Do you presently have visiting nurse or other home services: No Alcohol intake: never Patient Tobacco Use Status: Never used Tobacco Cigarette Packs Per Day: 0 Years Smoked: 0 e-Cigarette/Vaping Use: Never Used Second Hand Smoke Exposure: No Advance Directives: No Do you have a plan to hurt others: No Plan service: No Current occupational status: unemployed Cognitive needs: No Hearing needs: No Vision needs: Yes Physical Exam ED Vital Signs: Vital Signs - 24 hr 05/03/24 18:00 05/04/24 02:02 Temperature 97.3 F 99.6 F Pulse Rate 108 H 95 Respiratory Rate 16 18 Blood Pressure 121/59 L 116/65 Pulse Oximetry 99 96 Oxygen Delivery Method Room Air Room Air BMI result Body Mass Index 28.2 Const Other: Alert Orientation/consciousness: patient oriented x3 Resp Effort & Inspection: normal respiratory effort Cardio Other: Normal peripheral perfusion GI Other: Abdomen is soft nontender nondistended Skin Other: Warm dry no rash Neuro General: patient oriented x3, gait normal, no focal motor deficits and CN's II- XI intact bilaterally Psych Other: Cooperative Course Course Course Narrative: RME, this is a rapid medical exam performed by Sukhdev Vergara please refer to primary provider for complete H&P- 59-year-old female presents for evaluation of headaches, nausea vomiting. She is quite well appearing. She was complaining of some abdominal pain. Plan for labs, viral swabs and a urinalysis. Reevaluation(s) Reevaluation #1: Headache resolved, patient eager for discharge she has not had additional episodes of vomiting or diarrhea here while being treated in the emergency department. Time: 03:47 Medications Administered Discontinued Medications Generic Name Dose Route Start Last Admin Trade Name Freq PRN Reason Stop Dose Admin Diphenhydramine HCl 25 mg 05/04/24 01:51 05/04/24 02:20 Diphenhydramine Hcl 50 Mg/Ml Vial IVPUSH 05/04/24 01:52 25 mg ONCE ONE Administration Sodium Chloride 500 mls @ 500 mls/hr 05/04/24 01:51 05/04/24 02:20 Ns IV 05/04/24 02:50 500 mls/hr .Q1H ONE Administration Ketorolac Tromethamine 15 mg 05/04/24 01:51 05/04/24 02:21 Ketorolac Tromethamine 15 Mg/Ml Vial IVPUSH 05/04/24 01:52 15 mg ONCE ONE Administration Prochlorperazine Edisylate 10 mg 05/04/24 01:51 05/04/24 02:21 Prochlorperazine Edisylate 10 Mg/2 Ml Vial IVPUSH 05/04/24 01:52 10 mg ONCE ONE Administration Medical Decision Making Medical Decision Making [facility] Narrative: 59-year-old female with a history of diabetes, hypertension, hyperlipidemia who presents with nausea vomiting diarrhea with headache x2 days. Unknown if patient has sick contacts with similar symptoms. Denies recent travel, recent hospitalization or use of antibiotics. Patient states her symptoms are starting to improve. Denies fever or cough cold symptoms, no abdominal pain. Problem: Diabetes History: Per patient I have considered the following differential diagnoses: Viral gastroenteritis, viral syndrome, diverticulitis, C diff, traveler's diarrhea Plan: This is likely viral gastroenteritis, such illness has been prevalent within the community. Screening labs including a viral panel were obtained from triage. She has no risk factors for C diff or traveler's diarrhea. She has no abdominal pain to suggest an acute intra-abdominal infection, imaging not warranted. Giving the patient IV fluid, Compazine Benadryl. With Toradol. I have independently reviewed the following tests: Labs: Slight leukocytosis, not anemic, no electrolyte abnormality, viral panel negative Lab Data 05/03/24 20:56 05/03/24 20:56 Labs: Lab Results 05/03/24 Range/Units 20:56 WBC 14.0 H (4.8-10.8) X10*3/uL RBC 5.38 (4.20-5.50) X10*6/uL Hgb 14.9 (12.0-16.0) g/dl Hct 44.8 (37.0-47.0) % MCV 83.3 (80.0-98.0) fL MCH 27.7 (27.0-33.0) pg MCHC 33.3 (31.0-35.0) g/dl RDW 13.7 (11.0-16.0) % Plt Count 264 (160-400) X10*3/uL MPV 10.5 (9.4-12.3) fL Immature Gran % (Auto) 0.4 (0.0-0.4) % Neut % (Auto) 77.3 H (45-73) % Lymph % (Auto) 15.4 L (20-40) % [place] % (Auto) 6.1 (2-11) % Eos % (Auto) 0.4 (0-4) % Baso % (Auto) 0.4 (0-2) % Lymph # (Auto) 2.2 (1.2-4.9) X10*3/uL [place] # (Auto) 0.9 (0.1-1.2) X10*3/uL Eos # (Auto) 0.1 (0.0-0.4) X10*3/uL Baso # (Auto) 0.1 (0.0-0.2) X10*3/uL Abs Immat Gran (auto) 0.06 H (0.00-0.03) X10*3/uL Absolute Neuts (auto) 10.8 H (2.0-8.3) x10*3/uL Absolute Nucleated RBC 0.000 (0.0-0.012) X10*3/uL Nucleated RBC % (auto) 0.0 (0.0-0.2) /100WBC Sodium 141 (135-145) mmol/L Potassium 4.1 (3.3-5.1) mmol/L Chloride 108 (96-108) mmol/L Carbon Dioxide 23 (22-29) mmol/L Anion Gap 14 (12-20) BUN 7 L (9-16) mg/dL Creatinine 0.65 (0.5-1.4) mg/dL Estim Creat Clear Calc 101.5 Estimated GFR > 60 Random Glucose 143 H (60-115) mg/dL Calcium 9.4 D (8.4-10.2) mg/dL Total Bilirubin 0.8 (0.0-1.0) mg/dL AST 19 (5-31) U/L ALT 13 (0-31) U/L Alkaline Phosphatase 140 H (39-117) U/L Total Protein 7.6 (6.5-8.0) g/dL Albumin 4.2 (3.5-5.0) g/dL Lipase 6 L (8-78) U/L Influenza Type A (PCR) NEGATIVE (Negative) Influenza Type B (PCR) NEGATIVE (Negative) RSV RNA Qual (PCR) NEGATIVE (Negative) SARS-CoV-2 RNA (RT-PCR) NEGATIVE (Negative) Discharge Plan Discharge Clinical Impression: Viral gastroenteritis Patient Disposition: Home, Self-Care Instructions: Gastroenteritis (ED) Additional Instructions: You likely have viral gastroenteritis as a cause for your symptoms. This illness has been prevalent within the community. See home care instructions. Use the dicyclomine as needed for diarrhea, uses Zofran as needed for nausea. All of your screening labs including the viral panel were normal. You were screened for influenza, RSV and COVID. Follow up with your primary care as needed. Prescriptions: New ondansetron HCl 4 mg tablet 4 mg PO Q8H PRN (Reason: nausea and vomiting) Qty: 10 0RF dicyclomine 20 mg tablet 20 mg PO BID PRN (Reason: abdominal pain) Qty: 7 0RF No Action (DME) blood sugar diagnostic Strip See Rx Instructions .ROUTE .MEDSUPPLY Qty: 50 1RF Rx Instructions: As directed (DME) VixOne Nebulizer-Adult Mask Misc See Rx Instructions .Route Qty: 1 0RF Rx Instructions: As directed (DME) blood-glucose meter [OneTouch Ultra2 Meter] Misc See Rx Instructions .Route Qty: 1 0RF Rx Instructions: Testing 4 times a day (DME) OneTouch Ultra Test Strip See Rx Instructions .Route Qty: 100 6RF Rx Instructions: Testing 4 times a day (DME) lancets Misc See Rx Instructions .Route Qty: 200 6RF Rx Instructions: Testing 4 times a day (DME) Pentips 32 gauge x5/32 in needles See Rx Instructions .Route .MEDSUPPLY Qty: 1 3RF Rx Instructions: As directed (DME) Dexcom G7 Sensor Device See Rx Instructions .MEDSUPPLY Qty: 3 5RF Rx Instructions: Use daily As directed to monitor glucose. change q 10 days (DME) Diabetic shoes & 3 pair inserts Diabetic shoes & 3 pair insert kit See Rx Instructions Rx Instructions: as directed acetaminophen [Tylenol Extra Strength] 500 mg tablet 1,000 mg PO Q6H PRN (Reason: fever or pain) Qty: 20 0RF ibuprofen 400 mg tablet 400 mg PO TID PRN (Reason: fever or pain) Qty: 30 0RF furosemide [Lasix] 20 mg tablet 20 mg PO DAILY Qty: 5 0RF albuterol sulfate 2.5 mg /3 mL (0.083 %) solution for nebulization 2.5 mg inhalation Q6H PRN (Reason: shortness of breath or wheezing) 30 Days Qty: 180 3RF (DME) nebulizers Misc See Rx Instructions .Route Qty: 1 0RF Rx Instructions: As directed meloxicam 15 mg tablet 15 mg PO DAILY 30 Days Qty: 30 3RF cyclobenzaprine 5 mg tablet 5 mg PO DAILY 10 Days Qty: 10 0RF (DME) comp.stocking,knee,long,medium Misc See Rx Instructions .Route Qty: 2 0RF Rx Instructions: As directed Jardiance 25 mg tablet 25 mg PO QAM 90 Days Qty: 90 2RF gabapentin 300 mg capsule 300 mg PO BEDTIME Qty: 90 0RF insulin glargine [Lantus Solostar U-100 Insulin] 100 unit/mL (3 mL) insulin pen 30 unit subcut QAM Qty: 15 2RF glucose [Dex4 Glucose] 4 gram tablet,chewable 16 g PO Q15M PRN (Reason: hypoglycemia) Qty: 100 0RF Rx Instructions: until symptoms of low blood sugar are controlled glipizide 5 mg tablet extended release 24hr 5 mg PO DAILY Qty: 90 0RF Mounjaro 15 mg/0.5 mL pen injector 15 mg subcut QWEEK Qty: 2 4RF insulin aspart U-100 [Novolog FlexPen U-100 Insulin] 100 unit/mL (3 mL) insulin pen See Rx Instructions subcut .COMPLEX 30 Days Qty: 15 3RF Rx Instructions: inject 10 units with breakfast and lunch. inject 15 units with supper (DME) pen needle, diabetic [Comfort EZ Pen Mobile] 32 gauge x 5/32 needle See Rx Instructions .ROUTE .MEDSUPPLY Qty: 50 6RF Rx Instructions: As directed docusate sodium 100 mg capsule 100 mg PO BID 30 Days Qty: 60 3RF atorvastatin 20 mg tablet 20 mg PO BEDTIME 90 Days Qty: 90 2RF azithromycin 250 mg tablet See Rx Instructions PO .COMPLEX Qty: 6 0RF Rx Instructions: For 250 mg dose pack: take 500 mg today (day 1), then 250 mg for 4 days (days 2-5) PO albuterol sulfate 90 mcg/actuation HFA aerosol inhaler 1 inh inhalation QID PRN (Reason: shortness of breath or wheezing) 30 Days Qty: 8.5 3RF benzonatate 200 mg capsule 200 mg PO TID 5 Days Qty: 15 0RF Stand Alone Forms: Work/School Release Print Language: Kazakh
[2024-05-03 21:04] LABS: MANUAL DIFF FLAG NO
[2024-05-03 21:05] LABS: Basophils Absolute Auto 0.1 X10*3/uL (0.0-0.2); Basophils Percent Auto 0.4 % (0-2); Eosinophils Absolute Auto 0.1 X10*3/uL (0.0-0.4); Eosinophils Percent Auto 0.4 % (0-4); Hematocrit 44.8 % (37.0-47.0); Hemoglobin 14.9 g/dl (12.0-16.0); Imm Gran Abs Auto 0.06 X10*3/uL (0.00-0.03); Imm Gran Pct Auto 0.4 % (0.0-0.4); Lymphocytes Absolute Auto 2.2 X10*3/uL (1.2-4.9); Lymphocytes Percent Auto 15.4 % (20-40); Mean Corpuscular HGB Conc 33.3 g/dl (31.0-35.0); Mean Corpuscular Hemoglobin 27.7 pg (27.0-33.0); Mean Corpuscular Volume 83.3 fL (80.0-98.0); Mean Platelet Volume 10.5 fL (9.4-12.3); Monocytes Absolute Auto 0.9 X10*3/uL (0.1-1.2); Monocytes Percent Auto 6.1 % (2-11); Neutrophils Absolute Auto 10.8 x10*3/uL (2.0-8.3); Neutrophils Percent Auto 77.3 % (45-73); Platelet Count 264 X10*3/uL (160-400); Red Blood Count 5.38 X10*6/uL (4.20-5.50); Red Cell Distribution Width 13.7 % (11.0-16.0)
[2024-05-03 21:20] LABS: Alanine Aminotransferase 13 U/L (0-31); Albumin Level 4.2 g/dL (3.5-5.0); Alkaline Phosphatase 140 U/L (39-117); Anion Gap 14 (12-20); Aspartate Amino Transferase 19 U/L (5-31); Bilirubin Total 0.8 mg/dL (0.0-1.0); Blood Urea Nitrogen 7 mg/dL (9-16); Calcium 9.4 mg/dL (8.4-10.2); Carbon Dioxide 23 mmol/L (22-29); Chloride 108 mmol/L (96-108); Creatinine Clr Calc Pharmacy 101.5; Estimated Glomerular Filt Rate > 60; Glucose Random 143 mg/dL (60-115); Lipase 6 U/L (8-78); Potassium 4.1 mmol/L (3.3-5.1); Sodium 141 mmol/L (135-145); Total Protein 7.6 g/dL (6.5-8.0)
[2024-05-03 21:48] LABS: Influenza A PCR NEGATIVE (Negative); Influenza B PCR NEGATIVE (Negative); Resp Syncy Virus RNA Qual PCR NEGATIVE (Negative); SARS COV2 PCR INHOUSE NEGATIVE (Negative)
[2024-05-04 02:02] VITALS: BP 116/65; PULSE 95; RESP 18; TEMP 37.6; O2SAT 96
[2024-05-04] MEDS: diphenhydrAMINE HCL 50 MG/ML VIAL 25 MG IVPUSH (02:20)
[2024-05-04] MEDS: 0.9 % Sodium Chloride 500 ML IV (02:20)
[2024-05-04] MEDS: Prochlorperazine Edisylate 10 MG/2 ML VIAL IVPUSH (02:21)
[2024-05-04] MEDS: Ketorolac Tromethamine 15 MG/ML VIAL IVPUSH (02:21)
[2024-05-04 04:34] VITALS: BP 101/51; PULSE 89; RESP 14; TEMP 36.4; O2SAT 97
[2024-05-04 04:36] VITALS: BP 101/51; PULSE 89; RESP 14; TEMP 36.4; O2SAT 97
== END 2024-05-04 04:36 | disposition home or self-care (01) ==
PROVIDERS: Physician Assistant; Emergency Provider Internal Medicine; PCP Physician Assistant
DX: A08.4 Viral intestinal infection, unspecified (principal); R11.2 Nausea with vomiting, unspecified; R51.9 Headache, unspecified; E11.9 Type 2 diabetes mellitus without complications; I10 Essential (primary) hypertension; Z79.899 Other long term (current) drug therapy; Z03.818 Encounter for observation for suspected exposure to other biological agents ruled out; Z79.4 Long term (current) use of insulin
CPT/HCPCS: 0241U; 80053; 83690; 85025; 96361; 96374; 96375; 99284; J0737; J1200; J1885

== ENCOUNTER 2024-05-17 08:27 | Outpatient (AMB) | payer OTHER, SELFPAY ==
[2024-05-17 08:44] VITALS: BP 112/70; PULSE 93; O2SAT 96; BMI 28.1
--- NOTE | 2024-05-17 08:44 | MHC.OFFVIS ---
Vital Signs 05/17/24 08:44 Height 5 ft 6 in Weight 174 lb 2.643 oz BMI 28.1 BP 112/70 Blood Pressure Location Lt brachial Position Sitting Pulse 93 Pulse Source Pulse Oximeter Pulse Oximetry (%) 96 Oxygen Delivery Method Room Air Intake Visit Reasons: DM Intake Note: Patient present today for Type 2 Diabetes Mellitus Last Diabetic eye exam: 06/2023 Last Podiatry Visit: Doesn't have one Random Glucose: 312 mg/dl HgA1C: 10.4% 04/19/24 Machine Milker Required: Yes Machine Milker Language: Mine [employer] Services: Machine Milker Present Information Interpreted: non-clinical & clinical Accompanied by: Self / Same As Patient Allergies dexbrompheniramine [From Dologesic-DF] Allergy (Verified 05/17/24 08:49) upset stomach metformin Adverse Reaction (Verified 05/17/24 08:49) upset stomach Medication List - Last Reconciled 05/17/24 by Irene Payne PA-C acetaminophen (Tylenol Extra Strength) 1,000 mg (2 x 500 mg) PO Q6H PRN albuterol sulfate 2.5 mg (3 mL) inhalation Q6H PRN 30 days albuterol sulfate 90 mcg/actuation 1 inh inhalation QID PRN 30 days atorvastatin 20 mg PO BEDTIME 90 days azithromycin For 250 mg dose pack: take 500 mg today (day 1), then 250 mg for 4 days (days 2-5) PO benzonatate 200 mg PO TID 5 days blood sugar diagnostic As directed blood sugar diagnostic (OneTouch Ultra Test strips) Testing 4 times a day blood-glucose meter (OneTouch Ultra2 Meter) Testing 4 times a day blood-glucose sensor (Ventiva G7 Sensor device) Use daily As directed to monitor glucose. change q 10 days comp.stocking,knee,long,medium As directed cyclobenzaprine 5 mg PO DAILY 10 days [Diabetic shoes & 3 pair inserts as directed] dicyclomine 20 mg PO BID PRN docusate sodium 100 mg PO BID 30 days empagliflozin (Jardiance) 25 mg PO QAM 90 days furosemide (Lasix) 20 mg PO DAILY gabapentin 300 mg PO BEDTIME glipizide ER 5 mg PO DAILY glucose (Dex4 Glucose) 16 grams (4 x 4 gram) PO Q15M PRN ibuprofen 400 mg PO TID PRN insulin glargine (Lantus Solostar U-100 Insulin) 30 units (0.3 mL) subcut QAM lancets Testing 4 times a day meloxicam 15 mg PO DAILY 30 days nebulizers (VixOne Nebulizer-Adult Mask) As directed nebulizers As directed Novolog FlexPen U-100 Insulin (insulin aspart U-100) inject 10 units with breakfast and lunch. inject 15 units with supper 30 days NS ondansetron HCl 4 mg PO Q8H PRN pen needle, diabetic (Comfort EZ Pen [place]) As directed [Pentips 32 gauge x5/32 in needles As directed] tirzepatide (Mounjaro) 15 mg (0.5 mL) subcut QWEEK HPI HPI DM: Details: Pt is a 58 y/o female with a significant past medical history of type 2 diabetes, hypertension, hyperlipidemia, obesity, history of breast cancer presenting today for a diabetic follow-up. Machine Milker: Beatriz [id number] DM- her previous A1c was 9 and today 10.4. She is supposed to be taking lantus 30 units, novolog 10 units 3 times a day, mounjaro 15 mg q weekly, jardiance 25 mg and was started on glipizide 5 mg -She states that she was only taking 15-20 units of lantus. She is often missing novolog doses she states that when she takes it she does 5-10 units depending on the meal. Does not know how to count carbs. States that she is also nervous to give herself injections. She is compliant with mounjaro and jardiance. We discussed setting reminders on her cell phone, pillboxes, having family members help. It is not as much of an issue with remembering versus just doing it. She states that she will often just skip the dose because it is not convenient. -Does not tolerate metformin in the past CGM: dexcom download-Very hyperglycemic 86%, hyperglycemic 7%, in range 7%, 0 hypoglycemia She does follow with Podiatry but states she needs a referral to [place]. She is on a statin. Not on an TONNY-inhibitor. CV: Blood pressure today in the office is 112/70. She is on furosemide for lower leg edema. She often forgets the atorvastatin 20 mg. [facility] Medical History (Updated 05/05/24 @ 00:00 by Background [place]) COVID-19 Type 2 diabetes mellitus with diabetic neuropathy, unspecified Diabetes type 2, uncontrolled H/O breast lump DMII (diabetes mellitus, type 2) Hypertension High cholesterol Ovarian cyst Diabetes Physical exam Surgical History History of breast biopsy Hx of subtotal mastectomy of right breast (~2007) H/O eye surgery Hx of cholecystectomy History of section Family History Father Prostate cancer Mother Diabetes Brother Diabetes Social History Household Members: Family Housing: House Do you presently have visiting nurse or other home services: No Alcohol intake: never Patient Tobacco Use Status: Never used Tobacco Cigarette Packs Per Day: 0 Years Smoked: 0 e-Cigarette/Vaping Use: Never Used Second Hand Smoke Exposure: No service: No Current occupational status: unemployed Cognitive needs: No Hearing needs: No Vision needs: Yes Physical Exam Vital Signs: Last Vital Signs Pulse 93 05/17/24 08:44 BP 112/70 05/17/24 08:44 Pulse Ox 96 05/17/24 08:44 Oxygen Delivery Method Room Air 05/17/24 08:44 BMI result Body Mass Index 28.1 Const Orientation/consciousness: patient oriented x3 HEENT Ears: hearing grossly normal bilaterally Neck Thyroid: Thyroid normal Lymphatic: no lymphadenopathy noted Resp Auscultation: clear to auscultation bilaterally Cardio Rate: regular rate Rhythm: regular rhythm Heart sounds: S1 normal heart sound present and S2 normal heart sound present Skin General skin exam: no rashes or lesions noted Neuro General: patient oriented x3, gait normal and no focal motor deficits Results Reviewed Results Reviewed: Laboratory Last Values Glucose (Clinic) 312 mg/dL (60-115) H 05/17/24 08:51 Laboratory Tests 11/19/23 11/19/23 04/19/24 08:51 08:57 08:44 Sodium Potassium Chloride Carbon Dioxide Anion Gap BUN Creatinine Estim Creat Clear Calc Estimated GFR Random Glucose Hgb A1c (Clinic) 10.4 H AST ALT Triglycerides 73 Cholesterol 175 LDL Cholesterol, Calc 111 H HDL Cholesterol 50 Urine Creatinine 54.45 Urine Microalbumin 7.0 Microalb/Creat Ratio 12.8 05/03/24 20:56 Sodium 141 Potassium 4.1 Chloride 108 Carbon Dioxide 23 Anion Gap 14 BUN 7 L Creatinine 0.65 Estim Creat Clear Calc 101.5 Estimated GFR > 60 Random Glucose 143 H Hgb A1c (Clinic) AST 19 ALT 13 Triglycerides Cholesterol LDL Cholesterol, Calc HDL Cholesterol Urine Creatinine Urine Microalbumin Microalb/Creat Ratio Assessment & Plan Assessment & Plan (1) Uncontrolled type 2 diabetes mellitus with hyperglycemia, with long-term current use of insulin: Code(s): E11.65 - Type 2 diabetes mellitus with hyperglycemia; Z79.4 - long term care phlebotomist (current) use of insulin Category: Medical Plan: increase lantus to 30 units Increase novolog to 10 units TID continue glipizidehetal and ashkan reviewed rules of 15s sent in rxs to treat low blood sugars if needed labs prior to our next appointment (2) Hypertension: Code(s): I10 - Essential (primary) hypertension Category: Medical Qualifiers: Hypertension type: primary hypertension Qualified Code(s): I10 - Essential (primary) hypertension Plan: wnl continue current plan (3) High cholesterol: Code(s): E78.00 - Pure hypercholesterolemia, unspecified Category: Medical Plan: misses doses. non compliant aware of risks of strokes/MIs etc (4) Noncompliance: Code(s): Z91.199 - Patient's noncompliance with other medical treatment and regimen due to unspecified reason Category: Medical Plan: Does not like doing injections to herself will refer to nurse navigator to see if she can get assistance with nursing for medication management advised to follow closely Orders: Referrals Nurse Navigator Referral E11.65 - Type 2 diabetes mellitus with hyperglycemia, Z79.4 - long term care phlebotomist (current) use of insulin, Z91.199 - Patient's noncompliance with other medical treatment and regimen due to unspecified reason Medications: New glucose (Dex4 Glucose) until symptoms of low blood sugar are controlled 16 grams (4 x 4 gram) PO Q15M PRN 100 tabs 0RF hypoglycemia glucagon 3 mg/actuation 3 mg intranasal ONCE PRN 1 ea 1RF hypoglycemia Changed From Novolog FlexPen U-100 Insulin (insulin aspart U-100) inject 10 units with breakfast and lunch. inject 15 units with supper 30 days 15 mL 3RF NS E11.40 - Type 2 diabetes mellitus with diabetic neuropathy, unspecified, Z79.4 - long term care phlebotomist (current) use of insulin To Novolog FlexPen U-100 Insulin (insulin aspart U-100) inject 10 units with meals 30 days 15 mL 3RF NS E11.40 - Type 2 diabetes mellitus with diabetic neuropathy, unspecified, Z79.4 - [facility] (current) use of insulin Refilled empagliflozin (Jardiance) 25 mg PO QAM 90 days 90 tabs 2RF E11.65 - Type 2 diabetes mellitus with hyperglycemia Coding Level of Care Code Est Pt Level 4 (76757) Complex EM visit Add On G2211 Diagnoses Uncontrolled type 2 diabetes mellitus with hyperglycemia, with long-term current use of insulin E11.65; Z79.4 Primary hypertension I10 Hypertension type: primary hypertension High cholesterol E78.00 Noncompliance Z91.199
[2024-05-17 08:55] LABS: Glucose, Whole Blood 312 mg/dL (60-115)
== END 2024-05-17 09:17 | disposition home or self-care (01) ==
PROVIDERS: PCP Physician Assistant; Visit Provider Physician Assistant
DX: E11.65 Type 2 diabetes mellitus with hyperglycemia (principal); Z79.4 Long term (current) use of insulin; I10 Essential (primary) hypertension; E78.00 Pure hypercholesterolemia, unspecified; Z91.199 Patient's noncompliance with other medical treatment and regimen due to unspecified reason

== ENCOUNTER → 2024-05-17 08:27 | Outpatient (BNVA) | payer OTHER, SELFPAY | PROVIDERS: PCP Physician Assistant; Visit Provider Physician Assistant | DX: E11.65 Type 2 diabetes mellitus with hyperglycemia (principal); E78.00 Pure hypercholesterolemia, unspecified; I10 Essential (primary) hypertension; Z91.199 Patient's noncompliance with other medical treatment and regimen due to unspecified reason; Z79.4 Long term (current) use of insulin | CPT/HCPCS: 82947; 99212 ==

== ENCOUNTER 2024-05-31 09:21 | Outpatient (AMB) | payer OTHER, SELFPAY ==
[2024-05-31 09:39] VITALS: BMI 32.4
--- NOTE | 2024-05-31 09:39 | A.OFFVIS_ITS ---
VS Expanded 05/31/24 09:39 Height 5 ft 0.75 in Weight 169 lb 15.622 oz BMI 32.4 Intake Visit Reasons: T2DM Allergies dexbrompheniramine [From Dologesic-DF] Allergy (Verified 06/01/24 08:39) upset stomach metformin Adverse Reaction (Verified 06/01/24 08:39) upset stomach Nutrition Presentation Details: Pt presents for MNT f/u for T2DM Pt Participates in [employer] [facility] and [employer] via [employer] Physical activity: tries to use stairs more frequently and participates in exercises at [employer] prog Reports including fiber rich foods (more vegetables, whole grain crackers) and incorporating nuts/cheese lower carb protein snacks c/o constipation : q 3 day (last BM 05/30/23) Per BG download: average 250 mg/dl (was 328 mg/dl 03/2024), Pt has f/u appt with CDE next week for further eval Food frequency snack :nuts/cheese/fruit pack dairy: 2-3 times/day (milk, yogurt mainly) fruits: 1-2/d ve times/wk BS Monitoring Most Recent Diabetes Results: Creatinine 0.65 mg/dL (0.5-1.4) 05/03/24 Blood Urea Nitrogen 7 mg/dL (9-16) L 05/03/24 Sodium 141 mmol/L (135-145) 05/03/24 Potassium 4.1 mmol/L (3.3-5.1) 05/03/24 Chloride 108 mmol/L (96-108) 05/03/24 Carbon Dioxide 23 mmol/L (22-29) 05/03/24 Calcium 9.4 mg/dL (8.4-10.2) 05/03/24 AST 19 U/L (5-31) 05/03/24 ALT 13 U/L (0-31) 05/03/24 Total Protein 7.6 g/dL (6.5-8.0) 05/03/24 Albumin 4.2 g/dL (3.5-5.0) 05/03/24 PFSH Medical History COVID-19 Type 2 diabetes mellitus with diabetic neuropathy, unspecified Diabetes type 2, uncontrolled H/O breast lump DMII (diabetes mellitus, type 2) Hypertension High cholesterol Ovarian cyst Diabetes Physical exam Surgical History History of breast biopsy Hx of subtotal mastectomy of right breast (~2007) H/O eye surgery Hx of cholecystectomy History of section Family History Father Prostate cancer Mother Diabetes Brother Diabetes Social History (Updated 06/01/24 @ 08:42 by Rosette Conn CMA) Household Members: None Housing: Apartment Do you presently have visiting nurse or other home services: No Alcohol intake: never Patient Tobacco Use Status: Never used Tobacco Cigarette Packs Per Day: 0 Years Smoked: 0 e-Cigarette/Vaping Use: Never Used Second Hand Smoke Exposure: No service: No Current occupational status: unemployed Sexual orientation: Straight/Heterosexual Gender identity: Female Cognitive needs: No Hearing needs: No Vision needs: Yes Assessment & Plan Assessment & Plan (1) Uncontrolled type 2 diabetes mellitus with hyperglycemia, with long-term current use of insulin: Code(s): E11.65 - Type 2 diabetes mellitus with hyperglycemia; Z79.4 - coremaker helper (current) use of insulin Category: Medical Plan: Wt: 77 Kg ( 06/15 ) Est kcal needs as per 23 kcal/kg bw: [id number] (40% carb, 30% protein/fat) Est fluid needs as per 25-30 ml/d: 2300 Est prot per day as per 1 g/kg bw: 77 Recommend fiber intake : 8-10 g per day and gradually increase to 25-28 g per day for women and 35-38 g for men or as tolerated Recommend sodium intake per day : less than 2000 mg Educated patient on: ( R = reviewed V = verbalizes understanding N/R = needs review N/A = not applicable * Food sources of carbohydrate, adequate serving sizes and its role in various health conditions: R V * Differences between complex carbohydrates a simple carbohydrates, role of fiber in diet: R * Lean protein sources of foods: R * Differences between types of fats and role in diet (mono on saturated fat fatty acids, saturated fatty acids, trans fats): R * hydration : R * Food sources of sodium in salt and healthy modifications for heart health in kidney health: R V R/V * Vitamins and minerals: R V N/R * Healthy plate method concept: R V N/R * Physical activity: Benefits a precaution: R V N/R * Hypoglycemia protocol (rule of 15): R V N/R * Dietary prevention of Hyperglycemia: R , V Patient Instructions: Have a tuna sand or tuna with green salad at dinner time 2 times a week , see meal ideas HAve water, fruit/herb infused water , increase water - see list of ideas to add flavor to water without sugar keep physically active Coding Level of Care Code Nutr Indiv Subseq (99524) Diagnoses Uncontrolled type 2 diabetes mellitus with hyperglycemia, with long-term current use of insulin E11.65; Z79.4 Time Spent (min) 30
== END 2024-05-31 10:04 | disposition home or self-care (01) ==
PROVIDERS: PCP Physician Assistant; Visit Provider Dietitian, Registered
DX: E11.65 Type 2 diabetes mellitus with hyperglycemia (principal); Z79.4 Long term (current) use of insulin

== ENCOUNTER → 2024-05-31 09:21 | Outpatient (BNVA) | payer OTHER, SELFPAY | PROVIDERS: PCP Physician Assistant; Visit Provider Dietitian, Registered | DX: E11.65 Type 2 diabetes mellitus with hyperglycemia (principal); Z79.4 Long term (current) use of insulin | CPT/HCPCS: 97803 ==

== ENCOUNTER 2024-06-01 08:28 | Outpatient (REF) | payer OTHER, SELFPAY ==
[2024-06-04 15:06] LABS: HPV Genotype 16 Negative (Negative); HPV Genotype 18 Negative (Negative); HPV High Risk Negative (Negative)
== END 2024-06-01 08:29 | disposition home or self-care (01) ==
LOC: HO.LNP 08:28
PROVIDERS: PCP Physician Assistant; Visit Provider Advanced Practice Midwife
DX: Z01.419 Encounter for gynecological examination (general) (routine) without abnormal findings (principal)
CPT/HCPCS: 87626; 88175; 99386; 99459

== ENCOUNTER 2024-06-01 08:28 | Outpatient (AMB) | payer OTHER, SELFPAY ==
--- NOTE | 2024-06-01 08:33 | MHC.OFFVIS ---
Vital Signs 06/01/24 08:38 Height 5 ft Weight 166 lb BMI 32.4 BP 100/60 Intake Visit Reasons: New patient annual Intake Note: no concerns Branch Service Associate Required: Yes Branch Service Associate Language: Marketing Graphics Specialist Services: Branch Service Associate Present (in person) Branch Service Associate Name: Rosette BOWER Information Interpreted: non-clinical & clinical Project Portfolio Analyst: Project Portfolio Analyst Present (Rosette BOWER) Accompanied by: Self / Same As Patient Allergies dexbrompheniramine [From Dologesic-DF] Allergy (Verified 06/01/24 08:39) upset stomach metformin Adverse Reaction (Verified 06/01/24 08:39) upset stomach Post menopausal: Yes HPI Comments Details: She is a postmenopausal woman presenting for her new patient annual scale balancer examination. She is doing well with no scale balancer concerns. Currently not sexually active. Denies any vaginal dryness or irritation. STI testing offered; she declined. Attempting to eat a healthy diet with calcium and vitamin D and stays active with exercise. Last pap smear; >5years ago. Last mammogram; 2023. History of right-sided breast cancer. Colonoscopy is UTD. [facility] Medical History COVID-19 Type 2 diabetes mellitus with diabetic neuropathy, unspecified Diabetes type 2, uncontrolled H/O breast lump DMII (diabetes mellitus, type 2) Hypertension High cholesterol Ovarian cyst Diabetes Physical exam Surgical History History of breast biopsy Hx of subtotal mastectomy of right breast (~2007) H/O eye surgery Hx of cholecystectomy History of section Family History Father Prostate cancer Mother Diabetes Brother Diabetes Social History Household Members: None Housing: Apartment Do you presently have visiting nurse or other home services: No Alcohol intake: never Patient Tobacco Use Status: Never used Tobacco Cigarette Packs Per Day: 0 Years Smoked: 0 e-Cigarette/Vaping Use: Never Used Second Hand Smoke Exposure: No service: No Current occupational status: unemployed Sexual orientation: Straight/Heterosexual Gender identity: Female Cognitive needs: No Hearing needs: No Vision needs: Yes Female Reproductive History Menstrual Menopause type: natural Total pregnancies: 3 Full term: 3 Number of Living Children: 3 Date of Mammogram: 07/30/23 Review of Systems Const All systems reviewed & are unremarkable except as noted in HPI and below Reports as per HPI Eyes Reports no additional complaints ENT Reports no additional complaints Card Reports no additional complaints Resp Reports no additional complaints GI Reports as per HPI and Reports no additional complaints Reports as per HPI Musc Reports no additional complaints Skin/Breast Reports as per HPI Neuro Reports no additional complaints Psych Reports no additional complaints Endo Reports no additional complaints Nakul/Lymph Reports no additional complaints Aller/Immun Reports no additional complaints Physical Exam Const General: cooperative, healthy appearing, no acute distress, well developed and alert Orientation/consciousness: patient oriented x3 HEENT Head: Yes normal to inspection Eyes General: appearance normal, both eyes and all related structures Neck Neck: Yes normal visual inspection Thyroid: Thyroid normal Chest Other: right breast surgical scarring. Chest palpation & inspection: normal inspection of the chest and other (no puckering, dimpling, peau de orange, retraction, discharge, masses) Breast/axilla inspection: normal inspection of the breasts Breast/axilla palpation: normal palpation of the breasts Resp Effort & Inspection: normal respiratory effort GI Inspection: Yes scar Palpation (GI): Soft to palpation Rectal Exam - Female: deferred General: Yes bladder normal to palpation External Female Exam: normal external appearance and normal appearance of the urethra Speculum Exam - Vagina: normal appearance of the vagina, normal palpation, normal vaginal discharge and vagina atrophic Speculum Exam - Cervix: normal appearance of the cervix and normal palpation Bimanual exam- vagina & uterus: normal bimanual exam, normal palpation, uterine size normal, bladder normal to palpation, normal palpation and non-tender Bimanual Exam- Adnexa, other: no masses Skin General skin exam: no rashes or lesions noted Rashes: no rashes Neuro General: patient oriented x3 Cognition (Neuro): normal cognition Extrem General: Yes normal to inspection Psych Attitude: cooperative Thought process: Normal thought process present Assessment & Plan Assessment & Plan (1) Encounter for well woman exam with routine gynecological exam: Code(s): Z01.419 - Encounter for gynecological examination (general) (routine) without abnormal findings Category: Medical Plan Discussed: Current recommendations for pap smears per ASCCP guidelines. Pap smear obtained today. Breast awareness, periodic self breast exams and yearly mammogram. Maintain a healthy lifestyle, well balanced diet including Calcium 1,200 mg and Vitamin D 600 IU daily, and routine exercise. Contact the office with any postmenopausal bleeding. Patient verbalizes understanding and agrees to the plan of care. She was given opportunity to ask questions and all questions were answered to the best of my ability. RTO in 1 year for annual scale balancer exam. This note is constructed using voice recognition software. While every effort has been made to ensure accuracy, senior media director errors may have been included. Coding Level of Care Code New Pt Prev Care 40-64y(15519) Diagnoses Encounter for well woman exam with routine gynecological exam Z01.419
[2024-06-01 08:38] VITALS: BP 100/60; BMI 32.4
== END 2024-06-01 11:29 | disposition home or self-care (01) ==
LOC: HO.HWS 08:28
PROVIDERS: PCP Physician Assistant; Visit Provider Advanced Practice Midwife
DX: Z01.419 Encounter for gynecological examination (general) (routine) without abnormal findings (principal)
CPT/HCPCS: 99386; 99459

== ENCOUNTER 2024-07-19 08:47 | Outpatient (AMB) | payer OTHER, SELFPAY ==
--- NOTE | 2024-07-19 09:33 | A.OFFVIS_ITS ---
Intake Intake Visit Reasons: T2DM Medical Records Field Technician Required: Yes Medical Records Field Technician Language: Assistant Refinery Operator Name: [facility] Accompanied by: Self / Same As Patient [facility] Allergy (Verified 06/01/24 08:39) upset stomach metformin Adverse Reaction (Verified 06/01/24 08:39) upset stomach HPI Comprehensive Diabetes Asmnt Most Recent Diabetes Results: Creatinine 0.65 mg/dL (0.5-1.4) 05/03/24 Blood Urea Nitrogen 7 mg/dL (9-16) L 05/03/24 Sodium 141 mmol/L (135-145) 05/03/24 Potassium 4.1 mmol/L (3.3-5.1) 05/03/24 Chloride 108 mmol/L (96-108) 05/03/24 Carbon Dioxide 23 mmol/L (22-29) 05/03/24 Calcium 9.4 mg/dL (8.4-10.2) 05/03/24 AST 19 U/L (5-31) 05/03/24 ALT 13 U/L (0-31) 05/03/24 Total Protein 7.6 g/dL (6.5-8.0) 05/03/24 Albumin 4.2 g/dL (3.5-5.0) 05/03/24 [facility] Medical History COVID-19 Type 2 diabetes mellitus with diabetic neuropathy, unspecified Diabetes type 2, uncontrolled H/O breast lump DMII (diabetes mellitus, type 2) Hypertension High cholesterol Ovarian cyst Diabetes Physical exam Surgical History History of breast biopsy Hx of subtotal mastectomy of right breast (~2007) H/O eye surgery Hx of cholecystectomy History of section Family History Father Prostate cancer Mother Diabetes Brother Diabetes Social History (Updated 06/01/24 @ 08:42 by Rosette Conn CMA) Household Members: None Housing: Apartment Do you presently have visiting nurse or other home services: No Alcohol intake: never Patient Tobacco Use Status: Never used Tobacco Cigarette Packs Per Day: 0 Years Smoked: 0 e-Cigarette/Vaping Use: Never Used Second Hand Smoke Exposure: No service: No Current occupational status: unemployed Sexual orientation: Straight/Heterosexual Gender identity: Female Cognitive needs: No Hearing needs: No Vision needs: Yes Assessment & Plan Assessment & Plan (1) Type 2 diabetes mellitus with diabetic neuropathy, unspecified: Code(s): E11.40 - Type 2 diabetes mellitus with diabetic neuropathy, unspecified Qualifiers: Diabetes mellitus long term care pharmacist insulin use: with long term care pharmacist use Qualified Code(s): E11.40 - Type 2 diabetes mellitus with diabetic neuropathy, unspecified; Z79.4 - computer terminal operator (current) use of insulin Plan: Learning objectives: The patient was provided with verbal and written education on the following topics as outlined below. The patient met all learning objectives and was able to verbalize understanding and provide teach back of education topics discussed . The patient was provided with the opportunity to ask questions and all questions were answered. Patient Assessment Assess patient education level/literacy/barriers, patient participates in adult day program, reports that that program her nurses giving her glipizide 10 mg daily instead of 5 mg daily as prescribed Patient is taking Lantus 30 units daily Jardiance 25 mg daily NovoLog prior to meals Mounjaro 15 mg weekly Patient also reports she sees Community Diabetes Education nurse from [facility] Patient questions/concerns, med list printed and given to patient to give to nurse at day program What is Diabetes? Pathophysiology How the body produces and uses insulin Identify type of DM Risk factors Signs of Diabetes Brief overview of Diabetes Management Monitoring blood sugar Following a meal plan Regular exercise Maintaining a healthy weight Taking medication as needed Members of the care team (PCP, RN, MA, RD, CDE, primary special educator) Blood glucose monitoring When/how often to test Target blood sugar ranges Patient's average glucose for past 14 days 266 mg/dL Above target 91% At target 9% Below target 0% Introduction to Nutrition Importance of healthy diet in managing DM Diet is personalized to individual preference Review patient?s regular diet/food preferences Who prepares meals/does food shopping/ Dining out?/ Barriers? How diet effects glucose Eating 3 balanced meals a day with small, healthy snacks between meals Review food groups Carbohydrates: What is a carbohydrate/Which food/food groups are considered carbohydrates Effect of carbohydrates on blood glucose Portion sizes Reading food labels Basic carb counting (if applicable per nursing assessment) Plate method Meal planning Recommendations: Follow plate method, consistent carbs and read nutritional labels. Smart Goal: Educational Materials: The patient was provided with the following written educational materials: Planning Healthy Meals, common Tristanian foods Handouts in Irish Patient Response to instructions: Comprehension of Instructions: Fair Readiness to make changes: Contemplation How confident they feel about making changes: Poor Portions of this note were created using voice recognition software, please excu se any words or phrases that may have been misinterpreted. Patient Instructions: Incluir actividad diaria regular. ADA recomienda 30 minutos de ejercicio 5 d?as a la semana. P?rdida de peso, hable con el PCP o el cardi?logo antes de comenzar un nuevo plan. Mida el nivel de az?car en la candace seg?n las indicaciones; Ayuno y comida m?s mike de 2hpp. Observe las tendencias en los resultados. Utilice los resultados y eval?e c?mo los alimentos, la actividad f?ricardo y los medicamentos afectan los resultados de az?car en la candace. Lleve el gluc?metro o CGM a la pr?xima visita. Conocer los medicamentos para la diabetes, hammnod acci?n, los efectos secundarios, la eficacia, la toxicidad, la dosis prescrita, el momento y la frecuencia de administraci?n apropiados, el efecto de las dosis olvidadas y retrasadas y las instrucciones de almacenamiento, viaje y seguridad. T?cnicas de resoluci?n de problemas para el seguimiento de episodios de hipo/hiperglucemia y tratamientos. Reducir los comportamientos de reducci?n de riesgos, dejar de fumar, ex?menes regulares de ojos, pies y dentales. Coding Level of Care Code Est Pt Level 1 (56133) Diagnoses Type 2 diabetes mellitus with diabetic neuropathy, with long-term current use of insulin E11.40; Z79.4 Diabetes mellitus shelter insulin use: with long term care pharmacist use
== END 2024-07-19 09:35 | disposition home or self-care (01) ==
LOC: HO.ENCR 08:47
PROVIDERS: PCP Physician Assistant; Visit Provider Registered Nurse Diabetes Educator
DX: E11.40 Type 2 diabetes mellitus with diabetic neuropathy, unspecified (principal); Z79.4 Long term (current) use of insulin

== ENCOUNTER → 2024-07-19 08:47 | Outpatient (BNVA) | payer OTHER, SELFPAY | PROVIDERS: PCP Physician Assistant; Visit Provider Registered Nurse Diabetes Educator | DX: E11.40 Type 2 diabetes mellitus with diabetic neuropathy, unspecified (principal); Z79.4 Long term (current) use of insulin | CPT/HCPCS: 99211 ==

== ENCOUNTER 2024-08-04 14:25 | Outpatient (REF) | payer OTHER, SELFPAY | END 2024-08-04 14:26 | disposition home or self-care (01) | LOC: HO.MAMMO 14:25 | PROVIDERS: PCP Internal Medicine; Visit Provider Internal Medicine | DX: Z12.31 Encounter for screening mammogram for malignant neoplasm of breast (principal) | CPT/HCPCS: 77063; 77067 ==

== ENCOUNTER → 2024-08-04 15:00 | Outpatient (BNV) | payer OTHER, SELFPAY | PROVIDERS: PCP Internal Medicine; Visit Provider Internal Medicine | DX: Z12.31 Encounter for screening mammogram for malignant neoplasm of breast (principal) | CPT/HCPCS: 77063; 77067 ==

== ENCOUNTER 2024-08-23 09:04 | Outpatient (AMB) | payer OTHER, SELFPAY ==
[2024-08-23 09:14] VITALS: BP 120/76; PULSE 93; O2SAT 95
--- NOTE | 2024-08-23 09:14 | A.OFFVIS_ITS ---
Vital Signs 08/23/24 09:14 Weight 168 lb 6.931 oz BP 120/76 Blood Pressure Location Lt brachial Position Sitting Pulse 93 Pulse Source Pulse Oximeter Pulse Oximetry (%) 95 Oxygen Delivery Method Room Air Intake Visit Reasons: T2DM Intake Note: Patient present today for Type 2 Diabetes Mellitus Last Diabetic eye exam: 08/09/2024 Last Podiatry Visit: Doesn't have one Random Glucose: 277 mg/dl HgA1C: 10.3% English Drawer Required: Yes English Drawer Language: Czech Accompanied by: Daughter Allergies dexbrompheniramine [From Dologesic-DF] Allergy (Verified 08/23/24 09:20) upset stomach metformin Adverse Reaction (Verified 08/23/24 09:20) upset stomach Medication List - Last Reconciled 08/23/24 by Irene Payne PA-C acetaminophen (Tylenol Extra Strength) 1,000 mg (2 x 500 mg) PO Q6H PRN albuterol sulfate 2.5 mg (3 mL) inhalation Q6H PRN 30 days albuterol sulfate 90 mcg/actuation 1 inh inhalation QID PRN 30 days atorvastatin 20 mg PO BEDTIME 90 days blood sugar diagnostic As directed blood sugar diagnostic (OneTouch Ultra Test strips) Testing 4 times a day blood-glucose meter (OneTouch Ultra2 Meter) Testing 4 times a day blood-glucose sensor (Definiens G7 Sensor device) Use daily As directed to monitor glucose. change q 10 days comp.stocking,knee,long,medium As directed [Diabetic shoes & 3 pair inserts as directed] docusate sodium 100 mg PO BID 30 days empagliflozin (Jardiance) 25 mg PO QAM 90 days furosemide (Lasix) 20 mg PO DAILY gabapentin 300 mg PO BEDTIME glucagon 3 mg/actuation 3 mg intranasal ONCE PRN glucose (Dex4 Glucose) 16 grams (4 x 4 gram) PO Q15M PRN glucose (Dex4 Glucose) 16 grams (4 x 4 gram) PO Q15M PRN ibuprofen 400 mg PO TID PRN insulin glargine (Lantus Solostar U-100 Insulin) 30 units (0.3 mL) subcut QAM lancets Testing 4 times a day meloxicam 15 mg PO DAILY 30 days nebulizers (VixOne Nebulizer-Adult Mask) As directed nebulizers As directed Novolog FlexPen U-100 Insulin (insulin aspart U-100) inject 10 units with meals 30 days NS ondansetron HCl 4 mg PO Q8H PRN pen needle, diabetic (Comfort EZ Pen [place]) As directed [Pentips 32 gauge x5/32 in needles As directed] tirzepatide (Mounjaro) 15 mg (0.5 mL) subcut QWEEK HPI HPI T2DM: Details: Pt is a 59y/o female with a significant past medical history of type 2 diabetes, hypertension, hyperlipidemia, obesity, history of breast cancer presenting today for a diabetic follow-up. English Drawer: Daughter DM- her previous A1c was 10.4 and today 10.3. She is supposed to be taking lantus 30 units, novolog 10 units 3 times a day, mounjaro 15 mg q weekly, jardiance 25 mg and was started on glipizide 5 mg -She states that she was only taking 15 units of lantus. She is often missing novolog doses. She is compliant with mounjaro , glipizide and jardiance. We discussed setting reminders on her cell phone, pillboxes, having family members help. It is not as much of an issue with remembering versus just doing it. She states that she will often just skip the dose because it is not convenient. She says that this has not changed. Her daughter states that she has to be on top of her every day to do it. -Does not tolerate metformin in the past CGM: dexcom download from June-Very hyperglycemic 60%, hyperglycemic 31%, in range 9%, 0 hypoglycemia - states her most recent sensor fell off. She was referred at our last visit to [place] but never made the appointment with the radio operator ground. Her daughter states that she will call to schedule this. The neuropathy feels a bit better at night with the gabapentin. She is wondering if we could increase the dose. She is on a statin. Not on an TONNY-inhibitor. CV: Blood pressure today in the office is 120/76. She is on furosemide for lower leg edema. She often forgets the atorvastatin 20 mg. [facility] Medical History COVID-19 Type 2 diabetes mellitus with diabetic neuropathy, unspecified Diabetes type 2, uncontrolled H/O breast lump DMII (diabetes mellitus, type 2) Hypertension High cholesterol Ovarian cyst Diabetes Physical exam Surgical History History of breast biopsy Hx of subtotal mastectomy of right breast (~2007) H/O eye surgery Hx of cholecystectomy History of section Family History Father Prostate cancer Mother Diabetes Brother Diabetes Social History Household Members: None Housing: Apartment Do you presently have visiting nurse or other home services: No Alcohol intake: never Patient Tobacco Use Status: Never used Tobacco Cigarette Packs Per Day: 0 Years Smoked: 0 e-Cigarette/Vaping Use: Never Used Second Hand Smoke Exposure: No service: No Current occupational status: unemployed Sexual orientation: Straight/Heterosexual Gender identity: Female Cognitive needs: No Hearing needs: No Vision needs: Yes Physical Exam Vital Signs: Last Vital Signs Pulse 93 08/23/24 09:14 BP 120/76 08/23/24 09:14 Pulse Ox 95 08/23/24 09:14 Oxygen Delivery Method Room Air 08/23/24 09:14 Const Orientation/consciousness: patient oriented x3 HEENT Ears: hearing grossly normal bilaterally Neck Thyroid: Thyroid normal Lymphatic: no lymphadenopathy noted Resp Auscultation: clear to auscultation bilaterally Cardio Rate: regular rate Rhythm: regular rhythm Heart sounds: S1 normal heart sound present and S2 normal heart sound present Skin General skin exam: no rashes or lesions noted Neuro General: patient oriented x3, gait normal and no focal motor deficits Results AMB Hemoglobin A1c AMB Hemoglobin A1c 10.3 % Last Edit by CHELI Walter on 08/23/24 09:58 Results Reviewed Results Reviewed: Laboratory Last Values Glucose (Clinic) 277 mg/dL (60-115) H 08/23/24 09:22 Assessment & Plan Assessment & Plan (1) Uncontrolled type 2 diabetes mellitus with hyperglycemia, with long-term current use of insulin: Code(s): E11.65 - Type 2 diabetes mellitus with hyperglycemia; Z79.4 - zigzag machine operator (current) use of insulin Category: Medical Plan: increase glipizide to 10 mg twice a day continue Mounjaro 15 mg weekly urged compliance of medication regimen with the NovoLog. She promises that she will do better increase dosage of Lantus to 30 units as previously discussed. Sensor provided today as she is out. I have reordered them. (2) High cholesterol: Code(s): E78.00 - Pure hypercholesterolemia, unspecified Category: Medical Plan: Advised her to set a reminder on her phone for the statin. (3) Type 2 diabetes mellitus with diabetic neuropathy, unspecified: Code(s): E11.40 - Type 2 diabetes mellitus with diabetic neuropathy, unspecified Category: Medical Qualifiers: Diabetes mellitus penitentiary insulin use: with penitentiary use Qualified Code(s): E11.40 - Type 2 diabetes mellitus with diabetic neuropathy, unspecified; Z79.4 - nursing home (current) use of insulin Plan: Increase gabapentin to 600 mg nightly Orders: Orders AMB Hemoglobin A1c Today E11.65 - Type 2 diabetes mellitus with hyperglycemia, Z13.9 - Encounter for screening, unspecified, Z79.4 - zigzag machine operator (current) use of insulin Medications: New glipizide 10 mg PO BID 180 tabs 2RF Changed From gabapentin 300 mg PO BEDTIME 90 caps 0RF To gabapentin 600 mg (2 x 300 mg) PO BEDTIME 180 caps 3RF Refilled blood-glucose sensor (Dexcom G7 Sensor device) Use daily As directed to monitor glucose. change q 10 days 9 ea 3RF E11.65 - Type 2 diabetes mellitus with hyperglycemia, Z79.4 - nursing home (current) use of insulin Coding Level of Care Code Est Pt Level 4 (80167) Complex EM visit Add On G2211 Diagnoses Uncontrolled type 2 diabetes mellitus with hyperglycemia, with long-term current use of insulin E11.65; Z79.4 High cholesterol E78.00 Type 2 diabetes mellitus with diabetic neuropathy, with long-term current use of insulin E11.40; Z79.4 Diabetes mellitus penitentiary insulin use: with electronics teacher use
[2024-08-23 09:26] LABS: Glucose, Whole Blood 277 mg/dL (60-115)
== END 2024-08-23 09:50 | disposition home or self-care (01) ==
LOC: HO.ENCR 09:05
PROVIDERS: PCP Internal Medicine; Visit Provider Physician Assistant
DX: E11.65 Type 2 diabetes mellitus with hyperglycemia (principal); Z79.4 Long term (current) use of insulin; E78.00 Pure hypercholesterolemia, unspecified; E11.40 Type 2 diabetes mellitus with diabetic neuropathy, unspecified; Z13.9 Encounter for screening, unspecified

== ENCOUNTER → 2024-08-23 09:04 | Outpatient (BNVA) | payer OTHER, SELFPAY | PROVIDERS: PCP Internal Medicine; Visit Provider Physician Assistant | DX: E11.40 Type 2 diabetes mellitus with diabetic neuropathy, unspecified (principal); E11.65 Type 2 diabetes mellitus with hyperglycemia; I10 Essential (primary) hypertension; E78.5 Hyperlipidemia, unspecified; E66.9 Obesity, unspecified; E78.00 Pure hypercholesterolemia, unspecified; Z85.3 Personal history of malignant neoplasm of breast; Z79.4 Long term (current) use of insulin | CPT/HCPCS: 82947; 83036; 99212 ==

== ENCOUNTER 2024-09-28 11:20 | Outpatient (AMB) | payer OTHER, SELFPAY ==
--- NOTE | 2024-09-28 12:28 | A.OFFPC_ITS ---
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 Required: No Accompanied by: Son Allergies dexbrompheniramine (From [facility]ologes[facility]) Allergy (Verified 09/28/24 12:38) upset stomach metformin Adverse Reaction (Verified 09/28/24 12:38) upset stomach Medication List - Last Reconciled 09/28/24 by Komal Guzman MD acetaminophen (Tylenol Extra Strength) 1,000 mg (2 x 500 mg) PO Q6H PRN albuterol sulfate 2.5 mg (3 mL) inhalation Q6H PRN 30 days albuterol sulfate 90 mcg/actuation 1 inh inhalation QID PRN 30 days atorvastatin 20 mg PO BEDTIME 90 days blood sugar diagnostic As directed blood sugar diagnostic (CurrencyBirdTouch Ultra Test strips) Testing 4 times a day blood-glucose meter (GigsJamuch Ultra2 Meter) Testing 4 times a day blood-glucose sensor (Lax.com G7 Sensor device) Use daily As directed to monitor glucose. change q 10 days comp.stocking,knee,long,medium As directed [Diabetic shoes & 3 pair inserts as directed] docusate sodium 100 mg PO BID 30 days empagliflozin (Jardiance) 25 mg PO QAM 90 days furosemide (Lasix) 20 mg PO DAILY gabapentin 600 mg (2 x 300 mg) PO BEDTIME glipizide 10 mg PO BID glucagon 3 mg/actuation 3 mg intranasal ONCE PRN glucose (Dex4 Glucose) 16 grams (4 x 4 gram) PO Q15M PRN glucose (Dex4 Glucose) 16 grams (4 x 4 gram) PO Q15M PRN ibuprofen 400 mg PO TID PRN insulin glargine (Lantus Solostar U-100 Insulin) 30 units (0.3 mL) subcut QAM lancets Testing 4 times a day meloxicam 15 mg PO DAILY 30 days nebulizers (VixOne Nebulizer-Adult Mask) As directed nebulizers As directed Novolog FlexPen U-100 Insulin (insulin aspart U-100) inject 10 units with meals 30 days NS ondansetron HCl 4 mg PO Q8H PRN pen needle, diabetic (Comfort EZ Pen [place]) As directed [Pentips 32 gauge x5/32 in needles As directed] tirzepatide (Mounjaro) 15 mg (0.5 mL) subcut QWEEK Tobacco use date assessed: 09/28/24 Dental Screening Dental Screen Date: 09/28/24 Did you have a dental visit in the last 12 months?: No Did you have a dental problem in the last 6 months where you did not have access to dental care?: No Was dental information given to patient?: Patient has dentist HPI HPI Comments History of Present Illness Details The patient is a 59-year-old female presenting with diabetes mellitus management. She reports that metformin causes gastrointestinal discomfort, and she experiences episodes of hypoglycemia, with blood sugar dropping to 47 mg/dL, causing symptoms such as sweating and feeling unwell. Her A1c is reported to be 10.3%, indicating poor glycemic control. The patient also has a history of asthma, for which she uses an inhaler, although she expresses confusion about its proper use. She mentions that the inhaler was initially prescribed for low blood sugar episodes, which seems to be a misunderstanding. In 2007, the patient was diagnosed with breast cancer and underwent mastectomy of the right breast, which resulted in damage to her right arm, causing limitation in shoulder motion. She reports difficulty with arm mobility and clothing due to this matter. The patient is also managing hyperlipidemia with atorvastatin and reports insomnia, which she suspects may be related to her cholesterol medication. She experiences muscle cramps, which may be alleviated by magnesium supplementation. Her preventative care is up to date, including vaccinations for pneumonia and tetanus, and she has undergone a Pap smear this year. [facility] Medical History COVID-19 Type 2 diabetes mellitus with diabetic neuropathy, unspecified Diabetes type 2, uncontrolled H/O breast lump DMII (diabetes mellitus, type 2) Hypertension High cholesterol Ovarian cyst Diabetes Physical exam Surgical History History of breast biopsy Hx of subtotal mastectomy of right breast (~2007) H/O eye surgery Hx of cholecystectomy History of section Family History Father Prostate cancer Mother Diabetes Brother Diabetes Social History Household Members: None Housing: Apartment Do you presently have visiting nurse or other home services: No Alcohol intake: never Patient Tobacco Use Status: Never used Tobacco Cigarette Packs Per Day: 0 Years Smoked: 0 e-Cigarette/Vaping Use: Never Used Second Hand Smoke Exposure: No service: No Current occupational status: unemployed Sexual orientation: Straight/Heterosexual Gender identity: Female Cognitive needs: No Hearing needs: No Vision needs: Yes Questionnaire PHQ-9 Over the last 2 weeks, how often have you been bothered by any of the following problems? 1. Little interest or pleasure in doing things: not at all 2. Feeling down, depressed, or hopeless: not at all 3. Trouble falling or staying asleep, or sleeping too much: not at all 4. Feeling tired or having little energy: not at all 5. Poor appetite or overeating: not at all 6. Feeling bad about yourself - or that you are a failure or have let yourself or your family down: not at all 7. Trouble concentrating on things, such as reading the newspaper or watching television: not at all 8. Moving or speaking so slowly that other people could have noticed. Or the opposite - being so fidgety or restless that you have been moving around a lot more than usual: not at all 9. Thoughts that you would be better off or of hurting yourself in some way: not at all Total score: 0 Depression Screening Interpretation: Negative Depression Screening Done: Yes [id number] - PHQ-9 Billing: Yes Source: Developed by Drs. Darrell Gomez, Peggy Ferrer, Lam Alvarado and colleagues, with an educational oren from [employer]. Thrive Questionnaire Date Thrive assessed: 09/28/24 I am a: Parent/Caregiver What is your living situation today?: I choose not to answer this question Within the past 12 months, did the food you bought not last and you didn't have the money to get more?: I choose not to answer this question Within the past 12 months, did you worry whether your food would run out before you got money to buy more?: I choose not to answer this question Do you have trouble paying for medicines?: I choose not to answer this question Do you have trouble getting transportation to medical appointments?: I choose not to answer this question Do you have trouble paying your heating and electricity bill?: I choose not to answer this question Do you have trouble taking care of your child, family member or friend?: I choose not to answer this question Do you have trouble with day-to-day activities such as bathing, preparing meals, shopping, managing finances, etc.?: I choose not to answer this question Are you currently unemployed and looking for a job?: I choose not to answer this question Are you interested in more education?: I choose not to answer this question Please select the resources that you would like help with: Housing/Long-Term, Food, Paying for medicine, Transportation, Utilities, Childcare, Care for elder or disabled, Education and None Currently or been in a relationship where the following occur: I choose not to answer THRIVE Score: 0 AUDIT C Alcohol Use Questionnaire (AUDIT-C) 1. How often do you have a drink containing alcohol?: 4 or more times a week 2. How many drinks containing alcohol do you have on a typical day when you are drinking?: 10 or more 3. How often do you have six or more drinks on one occasion?: Never Total Score: 8 JASON-7 AMB Questionnaire JASON-7 Date JASON - 7 assessed: 09/28/24 Feeling nervous, anxious, or on edge: 0 = Not at all Not being able to stop or control worryin = Not at all Worrying too much about different things: 0 = Not at all Trouble relaxin = Not at all Being so restless that it is hard to sit still: 0 = Not at all Becoming easily annoyed or irritable: 0 = Not at all Feeling afraid as if something awful might happen: 0 = Not at all Total JASON-7 score (0-4 normal; 5-9 mild; 10-14 moderate; 15-21 severe): 0 Source: Developed by Drs. Darrell Gomez, Peggy Ferrer, Lam Alvarado and colleagues, with an educational oren from [employer]. JASON-7 Assessment Billing JASON-7 Assessment Tool: JASON-7 Assessment 15037 Review of Systems Const All systems reviewed & are unremarkable except as noted in HPI and below Card Denies chest pain at rest, Denies chest pain with activity, Denies edema, Denies irregular heart rhythm, Denies claudication, Denies dyspnea, Denies dyspnea on exertion, Denies orthopnea, Denies paroxysmal nocturnal dyspnea and Denies slow heart rate Resp Denies cough, Denies dyspnea and Denies dyspnea on exertion Physical exam (Primary Care) Vital Signs: Last Vital Signs BP 126/80 09/28/24 12:29 BMI result Body Mass Index 32.0 Tobacco/Smoking Status: Tobacco use Status Tobacco use date assessed 09/28/24 09/28/24 12:35 Patient Tobacco Use Status Never used Tobacco 09/28/24 12:35 e-Cigarette/Vaping Use Never Used 09/28/24 12:35 PHQ-9: PHQ-9 Score PHQ-9: Total score 0 09/28/24 12:42 Depression Screening Interpretation: Negative Thrive Assessment: Date of Thrive Assessment Date Thrive assessed 09/28/24 09/28/24 12:35 Currently or been in a relationship where the following occur: I choose not to answer Resp Effort & Inspection: normal respiratory effort Auscultation: clear to auscultation bilaterally Cardio Jugular venous distension: no JVD Rate: regular rate Rhythm: regular rhythm Heart sounds: S1 normal heart sound present and S2 normal heart sound present Extrem General: Yes full ROM Coding Level of Care Code Est Pt Level 4 (44926) Complex EM visit Add On G2211 Diagnoses Muscle cramps R25.2 Uncontrolled type 2 diabetes mellitus with hyperglycemia, with long-term current use of insulin E11.65; Z79.4 Right shoulder tendonitis M77.8 Essential hypertension I10 Hyperlipidemia LDL goal <70 E78.5 History of breast cancer Z85.3 Mild intermittent asthma without complication J45.20 Asthma severity: mild Asthma persistence: intermittent Asthma complication type: uncomplicated Additional Codes JASON-7 Assessment Billing - JASON-7 Assessment Tool: JASON-7 Assessment 07788 ([id number]) PHQ-9 - 84761 - PHQ-9 Billing: Yes ([id number]) Time Spent (min) 26 Assessment & Plan Assessment & Plan (1) Muscle cramps: Code(s): R25.2 - Cramp and spasm Category: Medical (2) Uncontrolled type 2 diabetes mellitus with hyperglycemia, with long-term current use of insulin: Code(s): E11.65 - Type 2 diabetes mellitus with hyperglycemia; Z79.4 - intermediate project manager (current) use of insulin Category: Medical (3) Right shoulder tendonitis: Code(s): M77.8 - Other enthesopathies, not elsewhere classified Category: Medical (4) Essential hypertension: Code(s): I10 - Essential (primary) hypertension Category: Medical (5) Hyperlipidemia LDL goal <70: Code(s): E78.5 - Hyperlipidemia, unspecified Category: Medical (6) History of breast cancer: Code(s): Z85.3 - Personal history of malignant neoplasm of breast Category: Surgical (7) Asthma: Code(s): J45.909 - Unspecified asthma, uncomplicated Category: Medical Qualifiers: Asthma severity: mild Asthma persistence: intermittent Asthma complication type: uncomplicated Qualified Code(s): J45.20 - Mild intermittent asthma, uncomplicated Plan The management plan for diabetes mellitus includes addressing the gastroint estinal discomfort caused by metformin and monitoring for hypoglycemic episodes. Consideration of alternative medications or dosage adjustments may be necessary to improve glycemic control, given the elevated A1c of 10.3%. For asthma, proper education on inhaler use is essential to ensure effective management of symptoms. The patient should continue her current regimen for hyperlipidemia, but the potential link between atorvastatin and insomnia should be evaluated. Magnesium supplementation may be considered to alleviate muscle cramps. Preventative care measures, including vaccinations and regular screenings, should be maintained to ensure overall health. Patient was informed and verbally consented to the use of an ambient scribe for clinic note documentation during this visit. During the visit, we discussed the management of diabetes mellitus, emphasizing the importance of monitoring blood sugar levels and considering alternative treatments to metformin due to gastrointestinal side effects. We also reviewed the use of the asthma inhaler to ensure proper technique and effectiveness. The potential side effects of atorvastatin, including insomnia, were addressed, and magnesium supplementation was suggested for muscle cramps. Preventative care, including vaccinations and screenings, was confirmed to be up to date. Orders: Orders Lipid Panel 4 Months E78.5 - Hyperlipidemia, unspecified Microalbumin, Random (w Creat) 4 Months R80.9 - Proteinuria, unspecified Comprehensive [place]. Panel Fast 4 Months E11.40 - Type 2 diabetes mellitus with diabetic neuropathy, unspecified, Z79.4 - intermediate project manager (current) use of insulin Vitamin D 25-OH Total 4 Months E55.9 - Vitamin D deficiency, unspecified Magnesium 4 Months R25.2 - Cramp and spasm Medications: New cane As directed 1 ea 0RF G62.9 - Polyneuropathy, unspecified [raised toilet seat] As directed 1 ea 0RF G62.9 - Polyneuropathy, unspecified cyclobenzaprine 5 mg PO BEDTIME PRN 30 tabs 0RF muscle spasm 30 days [tub seat] As directed 1 ea 0RF G62.9 - Polyneuropathy, unspecified, M77.8 - Other enthesopathies, not elsewhere classified Patient Instructions: - Monitor blood sugar levels regularly and report any episodes of hypoglycemia. - Follow proper inhaler technique for asthma management. - Continue current medications for hyperlipidemia and discuss any side effects with your doctor. - Consider magnesium supplementation for muscle cramps. - Ensure vaccinations and screenings are up to date.
[2024-09-28 12:29] VITALS: BP 126/80; BMI 32.0
--- OUTSIDE RECORDS SUMMARY | 2024-09-28 12:29 | XMS_ITS | Data Portability ---
Author Organization Plot Projects [facility], [facility] Address [address] [place] [phone] Care Team Providers Care Auto Self Service Station Attendant Name Role Phone HIM TAWNYA OTHER Assessment Encounter Date Assessment Date Assessment LastModified by Organization Details LastModified Time 04/04/2024 04/04/2024 As noted, we were called to see this patient regarding concerns of cough and congestion. Evaluation in the field was performed by my incident response coordinator colleague, as noted above, I provided real-time direction and supervision for this visit. The evaluation revealed The patient is a 59 year old female with a past medical history of Cancer, Diabetes Mellitus Type 2, Hyperlipidemia, Asthma who presents with cough, sore throat, nasal congestion, ear pain. This has been going on for the last two days. Other people in the house are sick with the same symptoms. She denies any chest pain or shortness of breath. On physical exam the patient has no respiratory distress. She has clear lung sounds. Normal heart tones. No abdominal tenderness. Impression: acute viral upper respiratory infection Plan: 1) covid/flu/strep all neg 2) OTC meds flonase claritin cough meds 3) Red flags discussed with patient when to seek ED treatment Disposition: stay at home We discussed the diagnostic uncertainty of home visits and the risk associated with this. In this case, the patient and I felt this to be an acceptable and reasonable amount of risk given the benefit of avoiding an ED visit. We discussed the need to seek care urgently/emerge ntly in the setting of any new or worsening serious symptoms, particularly SOb and chest pain [email or web address] Not available 04/04/2024 11:15:35 Plan of Treatment Reminders Order Date Submit Date Provider Last Modified By Organization Details Last Modified Time Details Appointments None recorded. Lab rapid SARS CoV 2 Ag, QL IA, respiratory specimen 2024 025 [email or web address], [phone] 5 10:04:48 rapid flu (A+B) 2024 025 [email or web address] 7 [facility], [address] [place] [address], [phone] 5 10:04:48 rapid strep group A, throat 2024 025 [email or web address] [address], [phone] 5 10:04:48 Referral None recorded. Procedures None recorded. Surgeries None recorded. Imaging None recorded. Medication Orders None recorded. Patient TargetsNo targets recorded. Patient InstructionsNo instructions recorded. Reason for Referral None Reported. Results Created Date Observation Date Name Description Value Unit Range Abnormal Flag Note LastModifiedBy Organization Detail LastModifiedTime Result Notes None recorded. Medical Equipment None Reported. Allergies Allergen ID Allergen Name Allergen Category Reaction Reaction Severity Criticality Documentation Date Start Date Code Code System Note Provider Name and Address Organization Details Recorded Time 96359 acetamino phen medicatio n Not available Not available Not available 04/03/2024 161 RxNorm Not Available [facility] - production 21:45:45 43924 metformin medicatio n Not available Not available Not available 04/03/2024 6809 RxNorm Not Available [facility] - production 21:45:45 Medications Name Sig Start Date Stop Date Status Note LastModified by Organization Details LastModified Time amoxicillin 500 mg capsule TAKE 1 CAPSULE BY MOUTH THREE TIMES DAILY FOR 7 DAYS active Not Available Not Available N ot Available atorvastatin 20 mg tablet TAKE 1 TABLET BY MOUTH AT BEDTIME active Not Available Not Available No t Available Stool Softener 100 mg capsule TAKE 1 CAPSULE BY MOUTH TWICE DAILY active Not Available Not Available No t Available benzonatate 200 mg capsule TAKE 1 CAPSULE BY MOUTH THREE TIMES DAILY FOR 5 DAYS active Not Available Not Available N ot Available acetaminophe n 500 mg tablet TAKE 2 TABLETS BY MOUTH EVERY 6 HOURS NEEDED FOR PAIN OR FEVER active Not Available Not Available No t Available benzonatate 100 mg capsule TAKE 1 CAPSULE BY MOUTH THREE TIMES DAILY NEEDED FOR COUGH active Not Available Not Available No t Available ibuprofen 400 mg tablet TAKE 1 TABLET BY MOUTH THREE TIMES DAILY NEEDED FOR PAIN OR FEVER active Not Available Not Available No t Available gabapentin 300 mg capsule TAKE 1 CAPSULE BY MOUTH AT BEDTIME active Not Available Not Available No t Available furosemide 20 mg tablet TAKE 1 TABLET BY MOUTH ONCE DAILY DIRECTED active Not Available Not Available No t Available albuterol sulfate HFA 90 mcg/actuatio n aerosol inhaler INHALE 1 PUFF BY MOUTH FOUR TIMES DAILY NEEDED FOR WHEEZING OR SHORTNESS OF BREATH active Not Available Not Available No t Available Novolog FlexPen U-100 Insulin aspart 100 unit/mL (3 mL) subcutaneous INJECT 10 UNITS SUBCUTANEOU SLY WITH BREAKFAST, 10 UNITS WITH LUNCH, AND 15 UNITS WITH DINNER active Not Available Not Available No t Available Lantus Solostar U-100 Insulin 100 unit/mL (3 mL) subcutaneous pen INJECT 25 UNITS SUBCUTANEOU SLY EVERY DAY IN THE MORNING active Not Available Not Available No t Available OneTouch Verio test strips TEST BLOOD SUGAR FOUR TIMES DAILY active Not Available Not Available Not Available Jardiance 25 mg tablet TAKE 1 TABLET BY MOUTH EVERY DAY IN THE MORNING active Not Available Not Available No t Available Pentips Pen Needle 32 gauge x 5/32 USE DIRECTED FOUR TIMES DAILY active Not Available Not Available No t Available TRUEplus Glucose 3.75 gram chewable tablet TAKE 4 TABLETS BY MOUTH EVERY 15 MINUTES NEEDED LOW BLOOD SUGAR UNTIL SYMPTOMS RESOLVED active Not Available Not Available No t Available OneTouch Delica Plus Lancet 33 gauge TEST BLOOD SUGAR FOUR TIMES DAILY active Not Available Not Available Not Available Mounjaro 5 mg/0.5 mL subcutaneous pen injector INJECT ONE PEN (=5MG) SUBCUTANEOU SLY ONCE A WEEK DIRECTED active Not Available Not Available No t Available Mounjaro 15 mg/0.5 mL subcutaneous pen injector INJECT ONE PEN (=15MG) SUBCUTANEOU SLY ONCE A WEEK DIRECTED active Not Available Not Available No t Available Mounjaro 10 mg/0.5 mL subcutaneous pen injector INJECT ONE PEN (=10MG) SUBCUTANEOU SLY ONCE A WEEK DIRECTED active Not Available Not Available No t Available Mounjaro 12.5 mg/0.5 mL subcutaneous pen injector INJECT ONE PEN (=12.5MG) SUBCUTANEOU SLY ONCE A WEEK DIRECTED active Not Available Not Available No t Available Vitals Date Recorded Oxygen saturation Oxygen saturation in Arterial blood by Pulse oximetry Respiratory rate Heart rate Body temperature Body weight Systolic And Diastolic Provider Name and Address Organization Details Last Updated DateTime 5 96 % 96 % 16 /min 92 /min 99.1 [degF] 95453.1 12 g 126/72 mm[Hg] Not Available [facility] - production 10:01:56 Social History None recorded. Functional Status None recorded. Mental Status None recorded. Family History Nothing Reported. Medical History No medical history recorded. Gynecological HistoryNo gynecological history recorded. Obstetrics History GPAL:G 0 P 0 0 0 0 Past Encounters Encounter ID Performer Location Encounter Start Date Encounter Closed Date Diagnosis/Indication Diagnosis SNOMED-CT Code Diagnosis ICD10 Code Diagnosis Note [id number] MARYLOU BOWERS MD [facility] - [address] [phone] 04/04/2024 10:01:53 04/04/2024 22:48:21 Viral upper respiratory tract infection 481010144 J06.9 Health Concerns Section Related Observation LastModified by Organization Detai ls LastModified Time None Recorded Concern Status LastModified by Organization Details LastModified Time None Recorded Advance Directives Directive None Recorded Payers Insurance Date Sequence Insurance Name Policy Number Policy Matta Covered Member ID Matta Member ID Guarantor Name 04/04/2024 1 [facility] - DOS ON OR AFTER 2022 - DUAL ELIGIBLE - HALF-WAY OPTIONS AND ONE CARE (MEDICARE REPLACEMENT/ADV ANTAGE - HMO) Inna Novak [id number] Inna Novak Notes Date Note Type Note Provider Name and Address Organization Details Recorded Time 04/04/2024 text/html HPI: Member reports 2 days of sore throat, ear pain, cough, afebrile. She is requesting a home visit from [facility] in the AM. .................... .................... .................... .................... .................... .................... .................... . CRC Nurse Triage Notes (Sondra Laguerre - RN): Chief Complaints: Sore throat, Cough PMH: Cancer, Diabetes Mellitus Type 2, Hyperlipidemia, Asthma PMH Reviewed at 04/03/2024:45 Allergies Reviewed at 04/03/2024 - :45 Comments: CRC RN does not need additional information to process visit -Soo RN Bog Worker Organization Information for Alexis Negrete Legal Name: [facility] Address: [address] [place] [address], [place] [id number], [employer]: Daniel Strickland MD [facility] No.: [id number] Bog Worker POC Test Results from Alexis Negrete - VASILIY Rapid influenza antigen (09:58:51) Flu: - Rapid strep test (09:58:54) Strep: - Rapid COVID antigen (09:58:55) COVID: - .................... .................... .................... .................... .................... .................... .................... . Bog Worker Note From Alexis Negrete: Pt co sore throat NC and cough with clear production for 2 days. Pt has not tried OTC medication for symptom relief. Pt denies fever, body aches, NVD, CP, SOB, dizziness, Headache. Baseline vitals assessed, WNL, Afebrile, COvid, flu and strep swab negative. Lungs clear bilaterally. Good skin color and turgor. [facility] contacted and advised pt to continue with self care and monitor symptoms. Pt advised to try OTC medication for symptom relief. Pt advised if symptoms persist to contact PCP. Pt education on signs indicating the ER. .................... .................... .................... .................... .................... .................... .................... . [facility] Consulted: Marylou Bowers .................... .................... .................... .................... .................... .................... .................... . Disposition: Fulfilled MARYLOU BOWERS MD [address] [facility],[address] [facility], [place], [phone], Ici Montreuil ConvertigoMARCELA 04/04/2024 11:15:44 OBGyn Episode No OBEpisode recorded.
== END 2024-09-28 12:59 | disposition home or self-care (01) ==
LOC: HO.HMCH 11:27
PROVIDERS: PCP Physician Assistant; Visit Provider Internal Medicine
DX: R25.2 Cramp and spasm (principal); E11.65 Type 2 diabetes mellitus with hyperglycemia; Z79.4 Long term (current) use of insulin; M77.8 Other enthesopathies, not elsewhere classified; I10 Essential (primary) hypertension; E78.5 Hyperlipidemia, unspecified; Z85.3 Personal history of malignant neoplasm of breast; J45.20 Mild intermittent asthma, uncomplicated

== ENCOUNTER → 2024-09-28 11:20 | Outpatient (BNVA) | payer OTHER, SELFPAY | PROVIDERS: PCP Physician Assistant; Visit Provider Internal Medicine | DX: R25.2 Cramp and spasm (principal); E11.65 Type 2 diabetes mellitus with hyperglycemia; M77.8 Other enthesopathies, not elsewhere classified; I10 Essential (primary) hypertension; E78.5 Hyperlipidemia, unspecified; J45.20 Mild intermittent asthma, uncomplicated; Z85.3 Personal history of malignant neoplasm of breast; Z79.4 Long term (current) use of insulin; Z13.31 Encounter for screening for depression; Z13.30 Encounter for screening examination for mental health and behavioral disorders, unspecified | CPT/HCPCS: 96127; 99212 ==

== ENCOUNTER 2024-10-11 08:49 | Outpatient (AMB) | payer OTHER, SELFPAY ==
[2024-10-11 09:02] VITALS: BP 132/82; PULSE 90; TEMP -17.7; TEMP 0; BMI 34.4
--- NOTE | 2024-10-11 09:02 | A.OFFVIS_ITS ---
Vital Signs 10/11/24 09:02 Height 5 ft Weight 176 lb 5.917 oz BMI 34.4 BP 132/82 Blood Pressure Location Rt brachial Position Sitting Pulse 90 Pulse Source Pulse Oximeter Temp 0 F L Intake Visit Reasons: T2DM Intake Note: Patient present today for Type 2 Diabetes Mellitus Last Diabetic eye exam: 08/09/24 Last Podiatry Visit: Needs a new referral Random Glucose: 174 mg/dl HgA1C: 10.3% 08/23/24 Icing And Glaze Maker Required: Yes Icing And Glaze Maker Language: Supervisor Maintenance Name: CHELI Lam Information Interpreted: non-clinical & clinical Allergies dexbrompheniramine (From [facility]) Allergy (Verified 10/11/24 09:08) upset stomach metformin Adverse Reaction (Verified 10/11/24 09:08) upset stomach Medication List - Last Reconciled 10/11/24 by Irene Payne PA-C acetaminophen (Tylenol Extra Strength) 1,000 mg (2 x 500 mg) PO Q6H PRN albuterol sulfate 2.5 mg (3 mL) inhalation Q6H PRN 30 days albuterol sulfate 90 mcg/actuation 1 inh inhalation QID PRN 30 days atorvastatin 20 mg PO BEDTIME 90 days blood sugar diagnostic As directed blood sugar diagnostic (OneTouch Ultra Test strips) Testing 4 times a day blood-glucose meter (OneTouch Ultra2 Meter) Testing 4 times a day blood-glucose sensor (PodPonics G7 Sensor device) Use daily As directed to monitor glucose. change q 10 days cane As directed comp.stocking,knee,long,medium As directed cyclobenzaprine 5 mg PO BEDTIME PRN 30 days [Diabetic shoes & 3 pair inserts as directed] docusate sodium 100 mg PO BID 30 days empagliflozin (Jardiance) 25 mg PO QAM 90 days furosemide (Lasix) 20 mg PO DAILY gabapentin 600 mg (2 x 300 mg) PO BEDTIME glipizide 10 mg PO BID glucagon 3 mg/actuation 3 mg intranasal ONCE PRN glucose (Dex4 Glucose) 16 grams (4 x 4 gram) PO Q15M PRN glucose (Dex4 Glucose) 16 grams (4 x 4 gram) PO Q15M PRN ibuprofen 400 mg PO TID PRN insulin glargine (Lantus Solostar U-100 Insulin) 30 units (0.3 mL) subcut QAM lancets Testing 4 times a day meloxicam 15 mg PO DAILY 30 days nebulizers (VixOne Nebulizer-Adult Mask) As directed nebulizers As directed Novolog FlexPen U-100 Insulin (insulin aspart U-100) inject 10 units with meals 30 days NS ondansetron HCl 4 mg PO Q8H PRN pen needle, diabetic (Comfort EZ Pen Beth[place]) As directed [Pentips 32 gauge x5/32 in needles As directed] [raised toilet seat As directed] tirzepatide (Mounjaro) 15 mg (0.5 mL) subcut QWEEK [tub seat As directed] HPI HPI T2DM: Details: Pt is a 59y/o female with a significant past medical history of type 2 diabetes, hypertension, hyperlipidemia, obesity, history of breast cancer presenting today for a diabetic follow-up. Icing And Glaze Maker: Mariann DM- her previous A1c was 10.4 and today 10.3. She is supposed to be taking lantus 30 units, novolog 10 units 3 times a day, mounjaro 15 mg q weekly, jardiance 25 mg and glipizide 10 mg BID -She states that she is often noncompliant. She states that there is too many medications and it is not very convenient for her. We discussed setting reminders on her cell phone, pillboxes, having family members help. It is not as much of an issue with remembering versus just doing it. She states that she will often just skip the dose because it is not convenient. She says that this has not changed. -Does not tolerate metformin in the past CGM: dexcom download GMI 9.1%, avg glucose 244. Very hyperglycemic 39%, hyperglycemic 46%, in range 15%, 0 hypoglycemia - states her most recent sensor fell off. She was referred at our last visit to [place] but never made the appointment with the water aerobics instructor. Her daughter states that she will call to schedule this. The neuropathy feels a bit better at night with the gabapentin. She is wondering if we could increase the dose. She is on a statin. Not on an TONNY-inhibitor. CV: Blood pressure today in the office is 132/82. She is on furosemide for lower leg edema. She often forgets the atorvastatin 20 mg. [facility] Medical History COVID-19 Type 2 diabetes mellitus with diabetic neuropathy, unspecified Diabetes type 2, uncontrolled H/O breast lump DMII (diabetes mellitus, type 2) Hypertension High cholesterol Ovarian cyst Diabetes Physical exam Surgical History History of breast biopsy Hx of subtotal mastectomy of right breast (~2007) H/O eye surgery Hx of cholecystectomy History of section Family History Father Prostate cancer Mother Diabetes Brother Diabetes Social History Household Members: None Housing: Apartment Do you presently have visiting nurse or other home services: No Alcohol intake: never Patient Tobacco Use Status: Never used Tobacco Cigarette Packs Per Day: 0 Years Smoked: 0 e-Cigarette/Vaping Use: Never Used Second Hand Smoke Exposure: No service: No Current occupational status: unemployed Sexual orientation: Straight/Heterosexual Gender identity: Female Cognitive needs: No Hearing needs: No Vision needs: Yes Physical Exam Vital Signs: Last Vital Signs Temp 0 F L 10/11/24 09:02 Pulse 90 10/11/24 09:02 BP 132/82 10/11/24 09:02 BMI result Body Mass Index 34.4 Const Orientation/consciousness: patient oriented x3 Neck Neck: Yes no lymphadenopathy Thyroid: Thyroid normal Carotids: no bruits Resp Auscultation: clear to auscultation bilaterally Cardio Rate: regular rate Rhythm: regular rhythm Heart sounds: S1 normal heart sound present and S2 normal heart sound present Peripheral pulses: dorsalis pedis present Neuro General: patient oriented x3, gait normal and no focal motor deficits Extrem Other: * Monofilament sensation intact bilaterally. Vibratory sensation diminished bilaterally. Skin intact. General: Yes normal to inspection Assessment & Plan Assessment & Plan (1) Uncontrolled type 2 diabetes mellitus with hyperglycemia, with long-term current use of insulin: Code(s): E11.65 - Type 2 diabetes mellitus with hyperglycemia; Z79.4 - MCFP (current) use of insulin Category: Medical Plan: stop glipizide continue jardiance 25 mg increase lantus to 40 units increase novolog to 15 units with meals continue mounjaro 15 mg weekly (2) Noncompliance: Code(s): Z91.199 - Patient's noncompliance with other medical treatment and regimen due to unspecified reason Category: Medical Plan: We reviewed that she has an increased risk of serious infections, risk of amputations, increased risk of stroke, heart attack, early etc.. (3) Essential hypertension: Code(s): I10 - Essential (primary) hypertension Category: Medical Plan: Continue current regimen Medications: New lancets (AngelantoniTouch UltraSoft 2 Lancet) use 4x daily As directed to monitor blood sugars 100 ea 2RF Changed From Novolog FlexPen U-100 Insulin (insulin aspart U-100) inject 10 units with meals 30 days 15 mL 3RF NS E11.40 - Type 2 diabetes mellitus with diabetic neuropathy, unspecified, Z79.4 - watermelon inspector (current) use of insulin To Novolog FlexPen U-100 Insulin (insulin aspart U-100) inject 15 units with meals 15 mL 3RF 30 days NS E11.40 - Type 2 diabetes mellitus with diabetic neuropathy, unspecified, Z79.4 - MCFP (current) use of insulin From insulin glargine (Lantus Solostar U-100 Insulin) 30 units (0.3 mL) subcut QAM 15 mL 2RF E11.40 - Type 2 diabetes mellitus with diabetic neuropathy, unspecified To insulin glargine (Lantus Solostar U-100 Insulin) 40 units (0.4 mL) subcut QAM 15 mL 2RF E11.40 - Type 2 diabetes mellitus with diabetic neuropathy, unspecified Refilled blood-glucose meter (AngelantoniTouch Ultra2 Meter) Testing 4 times a day 1 ea 0RF E11.40 - Type 2 diabetes mellitus with diabetic neuropathy, unspecified, Z79.4 - MCFP (current) use of insulin blood sugar diagnostic (OneTouch Ultra Test strips) Testing 4 times a day 100 ea 6RF E11.40 - Type 2 diabetes mellitus with diabetic neuropathy, unspecified, Z79.4 - MCFP (current) use of insulin Discontinued glipizide Discontinued Reason: Doctor's Order 10 mg PO BID 180 tabs 2RF Patient Instructions: stop glipizide continue jardiance 25 mg increase lantus to 40 units increase novolog to 15 units with meals continue mounjaro 15 mg weekly Coding Level of Care Code Est Pt Level 4 (71329) Complex EM visit Add On G2211 Diagnoses Uncontrolled type 2 diabetes mellitus with hyperglycemia, with long-term current use of insulin E11.65; Z79.4 Noncompliance Z91.199 Essential hypertension I10
[2024-10-11 09:11] LABS: Glucose, Whole Blood 174 mg/dL (60-115)
== END 2024-10-11 09:24 | disposition home or self-care (01) ==
LOC: HO.ENCR 08:50
PROVIDERS: PCP Internal Medicine; Visit Provider Physician Assistant
DX: E11.65 Type 2 diabetes mellitus with hyperglycemia (principal); Z79.4 Long term (current) use of insulin; Z91.199 Patient's noncompliance with other medical treatment and regimen due to unspecified reason; I10 Essential (primary) hypertension

== ENCOUNTER 2024-10-11 08:49 | Outpatient (REF) | payer OTHER, SELFPAY ==
--- NOTE | ~2024-10-11 | XR_ITS ---
EXAMINATION: XR CHEST 2 VIEWS HISTORY: R06.00 - Dyspnea, unspecified COMPARISON: Comparison is made with the prior examination dated 04/12/2024. FINDINGS: PA and lateral views of the chest are submitted. There is mild prominence of the pulmonary vasculature, consistent with congestion. Slight blunting of the posterior costophrenic angles likely represents trace pleural effusions. There is no pneumothorax. The heart remains enlarged. There is degenerative disc disease of the spine. XR/XR chest 2V IMPRESSION: Cardiomegaly, pulmonary vascular congestion, and trace bilateral pleural effusions. Electronically signed by: Darrell Dc MD 10/11/2024 11:29 AM EDT
[2024-10-11 11:04] LABS: MANUAL DIFF FLAG NO
[2024-10-11 12:25] LABS: Appearance Urine Clear; Glucose Urine UA >=1000 mg/dL (Negative); PH 6.0 (5.0-9.0); Specific Gravity - Urine >= 1.030 (1.005-1.025); UMIC TRIGGER UACC YES
[2024-10-11 12:25] LABS: Hematocrit 35.6 % (37.0-47.0); Hemoglobin 11.3 g/dl (12.0-16.0); Imm Gran Abs Auto 0.04 X10*3/uL (0.00-0.03); Imm Gran Pct Auto 0.4 % (0.0-0.4); Lymphocytes Absolute Auto 2.8 X10*3/uL (1.2-4.9); Mean Corpuscular HGB Conc 31.7 g/dl (31.0-35.0); Mean Corpuscular Hemoglobin 26.8 pg (27.0-33.0); Mean Corpuscular Volume 84.4 fL (80.0-98.0); NRBC Abs Auto 0.000 X10*3/uL (0.0-0.012); NRBC Pct Auto 0.0 /100WBC (0.0-0.2); Platelet Count 279 X10*3/uL (160-400); Red Blood Count 4.22 X10*6/uL (4.20-5.50); White Blood Count 10.4 X10*3/uL (4.8-10.8)
[2024-10-11 12:32] LABS: B Type Natriuretic Peptide 49 pg/mL (<100)
[2024-10-11 12:33] LABS: Alanine Aminotransferase 45 U/L (0-31); Albumin Level 3.9 g/dL (3.5-5.0); Alkaline Phosphatase 127 U/L (39-117); Anion Gap 10 (12-20); Aspartate Amino Transferase 28 U/L (5-31); Blood Urea Nitrogen 8 mg/dL (9-16); Calcium 9.1 mg/dL (8.4-10.2); Carbon Dioxide 29 mmol/L (22-29); Chloride 112 mmol/L (96-108); Estimated Glomerular Filt Rate > 60; Potassium 4.0 mmol/L (3.3-5.1); Sodium 147 mmol/L (135-145); Total Protein 6.4 g/dL (6.5-8.0)
[2024-10-11 13:56] LABS: Microalbum/Creatinine Ratio Ur 121.6 ug/mg cr (<30)
[2024-10-11 14:23] LABS: Free T4 (Free Thyroxine) 0.97 ng/dL (0.71-1.85)
== END 2024-10-11 08:50 | disposition home or self-care (01) ==
LOC: HO.LAB 08:49
PROVIDERS: PCP Internal Medicine
DX: I10 Essential (primary) hypertension (principal); R60.0 Localized edema; R06.00 Dyspnea, unspecified; E11.40 Type 2 diabetes mellitus with diabetic neuropathy, unspecified; M79.89 Other specified soft tissue disorders; Z79.4 Long term (current) use of insulin; E11.65 Type 2 diabetes mellitus with hyperglycemia; Z91.199 Patient's noncompliance with other medical treatment and regimen due to unspecified reason; Z13.31 Encounter for screening for depression
CPT/HCPCS: 36415; 71046; 80053; 81001; 82043; 82570; 82947; 83880; 84439; 84443; 85025; 86141; 96127; 99212

== ENCOUNTER 2024-10-11 09:38 | Outpatient (AMB) | payer OTHER, SELFPAY ==
--- NOTE | 2024-10-11 09:42 | A.OFFPC_ITS ---
Vital Signs 10/11/24 09:43 10/11/24 10:35 Height 5 ft Weight 176 lb BMI 34.4 BP 140/98 H 146/98 H Blood Pressure Location Lt brachial Lt brachial Position Sitting Sitting Pulse 102 H Pulse Source Pulse Oximeter Temp 97.3 F Temp Source Temporal Artery Scan Pulse Oximetry (%) 96 Oxygen Delivery Method Room Air Intake Visit Reasons: both feet swollen Plc Controls Engineer Required: Yes Plc Controls Engineer Name: [id number]/[place] Allergies dexbrompheniramine (From [facility]) Allergy (Verified 10/11/24 10:13) upset stomach metformin Adverse Reaction (Verified 10/11/24 10:13) upset stomach Medication List - Last Reconciled 10/11/24 by MAGALI Claire acetaminophen (Tylenol Extra Strength) 1,000 mg (2 x 500 mg) PO Q6H PRN albuterol sulfate 2.5 mg (3 mL) inhalation Q6H PRN 30 days albuterol sulfate 90 mcg/actuation 1 inh inhalation QID PRN 30 days blood sugar diagnostic As directed blood sugar diagnostic (BuyMyHomeuch Ultra Test strips) Testing 4 times a day blood-glucose meter (BuyMyHomeuch Ultra2 Meter) Testing 4 times a day blood-glucose sensor (Vita Products G7 Sensor device) Use daily As directed to monitor glucose. change q 10 days cane As directed comp.stocking,knee,long,medium As directed cyclobenzaprine 5 mg PO BEDTIME PRN 30 days [Diabetic shoes & 3 pair inserts as directed] docusate sodium 100 mg PO BID 30 days empagliflozin (Jardiance) 25 mg PO QAM 90 days gabapentin 600 mg (2 x 300 mg) PO BEDTIME glipizide 10 mg PO BID glucagon 3 mg/actuation 3 mg intranasal ONCE PRN glucose (Dex4 Glucose) 16 grams (4 x 4 gram) PO Q15M PRN glucose (Dex4 Glucose) 16 grams (4 x 4 gram) PO Q15M PRN ibuprofen 400 mg PO TID PRN insulin glargine (Lantus Solostar U-100 Insulin) 40 units (0.4 mL) subcut QAM lancets Testing 4 times a day lancets (GeneixTouch UltraSoft 2 Lancet) use 4x daily As directed to monitor blood sugars nebulizers (VixOne Nebulizer-Adult Mask) As directed nebulizers As directed Novolog FlexPen U-100 Insulin (insulin aspart U-100) inject 15 units with meals 30 days NS ondansetron HCl 4 mg PO Q8H PRN pen needle, diabetic (Comfort EZ Pen [place]) As directed [Pentips 32 gauge x5/32 in needles As directed] [raised toilet seat As directed] tirzepatide (Mounjaro) 15 mg (0.5 mL) subcut QWEEK [tub seat As directed] Tobacco use date assessed: 10/11/24 Dental Screening Dental Screen Date: 09/28/24 Did you have a dental visit in the last 12 months?: No Did you have a dental problem in the last 6 months where you did not have access to dental care?: No Was dental information given to patient?: Patient has dentist HPI both feet swollen HPI Details The patient is a 59-year-old female presenting with swelling in both legs and shortness of breath. The swelling in her legs began four days ago and has not occurred previously. She has Lasix in her med list but has not being taking this, per patient, which was discontinued, and she noticed the swelling after starting a new medication for muscle pain (cyclobenzaprine), which she stopped as well. The patient reports experiencing dyspnea on exertion, particularly when climbing stairs, which requires her to pause to catch her breath. This symptom has been present for some time, and she was previously treated in [place] for a large heart condition. The patient has a history of hypertension, which was previously controlled but is currently elevated. She is not on any antihypertensive medication at present. Reports that th ble swelling enlarge heart in [place] no taking anything for bp elevated today dyspnea with exertion +pedal pulses ekg, cxr, and labs, started on hydrochlorothiazide 12.5mg PFSH Medical History COVID-19 Type 2 diabetes mellitus with diabetic neuropathy, unspecified Diabetes type 2, uncontrolled H/O breast lump DMII (diabetes mellitus, type 2) Hypertension High cholesterol Ovarian cyst Diabetes Physical exam Surgical History History of breast biopsy Hx of subtotal mastectomy of right breast (~2007) H/O eye surgery Hx of cholecystectomy History of section Family History Father Prostate cancer Mother Diabetes Brother Diabetes Social History Household Members: None Housing: Apartment Do you presently have visiting nurse or other home services: No Alcohol intake: never Patient Tobacco Use Status: Never used Tobacco Cigarette Packs Per Day: 0 Years Smoked: 0 e-Cigarette/Vaping Use: Never Used Second Hand Smoke Exposure: No service: No Current occupational status: unemployed Sexual orientation: Straight/Heterosexual Gender identity: Female Cognitive needs: No Hearing needs: No Vision needs: Yes Questionnaire PHQ-9 Over the last 2 weeks, how often have you been bothered by any of the following problems? 1. Little interest or pleasure in doing things: not at all 2. Feeling down, depressed, or hopeless: not at all 3. Trouble falling or staying asleep, or sleeping too much: not at all 4. Feeling tired or having little energy: not at all 5. Poor appetite or overeating: not at all 6. Feeling bad about yourself - or that you are a failure or have let yourself or your family down: not at all 7. Trouble concentrating on things, such as reading the newspaper or watching television: not at all 8. Moving or speaking so slowly that other people could have noticed. Or the opposite - being so fidgety or restless that you have been moving around a lot more than usual: not at all 9. Thoughts that you would be better off or of hurting yourself in some way: not at all Total score: 0 Depression Screening Interpretation: Negative Depression Screening Done: Yes Source: Developed by Drs. Darrell Gomez, Peggy Ferrer, Lam Alvarado and colleagues, with an educational oren from [employer]. Thrive Questionnaire Date Thrive assessed: 09/28/24 I am a: Parent/Caregiver What is your living situation today?: I choose not to answer this question Within the past 12 months, did the food you bought not last and you didn't have the money to get more?: I choose not to answer this question Within the past 12 months, did you worry whether your food would run out before you got money to buy more?: I choose not to answer this question Do you have trouble paying for medicines?: I choose not to answer this question Do you have trouble getting transportation to medical appointments?: I choose not to answer this question Do you have trouble paying your heating and electricity bill?: I choose not to answer this question Do you have trouble taking care of your child, family member or friend?: I choose not to answer this question Do you have trouble with day-to-day activities such as bathing, preparing meals, shopping, managing finances, etc.?: I choose not to answer this question Are you currently unemployed and looking for a job?: I choose not to answer this question Are you interested in more education?: I choose not to answer this question Currently or been in a relationship where the following occur: I choose not to answer THRIVE Score: 0 AUDIT C Alcohol Use Questionnaire (AUDIT-C) 1. How often do you have a drink containing alcohol?: Never 3. How often do you have six or more drinks on one occasion?: Never Total Score: 0 JASON-7 AMB Questionnaire JASON-7 Date JASON - 7 assessed: 09/28/24 Feeling nervous, anxious, or on edge: 0 = Not at all Not being able to stop or control worryin = Not at all Worrying too much about different things: 0 = Not at all Trouble relaxin = Not at all Being so restless that it is hard to sit still: 0 = Not at all Becoming easily annoyed or irritable: 0 = Not at all Feeling afraid as if something awful might happen: 0 = Not at all Total JASON-7 score (0-4 normal; 5-9 mild; 10-14 moderate; 15-21 severe): 0 Source: Developed by Drs. Darrell Gomez, Peggy Ferrer, Lam Alvarado and colleagues, with an educational oren from [employer]. Review of Systems Const Denies body aches, Denies chills, Denies fever(s), Denies headache(s) and Denies poor appetite Eyes Reports no additional complaints ENT Denies dysphagia, Denies dizziness, Denies headache(s) and Denies odynophagia Card Denies chest pain, Denies syncope, Reports pedal edema, Denies edema, Denies irregular heart rhythm, Denies lightheadedness and Reports dyspnea on exertion Resp Denies cough and Reports dyspnea on exertion GI Denies abdominal pain, Denies constipation, Denies dysphagia, Denies diarrhea, Denies nausea, Denies odynophagia and Denies vomiting Reports no additional complaints Musc Reports no additional complaints and Denies abnormal gait Skin/Breast Reports system reviewed and no additional complaints, except as documented Neuro Denies abnormal gait, Denies dizziness, Denies syncope and Denies headache(s) Psych Reports no additional complaints Physical exam (Primary Care) Vital Signs: Last Vital Signs Temp 97.3 F 10/11/24 09:43 Pulse 102 H 10/11/24 09:43 BP 146/98 H 10/11/24 10:35 Pulse Ox 96 10/11/24 09:43 Oxygen Delivery Method Room Air 10/11/24 09:43 BMI result Body Mass Index 34.4 Tobacco/Smoking Status: Tobacco use Status Tobacco use date assessed 10/11/24 10/11/24 09:50 Patient Tobacco Use Status Never used Tobacco 10/11/24 09:50 e-Cigarette/Vaping Use Never Used 10/11/24 09:50 PHQ-9: PHQ-9 Score PHQ-9: Total score 0 10/11/24 10:16 Depression Screening Interpretation: Negative Thrive Assessment: Date of Thrive Assessment Date Thrive assessed 09/28/24 10/11/24 09:50 Currently or been in a relationship where the following occur: I choose not to answer Const General: cooperative, healthy appearing, comfortable and no acute distress Orientation/consciousness: patient oriented x3 HENDE Head: Yes normocephalic Ears: hearing grossly normal bilaterally General nose exam: Normal external nose present Eyes General: appearance normal, both eyes and all related structures Conjunctivae: conjunctivae normal Neck Neck: Yes full ROM and Yes no lymphadenopathy Resp Effort & Inspection: normal respiratory effort Auscultation: clear to auscultation bilaterally, no crackles, no rales, no rhonchi, no wheezes and diminished lung sounds bilateral in the lower lung gill Cardio Rate: tachycardic Rhythm: regular rhythm Peripheral pulses: Peripheral pulses 2+ throughout GI Inspection: Yes obesity Palpation (GI): Soft to palpation and nontender Auscultation: normal bowel sounds Skin General skin exam: no rashes or lesions noted Neuro General: patient oriented x3 Gait exam (Neuro): Normal gait present Extrem General: Yes normal to inspection, Yes full ROM and No edema Right lower extremity: lower leg Details: pitting edema Details: 2+ and ankle Details: edema Details: pitting and 2+ Left lower extremity: lower leg Details: pitting edema Details: 2+ and ankle Details: pitting edema Details: pitting and 2+ Psych Affect: normal affect Attitude: cooperative Insight: Good insight present (Psych) Judgement: Good judgement present (Psych) Coding Level of Care Code Est Pt Level 3 (79560) Diagnoses Primary hypertension I10 Hypertension type: primary hypertension Lower extremity edema R60.0 Dyspnea, unspecified type R06.00 Dyspnea type: unspecified Time Spent (min) 33 Assessment & Plan Assessment & Plan (1) Hypertension: Code(s): I10 - Essential (primary) hypertension Category: Medical Qualifiers: Hypertension type: primary hypertension Qualified Code(s): I10 - Essential (primary) hypertension (2) Lower extremity edema: Code(s): R60.0 - Localized edema Category: Medical (3) Dyspnea: Code(s): R06.00 - Dyspnea, unspecified Category: Medical Qualifiers: Dyspnea type: unspecified Qualified Code(s): R06.00 - Dyspnea, unspecified Plan Patient blood pressure is elevated in office. She does has hypertension as part of her diagnosis list but she is not on any medication for hypertension. Apparently, this was controlled before and she did not require medication. Bilateral lower extremity pitting +2 edema. She reports dyspnea with exertion however the patient was noted to be catching her breath during conversation. She also has Lasix 20 mg in her med list that was discontinued today because the patient reports that she has not been taking this medication. Patient reports that she was treated in [place] possibly for enlarged heart. We will have the patient do an EKG and a chest x-ray today along with some blood work to further evaluate. The patient was started on hydrochlorothiazide 12.5 mg and was instructed to get these test done as soon as possible and to return in 4 weeks for evaluation for her blood pressure. Orders: Orders Complete Blood Count Auto Diff Today E11.40 - Type 2 diabetes mellitus with diabetic neuropathy, unspecified, I10 - Essential (primary) hypertension, M79.89 - Other specified soft tissue disorders, R06.00 - Dyspnea, unspecified, Z79.4 - assisted (current) use of insulin UA CC w/rflx Micro + Cult Today E11.40 - Type 2 diabetes mellitus with diabetic neuropathy, unspecified, I10 - Essential (primary) hypertension, M79.89 - Other specified soft tissue disorders, R06.00 - Dyspnea, unspecified, Z79.4 - superintendent marine oil terminal (current) use of insulin XR chest 2V Today R06.00 - Dyspnea, unspecified, R60.0 - Localized edema B Type Natriuretic Peptide Today E11.40 - Type 2 diabetes mellitus with diabetic neuropathy, unspecified, I10 - Essential (primary) hypertension, M79.89 - Other specified soft tissue disorders, R06.00 - Dyspnea, unspecified, Z79.4 - assisted (current) use of insulin Comprehensive Met. Panel Today E11.40 - Type 2 diabetes mellitus with diabetic neuropathy, unspecified, I10 - Essential (primary) hypertension, M79.89 - Other specified soft tissue disorders, R06.00 - Dyspnea, unspecified, Z79.4 - assisted (current) use of insulin TSH reflex Free T4 Today E11.40 - Type 2 diabetes mellitus with diabetic neuropathy, unspecified, I10 - Essential (primary) hypertension, M79.89 - Other specified soft tissue disorders, R06.00 - Dyspnea, unspecified, Z79.4 - Long t erm (current) use of insulin CRP High Sensitivity Today E11.40 - Type 2 diabetes mellitus with diabetic neuropathy, unspecified, I10 - Essential (primary) hypertension, M79.89 - Other specified soft tissue disorders, R06.00 - Dyspnea, unspecified, Z79.4 - assisted (current) use of insulin Microalbumin, Random (w Creat) Today E11.40 - Type 2 diabetes mellitus with diabetic neuropathy, unspecified, I10 - Essential (primary) hypertension, M79.89 - Other specified soft tissue disorders, R06.00 - Dyspnea, unspecified, Z79.4 - superintendent marine [employer] (current) use of insulin ECG 12 lead EKG Today R06.00 - Dyspnea, unspecified, R60.0 - Localized edema Medications: New hydrochlorothiazide 12.5 mg PO DAILY 30 caps 2RF
[2024-10-11 09:43] VITALS: BP 140/98; PULSE 102; TEMP 36.3; O2SAT 96; BMI 34.4
[2024-10-11 10:35] VITALS: BP 146/98
== END 2024-10-11 12:36 | disposition home or self-care (01) ==
LOC: HO.HMCH 09:39
PROVIDERS: PCP Internal Medicine
DX: I10 Essential (primary) hypertension (principal); R60.0 Localized edema; R06.00 Dyspnea, unspecified

== ENCOUNTER → 2024-10-11 11:12 | Outpatient (BNV) | payer OTHER, SELFPAY | PROVIDERS: PCP Internal Medicine; Visit Provider Radiology Diagnostic Radiology | DX: I10 Essential (primary) hypertension (principal) | CPT/HCPCS: 71046 ==

== ENCOUNTER 2024-10-18 08:27 | Outpatient (AMB) | payer OTHER, SELFPAY ==
--- NOTE | 2024-10-18 08:37 | A.OFFVIS_ITS ---
Intake Intake Visit Reasons: 60 min Catcher Plug Required: Yes Catcher Plug Language: Omani Accompanied by: Self / Same As Patient Allergies dexbrompheniramine (From [facility] Allergy (Verified 10/11/24 10:13) upset stomach metformin Adverse Reaction (Verified 10/11/24 10:13) upset stomach HPI Comprehensive Diabetes Asmnt Most Recent Diabetes Results: Microalb/Creat Ratio, (<30) 121.6 ug/mg cr H 10/11/24 Cholesterol, (<200) 175 mg/dL 11/19/23 HDL Cholesterol, (>40) 50 mg/dL 11/19/23 Triglycerides, (<150) 73 mg/dL 11/19/23 Creatinine, (0.5-1.4) 0.52 mg/dL 10/11/24 BUN, (9-16) 8 mg/dL L 10/11/24 Sodium, (135-145) 147 mmol/L H 10/11/24 Potassium, (3.3-5.1) 4.0 mmol/L 10/11/24 Chloride, (96-108) 112 mmol/L H 10/11/24 Carbon Dioxide, (22-29) 29 mmol/L 10/11/24 Calcium, (8.4-10.2) 9.1 mg/dL 10/11/24 AST, (5-31) 28 U/L 10/11/24 ALT, (0-31) 45 U/L H 10/11/24 Total Protein, (6.5-8.0) 6.4 g/dL L 10/11/24 Albumin, (3.5-5.0) 3.9 g/dL 10/11/24 [facility] Medical History COVID-19 Type 2 diabetes mellitus with diabetic neuropathy, unspecified Diabetes type 2, uncontrolled H/O breast lump DMII (diabetes mellitus, type 2) Hypertension High cholesterol Ovarian cyst Diabetes Physical exam Surgical History History of breast biopsy Hx of subtotal mastectomy of right breast (~2007) H/O eye surgery Hx of cholecystectomy History of section Family History Father Prostate cancer Mother Diabetes Brother Diabetes Social History Household Members: None Housing: Apartment Do you presently have visiting nurse or other home services: No Alcohol intake: never Patient Tobacco Use Status: Never used Tobacco Cigarette Packs Per Day: 0 Years Smoked: 0 e-Cigarette/Vaping Use: Never Used Second Hand Smoke Exposure: No service: No Current occupational status: unemployed Sexual orientation: Straight/Heterosexual Gender identity: Female Cognitive needs: No Hearing needs: No Vision needs: Yes Assessment & Plan Assessment & Plan (1) Type 2 diabetes mellitus with diabetic neuropathy, unspecified: Code(s): E11.40 - Type 2 diabetes mellitus with diabetic neuropathy, unspecified Qualifiers: Diabetes mellitus long term care pharmacist insulin use: with long term care pharmacist use Qualified Code(s): E11.40 - Type 2 diabetes mellitus with diabetic neuropathy, unspecified; Z79.4 - nursing home (current) use of insulin Plan: Learning objectives: The patient was provided with verbal and written education on the following topics as outlined below. Assess patient education level/literacy/barriers, patient's last A1c 10.3% on 08/23/2024, patient appears to be struggling with medication management and missing doses of mealtime and long-acting insulin especially in the evenings on weekends. [facility], where she receives NovoLog 15 units prior to breakfast and lunch, and then Lantus 40 units daily. They also administer Mounjaro 15 mg weekly I spoke with Nae nurse at program, she stated that they do not manage her oral medications. Patient questions/concerns, want to stated at visit she is concerned about her health she was recent seen at PCPs office for dyspnea and pitting edema. She had Lasix on med list but it was decided at visit due to patient reporting that she is not taking it. Message sent to nurse navigation to see if we can act patient was services to help with medication compliance. Want to stated at visit she would benefit from support to help her manage her medications The patient met all learning objectives and was able to verbalize understanding and provide teach back of education topics discussed . The patient was provided with the opportunity to ask questions and all questions were answered. Topics covered in today?s session included: Medications (If applicable) * Name of medication? * Dosing/administration instructions? * Mechanism of action? * Potential side effects? * Potential adverse reaction and appropriate treatment? * Review onset, peak, duration Assess for concerns re: insurance coverage, cost, barriers to compliance Insulin/Injectables (If applicable) * Storage/care of insulin?? * Injection sites? * Site rotation? * Onset, peak, duration * Drawing up insulin? * Injecting insulin/other injectables? * Sharps disposal Continuous blood glucose monitoring (if applicable) Hypoglycemia and Hyperglycemia * Signs and symptoms? * Causes?? * Treatment? * Preventing hypoglycemia? * When to seek medical attention Target Goals: * Blood glucose targets and how you feel when your blood glucose is in and out of your target ranges. * Monitoring and knowing your A1C. ?Patient was receptive to information provided and participated in the discussion. Asked?appropriate questions and demonstrated good understanding of the topics discussed.? ? Patient Response to instructions: Comprehension of Instructions: poor Readiness to make changes:? Contemplation How confident they feel about making changes: Poor Portions of this note were created using voice recognition software, please excuse any words or phrases that may have been misinterpreted. Coding Level of Care Code Est Pt Level 1 (95798) Diagnoses Type 2 diabetes mellitus with diabetic neuropathy, with long-term current use of insulin E11.40; Z79.4 Diabetes mellitus long term care pharmacist insulin use: with long term care pharmacist use
--- OUTSIDE RECORDS SUMMARY | 2024-10-18 08:43 | XMS_ITS | Data Portability ---
Author Organization [facility], [facility] Address [address] [place] [id number] Care Team Providers Care Chemical Preparer Name Role Phone HIM TAWNYA OTHER Assessment Encounter Date Assessment Date Assessment LastModified by Organization Details LastModified Time 04/04/2024 04/04/2024 As noted, we were called to see this patient regarding concerns of cough and congestion. Evaluation in the field was performed by my asphalt coater colleague, as noted above, I provided real-time [...] serious symptoms, particularly SOb and chest pain [id number] Not available 04/04/2024 11:15:35 Plan of Treatment Reminders Order Date Submit Date Provider Last Modified By Organization Details Last Modified Time Details Appointments None recorded. Lab rapid SARS CoV 2 Ag, QL IA, respiratory specimen 2024 025 [email or web address] [address], [phone] 5 10:04:48 rapid flu (A+B) 2024 025 [email or web address] 7 [facility], [address] [place] [address], [phone] 5 10:04:48 rapid strep group A, throat 2024 025 [email or web address] [address], [phone] 5 10:04:48 Referral None recorded. Procedures None [...] Name and Address Organization Details Recorded Time 94153 acetamino phen medicatio n Not available Not available Not available 04/03/2024 161 RxNorm Not Available [facility] - production 21:45:45 01642 metformin medicatio n Not available Not available [...] and Address Organization Details Last Updated DateTime 96 % 96 % 16 /min 92 /min 99.1 [degF] 18500.1 12 g 126/72 mm[Hg] Not Available [facility] [...] SNOMED-CT Code Diagnosis ICD10 Code Diagnosis Note [id number] MARYLOU BOWERS MD Main - [facility] [address] [place] [phone] 04/04/2024 10:01:53 04/04/2024 22:48:21 Viral upper respiratory tract infection [id number] J06.9 Health Concerns Section Related Observation LastModified by Organization Detai ls LastModified Time None Recorded Concern Status LastModified by Organization Details LastModified Time None Recorded Advance Directives Directive None Recorded Payers Insurance Date Sequence Insurance Name Policy Number Policy Matta Covered Member ID Matta Member ID Guarantor Name 04/04/2024 1 [facility] - DOS ON OR AFTER 2022 - DUAL ELIGIBLE - [facility] OPTIONS AND ONE CARE (MEDICARE REPLACEMENT/ADV ANTAGE - HMO) Inna Novak [id number] Inna Novak OBGyn Episode No OBEpisode recorded.
== END 2024-10-18 09:18 | disposition home or self-care (01) ==
LOC: HO.ENCR 08:28
PROVIDERS: PCP Physician Assistant; Visit Provider Registered Nurse Diabetes Educator
DX: E11.40 Type 2 diabetes mellitus with diabetic neuropathy, unspecified (principal); Z79.4 Long term (current) use of insulin

== ENCOUNTER → 2024-10-18 08:27 | Outpatient (BNVA) | payer OTHER, SELFPAY | PROVIDERS: PCP Physician Assistant; Visit Provider Registered Nurse Diabetes Educator | DX: E11.40 Type 2 diabetes mellitus with diabetic neuropathy, unspecified (principal); Z79.4 Long term (current) use of insulin | CPT/HCPCS: 99211 ==

== ENCOUNTER → 2024-10-21 08:23 | Outpatient (BNVA) | payer OTHER, SELFPAY | PROVIDERS: PCP Physician Assistant | DX: Z01.30 Encounter for examination of blood pressure without abnormal findings (principal) | CPT/HCPCS: 99211 ==

== ENCOUNTER 2024-11-10 08:30 | Outpatient (AMB) | payer OTHER, SELFPAY ==
[2024-11-10 08:40] VITALS: BP 134/62; PULSE 94; O2SAT 97; BMI 33.4
--- NOTE | 2024-11-10 08:40 | MHC.OFFVIS ---
Vital Signs 11/10/24 08:40 Height 5 ft Weight 171 lb BMI 33.4 BP 134/62 Blood Pressure Location Rt brachial Position Sitting Pulse 94 Pulse Source Pulse Oximeter Pulse Oximetry (%) 97 Oxygen Delivery Method Room Air Intake Visit Reasons: Colonoscopy Screening Intake Note: NEW PATIENT for initial colo screening. Chief Complaint; C.O. constipation w/o any additional sx per patient. Initial colo per age. Veterinarian Laboratory Animal Care Required: Yes Veterinarian Laboratory Animal Care Services: Veterinarian Laboratory Animal Care Present Veterinarian Laboratory Animal Care Name: Augustin (ID # unavail) + [facility] Information Interpreted: clinical only Accompanied by: Self / Same As Patient Allergies dexbrompheniramine (From [facility]) Allergy (Verified 11/10/24 08:40) upset stomach metformin Adverse Reaction (Verified 11/10/24 08:40) upset stomach HPI HPI Colonoscopy Screening: Details: 59 year old? female with past medical history of pleural effusion, hyperlipidemia, hypertension, asthma, status post right mastectomy for breast CA, neuropathy, diabetes is here today for pre colonoscopy screening.? Patient was sent to us by her PCP.? Patient had colonoscopy over 8 years ago in [place]. Patient believes that her colonoscopy was normal then. Patient denies any gastrointestinal symptoms in the past or at present.? Denies any personal or family history of gastrointestinal disease, colon polyps, or CRC.? Denies history of difficulty with sedation or anesthesia in the past.? Patient reports feeling breathless when walking up the stairs. Short of breath with activity. Denies any chest pain, however reports chest pressure with activity. History of breast CA after chemo and radiation. Patient also reports acid reflux currently not on any PPIs or H2 jacquie. Patient reports epigastric pain and bloating after meals. FORMERLY [facility], 1928–1983 Medical History COVID-19 Type 2 diabetes mellitus with diabetic neuropathy, unspecified Diabetes type 2, uncontrolled H/O breast lump DMII (diabetes mellitus, type 2) Hypertension High cholesterol Ovarian cyst Diabetes Physical exam Surgical History History of breast biopsy Hx of subtotal mastectomy of right breast (~2007) H/O eye surgery Hx of cholecystectomy History of section Family History Father Prostate cancer Mother Diabetes Brother Diabetes Social History Household Members: None Housing: Apartment Do you presently have visiting nurse or other home services: No Alcohol intake: never Patient Tobacco Use Status: Never used Tobacco Cigarette Packs Per Day: 0 Years Smoked: 0 e-Cigarette/Vaping Use: Never Used Second Hand Smoke Exposure: No service: No Current occupational status: unemployed Sexual orientation: Straight/Heterosexual Gender identity: Female Cognitive needs: No Hearing needs: No Vision needs: Yes Review of Systems Const Denies weight gain and Denies weight loss ENT Reports no additional complaints, Denies dysphagia and Denies odynophagia Card Reports no additional complaints, Reports chest pain with activity, Reports pedal edema and Reports dyspnea on exertion Resp Reports dyspnea on exertion GI Denies abdominal pain, Denies belching, Denies melena, Denies bloating, Denies change in bowel habits, Denies dysphagia, Denies excessive flatus, Denies dyspepsia, Denies heartburn, Denies diarrhea, Denies loose stools, Denies nausea, Denies odynophagia and Denies vomiting Reports no additional complaints Musc Reports no additional complaints Neuro Reports no additional complaints Psych Reports no additional complaints Endo Reports no additional complaints Physical Exam Vital Signs: Last Vital Signs Pulse 94 11/10/24 08:40 BP 134/62 11/10/24 08:40 Pulse Ox 97 11/10/24 08:40 Oxygen Delivery Method Room Air 11/10/24 08:40 BMI result Body Mass Index 33.4 Const General: healthy appearing, no acute distress and well developed Nutritional Appearance: well nourished Orientation/consciousness: patient oriented x3 Resp Effort & Inspection: normal respiratory effort, able to speak in complete sentences, no tracheal deviation and symmetric chest movement Auscultation: clear to auscultation bilaterally Cardio Rate: regular rate GI Inspection: Yes normal to inspection and No distended Palpation (GI): Soft to palpation, not firm, nontender and No hepatosplenomegaly present Auscultation: normal bowel sounds General: Yes no CVA tenderness Back/Spine/Pelvis Back: no CVA tenderness Skin General skin exam: elasticity normal, turgor normal and dry skin Neuro General: patient oriented x3 Psych Appearance: grossly normal Mental Status: mental status grossly normal Assessment & Plan Assessment & Plan (1) Colon cancer screening: Code(s): Z12.11 - Encounter for screening for malignant neoplasm of colon Category: Medical (2) Constipation: Code(s): K59.00 - Constipation, unspecified Category: Medical Qualifiers: Constipation type: slow transit constipation Qualified Code(s): K59.01 - Slow transit constipation (3) GERD (gastroesophageal reflux disease): Code(s): K21.9 - Gastro-esophageal reflux disease without esophagitis Qualifiers: Esophagitis presence: esophagitis presence not specified Qualified Code(s): K21.9 - Gastro-esophageal reflux disease without esophagitis (4) Postprandial epigastric pain: Code(s): R10.13 - Epigastric pain Plan Patient reports constipation will start her on Dulcolax. Increase fluid intake and activity for her bowel motility. Patient reports acid reflux, not on any PPI or H2 jacquie. Will start her on omeprazole. Patient was encouraged to avoid dietary triggers in late night snacking. Staying upright for minimal 3 hours after meals discussed with patient. Patient reports lower extremity swelling shortness of breath with activities and chest pressure. Patient will be sent to Cardiology to get cleared before going for procedure. She will return in 2 months to rediscuss the procedure and for re-evaluation. She is agreeable to this plan and verbalizes understanding of instructions. She was given the opportunity to ask questions and all questions answered. Thank you for allowing me to participate in her care Orders: Referrals Cardiology Referral R06.02 - Shortness of breath, R07.89 - Other chest pain, Z01.810 - Encounter for preprocedural cardiovascular examination Medications: New omeprazole 20 mg PO DAILY 30 caps 2RF K21.9 - Gastro-esophageal reflux disease without esophagitis bisacodyl (Dulcolax (bisacodyl)) 10 mg (2 x 5 mg) PO BEDTIME 180 tabs 4RF Coding Level of Care Code New Pt Level 4 (92669) Diagnoses Colon cancer screening Z12.11 Slow transit constipation K59.01 Constipation type: slow transit constipation Gastroesophageal reflux disease, unspecified whether esophagitis present K21.9 Esophagitis presence: esophagitis presence not specified Postprandial epigastric pain R10.13 Time Spent (min) 50 Comment 35 minutes spent with patient and additional 15 minutes spent reviewing her records
== END 2024-11-10 09:12 | disposition home or self-care (01) ==
LOC: HO.HGI 08:30
PROVIDERS: PCP Physician Assistant; Visit Provider Nurse Practitioner Family
DX: K59.01 Slow transit constipation (principal); K21.9 Gastro-esophageal reflux disease without esophagitis; R10.13 Epigastric pain; Z12.11 Encounter for screening for malignant neoplasm of colon
CPT/HCPCS: 99204

== ENCOUNTER → 2024-11-10 08:30 | Outpatient (BNVA) | payer OTHER, SELFPAY | PROVIDERS: PCP Physician Assistant; Visit Provider Nurse Practitioner Family | DX: Z01.818 Encounter for other preprocedural examination (principal); K59.01 Slow transit constipation; K21.9 Gastro-esophageal reflux disease without esophagitis; R10.13 Epigastric pain | CPT/HCPCS: 99202 ==

== ENCOUNTER → 2024-11-11 09:27 | Outpatient (REF) | payer OTHER, SELFPAY ==
--- NOTE | 2024-11-11 09:30 | CA_ITS ---
Transthoracic Echocardiogram Patient (Last, First, Middle): Inna Carrillo, Gender: F Date of : 1965 Age: 59 Procedure Date: 11/11/2024 Procedure Type: Transthoracic Echocardiogram Location: OP Height: 167.64 cm Weight: 80.29 kg BSA: 1.90 m2 Heart Rate: bpm BP: 124 / 78 mmHg Automatic Maintainer: TO Referring MD: Komal Guzman MD Final Assembler: Armand Freitas MD Symptoms: J90 - Pleural effusion, not elsewhere classified Study Quality: Fair/Contrast ECG Rhythm: Sinus Conclusions: - 1. Normal LV ejection fraction 55-60% with impaired relaxation filling pattern and elevated filling pressures 2. Mild calcific mitral valve changes noted with normal cardiac valvular Dopplers 3. Upper limits and normal RV systolic pressure Findings Procedure Information Contrast agent, definity, is being given per protocol without apparent complications. Left Ventricle Normal left ventricular size, thickness, and systolic function. The visually estimated ejection fraction is between 55-60%. Spectral Doppler is indicative of an impaired relaxation filling pattern. Elevated filling pressures. E/E prime ratio is >15, consistent with elevated filling pressures. Right Ventricle The right ventricle was not well visualized. Atria The left atrium is normal in size. Interatrial shunt cannot be excluded. The right atrium was not well visualized. Aortic Valve The aortic valve was not well visualized. The aortic valve structure and function is likely normal. There is no aortic valve stenosis. There is no aortic valve regurgitation. Mitral Valve There is mild anterior and posterior mitral leaflet thickening. There is mild mitral annular calcification. There is trace mitral valve regurgitation. There is no mitral valve stenosis. Pulmonic Valve The pulmonic valve was not well visualized. Tricuspid Valve Likely normal tricuspid valve structure and function. There is trace tricuspid valve regurgitation. The right ventricular systolic pressure is normal. The right ventricular systolic pressure is 39 mmHg. Normal right atrial pressure. There is no evidence of pulmonary hypertension. Great Vessels All visible segments of the aorta are normal in size. The pulmonary artery was not well visualized. There is no dilatation of the ascending aorta measuring 2.90 cm. Venous The inferior vena cava is normal in size and collapses greater than 50% with inspiration. Pericardium/Pleural The pericardium was not well visualized. Prior Study Comparison No prior study available for comparison. Measurements 2D Linear Measurements IVSd: 0.85 0.6-0.9/0.6-1.0 cm LVIDd: 3.97 3.9-5.3/4.2-5.9 cm LVIDd Index: 2.09 2.4-3.2/2.2-3.1 cm/m2 LVIDs: 2.76 2.0-3.6 cm LVPWd: 0.77 0.7-1.1 cm LA Diam: 3.50 2.7-3.8/3.0-4.0 cm LAIDs Index: 1.84 1.5-2.3 cm/m2 LV Mass: 116.98 67-162/88-224 g LV Mass Index: 61.57 43-95/49-115 g/m2 LVOT Diam: 2.00 3.0+(-)1.3 cm 2D Systolic Function EF 4C: 58.20 >55% EF 2C: 53.90 >55% EF BiP: 57.10 >55% Mitral Valve MV VTI: 0.31 MV Pk Tra: 1.46 MV Mn Tra: 1.05 MV Pk Grad: 9.00 MV Mn Grad: 5.00 MV Pk E: 1.29 MV PK A: 1.28 MV Decel Time: 153.00 E/A: 1.00 E'Lateral: 7.51 E'Medial: 5.11 E/E' Med: 25.20 E/E' Lat: 17.20 PHT: 45.00 MVA PHT: 4.89 MVA Continuity: 2.29 Decel Sanders: 8.44 Aortic Valve AoV Pk Tra: 1.39 AoV Mn Tra: 0.99 AoV VTI: 0.26 AoV Pk Grad: 8.00 Aov Mn Grad: 4.00 UMA Cont.VTI: 2.76 LVOT LVOT Pk Tra: 1.11 LVOT Mn Tra: 0.72 LVOT VTI: 0.23 LVOT Pk Grad: 5.00 LVOT Mn Grad: 2.00 LVOT Diam: 2.00 LVOT Area: 3.14 Diastolic Function MV Pk E: 1.29 MV Pk A: 1.28 E/A: 1.00 E'Medial: 5.11 E/E' Med: 25.20 E' Laterial: 7.51 E/E' Lat: 17.20 Right Ventricle TAPSE (mm): 24.00 TVS' Tra: 14.70 Tricuspid Valve TR Pk Tra: 3.01 TR Pk Grad: 36.00 RA Press: 3.00 RVSP: 39.00 Great Vessels Aorta Sinus of Valsalva: 2.83 2.0-3.5 cm Ao Asc: 2.90 2.1-3.4 cm Updated in Other Vendor System with Status of Final Armand Freitas MD electronically signed on 11/12/2024 5:20:58 PM with status of Final
== END ==
LOC: HO.CARD 09:27
PROVIDERS: PCP Physician Assistant; Visit Provider Internal Medicine
DX: J90 Pleural effusion, not elsewhere classified (principal)
CPT/HCPCS: 93306; Q9957

== ENCOUNTER → 2024-11-11 09:30 | Outpatient (BNV) | payer OTHER, SELFPAY | PROVIDERS: PCP Physician Assistant; Visit Provider Internal Medicine Cardiovascular Disease | DX: I34.81 Nonrheumatic mitral (valve) annulus calcification (principal); I51.89 Other ill-defined heart diseases; J90 Pleural effusion, not elsewhere classified | CPT/HCPCS: 93306 ==

== ENCOUNTER 2024-11-26 10:20 | Outpatient (AMB) | payer OTHER, SELFPAY ==
--- NOTE | 2024-11-26 10:29 | A.OFFPC_ITS ---
Vital Signs 11/26/24 10:30 Height 5 ft Weight 171 lb BMI 33.4 BP 118/60 Blood Pressure Location Lt brachial Position Sitting Respiration 18 Pulse 97 Pulse Source Pulse Oximeter Temp 97.1 F Temp Source Temporal Artery Scan Pulse Oximetry (%) 95 Oxygen Delivery Method Room Air Intake Visit Reasons: Elevated BP Certified Nurses Aide Required: Yes Certified Nurses Aide Language: Risk And Compliance Analytics Director Name: Sy [id number] Accompanied by: Self / Same As Patient Allergies dexbrompheniramine (From [facility] Allergy (Verified 11/26/24 10:51) upset stomach metformin Adverse Reaction (Verified 11/26/24 10:51) upset stomach Medication List - Last Reconciled 11/26/24 by MAGALI Claire acetaminophen (Tylenol Extra Strength) 1,000 mg (2 x 500 mg) PO Q6H PRN albuterol sulfate 2.5 mg (3 mL) inhalation Q6H PRN 30 days albuterol sulfate 90 mcg/actuation 1 inh inhalation QID PRN 30 days bisacodyl (Dulcolax (bisacodyl)) 10 mg (2 x 5 mg) PO BEDTIME blood sugar diagnostic As directed blood sugar diagnostic (OneTouch Ultra Test strips) Testing 4 times a day blood-glucose meter ([employer] InternationalTouch Ultra2 Meter) Testing 4 times a day blood-glucose sensor (Lumate G7 Sensor device) Use daily As directed to monitor glucose. change q 10 days cane As directed comp.stocking,knee,long,medium As directed cyclobenzaprine 5 mg PO BEDTIME PRN 30 days [Diabetic shoes & 3 pair inserts as directed] docusate sodium 100 mg PO BID 30 days empagliflozin (Jardiance) 25 mg PO QAM 90 days furosemide (Lasix) 20 mg PO DAILY 90 days gabapentin 600 mg (2 x 300 mg) PO BEDTIME glipizide 10 mg PO BID glucagon 3 mg/actuation 3 mg intranasal ONCE PRN glucose (Dex4 Glucose) 16 grams (4 x 4 gram) PO Q15M PRN glucose (Dex4 Glucose) 16 grams (4 x 4 gram) PO Q15M PRN ibuprofen 400 mg PO TID PRN insulin glargine (Lantus Solostar U-100 Insulin) 40 units (0.4 mL) subcut QAM lancets Testing 4 times a day lancets (OneTouch UltraSoft 2 Lancet) use 4x daily As directed to monitor blood sugars nebulizers (VixOne Nebulizer-Adult Mask) As directed nebulizers As directed Novolog FlexPen U-100 Insulin (insulin aspart U-100) inject 15 units with meals 30 days NS omeprazole 20 mg PO DAILY ondansetron HCl 4 mg PO Q8H PRN pen needle, diabetic (Comfort EZ Pen [place]) As directed [Pentips 32 gauge x5/32 in needles As directed] [raised toilet seat As directed] tirzepatide (Mounjaro) 15 mg (0.5 mL) subcut QWEEK [tub seat As directed] Tobacco use date assessed: 11/26/24 Dental Screening Dental Screen Date: 11/26/24 Did you have a dental visit in the last 12 months?: No Did you have a dental problem in the last 6 months where you did not have access to dental care?: No Was dental information given to patient?: No HPI Elevated BP HPI Details The patient is a 59-year-old female presenting for blood pressure management and evaluation of leg swelling. The patient has a history of hypertension, which is currently being managed with Lasix 20 mg. She reports that her blood pressure has improved since her last visit. The patient also reports experiencing swelling in her leg, which has shown improvement. [facility] Medical History COVID-19 Type 2 diabetes mellitus with diabetic neuropathy, unspecified Diabetes type 2, uncontrolled H/O breast lump DMII (diabetes mellitus, type 2) Hypertension High cholesterol Ovarian cyst Diabetes Physical exam Surgical History History of breast biopsy Hx of subtotal mastectomy of right breast (~2007) H/O eye surgery Hx of cholecystectomy History of section Family History Father Prostate cancer Mother Diabetes Brother Diabetes Social History Household Members: None Housing: Apartment Do you presently have visiting nurse or other home services: No Alcohol intake: never Patient Tobacco Use Status: Never used Tobacco Cigarette Packs Per Day: 0 Years Smoked: 0 Packs Per Year: 0 e-Cigarette/Vaping Use: Never Used Second Hand Smoke Exposure: No service: No Current occupational status: unemployed Sexual orientation: Straight/Heterosexual Gender identity: Female Cognitive needs: No Hearing needs: No Vision needs: Yes Questionnaire PHQ-9 Over the last 2 weeks, how often have you been bothered by any of the following problems? 1. Little interest or pleasure in doing things: not at all 2. Feeling down, depressed, or hopeless: not at all 3. Trouble falling or staying asleep, or sleeping too much: not at all 4. Feeling tired or having little energy: not at all 5. Poor appetite or overeating: not at all 6. Feeling bad about yourself - or that you are a failure or have let yourself or your family down: not at all 7. Trouble concentrating on things, such as reading the newspaper or watching television: not at all 8. Moving or speaking so slowly that other people could have noticed. Or the opposite - being so fidgety or restless that you have been moving around a lot more than usual: not at all 9. Thoughts that you would be better off or of hurting yourself in some way: not at all Total score: 0 Depression Screening Interpretation: Negative Depression Screening Done: Yes Source: Developed by Drs. Darrell Gomez, Peggy Ferrer, Lam Alvarado and colleagues, with an educational oren from [employer]. Thrive Questionnaire Date Thrive assessed: 11/26/24 I am a: Parent/Caregiver What is your living situation today?: I choose not to answer this question Within the past 12 months, did the food you bought not last and you didn't have the money to get more?: I choose not to answer this question Within the past 12 months, did you worry whether your food would run out before you got money to buy more?: I choose not to answer this question Do you have trouble paying for medicines?: I choose not to answer this question Do you have trouble getting transportation to medical appointments?: I choose not to answer this question Do you have trouble paying your heating and electricity bill?: I choose not to answer this question Do you have trouble taking care of your child, family member or friend?: I choose not to answer this question Do you have trouble with day-to-day activities such as bathing, preparing meals, shopping, managing finances, etc.?: I choose not to answer this question Are you currently unemployed and looking for a job?: I choose not to answer this question Are you interested in more education?: I choose not to answer this question Currently or been in a relationship where the following occur: I choose not to answer THRIVE Score: 0 AUDIT C Alcohol Use Questionnaire (AUDIT-C) 1. How often do you have a drink containing alcohol?: Never 3. How often do you have six or more drinks on one occasion?: Never Total Score: 0 JASON-7 AMB Questionnaire JASON-7 Date JASON - 7 assessed: 11/26/24 Feeling nervous, anxious, or on edge: 0 = Not at all Not being able to stop or control worryin = Not at all Worrying too much about different things: 0 = Not at all Trouble relaxin = Not at all Being so restless that it is hard to sit still: 0 = Not at all Becoming easily annoyed or irritable: 0 = Not at all Feeling afraid as if something awful might happen: 0 = Not at all Total JASON-7 score (0-4 normal; 5-9 mild; 10-14 moderate; 15-21 severe): 0 Source: Developed by Drs. Darrell Gomez, Peggy Ferrer, Lam Alvarado and colleagues, with an educational oren from [employer]. Review of Systems Const Denies body aches, Denies chills, Denies fever(s), Denies headache(s) and Denies poor appetite Eyes Reports no additional complaints ENT Denies dysphagia, Denies dizziness, Denies headache(s) and Denies odynophagia Card Denies chest pain, Denies syncope, Denies edema, Denies irregular heart rhythm, Denies lightheadedness and Denies dyspnea Resp Denies cough and Denies dyspnea GI Denies abdominal pain, Denies constipation, Denies dysphagia, Denies diarrhea, Denies nausea, Denies odynophagia and Denies vomiting Reports no additional complaints Musc Reports no additional complaints and Denies abnormal gait Skin/Breast Reports system reviewed and no additional complaints, except as documented Neuro Denies abnormal gait, Denies dizziness, Denies syncope and Denies headache(s) Psych Reports no additional complaints Physical exam (Primary Care) Vital Signs: Last Vital Signs Temp 97.1 F 11/26/24 10:30 Pulse 97 11/26/24 10:30 Resp 18 11/26/24 10:30 BP 118/60 11/26/24 10:30 Pulse Ox 95 11/26/24 10:30 Oxygen Delivery Method Room Air 11/26/24 10:30 BMI result Body Mass Index 33.4 Tobacco/Smoking Status: Tobacco use Status Tobacco use date assessed 11/26/24 11/26/24 10:38 Patient Tobacco Use Status Never used Tobacco 11/26/24 10:38 e-Cigarette/Vaping Use Never Used 11/26/24 10:38 PHQ-9: PHQ-9 Score PHQ-9: Total score 0 11/26/24 10:52 Depression Screening Interpretation: Negative Thrive Assessment: Date of Thrive Assessment Date Thrive assessed 11/26/24 11/26/24 10:38 Currently or been in a relationship where the following occur: I choose not to answer Const General: cooperative, healthy appearing, comfortable and no acute distress Orientation/consciousness: patient oriented x3 HENMT Head: Yes normocephalic Ears: hearing grossly normal bilaterally General nose exam: Normal external nose present Eyes General: appearance normal, both eyes and all related structures Conjunctivae: conjunctivae normal Neck Neck: Yes full ROM and Yes no lymphadenopathy Resp Effort & Inspection: normal respiratory effort Auscultation: clear to auscultation bilaterally, no crackles, no rales, no rhonchi and no wheezes Cardio Rate: regular rate Rhythm: regular rhythm Skin General skin exam: no rashes or lesions noted Neuro General: patient oriented x3 Gait exam (Neuro): Normal gait present Extrem General: Yes normal to inspection, Yes full ROM and No edema Psych Affect: normal affect Attitude: cooperative Insight: Good insight present (Psych) Judgement: Good judgement present (Psych) Coding Level of Care Code Est Pt Level 3 (56209) Diagnoses Essential hypertension I10 Lower extremity edema R60.0 Time Spent (min) 31 Assessment & Plan Assessment & Plan (1) Essential hypertension: Code(s): I10 - Essential (primary) hypertension Category: Medical (2) Lower extremity edema: Code(s): R60.0 - Localized edema Category: Medical Plan Patient blood pressure 118/60 in office-within goal Reinforced low-salt diet and activity as tolerated The patient bilateral edema improved-no swelling noted in office. Lung sounds clear to auscultation bilaterally Continue furosemide 20 mg daily. We will continue to monitor
[2024-11-26 10:30] VITALS: BP 118/60; PULSE 97; RESP 18; TEMP 36.2; O2SAT 95; BMI 33.4
== END 2024-11-26 11:03 | disposition home or self-care (01) ==
LOC: HO.HMCH 10:21
PROVIDERS: PCP Internal Medicine
DX: I10 Essential (primary) hypertension (principal); R60.0 Localized edema

== ENCOUNTER → 2024-11-26 10:20 | Outpatient (BNVA) | payer OTHER, SELFPAY | PROVIDERS: PCP Internal Medicine | DX: I10 Essential (primary) hypertension (principal); R60.0 Localized edema | CPT/HCPCS: 96127; 99212 ==

== ENCOUNTER 2024-12-22 14:28 | Outpatient (AMB) | payer OTHER, SELFPAY ==
--- NOTE | 2024-12-22 14:57 | A.OFFPC_ITS ---
Vital Signs 12/22/24 14:58 Height 5 ft Weight 178 lb 8 oz BMI 34.9 BP 130/66 Blood Pressure Location Lt brachial Position Sitting Pulse 92 Pulse Source Pulse Oximeter Temp 97.1 F Temp Source Temporal Artery Scan Pulse Oximetry (%) 98 Oxygen Delivery Method Room Air Intake Visit Reasons: Annual Physical Intake Note: Patient is here today for a physical. 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 Worker Required: Yes 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 Worker Language: Cyanide Case Hardener Name: [id number] Information Interpreted: non-clinical & clinical Substation Maintenance Technician: Not Required per policy Accompanied by: Self / Same As Patient Allergies dexbrompheniramine (From Dologesic-DF) Allergy (Verified 12/22/24 14:58) upset stomach metformin Adverse Reaction (Verified 12/22/24 14:58) upset stomach Medication List - Last Reconciled 12/22/24 by Fara Kirk MD acetaminophen (Tylenol Extra Strength) 1,000 mg (2 x 500 mg) PO Q6H PRN albuterol sulfate 2.5 mg (3 mL) inhalation Q6H PRN 30 days albuterol sulfate 90 mcg/actuation 1 inh inhalation QID PRN 30 days blood sugar diagnostic As directed blood sugar diagnostic ([employer] Ultra Test strips) Testing 4 times a day blood-glucose meter ([employer] Ultra2 Meter) Testing 4 times a day blood-glucose sensor ([employer] G7 Sensor device) Use daily As directed to monitor glucose. change q 10 days cane As directed comp.stocking,knee,long,medium As directed cyclobenzaprine 5 mg PO BEDTIME PRN 30 days [Diabetic shoes & 3 pair inserts as directed] empagliflozin (Jardiance) 25 mg PO QAM 90 days furosemide (Lasix) 20 mg PO DAILY 90 days gabapentin 300 mg PO TID glucagon 3 mg/actuation 3 mg intranasal ONCE PRN ibuprofen 400 mg PO TID PRN insulin glargine (Lantus Solostar U-100 Insulin) 40 units (0.4 mL) subcut QPM lancets Testing 4 times a day lancets ([employer] UltraSoft 2 Lancet) use 4x daily As directed to monitor blood sugars lisinopril 5 mg (2 x 2.5 mg) PO DAILY 90 days nebulizers (VixOne Nebulizer-Adult Mask) As directed nebulizers As directed Novolog FlexPen U-100 Insulin (insulin aspart U-100) inject 15 units with meals 30 days NS omeprazole 20 mg PO DAILY ondansetron HCl 4 mg PO Q8H PRN pen needle, diabetic (Comfort EZ Pen [place]) As directed [Pentips 32 gauge x5/32 in needles As directed] [raised toilet seat As directed] tirzepatide (Mounjaro) 15 mg (0.5 mL) subcut QWEEK [tub seat As directed] Tobacco use date assessed: 12/22/24 Dental Screening Dental Screen Date: 11/26/24 HPI HPI Comments History of Present Illness Details The patient is a 59-year-old female presenting with an annual physical examination and management of neuropathy and diabetes mellitus. The patient reports experiencing neuropathy, which primarily affects her at night, causing significant discomfort. She is currently taking gabapentin 600 mg at bedtime, which will be adjusted to 300 mg three times a day to better manage her symptoms. The patient has a history of diabetes mellitus, with recent morning blood glucose levels around 380-389 mg/dL. Her hemoglobin A1c has improved from 10.3% in August to 8.2% currently. The patient is on insulin therapy, and adjustments are being made to her regimen, including changing the timing of her long-acting insulin to bedtime. Recent laboratory tests indicated proteinuria, which is being addressed with the initiation of lisinopril 5 mg daily. The patient is scheduled for a colonoscopy on January 07 and has been advised to discuss insulin management with the procedural team due to her diabetes. She has not yet received her flu vaccination, which is planned for today. [facility] Medical History COVID-19 Type 2 diabetes mellitus with diabetic neuropathy, unspecified Diabetes type 2, uncontrolled H/O breast lump DMII (diabetes mellitus, type 2) Hypertension High cholesterol Ovarian cyst Diabetes Physical exam Surgical History History of breast biopsy Hx of subtotal mastectomy of right breast (~2007) H/O eye surgery Hx of cholecystectomy History of section Family History Father Prostate cancer Mother Diabetes Brother Diabetes Social History Household Members: None Housing: Apartment Do you presently have visiting nurse or other home services: No Alcohol intake: never Patient Tobacco Use Status: Never used Tobacco Cigarette Packs Per Day: 0 Years Smoked: 0 Packs Per Year: 0 e-Cigarette/Vaping Use: Never Used Second Hand Smoke Exposure: No service: No Current occupational status: unemployed Sexual orientation: Straight/Heterosexual Gender identity: Female Cognitive needs: No Hearing needs: No Vision needs: Yes Questionnaire Thrive Questionnaire Date Thrive assessed: 09/28/24 I am a: Parent/Caregiver What is your living situation today?: I choose not to answer this question Within the past 12 months, did the food you bought not last and you didn't have the money to get more?: I choose not to answer this question Within the past 12 months, did you worry whether your food would run out before you got money to buy more?: I choose not to answer this question Do you have trouble paying for medicines?: I choose not to answer this question Do you have trouble getting transportation to medical appointments?: I choose not to answer this question Do you have trouble paying your heating and electricity bill?: I choose not to answer this question Do you have trouble taking care of your child, family member or friend?: I choose not to answer this question Do you have trouble with day-to-day activities such as bathing, preparing meals, shopping, managing finances, etc.?: I choose not to answer this question Are you currently unemployed and looking for a job?: I choose not to answer this question Are you interested in more education?: I choose not to answer this question Currently or been in a relationship where the following occur: I choose not to answer THRIVE Score: 0 JASON-7 AMB Questionnaire JASON-7 Date JASON - 7 assessed: 11/26/24 Source: Developed by Drs. Darrell Gomez, Peggy Ferrer, Lam Alvarado and colleagues, with an educational oren from [employer]. Review of Systems Const Details: Positives besides what was mentioned in HPI are in BOLD Constitutional: No Weight Change, No Fever, No Chills, No Night Sweats, No Fatigue, No Malaise ENT/Mouth: No Hearing Changes, No Ear Pain, No Nasal Congestion, No Sinus Pain, No Hoarseness, No sore throat, No Rhinorrhea, No Swallowing Difficulty Eyes: No Eye Pain, No Swelling, No Redness, No Foreign Body, No Discharge, No Vision Changes Cardiovascular: No Chest Pain, No SOB, No PND, No Dyspnea on Exertion, No Orthopnea, No Claudication, No Edema, No Palpitations Respiratory: No Cough, No Sputum, No Wheezing, No Smoke Exposure, No Dyspnea Gastrointestinal: No Nausea, No Vomiting, No Diarrhea, No Constipation, No Pain, No Heartburn, No Anorexia, No Dysphagia, No Hematochezia, No Melena, No F latulence, No Jaundice Genitourinary: No Dysmenorrhea, No DUB, No Dyspareunia, No Dysuria, No Urinary Frequency, No Hematuria, No Urinary Incontinence, No Urgency, No Flank Pain, No Urinary Flow Changes, No Hesitancy Musculoskeletal: No Arthralgias, No Myalgias, No Joint Swelling, No Joint Stiffness, No Back Pain, No Neck Pain, No Injury History Skin: No Skin Lesions, No Pruritis, No Hair Changes, No Breast/Skin Changes, No Nipple Discharge Neuro: No Weakness, No Numbness, No Paresthesias, No Loss of Consciousness, No Syncope, No Dizziness, No Headache, No Coordination Changes, No Recent Falls Psych: No Anxiety/Panic, No Depression, No Insomnia, No Personality Changes, No Delusions, No Rumination, No SI/HI/AH/VH, No Social Issues, No Memory Changes, No Violence/Abuse Hx., No Eating Concerns Heme/Lymph: No Bruising, No Bleeding, No Transfusions History, No Lymphadenopathy Endocrine: No Polyuria, No Polydipsia, No Temperature Intolerance Physical exam (Primary Care) Vital Signs: Last Vital Signs Temp 97.1 F 12/22/24 14:58 Pulse 92 12/22/24 14:58 BP 130/66 12/22/24 14:58 Pulse Ox 98 12/22/24 14:58 Oxygen Delivery Method Room Air 12/22/24 14:58 BMI result Body Mass Index 34.9 Tobacco/Smoking Status: Tobacco use Status Tobacco use date assessed 12/22/24 12/22/24 14:59 Patient Tobacco Use Status Never used Tobacco 12/22/24 14:59 e-Cigarette/Vaping Use Never Used 12/22/24 14:59 Thrive Assessment: Date of Thrive Assessment Date Thrive assessed 09/28/24 12/22/24 14:59 Currently or been in a relationship where the following occur: I choose not to answer Const Other: Pertinent findings are in BOLD GENERAL APPEARANCE NAD, activity normal for age, well developed/ well nourished, no cyanosis, pallor, or diaphoresis. EYES lids/conjunctiva normal. EARS/NOSE/THROAT Mucous membranes moist, nares normal, lips/teeth normal uvula midline without oral pharyngeal erythema, exudate or swelling TMs normal bilaterally. No lymphangitis/lymphedema. HEAD/NECK normocephalic atraumatic, no facial trauma, neck is supple. RESPIRATORY respiratory effort normal, speaks in full sentences, no tripod position, no accessory muscle use. Lungs clear to auscultation without rhonchi, wheezes, rales CARDIAC Regular rate and rhythm, no edema. ABDOMINAL Soft, ND/NT. No evidence of fluid wave. No pulsatile masses on exam, rebound tenderness, Harmon sign or pain over Mcburney's point. MUSCLES/EXTREMITIES No abnormal range of motion, no swelling. SKIN Warm, pink and dry. No rashes, dermatoses, petechiae or lesions. NEUROLOGICAL Speech is clear and appropriate. Normal level of consciousness. Gait and coordination are normal. 5/5 strength in all extremities. PSYCH Normal mood and affect. 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: with marine oil terminal superintendent use Healthcare maintenance Z00.00 Neuropathy G62.9 Proteinuria R80.9 Assessment & Plan Assessment & Plan (1) Type 2 diabetes mellitus with diabetic neuropathy, unspecified: Code(s): E11.40 - Type 2 diabetes mellitus with diabetic neuropathy, unspecified Category: Medical Qualifiers: 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 - Monitor blood glucose levels closely, especially in the morning. - Patient had recent eye exam. - Podiatry referral placed. - A1C every 3 months. (2) Healthcare maintenance: Code(s): Z00.00 - Encounter for general adult medical examination without abnormal findings Category: Medical Plan: CBC, CMP, Lipid panel, A1C, TSH w T4. Done recently. Patient reports completing COVID Flu vaccine given today in clinic. Colonoscopy: 45-75 Scheduled for . AAA: NI. Ct lung: NI Mammogram: done this year. Due next year. HPV: patient is due for PAP smear. She will schedule F-U with her DANCE PROFESSOR. HIV: Next visit. HBV: Next visit. HCV: Next visit. (3) Neuropathy: Code(s): G62.9 - Polyneuropathy, unspecified Category: Medical Plan: - Adjust gabapentin to 300 mg three times daily to manage symptoms more effectively. - Referral to podiatry for further evaluation and management. (4) Proteinuria: Code(s): R80.9 - Proteinuria, unspecified Category: Medical Plan: Started Lisinopril 2 mg Daily. CTM with yearly U Cr/protein. Plan During the visit, I discussed the management of neuropathy, including adjusting the gabapentin dosage to 300 mg three times daily and referring the patient to podiatry for further evaluation. For diabetes management, I advised changing the timing of the long-acting insulin to bedtime to better control morning glucose levels. We also addressed the issue of proteinuria by starting lisinopril 5 mg daily, explaining its dual role in managing blood pressure and reducing proteinuria. Orders: Orders AMB Hemoglobin A1c Today E11.40 - Type 2 diabetes mellitus with diabetic neuropathy, unspecified, E11.65 - Type 2 diabetes mellitus with hyperglycemia, Z79.4 - terminal operations supervisor (current) use of insulin Referrals Podiatry Referral E11.40 - Type 2 diabetes mellitus with diabetic neuropathy, unspecified, Z79.4 - terminal operations supervisor (current) use of insulin Medications: New lisinopril 5 mg (2 x 2.5 mg) PO DAILY 180 tabs 3RF 90 days Changed From gabapentin 600 mg (2 x 300 mg) PO BEDTIME 180 caps 3RF To gabapentin 300 mg PO TID 180 caps 3RF From insulin glargine (Lantus Solostar U-100 Insulin) 40 units (0.4 mL) subcut QAM 15 mL 2RF E11.40 - Type 2 diabetes mellitus with diabetic neuropathy, unspecified To insulin glargine (Lantus Solostar U-100 Insulin) 40 units (0.4 mL) subcut QPM 15 mL 2RF E11.40 - Type 2 diabetes mellitus with diabetic neuropathy, unspecified Refilled Novolog FlexPen U-100 Insulin (insulin aspart U-100) inject 15 units with meals 15 mL 3RF 30 days NS E11.40 - Type 2 diabetes mellitus with diabetic neuropathy, unspecified, Z79.4 - retirement (current) use of insulin Discontinued docusate sodium Discontinued Reason: Patient no longer taking 100 mg PO BID 30 days 60 caps 3RF K59.01 - Slow transit constipation bisacodyl (Dulcolax (bisacodyl)) Discontinued Reason: Patient no longer taking 10 mg (2 x 5 mg) PO BEDTIME 180 tabs 4RF
[2024-12-22 14:58] VITALS: BP 130/66; PULSE 92; TEMP 36.2; O2SAT 98; BMI 34.9
== END 2024-12-22 15:54 | disposition home or self-care (01) ==
LOC: HO.HMCH 14:29
PROVIDERS: PCP Internal Medicine; Visit Provider Internal Medicine
DX: Z00.00 Encounter for general adult medical examination without abnormal findings (principal); E11.40 Type 2 diabetes mellitus with diabetic neuropathy, unspecified; Z79.4 Long term (current) use of insulin; E11.65 Type 2 diabetes mellitus with hyperglycemia; G62.9 Polyneuropathy, unspecified; R80.9 Proteinuria, unspecified

== ENCOUNTER → 2024-12-22 14:28 | Outpatient (BNVA) | payer OTHER, SELFPAY | PROVIDERS: PCP Internal Medicine; Visit Provider Internal Medicine | DX: Z00.00 Encounter for general adult medical examination without abnormal findings (principal); E11.40 Type 2 diabetes mellitus with diabetic neuropathy, unspecified; R80.9 Proteinuria, unspecified; K59.01 Slow transit constipation; Z79.4 Long term (current) use of insulin | CPT/HCPCS: 83036; 99212; 99396 ==

== ENCOUNTER 2024-12-28 21:57 | Emergency (ER) | payer OTHER, SELFPAY ==
--- NOTE | 2024-12-28 | ECG_ITS ---
Test Reason : CHEST WALL PAIN Blood Pressure : */* mmHG Vent. Rate : 88 BPM Atrial Rate : 88 BPM P-R Int : 148 ms QRS Dur : 74 ms QT Int : 372 ms P-R-T Axes : 43 6 0 degrees QTcB Int : 450 ms Sinus rhythm with Premature atrial complexes Otherwise normal ECG When compared with ECG of 23-Mar-2023 07:08, Premature atrial complexes are now Present Referred By: Marcia Jj Electronically Signed By: CLAUS MONTOYA MD
[2024-12-28 22:03] VITALS: BP 150/92; PULSE 74; O2SAT 96; BMI 33.3
[2024-12-28 22:05] VITALS: BP 115/55; PULSE 89; RESP 16; TEMP 36.6; O2SAT 97
[2024-12-28 23:15] LABS: MANUAL DIFF FLAG NO
[2024-12-28 23:17] LABS: Hematocrit 38.4 % (37.0-47.0); Hemoglobin 13.1 g/dl (12.0-16.0); Imm Gran Abs Auto 0.02 X10*3/uL (0.00-0.03); Imm Gran Pct Auto 0.2 % (0.0-0.4); Lymphocytes Absolute Auto 3.5 X10*3/uL (1.2-4.9); Mean Corpuscular HGB Conc 34.1 g/dl (31.0-35.0); Mean Corpuscular Hemoglobin 28.0 pg (27.0-33.0); Mean Corpuscular Volume 82.1 fL (80.0-98.0); NRBC Abs Auto 0.000 X10*3/uL (0.0-0.012); NRBC Pct Auto 0.0 /100WBC (0.0-0.2); Platelet Count 240 X10*3/uL (160-400); Red Blood Count 4.68 X10*6/uL (4.20-5.50); White Blood Count 11.7 X10*3/uL (4.8-10.8)
[2024-12-28 23:33] LABS: Alanine Aminotransferase 12 U/L (0-31); Albumin Level 4.1 g/dL (3.5-5.0); Alkaline Phosphatase 144 U/L (39-117); Anion Gap 11 (12-20); Aspartate Amino Transferase 19 U/L (5-31); Blood Urea Nitrogen 15 mg/dL (9-16); Calcium 9.2 mg/dL (8.4-10.2); Carbon Dioxide 27 mmol/L (22-29); Chloride 109 mmol/L (96-108); Creatinine Clr Calc Pharmacy 97.2; Estimated Glomerular Filt Rate > 60; Potassium 3.7 mmol/L (3.3-5.1); Sodium 143 mmol/L (135-145); Total Protein 6.6 g/dL (6.5-8.0)
[2024-12-28 23:40] LABS: Troponin-I High Sensitivity < 2.7 ng/L (<3.5-17.0)
--- NOTE | 2024-12-29 01:11 | ED_ITS ---
HPI - General Adult General Chief complaint: General Medical Stated complaint: R side arm pain, hx:breast cancer, 12/31 head pain Time Seen by Provider: 12/28/24 22:08 Source: patient and family Mode of arrival: ambulatory Limitations: no limitations History of Present Illness ED Provider: Dr. Marcia Jj HPI narrative: Patient comes to the emergency room complaining of right-sided chest pain. Patient states that she has a scar on the right side of the chest, started hurting today. Patient stated that her surgery was in 2020. Also, patient complaining of feeling very somnolent, patient's dose of gabapentin was recent. Patient is taking 300 mg t.i.d for neuropathy. Patient denies shortness of breath, denies nausea vomiting diarrhea, no URI symptoms. Related Data Home Medications ?Medication ?Instructions ?Recorded ?Confirmed Diabetic shoes & 3 pair inserts 06/13/23 12/22/24 Previous Rx's ?Medication ?Instructions ?Recorded blood sugar diagnostic #50 ea 05/22/20 nebulizers (VixOne Nebulizer-Adult #1 ea 04/05/21 Mask) albuterol sulfate 2.5 mg/3 mL 2.5 mg (3 mL) inhalation Q6H PRN 04/18/21 (0.083 %) solution for nebulization shortness of breat h or wheezing 30 days #180 mL nebulizers #1 ea 04/18/21 lancets #200 ea 04/21/23 acetaminophen 500 mg tablet 1,000 mg (2 x 500 mg) PO Q 6H PRN 07/13/23 (Tylenol Extra Strength) fever or pain #20 tabs ibuprofen 400 mg tablet 400 mg PO TID PRN fever or p ain 07/13/23 #30 tabs comp.stocking,knee,long,medium #2 ea 07/23/23 Pentips 32 gauge x5/32 in needles #1 ea 11/28/23 albuterol sulfate 90 mcg/actuation 1 inh inhalation QI D PRN shortness 04/12/24 aerosol inhaler of breath or wheezing 30 day s #8.5 grams ondansetron HCl 4 mg tablet 4 mg PO Q8H PRN nausea and 05/04/24 vomiting #10 tabs empagliflozin 25 mg tablet 25 mg PO QAM 90 days #90 ta bs 05/17/24 (Jardiance) glucagon 3 mg/actuation nasal spray 3 mg intranasal ON CE PRN 07/01/24 hypoglycemia #1 ea blood-glucose sensor (Dexcom G7 #9 ea 08/23/24 Sensor device) pen needle, diabetic 32 gauge x #50 ea 09/21/24 5/32 (Comfort EZ Pen Floyd) cane #1 ea 09/28/24 cyclobenzaprine 5 mg tablet 5 mg PO BEDTIME PRN muscle spasm 09/28/24 30 days #30 tabs raised toilet seat #1 ea 09/28/24 tub seat #1 ea 09/28/24 blood sugar diagnostic (OneTouch #100 ea 10/11/24 Ultra Test strips) blood-glucose meter (OneTouch #1 ea 10/11/24 Ultra2 Meter) lancets 30 gauge (OneTouch #100 ea 10/11/24 UltraSoft 2 Lancet) furosemide 20 mg tablet (Lasix) 20 mg PO DAILY 90 days #90 tabs 10/12/24 tirzepatide 15 mg/0.5 mL 15 mg (0.5 mL) subcut QWEEK #2 mL 10/25/24 subcutaneous pen injector (Jocelyn) omeprazole 20 mg capsule,delayed 20 mg PO DAILY #30 ca ps 11/10/24 release Novolog FlexPen U-100 Insulin 100 See Rx Instructions subcut 12/22/24 unit/mL (3 mL) subcutaneous .COMPLEX 30 days #15 mL (insulin aspart U-100) gabapentin 300 mg capsule 300 mg PO TID #180 caps 04/17 insulin glargine 100 unit/mL (3 40 unit (0.4 mL) subcu t QPM #15 mL 12/22/24 mL) subcutaneous pen (Lantus Solostar U-100 Insulin) lisinopril 2.5 mg tablet 5 mg (2 x 2.5 mg) PO DAILY 9 0 days 12/22/24 #180 tabs gabapentin 100 mg capsule 100 mg PO TID PRN Neuropathy #90 12/29/24 caps ketorolac 10 mg tablet 10 mg PO Q8H #12 tabs Allergies Allergy/AdvReac Type Severity Reaction Status Date / Time dexbrompheniramine (From Allergy upset Verified 12/28/24 22:10 Dologesic-DF) stomach metformin AdvReac upset Verified 12/28/24 22:10 stomach Review of Systems 2 Review of Systems: Constitutional : No Weight loss, No Fever, No Chills, No Night Sweats, No Fatigue, No Malaise ENT/Mouth : No Hearing loss, No Ear Pain, No Nasal Congestion, No Sinus Pain, No Hoarseness, No sore throat, No Rhinorrhea, No Swallowing Difficulty Eyes: No Eye Pain, No Swelling, No Redness, No Foreign Body, No Discharge, No Vision Changes Cardiovascular : No Chest Pain, No SOB, No Dyspnea on Exertion, No Orthopnea, No Edema, No Palpitations Respiratory : No Cough, No Sputum, No Wheezing, No Smoke Exposure, No Dyspnea Gastrointestinal : No Nausea, No Vomiting, No Diarrhea, No Constipation, No abdominal Pain, No Hematochezia, No Melena Genitourinary : no irregular bleeding, No Dysuria, No Urinary Frequency, No Hematuria, No Urinary Incontinence, No Urgency, No Flank Pain, No Urinary Flow Changes, No Hesitancy Musculoskeletal : No joint pain, No Myalgias, No Joint Swelling complaining of right-sided chest pain over a scar from a surgery in 2020 Skin : No Skin Lesions, No rash Neuro : No Weakness, No Numbness, No Paresthesias, No Loss of Consciousness, complaining of headache Dizziness, No Headache, complaining of somnolence due to increased dose of gabapentin Psych : No Anxiety/Panic, No Depression, No SI/HI/AH/VH, No Social Issues, Heme/Lymph: No Bruising, No Bleeding,No Lymphadenopathy Endocrine : No Polyuria, No Polydipsia, No Temperature Intolerance [facility] Past Medical History Medical History COVID-19 Type 2 diabetes mellitus with diabetic neuropathy, unspecified Diabetes type 2, uncontrolled H/O breast lump DMII (diabetes mellitus, type 2) Hypertension High cholesterol Ovarian cyst Diabetes Physical exam Surgical History History of breast biopsy Hx of subtotal mastectomy of right breast (~2007) H/O eye surgery Hx of cholecystectomy History of section Family History Family History Father Prostate cancer Mother Diabetes Brother Diabetes Social History Social History Household Members: None Housing: Apartment Do you presently have visiting nurse or other home services: No Alcohol intake: never Patient Tobacco Use Status: Never used Tobacco Cigarette Packs Per Day: 0 Years Smoked: 0 Smoked in Last 30 Days: No e-Cigarette/Vaping Use: Never Used Second Hand Smoke Exposure: No Use of substances other than those prescribed or required for medical reasons: No Advance Directives: No Advance Directives Information Provided: No service: No Current occupational status: unemployed Sexual orientation: Straight/Heterosexual Gender identity: Female Cognitive needs: No Hearing needs: No Vision needs: Yes Physical Exam ED Exam Exam: Appearance: Alert. Oriented X3. No acute distress. Eyes: Pupils equal, round and reactive to light. ENT: Pharynx normal. Neck: Normal inspection. Neck supple. No lymph nodes noted. No crepitus CVS: Normal heart rate and rhythm. Pulses normal. Normal S1 and S2 Respiratory: No respiratory distress. Breath sounds normal. No Wheezing. No rales Abdomen: Soft and nontender. No rigidity. No distention. Skin: Skin warm and dry. Normal skin color. Normal skin turgor. Well-healed scar over the right side of the chest, no erythema, no pus drainage. Reproduces Pain to palpation Extremities: No lower extremity edema. No Lacerations. No Rash Neuro: Oriented X 3. No motor deficit. No sensory deficit. Moving all extremities. No slurred speech. CN 2 through 12 grossly intact Psych: calm, cooperative, normal affect Vital Signs: Vital Signs - 24 hr 12/28/24 22:05 Temperature 97.8 F Pulse Rate 89 Respiratory Rate 16 Blood Pressure 115/55 L Pulse Oximetry 97 Oxygen Delivery Method Room Air BMI result Body Mass Index 33.3 Medical Decision Making Medical Decision Making [facility] Narrative: My interpretation of EKG: Normal sinus rhythm, heart rate 88, occasional premature atrial complexes, no ST segment depression or elevation, no T-wave inversion, QTC 450 My interpretation of labs: No significant abnormality in patient's hematology chemistry, troponin normal, LFTs normal On physical exam, patient has reproducible chest pain, likely musculoskeletal pain. Patient states that she still has a bit of a headache. Patient was given IM Toradol Overall patient feeling better than when she came in, patient states that the pain over her scar is nearly resolved. Differential Diagnosis Differential Diagnoses: The differential diagnosis associated with the presentation includes (Neuropathy, musculoskeletal pain, ACS) Admission/Observation Consideration of admission/observation: Escalation of care including admission/observation considered (Given patient's age, complaints, length of symptoms, observation was considered) Lab Data MDM Lab Attestation statement: I reviewed the patient's lab results. 12/28/24 23:11 12/28/24 23:11 Labs: Lab Results 12/28/24 Range/Units 23:11 WBC 11.7 H (4.8-10.8) X10*3/uL RBC 4.68 (4.20-5.50) X10*6/uL Hgb 13.1 (12.0-16.0) g/dl Hct 38.4 (37.0-47.0) % MCV 82.1 (80.0-98.0) fL MCH 28.0 (27.0-33.0) pg MCHC 34.1 (31.0-35.0) g/dl RDW 14.4 (11.0-16.0) % Plt Count 240 (160-400) X10*3/uL MPV 9.6 (9.4-12.3) fL Immature Gran % (Auto) 0.2 (0.0-0.4) % Neut % (Auto) 57.6 (45-73) % Lymph % (Auto) 29.9 (20-40) % [place] % (Auto) 10.0 (2-11) % Eos % (Auto) 1.6 (0-4) % Baso % (Auto) 0.7 (0-2) % Lymph # (Auto) 3.5 (1.2-4.9) X10*3/uL [place] # (Auto) 1.2 (0.1-1.2) X10*3/uL Eos # (Auto) 0.2 (0.0-0.4) X10*3/uL Baso # (Auto) 0.1 (0.0-0.2) X10*3/uL Abs Immat Gran (auto) 0.02 (0.00-0.03) X10*3/uL Absolute Neuts (auto) 6.7 (2.0-8.3) x10*3/uL Absolute Nucleated RBC 0.000 (0.0-0.012) X10*3/uL Nucleated RBC % (auto) 0.0 (0.0-0.2) /100WBC Sodium 143 (135-145) mmol/L Potassium 3.7 (3.3-5.1) mmol/L Chloride 109 H (96-108) mmol/L Carbon Dioxide 27 (22-29) mmol/L Anion Gap 11 L (12-20) BUN 15 (9-16) mg/dL Creatinine 0.66 (0.5-1.4) mg/dL Estim Creat Clear Calc 97.2 Estimated GFR > 60 Random Glucose 163 H (60-115) mg/dL Calcium 9.2 (8.4-10.2) mg/dL Total Bilirubin 0.2 (0.0-1.0) mg/dL AST 19 (5-31) U/L ALT 12 (0-31) U/L Alkaline Phosphatase 144 H (39-117) U/L Troponin I High Sens < 2.7 (<3.5-17.0) ng/L Total Protein 6.6 (6.5-8.0) g/dL Albumin 4.1 (3.5-5.0) g/dL Independent Interpretation I performed an independent interpretation of an: EKG Discharge Plan Discharge Clinical Impression: Atypical chest pain, Medication side effect, Acute tension headache Patient Disposition: Home, Self-Care Instructions: Chest Pain (ED), Adverse Drug Reaction (ED), Chest Wall Pain (ED) Additional Instructions: Please follow-up with your primary care physician tomorrow. If you have any worsening or new symptoms, please return to the emergency room or call 911 Prescriptions: New gabapentin 100 mg capsule 100 mg PO TID PRN (Reason: Neuropathy) Qty: 90 0RF ketorolac 10 mg tablet 10 mg PO Q8H Qty: 12 0RF Rx Instructions: Do not use with other NSAIDs s No Action (DME) blood sugar diagnostic Strip See Rx Instructions .ROUTE .MEDSUPPLY Qty: 50 1RF Rx Instructions: As directed (DME) VixOne Nebulizer-Adult Mask Misc See Rx Instructions .Route Qty: 1 0RF Rx Instructions: As directed (DME) lancets Misc See Rx Instructions .Route Qty: 200 6RF Rx Instructions: Testing 4 times a day (DME) Pentips 32 gauge x5/32 in needles See Rx Instructions .Route .MEDSUPPLY Qty: 1 3RF Rx Instructions: As directed glucagon 3 mg/actuation spray,non-aerosol 3 mg intranasal ONCE PRN (Reason: hypoglycemia) Qty: 1 1RF (DME) pen needle, diabetic [Comfort EZ Pen Floyd] 32 gauge x 5/32 needle See Rx Instructions .ROUTE .MEDSUPPLY Qty: 50 6RF Rx Instructions: As directed furosemide [Lasix] 20 mg tablet 20 mg PO DAILY 90 Days Qty: 90 1RF Mounjaro 15 mg/0.5 mL pen injector 15 mg subcut QWEEK Qty: 2 4RF (DME) Diabetic shoes & 3 pair inserts Diabetic shoes & 3 pair insert kit See Rx Instructions Rx Instructions: as directed acetaminophen [Tylenol Extra Strength] 500 mg tablet 1,000 mg PO Q6H PRN (Reason: fever or pain) Qty: 20 0RF ibuprofen 400 mg tablet 400 mg PO TID PRN (Reason: fever or pain) Qty: 30 0RF ondansetron HCl 4 mg tablet 4 mg PO Q8H PRN (Reason: nausea and vomiting) Qty: 10 0RF albuterol sulfate 2.5 mg /3 mL (0.083 %) solution for nebulization 2.5 mg inhalation Q6H PRN (Reason: shortness of breath or wheezing) 30 Days Qty: 180 3RF (DME) nebulizers Misc See Rx Instructions .Route Qty: 1 0RF Rx Instructions: As directed (DME) comp.stocking,knee,long,medium Misc See Rx Instructions .Route Qty: 2 0RF Rx Instructions: As directed Jardiance 25 mg tablet 25 mg PO QAM 90 Days Qty: 90 2RF insulin aspart U-100 [Novolog FlexPen U-100 Insulin] 100 unit/mL (3 mL) insulin pen See Rx Instructions subcut .COMPLEX 30 Days Qty: 15 3RF Rx Instructions: inject 15 units with meals gabapentin 300 mg capsule 300 mg PO TID Qty: 180 3RF lisinopril 2.5 mg tablet 5 mg PO DAILY 90 Days Qty: 180 3RF insulin glargine [Lantus Solostar U-100 Insulin] 100 unit/mL (3 mL) insulin pen 40 unit subcut QPM Qty: 15 2RF omeprazole 20 mg capsule,delayed release(DR/EC) 20 mg PO DAILY Qty: 30 2RF albuterol sulfate 90 mcg/actuation HFA aerosol inhaler 1 inh inhalation QID PRN (Reason: shortness of breath or wheezing) 30 Days Qty: 8.5 3RF cyclobenzaprine 5 mg tablet 5 mg PO BEDTIME PRN (Reason: muscle spasm) 30 Days Qty: 30 0RF (DME) cane Device See Rx Instructions .Route Qty: 1 0RF Rx Instructions: As directed (DME) raised toilet seat See Rx Instructions .Route .MEDSUPPLY Qty: 1 0RF Rx Instructions: As directed (DME) tub seat See Rx Instructions .Route .MEDSUPPLY Qty: 1 0RF Rx Instructions: As directed (DME) Dexcom G7 Sensor Device See Rx Instructions .MEDSUPPLY Qty: 9 3RF Rx Instructions: Use daily As directed to monitor glucose. change q 10 days (DME) blood-glucose meter [OneTouch Ultra2 Meter] Misc See Rx Instructions .Route Qty: 1 0RF Rx Instructions: Testing 4 times a day (DME) OneTouch Ultra Test Strip See Rx Instructions .Route Qty: 100 6RF Rx Instructions: Testing 4 times a day (DME) lancets [OneTouch UltraSoft 2 Lancet] 30 gauge misc See Rx Instructions .ROUTE .MEDSUPPLY Qty: 100 2RF Rx Instructions: use 4x daily As directed to monitor blood sugars Print Language: Welsh
[2024-12-29 01:28] VITALS: BP 108/52; PULSE 89; RESP 16; TEMP 36.7; O2SAT 95
[2024-12-29 01:33] VITALS: BP 108/52; PULSE 89; RESP 16; TEMP 36.7; O2SAT 95
== END 2024-12-29 01:35 | disposition home or self-care (01) ==
PROVIDERS: Emergency Provider Emergency Medicine; PCP Internal Medicine
DX: R07.89 Other chest pain (principal); R51.9 Headache, unspecified; Z79.899 Other long term (current) drug therapy
CPT/HCPCS: 36415; 80053; 84484; 85025; 93005; 96372; 99284; J1885

== ENCOUNTER → 2024-12-28 22:30 | Outpatient (BNV) | payer OTHER, SELFPAY | PROVIDERS: Emergency Provider Emergency Medicine; PCP Internal Medicine; Visit Provider Internal Medicine Cardiovascular Disease | DX: I49.1 Atrial premature depolarization (principal) | CPT/HCPCS: 93010 ==

== ENCOUNTER 2025-01-07 12:39 | Outpatient (AMB) | payer OTHER, SELFPAY ==
--- NOTE | 2025-01-07 12:57 | MHC.OFFVIS ---
Vital Signs 01/07/25 13:05 Height 5 ft 3 in Weight 180 lb BMI 31.9 BP 128/53 L Blood Pressure Location Lt brachial Position Sitting Pulse 86 Intake Visit Reasons: discuss colo/endo Intake Note: pt c/o; reports pain, unspecified. English Language Arts Teacher Required: Yes English Language Arts Teacher Language: Carpet Layer Services: English Language Arts Teacher Offered & Declined Accompanied by: Daughter Allergies dexbrompheniramine (From Dologesic-DF) Allergy (Verified 01/07/25 13:08) upset stomach metformin Adverse Reaction (Verified 01/07/25 13:08) upset stomach HPI HPI discuss colo/endo: Details: LAST VISIT Colon cancer screening Constipation GERD (gastroesophageal reflux disease) Postprandial epigastric pain Plan Patient reports constipation will start her on Dulcolax. Increase fluid intake and activity for her bowel motility. Patient reports acid reflux, not on any PPI or H2 jacquie. Will start her on omeprazole. Patient was encouraged to avoid dietary triggers in late night snacking. Staying upright for minimal 3 hours after meals discussed with patient. Patient reports lower extremity swelling shortness of breath with activities and chest pressure. Patient will be sent to Cardiology to get cleared before going for procedure. She will return in 2 months to rediscuss the procedure and for re-evaluation. She is agreeable to this plan and verbalizes understanding of instructions. She was given the opportunity to ask questions and all questions answered. ? Thank you for allowing me to participate in her care Referrals Cardiology Referral R06.02, R07.89, Z01.810 New omeprazole 20 mg PO DAILY 30 caps 2RF K21.9 bisacodyl (Dulcolax (bisacodyl)) 10 mg (2 x 5 mg) PO BEDTIME 180 tabs 4RF TODAY'S VISIT: Patient is here today for follow-up. Patient has not had colonoscopy scheduled yet as she has to be cleared by Cardiology. Patient reports chest pressure and shortness of breath with activity. Patient has appointment scheduled for March 03. Patient denies any dyspepsia, dysphagia or odynophagia. Currently is taking omeprazole every morning and her symptoms of acid reflux are suppressed. Patient however reports constipation. Currently takes Dulcolax 2 tablets every evening. Despite taking the medication there is times when she does not have a bowel movement for 2-3 days. Patient reports abdominal pain after bowel movement. Not feeling like she empties her bowels completely. Patient denies melena, hematochezia, unintentional weight loss or ribbon like stools. Patient denies any dyspepsia, dysphagia or odynophagia. Denies any other GI concerning symptoms. [facility] Medical History COVID-19 Type 2 diabetes mellitus with diabetic neuropathy, unspecified Diabetes type 2, uncontrolled H/O breast lump DMII (diabetes mellitus, type 2) Hypertension High cholesterol Ovarian cyst Diabetes Physical exam Surgical History History of breast biopsy Hx of subtotal mastectomy of right breast (~2007) H/O eye surgery Hx of cholecystectomy History of section Family History Father Prostate cancer Mother Diabetes Brother Diabetes Social History Household Members: None Housing: Apartment Do you presently have visiting nurse or other home services: No Alcohol intake: never Patient Tobacco Use Status: Never used Tobacco Cigarette Packs Per Day: 0 Years Smoked: 0 e-Cigarette/Vaping Use: Never Used Second Hand Smoke Exposure: No service: No Current occupational status: unemployed Sexual orientation: Straight/Heterosexual Gender identity: Female Cognitive needs: No Hearing needs: No Vision needs: Yes Review of Systems Const Denies weight gain and Denies weight loss ENT Reports no additional complaints, Denies dysphagia and Denies odynophagia Card Reports no additional complaints, Reports chest pain with activity, Reports pedal edema and Reports dyspnea on exertion Resp Reports dyspnea on exertion GI Reports abdominal pain (Cramping), Denies belching, Denies melena, Denies bloating, Denies change in bowel habits, Reports constipation, Denies dysphagia, Denies excessive flatus, Denies dyspepsia, Denies heartburn, Denies diarrhea, Denies loose stools, Denies nausea, Denies odynophagia and Denies vomiting Reports no additional complaints Musc Reports no additional complaints Neuro Reports no additional complaints Psych Reports no additional complaints Endo Reports no additional complaints Physical Exam Vital Signs: Last Vital Signs Pulse 86 01/07/25 13:05 BP 128/53 L 01/07/25 13:05 BMI result Body Mass Index 31.9 Const General: healthy appearing, no acute distress and well developed Nutritional Appearance: well nourished and obese Orientation/consciousness: patient oriented x3 Resp Effort & Inspection: normal respiratory effort, able to speak in complete sentences, no tracheal deviation and symmetric chest movement Auscultation: clear to auscultation bilaterally Cardio Rate: regular rate GI Inspection: Yes normal to inspection, No distended and Yes obesity Palpation (GI): Soft to palpation, not firm, nontender and No hepatosplenomegaly present Auscultation: normal bowel sounds General: Yes no CVA tenderness Back/Spine/Pelvis Back: no CVA tenderness Skin General skin exam: elasticity normal, turgor normal and dry skin Neuro General: patient oriented x3 Psych Appearance: grossly normal Mental Status: mental status grossly normal Assessment & Plan Assessment & Plan (1) Colon cancer screening: Code(s): Z12.11 - Encounter for screening for malignant neoplasm of colon Category: Medical (2) Constipation: Code(s): K59.00 - Constipation, unspecified Category: Medical Qualifiers: Constipation type: slow transit constipation Qualified Code(s): K59.01 - Slow transit constipation (3) Gastroesophageal reflux disease: Code(s): K21.9 - Gastro-esophageal reflux disease without esophagitis Qualifiers: Esophagitis presence: esophagitis presence not specified Qualified Code(s): K21.9 - Gastro-esophageal reflux disease without esophagitis (4) Postprandial epigastric pain: Code(s): R10.13 - Epigastric pain Plan Continue omeprazole daily. Avoid dietary triggers and late night snacking. Staying upright for minimum 3 hours after meals discussed with patient. Patient will start taking Linzess every day to help with bowel movements. Patient will call our office if no effect. Increase fluid intake and activity to promote better bowel motility. Patient was also encouraged to increase fiber with pre and probiotics. Patient has not seen Cardiology yet appointment in February. Reports shortness of breath, edema and occasional chest pressure with activity. Will wait for clearance Patient will see us in 3 months to discuss going for colonoscopy. Patient is agreeable to current plan of care and verbalizes understanding of instructions. She was given the opportunity to ask questions and all questions answered. Thank you for allowing me to participate in her care Medications: New Linzess (linaclotide) 145 mcg PO DAILY 30 caps 4RF NS K59.04 - Chronic idiopathic constipation Coding Level of Care Code Est Pt Level 3 (18727) Diagnoses Colon cancer screening Z12.11 Slow transit constipation K59.01 Constipation type: slow transit constipation Gastroesophageal reflux disease, unspecified whether esophagitis present K21.9 Esophagitis presence: esophagitis presence not specified Postprandial epigastric pain R10.13 Time Spent (min) 30 Comment 20 minutes spent with patient and additional 10 minutes spent reviewing her records
[2025-01-07 13:05] VITALS: BP 128/53; PULSE 86; BMI 31.9
--- OUTSIDE RECORDS SUMMARY | 2025-01-07 15:02 | XMS_ITS | Data Portability ---
Author Organization [facility], [email or web address] Medical [facility] Address [address] [place] [phone] Care Team Providers Care Stage Electrician Helper Name Role Phone HIM TAWNYA OTHER Assessment Encounter Date Assessment Date Assessment LastModified by Organization Details LastModified Time 04/04/2024 04/04/2024 As noted, we were called to see this patient regarding concerns of cough and congestion. Evaluation in the field was performed by my jewish history professor colleague, as noted above, I provided real-time [...] serious symptoms, particularly SOb and chest pain [id number] Not available 04/04/2024 11:15:35 Plan of Treatment Reminders Order Date Submit Date Provider Last Modified By Organization Details Last Modified Time Details Appointments None recorded. Lab rapid SARS CoV 2 Ag, QL IA, respiratory specimen 2024 025 [email or web address] [address], [address] 5 10:04:48 rapid flu (A+B) 2024 025 [email or web address] 7 [facility], [address] [place] [address], [phone] 5 10:04:48 rapid strep group A, throat 2024 025 [email or web address], [address] 5 10:04:48 Referral None recorded. Procedures None [...] Name and Address Organization Details Recorded Time 68186 acetamino phen medicatio n Not available Not available Not available 04/03/2024 161 RxNorm Not Available [facility] - production 21:45:45 55077 metformin medicatio n Not available Not available [...] % 16 /min 92 /min 99.1 [degF] 93534.1 12 g 126/72 mm[Hg] Not Available [facility] - production 5 10:01:56 Social History None recorded. Functional Status None recorded. Mental Status None recorded. Family History Nothing Reported. Medical History No medical history recorded. Gynecological HistoryNo gynecological history recorded. Obstetrics History GPAL:G 0 P 0 0 0 0 Past Encounters Encounter ID Performer Location Encounter Start Date Encounter Closed Date Diagnosis/Indication Diagnosis SNOMED-CT Code Diagnosis ICD10 Code Diagnosis IMO Codes Diagnosis Note [id number] MARYLOU BOWERS MD Main - [address] [address] 04/04/2024 10:01:53 04/04/2024 22:48:21 Viral upper respiratory tract infection 689651230 J06.9 Health Concerns Section Related Observation LastModified by Organization Detai ls LastModified Time None Recorded Concern Status LastModified by Organization Details LastModified Time None Recorded Advance Directives Directive None Recorded Payers Insurance Date Sequence Insurance Name Policy Number Policy Matta Covered Member ID Matta Member ID Guarantor Name 04/04/2024 1 [facility] - DOS ON OR AFTER 2022 - DUAL ELIGIBLE - INTERMEDIATE OPTIONS AND ONE CARE (MEDICARE REPLACEMENT/ADV ANTAGE - HMO) Inna Novak [id number] Inna Novak Notes Date Note Type Note Provider Name and Address Organization Details Recorded Time 04/04/2024 text/html ROS as noted in the HPI HPI: Member reports 2 days of sore throat, ear pain, cough, afebrile. She is requesting a home visit from [facility] in the AM. .................... .................... .................... .................... .................... .................... .................... . CRC Nurse Triage Notes (Sondra Laguerre - RN): Chief Complaints: Sore throat, Cough PMH: Cancer, Diabetes Mellitus Type 2, Hyperlipidemia, Asthma PMH Reviewed at 04/03/2024:45 Allergies Reviewed at 04/03/2024:45 Comments: CRC RN does not need additional information to process visit -Soo MCGINNIS Twisting Operator Organization Information for Alexis Negrete Legal Name: [facility] Address: [address] [place] [address], [place] [address], Belt Worker: Daniel Strickland MD [facility] No.: [id number] Twisting Operator POC Test Results from Alexis Negrete - VASILIY Rapid influenza antigen (09:58:51) Flu: - Rapid strep test (09:58:54) Strep: - Rapid COVID antigen (09:58:55) COVID: - .................... .................... .................... .................... .................... .................... .................... . Twisting Operator Note From Alexis Negrete: Pt co sore throat NC and cough with clear production for 2 days. Pt has not tried OTC medication for symptom relief. Pt denies fever, body aches, NVD, CP, SOB, dizziness, Headache. Baseline vitals assessed, WNL, Afebrile, COvid, flu and strep swab negative. Lungs clear bilaterally. Good skin color and turgor. [facility] contacted and advised pt to continue with self care and monitor symptoms. Pt advised to try OTC medication for symptom relief. Pt advised if symptoms persist to contact PCP. Pt education on signs indicating the ER. .................... .................... .................... .................... .................... .................... .................... . [facility] Consulted: Marylou Bowers .................... .................... .................... .................... .................... .................... .................... . Disposition: Fulfilled MARYLOU BOWERS MD [address] [facility],[address] [facility], [place], [address], FreeBrieMARCELA MCMILLNA 04/04/2024 11:15:44 OBGyn Episode No OBEpisode recorded.
== END 2025-01-07 13:26 | disposition home or self-care (01) ==
LOC: HO.HGI 12:39
PROVIDERS: PCP Physician Assistant; Visit Provider Nurse Practitioner Family
DX: Z01.818 Encounter for other preprocedural examination (principal); Z12.11 Encounter for screening for malignant neoplasm of colon; K59.01 Slow transit constipation; R10.13 Epigastric pain; K21.9 Gastro-esophageal reflux disease without esophagitis
CPT/HCPCS: 99213

== ENCOUNTER → 2025-01-07 12:39 | Outpatient (BNVA) | payer OTHER, SELFPAY | PROVIDERS: PCP Physician Assistant; Visit Provider Nurse Practitioner Family | DX: K59.01 Slow transit constipation (principal); K21.9 Gastro-esophageal reflux disease without esophagitis; R10.13 Epigastric pain | CPT/HCPCS: 99212 ==

== ENCOUNTER 2025-01-17 12:28 | Outpatient (AMB) | payer OTHER, SELFPAY ==
--- NOTE | 2025-01-17 13:04 | MHC.AMDMED ---
Intake Intake Visit Reasons: 60 min Convention Services Manager Required: Yes Convention Services Manager Language: Transmission Mechanic Name: Bbo [email or web address] Accompanied by: Self / Same As Patient Allergies dexbrompheniramine (From Dologesic-DF) Allergy (Verified 01/07/25 13:08) upset stomach metformin Adverse Reaction (Verified 01/07/25 13:08) upset stomach HPI Comprehensive Diabetes Asmnt Most Recent Diabetes Results: Microalb/Creat Ratio, (<30) 121.6 ug/mg cr H 10/11/24 Cholesterol, (<200) 175 mg/dL 11/19/23 HDL Cholesterol, (>40) 50 mg/dL 11/19/23 Triglycerides, (<150) 73 mg/dL 11/19/23 Creatinine, (0.5-1.4) 0.66 mg/dL 12/28/24 BUN, (9-16) 15 mg/dL 12/28/24 Sodium, (135-145) 143 mmol/L 12/28/24 Potassium, (3.3-5.1) 3.7 mmol/L 12/28/24 Chloride, (96-108) 109 mmol/L H 12/28/24 Carbon Dioxide, (22-29) 27 mmol/L 12/28/24 Calcium, (8.4-10.2) 9.2 mg/dL 12/28/24 AST, (5-31) 19 U/L 12/28/24 ALT, (0-31) 12 U/L 12/28/24 Total Protein, (6.5-8.0) 6.6 g/dL 12/28/24 Albumin, (3.5-5.0) 4.1 g/dL 12/28/24 COUNTS INCLUDE 234 BEDS AT [facility] Medical History COVID-19 Type 2 diabetes mellitus with diabetic neuropathy, unspecified Diabetes type 2, uncontrolled H/O breast lump DMII (diabetes mellitus, type 2) Hypertension High cholesterol Ovarian cyst Diabetes Physical exam Surgical History History of breast biopsy Hx of subtotal mastectomy of right breast (~2007) H/O eye surgery Hx of cholecystectomy History of section Family History Father Prostate cancer Mother Diabetes Brother Diabetes Social History Household Members: None Housing: Apartment Do you presently have visiting nurse or other home services: No Alcohol intake: never Patient Tobacco Use Status: Never used Tobacco Cigarette Packs Per Day: 0 Years Smoked: 0 e-Cigarette/Vaping Use: Never Used Second Hand Smoke Exposure: No service: No Current occupational status: unemployed Sexual orientation: Straight/Heterosexual Gender identity: Female Cognitive needs: No Hearing needs: No Vision needs: Yes Assessment & Plan Assessment & Plan (1) Type 2 diabetes mellitus with diabetic neuropathy, unspecified: Code(s): E11.40 - Type 2 diabetes mellitus with diabetic neuropathy, unspecified Qualifiers: Diabetes mellitus shelter insulin use: with shelter use Qualified Code(s): E11.40 - Type 2 diabetes mellitus with diabetic neuropathy, unspecified; Z79.4 - skilled nursing (current) use of insulin Plan: Personal Continuous Glucose Monitor: Patients CGM information reviewed, Pt uses Dexcom G7 with physician/allergy/immunology A1c on 12/22/24 was 8.2% down from 10.3% on 08/23/24 Pt's glucose large variability of glucose number on CGM data, Pt could not account for why some days her glucose stays in range and others it is consistently above target . Reviewed with Pt how to treat hypoglycemia: Hypoglycemia or blood glucose under 70mg/dL use the rule of 15's: If you have your blood glucose meter test your blood glucose, if you do not have your meter still follow below instruction: Keep quick-sugar foods with you at all times.? Take 15 grams of fast acting carbohydrates. Examples are 4 ounces of fruit juice or regular soda pop, 8 ounces fat-free milk, 1 tablespoon of table sugar, honey or corn syrup, jam, one miniature box of raisins, 7-8 gumdrops or Life Savers candy, 4 glucose tablets, and glucose gel.? Retest blood glucose in 15 minutes, if blood glucose is still under 80 mg/dL, repeat rule of 15's. If blood glucose is under 50, take 30 grams of fast acting carbohydrates If you are having hypoglycemia, or insulin reaction, more that a few times a week, call MD or ict educator F/U BG check Patient able to insert sensor independently at home without issue.? Portions of this note were created using voice recognition software, please excuse any words or phrases that may have been misinterpreted. Coding Level of Care Code Est Pt Level 1 (12123) Diagnoses Type 2 diabetes mellitus with diabetic neuropathy, with long-term current use of insulin E11.40; Z79.4 Diabetes mellitus shelter insulin use: with continuous churn buttermaker use
== END 2025-01-17 13:06 | disposition home or self-care (01) ==
LOC: HO.ENCR 12:29
PROVIDERS: PCP Physician Assistant; Visit Provider Registered Nurse Diabetes Educator
DX: E11.40 Type 2 diabetes mellitus with diabetic neuropathy, unspecified (principal); Z79.4 Long term (current) use of insulin

== ENCOUNTER → 2025-01-17 12:28 | Outpatient (BNVA) | payer OTHER, SELFPAY | PROVIDERS: PCP Physician Assistant; Visit Provider Registered Nurse Diabetes Educator | DX: E11.40 Type 2 diabetes mellitus with diabetic neuropathy, unspecified (principal); Z79.4 Long term (current) use of insulin | CPT/HCPCS: 99211 ==

== ENCOUNTER 2025-01-24 08:28 | Outpatient (AMB) | payer OTHER, SELFPAY ==
[2025-01-24 08:31] VITALS: BP 132/78; PULSE 95; O2SAT 98; BMI 32.0
--- NOTE | 2025-01-24 08:31 | MHC.OFFVIS ---
Vital Signs 01/24/25 08:31 Height 5 ft 3 in Weight 180 lb 8.937 oz BMI 32.0 BP 132/78 Blood Pressure Location Lt brachial Position Sitting Pulse 95 Pulse Source Pulse Oximeter Pulse Oximetry (%) 98 Oxygen Delivery Method Room Air Intake Visit Reasons: T2DM Intake Note: Patient present today for Type 2 Diabetes Mellitus Last Diabetic eye exam: Last exam was on 10/2024 by [facility]. Last Podiatry Visit: Patient has upcoming appt on 02/09/2025 Random Glucose: 31 mg/dl HgA1C: 8.2% 12/22/24 Local Company Flatbed Truck Driver Required: Yes Local Company Flatbed Truck Driver Language: Talent Acquisition Assistant Services: Local Company Flatbed Truck Driver Present Local Company Flatbed Truck Driver Name: Jr Information Interpreted: non-clinical & clinical It Network Architect: It Network Architect offered & declined Accompanied by: Self / Same As Patient Allergies dexbrompheniramine (From Dologesic-DF) Allergy (Verified 01/24/25 08:36) upset stomach metformin Adverse Reaction (Verified 01/24/25 08:36) upset stomach HPI HPI T2DM: Details: Pt is a 59y/o female with a significant past medical history of type 2 diabetes, hypertension, hyperlipidemia, obesity, history of breast cancer presenting today for a diabetic follow-up. Local Company Flatbed Truck Driver: Mariann DM- her previous A1c was 10.4 and recently 8.2 (dec 2024). She is supposed to be taking lantus 40 units (using 30), novolog 15 units 3 times a day, mounjaro 15 mg q weekly, jardiance 25 mg We discussed setting reminders on her cell phone, pillboxes, having family members help. It is not as much of an issue with remembering versus just doing it. She states that she will often just skip the dose because it is not convenient. She says that this has not changed. -Does not tolerate metformin in the past CGM: dexcom download GMI 8.2%, avg glucose 203. Very hyperglycemic 23%, hyperglycemic 35%, in range 42%, 0 hypoglycemia - most of the highs are with meals but she states it is because it goes low after eating and she has to eat candy to keep it up in the evening. She was referred to [place] but never made the appointment with the business continuity consultant. The neuropathy feels a bit better at night with the gabapentin. She is on a statin. on an TONNY-inhibitor. CV: Blood pressure today in the office is 132/78. On lisinopril 5 mg daily. She is on furosemide for lower leg edema. She often forgets the atorvastatin 20 mg. [facility] Medical History COVID-19 Type 2 diabetes mellitus with diabetic neuropathy, unspecified Diabetes type 2, uncontrolled H/O breast lump DMII (diabetes mellitus, type 2) Hypertension High cholesterol Ovarian cyst Diabetes Physical exam Surgical History History of breast biopsy Hx of subtotal mastectomy of right breast (~2007) H/O eye surgery Hx of cholecystectomy History of section Family History Father Prostate cancer Mother Diabetes Brother Diabetes Social History Household Members: None Housing: Apartment Do you presently have visiting nurse or other home services: No Alcohol intake: never Patient Tobacco Use Status: Never used Tobacco Cigarette Packs Per Day: 0 Years Smoked: 0 e-Cigarette/Vaping Use: Never Used Second Hand Smoke Exposure: No service: No Current occupational status: unemployed Sexual orientation: Straight/Heterosexual Gender identity: Female Cognitive needs: No Hearing needs: No Vision needs: Yes Physical Exam Const Orientation/consciousness: patient oriented x3 HEENT Ears: hearing grossly normal bilaterally Neck Thyroid: Thyroid normal Lymphatic: no lymphadenopathy noted Resp Auscultation: clear to auscultation bilaterally Cardio Rate: regular rate Rhythm: regular rhythm Heart sounds: S1 normal heart sound present and S2 normal heart sound present Skin General skin exam: no rashes or lesions noted Neuro General: patient oriented x3, gait normal and no focal motor deficits Assessment & Plan Assessment & Plan (1) Uncontrolled type 2 diabetes mellitus with hyperglycemia, with long-term current use of insulin: Code(s): E11.65 - Type 2 diabetes mellitus with hyperglycemia; Z79.4 - oil heaterman (current) use of insulin Category: Medical Plan: continue jardiance 25 mg increase lantus to 35 units increase novolog to 10 units with meals continue mounjaro 15 mg weekly (2) Essential hypertension: Code(s): I10 - Essential (primary) hypertension Category: Medical Plan: Continue current regimen Medications: Changed From Novolog FlexPen U-100 Insulin (insulin aspart U-100) inject 15 units with meals 30 days 15 mL 3RF NS E11.40 - Type 2 diabetes mellitus with diabetic neuropathy, unspecified, Z79.4 - oil heaterman (current) use of insulin To Novolog FlexPen U-100 Insulin (insulin aspart U-100) inject 10 units with meals, HOLD if blood sugar is less than 100 15 mL 3RF 30 days NS E11.40 - Type 2 diabetes mellitus with diabetic neuropathy, unspecified, Z79.4 - oil heaterman (current) use of insulin Refilled insulin glargine (Lantus Solostar U-100 Insulin) 40 units (0.4 mL) subcut QPM 15 mL 2RF E11.40 - Type 2 diabetes mellitus with diabetic neuropathy, unspecified Patient Instructions: lower novolog to 10 units before meals, do not take if blood sugar is less than 100 increase lantus to 40 units continue koko Coding Level of Care Code Est Pt Level 4 (87336) Complex EM visit Add On G2211 Diagnoses Uncontrolled type 2 diabetes mellitus with hyperglycemia, with long-term current use of insulin E11.65; Z79.4 Essential hypertension I10
[2025-01-24 08:42] LABS: Glucose, Whole Blood 316 mg/dL (60-115)
--- OUTSIDE RECORDS SUMMARY | 2025-01-24 08:52 | XMS_ITS | Data Portability ---
Author Organization [employer] [facility], [facility] Medical [facility] Address [address] [place] [phone] Care Team Providers Care Line Driver Name Role Phone HIM TAWNYA OTHER Assessment Encounter Date Assessment Date Assessment LastModified by Organization Details LastModified Time 04/04/2024 04/04/2024 As noted, we were called to see this patient regarding concerns of cough and congestion. Evaluation in the field was performed by my bonsai tender colleague, as noted above, I provided real-time [...] serious symptoms, particularly SOb and chest pain [id number] Not available 04/04/2024 11:15:35 Plan of Treatment Reminders Order Date Submit Date Provider Last Modified By Organization Details Last Modified Time Details Appointments None recorded. Lab rapid SARS CoV 2 Ag, QL IA, respiratory specimen 2024 025 [email or web address] [address], [address] 5 10:04:48 rapid flu (A+B) 2024 025 [email or web address] 7 [facility], [address] [place] [address], [address] 5 10:04:48 rapid strep group A, throat 2024 025 [email or web address] [address], [address] 5 10:04:48 Referral None recorded. Procedures None [...] Name and Address Organization Details Recorded Time 62222 acetamino phen medicatio n Not available Not available Not available 04/03/2024 161 RxNorm Not Available [facility] - production 21:45:45 55320 metformin medicatio n Not available Not available [...] % 16 /min 92 /min 99.1 [degF] 02756.1 12 g 126/72 mm[Hg] Not Available [facility] [...] ICD10 Code Diagnosis IMO Codes Diagnosis Note [id number] MARYLOU BOWERS MD Main - [address] [address] 04/04/2024 10:01:53 04/04/2024 22:48:21 Viral upper respiratory tract infection [id number] J06.9 Health Concerns Section Related Observation LastModified by Organization Detai ls LastModified Time None Recorded Concern Status LastModified by Organization Details LastModified Time None Recorded Advance Directives Directive None Recorded Payers Insurance Date Sequence Insurance Name Policy Number Policy Matta Covered Member ID Matta Member ID Guarantor Name 04/04/2024 1 [facility] - DOS ON OR AFTER 2022 - DUAL ELIGIBLE - USP OPTIONS AND ONE CARE (MEDICARE REPLACEMENT/ADV ANTAGE - HMO) Inna Novak [id number] Inna Novak Notes Date Note Type Note Provider Name and Address Organization Details Recorded Time 04/04/2024 text/html ROS as noted in the HPI HPI: Member reports 2 days of sore throat, ear pain, cough, afebrile. She is requesting a home visit from [facility] in the AM. .................... .................... .................... .................... .................... .................... .................... . CRC Nurse Triage Notes (Sondra Laguerre - RN): Chief Complaints: Sore throat, Cough PMH: Cancer, Diabetes Mellitus Type 2, Hyperlipidemia, Asthma PMH Reviewed at 04/03/2024:45 Allergies Reviewed at 04/03/2024:45 Comments: CRC RN does not need additional information to process visit -Soo MCGINNIS Technical Service Rep Organization Information for Alexis Negrete Legal Name: [facility] Address: [address] [place] [address], [place] [address], Database Architect: Daniel Strickland MD [facility] No.: [id number] Technical Service Rep POC Test Results from Alexis Negrete - VASILIY Rapid influenza antigen (09:58:51) Flu: - Rapid strep test (09:58:54) Strep: - Rapid COVID antigen (09:58:55) COVID: - .................... .................... .................... .................... .................... .................... .................... . Technical Service Rep Note From Alexis Negrete: Pt co sore throat NC and cough with clear production for 2 days. Pt has not tried OTC medication for symptom relief. Pt denies fever, body aches, NVD, CP, SOB, dizziness, Headache. Baseline vitals assessed, WNL, Afebrile, COvid, flu and strep swab negative. Lungs clear bilaterally. Good skin color and turgor. [facility] contacted and advised pt to continue with self care and monitor symptoms. Pt advised to try OTC medication for symptom relief. Pt advised if symptoms persist to contact PCP. Pt education on signs indicating the ER. .................... .................... .................... .................... .................... .................... .................... . [facility] Consulted: Marylou Bowers .................... .................... .................... .................... .................... .................... .................... . Disposition: Fulfilled MARYLUO BOWERS MD [address] [facility],[address] [facility], [place], [address], PersonetaMARCELA MCMILLAN 04/04/2024 11:15:44 OBGyn Episode No OBEpisode recorded.
== END 2025-01-24 09:03 | disposition home or self-care (01) ==
LOC: HO.ENCR 08:29
PROVIDERS: PCP Physician Assistant; Visit Provider Physician Assistant
DX: E11.65 Type 2 diabetes mellitus with hyperglycemia (principal); Z79.4 Long term (current) use of insulin; I10 Essential (primary) hypertension

== ENCOUNTER → 2025-01-24 08:28 | Outpatient (BNVA) | payer OTHER, SELFPAY | PROVIDERS: PCP Physician Assistant; Visit Provider Physician Assistant | DX: E11.65 Type 2 diabetes mellitus with hyperglycemia (principal); E11.40 Type 2 diabetes mellitus with diabetic neuropathy, unspecified; I10 Essential (primary) hypertension; E78.5 Hyperlipidemia, unspecified; E66.9 Obesity, unspecified; Z79.4 Long term (current) use of insulin; Z79.899 Other long term (current) drug therapy; Z68.32 Body mass index [BMI] 32.0-32.9, adult | CPT/HCPCS: 82947; 99212 ==

== ENCOUNTER → 2025-01-25 08:30 | Outpatient (AMB) | payer OTHER, SELFPAY ==
[2025-01-25 09:00] VITALS: BMI 32.1
--- NOTE | 2025-01-25 09:00 | MHC.AMNUTRGE ---
VS Expanded 01/25/25 09:00 Height 5 ft 3 in Weight 181 lb 7.047 oz BMI 32.1 Intake Visit Reasons: T2DM Allergies dexbrompheniramine (From Dologesic-) Allergy (Verified 01/24/25 08:36) upset stomach metformin Adverse Reaction (Verified 01/24/25 08:36) upset stomach Nutrition Presentation Details: Pt presents for MNT for T2DM Pt reports doing ok. Has 2-3 meals/day Breakfast sausage, 2 toast and coffee with milk Lunch: rice/beans , chicken ,water Dinner: sand (tuna, chicken) or soup with noodles, potato and chicken , watwer Participates in activities at place of residence 2 times/wk c/o diarrhea on and off reports having pending appt with GI for further evaluation Today will discuss lactose free options food availability- reports doing ok for now - food pantry list provided BS Monitoring Most Recent Diabetes Results: Creatinine, (0.5-1.4) 0.66 mg/dL 12/28/24 BUN, (9-16) 15 mg/dL 12/28/24 Sodium, (135-145) 143 mmol/L 12/28/24 Potassium, (3.3-5.1) 3.7 mmol/L 12/28/24 Chloride, (96-108) 109 mmol/L H 12/28/24 Carbon Dioxide, (22-29) 27 mmol/L 12/28/24 Calcium, (8.4-10.2) 9.2 mg/dL 12/28/24 AST, (5-31) 19 U/L 12/28/24 ALT, (0-31) 12 U/L 12/28/24 Total Protein, (6.5-8.0) 6.6 g/dL 12/28/24 Albumin, (3.5-5.0) 4.1 g/dL 12/28/24 [facility] Medical History COVID-19 Type 2 diabetes mellitus with diabetic neuropathy, unspecified Diabetes type 2, uncontrolled H/O breast lump DMII (diabetes mellitus, type 2) Hypertension High cholesterol Ovarian cyst Diabetes Physical exam Surgical History History of breast biopsy Hx of subtotal mastectomy of right breast (~2007) H/O eye surgery Hx of cholecystectomy History of section Family History Father Prostate cancer Mother Diabetes Brother Diabetes Social History Household Members: None Housing: Apartment Do you presently have visiting nurse or other home services: No Alcohol intake: never Patient Tobacco Use Status: Never used Tobacco Cigarette Packs Per Day: 0 Years Smoked: 0 e-Cigarette/Vaping Use: Never Used Second Hand Smoke Exposure: No service: No Current occupational status: unemployed Sexual orientation: Straight/Heterosexual Gender identity: Female Cognitive needs: No Hearing needs: No Vision needs: Yes Assessment & Plan Assessment & Plan (1) Uncontrolled type 2 diabetes mellitus with hyperglycemia, with long-term current use of insulin: Code(s): E11.65 - Type 2 diabetes mellitus with hyperglycemia; Z79.4 - terminal operations supervisor (current) use of insulin Category: Medical Plan: Wt: 77 Kg ( 06/15 ), 82 kg (02/15) Est kcal needs as per 23 kcal/kg bw: 8817-7857 (40% carb, 30% protein/fat) Est fluid needs as per 25-30 ml/d: 2300 Est prot per day as per 1 g/kg bw: 77 Recommend fiber intake : 8-10 g per day and gradually increase to 25-28 g per day for women and 35-38 g for men or as tolerated Recommend sodium intake per day : less than 2000 mg Educated patient on: ( R = reviewed V = verbalizes understanding N/R = needs review N/A = not applicable Food sources of carbohydrate, adequate serving sizes and its role in various health conditions: R V Differences between complex carbohydrates a simple carbohydrates, role of fiber in diet: R Lean protein sources of foods: R Differences between types of fats and role in diet (mono on saturated fat fatty acids, saturated fatty acids, trans fats): R hydration : R Food sources of sodium in salt and healthy modifications for heart health in kidney health: R V R/V Vitamins and minerals: R V N/R Healthy plate method concept: R V Physical activity: Benefits a precaution: R V N/R Hypoglycemia protocol (rule of 15): R V N/R Dietary prevention of Hyperglycemia: R , V lactose free food options Patient Instructions: Switch to lactose free food options - see list of lactose free options see list of food pantry options,and mobile calendar Coding Level of Care Code Nutr Indiv Subseq (94411) Diagnoses Uncontrolled type 2 diabetes mellitus with hyperglycemia, with long-term current use of insulin E11.65; Z79.4 Time Spent (min) 30
== END ==
LOC: HO.ENCR 08:30
PROVIDERS: PCP Physician Assistant; Visit Provider Dietitian, Registered
DX: E11.65 Type 2 diabetes mellitus with hyperglycemia (principal); Z79.4 Long term (current) use of insulin

== ENCOUNTER → 2025-01-25 08:30 | Outpatient (BNVA) | payer OTHER, SELFPAY | PROVIDERS: PCP Physician Assistant; Visit Provider Dietitian, Registered | DX: E11.65 Type 2 diabetes mellitus with hyperglycemia (principal); Z79.4 Long term (current) use of insulin | CPT/HCPCS: 97803 ==

== ENCOUNTER 2025-02-02 08:46 | Outpatient (REF) | payer OTHER, SELFPAY ==
[2025-02-02 10:57] LABS: Alanine Aminotransferase 14 U/L (0-31); Albumin Level 4.2 g/dL (3.5-5.0); Alkaline Phosphatase 161 U/L (39-117); Anion Gap 10 (12-20); Aspartate Amino Transferase 17 U/L (5-31); Blood Urea Nitrogen 14 mg/dL (9-16); Calcium 9.4 mg/dL (8.4-10.2); Carbon Dioxide 27 mmol/L (22-29); Chloride 109 mmol/L (96-108); Cholesterol 145 mg/dL (<200); Estimated Glomerular Filt Rate > 60; HDL Cholesterol 44 mg/dL (>40); Magnesium 1.8 mg/dL (1.6-2.6); Potassium 4.3 mmol/L (3.3-5.1); Sodium 142 mmol/L (135-145); Total Protein 6.8 g/dL (6.5-8.0); Triglycerides 57 mg/dL (<150)
[2025-02-02 11:16] LABS: Free T4 (Free Thyroxine) 1.05 ng/dL (0.71-1.85); Thyroid Stimulating Hormone 0.15 uIU/mL (0.32-4.0)
[2025-02-02 11:56] LABS: Microalbum/Creatinine Ratio Ur 15.9 ug/mg cr (<30)
== END 2025-02-02 08:47 | disposition home or self-care (01) ==
LOC: HO.LAB 08:46
PROVIDERS: PCP Internal Medicine; Visit Provider Internal Medicine
DX: R79.89 Other specified abnormal findings of blood chemistry (principal); E78.5 Hyperlipidemia, unspecified; E55.9 Vitamin D deficiency, unspecified; R80.9 Proteinuria, unspecified; E11.40 Type 2 diabetes mellitus with diabetic neuropathy, unspecified; Z79.4 Long term (current) use of insulin; R25.2 Cramp and spasm
CPT/HCPCS: 36415; 80053; 80061; 82043; 82306; 82570; 83735; 84439; 84443

== ENCOUNTER 2025-02-08 07:42 | Outpatient (AMB) | payer OTHER, SELFPAY ==
[2025-02-08 08:03] VITALS: BP 120/74; PULSE 96; TEMP 36.7; O2SAT 96; BMI 32.1
--- NOTE | 2025-02-08 08:03 | A.OFFPC_ITS ---
Vital Signs 02/08/25 08:03 Height 5 ft 3 in Weight 181 lb 4 oz BMI 32.1 BP 120/74 Blood Pressure Location Lt brachial Position Sitting Pulse 96 Pulse Source Pulse Oximeter Temp 98.1 F Temp Source Temporal Artery Scan Pulse Oximetry (%) 96 Oxygen Delivery Method Room Air Intake Visit Reasons: DM- A1C needed [place] Operator Required: No Accompanied by: Self / Same As Patient Allergies dexbrompheniramine (From [facility] Allergy (Verified 02/08/25 08:27) upset stomach metformin Adverse Reaction (Verified 02/08/25 08:27) upset stomach Medication List - Last Reconciled 02/08/25 by Komal Guzman MD acetaminophen (Tylenol Extra Strength) 1,000 mg (2 x 500 mg) PO Q6H PRN albuterol sulfate 2.5 mg (3 mL) inhalation Q6H PRN 30 days albuterol sulfate 90 mcg/actuation 1 inh inhalation QID PRN 30 days blood sugar diagnostic As directed blood sugar diagnostic (Zuu Onlnine Ultra Test strips) Testing 4 times a day blood-glucose meter (Zuu Onlnine Ultra2 Meter) Testing 4 times a day blood-glucose sensor ([employer] G7 Sensor device) Use daily As directed to monitor glucose. change q 10 days cane As directed comp.stocking,knee,long,medium As directed cyclobenzaprine 5 mg PO BEDTIME PRN 30 days [Diabetic shoes & 3 pair inserts as directed] empagliflozin (Jardiance) 25 mg PO QAM 90 days furosemide (Lasix) 20 mg PO DAILY 90 days gabapentin 100 mg PO TID PRN gabapentin 300 mg PO TID glucagon 3 mg/actuation 3 mg intranasal ONCE PRN ibuprofen 400 mg PO TID PRN insulin glargine (Lantus Solostar U-100 Insulin) 40 units (0.4 mL) subcut QPM ketorolac 10 mg PO Q8H lancets Testing 4 times a day lancets (AmimonTouch UltraSoft 2 Lancet) use 4x daily As directed to monitor blood sugars Linzess (linaclotide) 145 mcg PO DAILY NS lisinopril 5 mg (2 x 2.5 mg) PO DAILY 90 days nebulizers (VixOne Nebulizer-Adult Mask) As directed nebulizers As directed Novolog FlexPen U-100 Insulin (insulin aspart U-100) inject 10 units with meals, HOLD if blood sugar is less than 100 30 days NS omeprazole 20 mg PO DAILY ondansetron HCl 4 mg PO Q8H PRN pen needle, diabetic (Comfort EZ Pen [place]) As directed [Pentips 32 gauge x5/32 in needles As directed] [raised toilet seat As directed] tirzepatide (Mounjaro) 15 mg (0.5 mL) subcut QWEEK [tub seat As directed] Tobacco use date assessed: 12/22/24 Dental Screening Dental Screen Date: 11/26/24 HPI HPI Comments History of Present Illness Details The patient is a 59-year-old female presenting for management of multiple chronic conditions and review of recent lab results. The patient's diabetes is inadequately controlled, as evidenced by a recent HbA1c of 8.4%. Her current regimen includes 40 units of Lantus, Mounjaro 15 mg weekly injections, and lisinopril 5 mg. I will increase Lantus from 40 units to 45 units once a day. She discontinued gabapentin 300 mg three times daily. She has a follow-up appointment with endocrinology scheduled for April. Recent laboratory tests also revealed an LDL cholesterol level of 90 mg/dL, which is above the target of 70 mg/dL. Will add a statin. Her thyroid function was noted to be slightly low, and her vitamin D level was low at 16 ng/mL. She does not currently take vitamin D supplements. Her microalbuminuria was normal. Thyroid testing will be repeated in 6 weeks. For gastrointestinal issues, she takes omeprazole for acidity and Linzess for constipation. She also experiences fecal incontinence, for which she is followed by a editorial specialist. I recommend to discontinue Linzess. [facility] Medical History (Updated 02/08/25 @ 10:13 by Komal Guzman MD) COVID-19 Type 2 diabetes mellitus with diabetic neuropathy, unspecified Diabetes type 2, uncontrolled H/O breast lump DMII (diabetes mellitus, type 2) Hypertension High cholesterol Ovarian cyst Diabetes Physical exam Surgical History History of breast biopsy Hx of subtotal mastectomy of right breast (~2007) H/O eye surgery Hx of cholecystectomy History of section Family History Father Prostate cancer Mother Diabetes Brother Diabetes Social History Household Members: None Housing: Apartment Do you presently have visiting nurse or other home services: No Alcohol intake: never Patient Tobacco Use Status: Never used Tobacco Tobacco use type: Cigarette Cigarette Packs Per Day: 0 Years Smoked: 0 e-Cigarette/Vaping Use: Never Used Second Hand Smoke Exposure: No service: No Current occupational status: unemployed Sexual orientation: Straight/Heterosexual Gender identity: Female Cognitive needs: No Hearing needs: No Vision needs: Yes Questionnaire PHQ-9 Over the last 2 weeks, how often have you been bothered by any of the following problems? 1. Little interest or pleasure in doing things: not at all 2. Feeling down, depressed, or hopeless: not at all 3. Trouble falling or staying asleep, or sleeping too much: not at all 4. Feeling tired or having little energy: not at all 5. Poor appetite or overeating: not at all 6. Feeling bad about yourself - or that you are a failure or have let yourself or your family down: not at all 7. Trouble concentrating on things, such as reading the newspaper or watching television: not at all 8. Moving or speaking so slowly that other people could have noticed. Or the opposite - being so fidgety or restless that you have been moving around a lot more than usual: not at all 9. Thoughts that you would be better off or of hurting yourself in some way: not at all Total score: 0 Depression Screening Interpretation: Negative Depression Screening Done: Yes 08101 - PHQ-9 Billing: Yes Source: Developed by Drs. Darrell Gomez, Peggy Ferrer, Lam Alvarado and colleagues, with an educational oren from [employer]. Thrive Questionnaire Date Thrive assessed: 09/28/24 I am a: Parent/Caregiver What is your living situation today?: I choose not to answer this question Within the past 12 months, did the food you bought not last and you didn't have the money to get more?: I choose not to answer this question Within the past 12 months, did you worry whether your food would run out before you got money to buy more?: I choose not to answer this question Do you have trouble paying for medicines?: I choose not to answer this question Do you have trouble getting transportation to medical appointments?: I choose not to answer this question Do you have trouble paying your heating and electricity bill?: I choose not to answer this question Do you have trouble taking care of your child, family member or friend?: I choose not to answer this question Do you have trouble with day-to-day activities such as bathing, preparing meals, shopping, managing finances, etc.?: I choose not to answer this question Are you currently unemployed and looking for a job?: I choose not to answer this question Are you interested in more education?: I choose not to answer this question Currently or been in a relationship where the following occur: I choose not to answer THRIVE Score: 0 AUDIT C Alcohol Use Questionnaire (AUDIT-C) 1. How often do you have a drink containing alcohol?: Never 3. How often do you have six or more drinks on one occasion?: Never Total Score: 0 Score Reviewed/Action Taken: No JASON-7 AMB Questionnaire JASON-7 Date JASON - 7 assessed: 11/26/24 Source: Developed by Drs. Darrell Gomez, Peggy Ferrer, Lam Alvarado and colleagues, with an educational oren from [employer]. Review of Systems Const All systems reviewed & are unremarkable except as noted in HPI and below Card Denies chest pain at rest, Denies chest pain with activity, Denies edema, Denies irregular heart rhythm, Denies claudication, Denies dyspnea, Denies dyspnea on exertion, Denies orthopnea, Denies paroxysmal nocturnal dyspnea and Denies slow heart rate Resp Denies cough, Denies dyspnea and Denies dyspnea on exertion GI Denies abdominal pain, Denies change in bowel habits, Denies excessive flatus, Denies nausea and Denies vomiting Neuro Denies lack of coordination Physical exam (Primary Care) Vital Signs: Last Vital Signs Temp 98.1 F 02/08/25 08:03 Pulse 96 02/08/25 08:03 BP 120/74 02/08/25 08:03 Pulse Ox 96 02/08/25 08:03 Oxygen Delivery Method Room Air 02/08/25 08:03 BMI result Body Mass Index 32.1 BMI Assessment/Plan discussion: High BMI High, discussed plan: lifestyle, weight reduction, dietary and physical activity Tobacco/Smoking Status: Tobacco use Status Tobacco use date assessed 12/22/24 02/08/25 08:08 Patient Tobacco Use Status Never used Tobacco 02/08/25 08:08 Tobacco use type Cigarette 02/08/25 08:08 e-Cigarette/Vaping Use Never Used 02/08/25 08:08 PHQ-9: PHQ-9 Score PHQ-9: Total score 0 02/08/25 08:24 Depression Screening Interpretation: Negative Thrive Assessment: Date of Thrive Assessment Date Thrive assessed 09/28/24 02/08/25 08:08 Currently or been in a relationship where the following occur: I choose not to answer Resp Effort & Inspection: normal respiratory effort Auscultation: clear to auscultation bilaterally Cardio Jugular venous distension: no JVD Rate: regular rate Rhythm: regular rhythm Heart sounds: S1 normal heart sound present and S2 normal heart sound present Extrem General: Yes full ROM Coding Level of Care Code Est Pt Level 4 (70112) Complex EM visit Add On G2211 Diagnoses Type 2 diabetes mellitus with diabetic neuropathy, with long-term current use of insulin E11.40; Z79.4 Diabetes mellitus alf insulin use: with alf use Essential hypertension I10 Hyperlipidemia LDL goal <70 E78.5 Low TSH level R79.89 Fecal incontinence R15.9 Additional Codes PHQ-9 - 01185 - PHQ-9 Billing: Yes ([id number]) Time Spent (min) 22 Assessment & Plan Assessment & Plan (1) Type 2 diabetes mellitus with diabetic neuropathy, unspecified: Code(s): E11.40 - Type 2 diabetes mellitus with diabetic neuropathy, unspecified Category: Medical Qualifiers: Diabetes mellitus alf insulin use: with long term care phlebotomist use Qualified Code(s): E11.40 - Type 2 diabetes mellitus with diabetic neuropathy, unspecified; Z79.4 - long term care phlebotomist (current) use of insulin (2) Essential hypertension: Code(s): I10 - Essential (primary) hypertension Category: Medical (3) Hyperlipidemia LDL goal <70: Code(s): E78.5 - Hyperlipidemia, unspecified Category: Medical (4) Low TSH level: Code(s): R79.89 - Other specified abnormal findings of blood chemistry Category: Medical (5) Fecal incontinence: Code(s): R15.9 - Full incontinence of feces Category: Medical Plan Plan 1. Type 2 diabetes mellitus without complications E11.9 HCC 19 The patient's diabetes is poorly controlled with an HbA1c of 8.4%. The plan is to increase the Lantus dosage from 40 units to 45 units. She will continue the Mounjaro 15 mg weekly injection and follow up with her director of advertising sales in April. 2. Hyperlipidemia, unspecified E78.5 The patient's LDL cholesterol is elevated at 90 mg/dL against a target of <70 mg/dL. Management will be deferred to her endocrinology appointment. 3. Other specified abnormal findings of blood chemistry R79.89 Recent labs showed slightly low thyroid function. Thyroid laboratory tests will be repeated in approximately six weeks. This will also be addressed by her director of advertising sales. 4. Full incontinence of feces R15.9 The patient takes Linzess for constipation but also has fecal incontinence, for which she sees a editorial specialist. She has been advised to discontinue Linzess as it may be exacerbating the incontinence. 5. Essential (primary) hypertension I10 Continue lisinopril. BP goal is equal or less than 130/80. Orders: Orders Thyroid Stimulating Hormone 6 Weeks R79.89 - Other specified abnormal findings of blood chemistry Thyroid Peroxidase Antibodies 6 Weeks R79.89 - Other specified abnormal findings of blood chemistry Free T4 (Free Thyroxine) 6 Weeks R79.89 - Other specified abnormal findings of blood chemistry Thyroglobulin Antibodies 6 Weeks R79.89 - Other specified abnormal findings of blood chemistry Medications: New rosuvastatin 20 mg PO DAILY 90 tabs 1RF 90 days Changed From insulin glargine (Lantus Solostar U-100 Insulin) 40 units (0.4 mL) subcut QPM 15 mL 2RF E11.40 - Type 2 diabetes mellitus with diabetic neuropathy, unspecified To insulin glargine (Lantus Solostar U-100 Insulin) 45 units (0.45 mL) subcut QPM 15 mL 2RF E11.40 - Type 2 diabetes mellitus with diabetic neuropathy, unspecified Discontinued gabapentin Discontinued Reason: Patient Completed Course 300 mg PO TID 180 caps 3RF Linzess (linaclotide) Discontinued Reason: Patient Completed Course 145 mcg PO DAILY 30 caps 4RF NS K59.04 - Chronic idiopathic constipation
== END 2025-02-08 08:42 | disposition home or self-care (01) ==
LOC: HO.HMCH 07:43
PROVIDERS: PCP Physician Assistant; Visit Provider Internal Medicine
DX: E11.40 Type 2 diabetes mellitus with diabetic neuropathy, unspecified (principal); Z79.4 Long term (current) use of insulin; I10 Essential (primary) hypertension; E78.5 Hyperlipidemia, unspecified; R79.89 Other specified abnormal findings of blood chemistry; R15.9 Full incontinence of feces

== ENCOUNTER → 2025-02-08 07:42 | Outpatient (BNVA) | payer OTHER, SELFPAY | PROVIDERS: PCP Physician Assistant; Visit Provider Internal Medicine | DX: E11.40 Type 2 diabetes mellitus with diabetic neuropathy, unspecified (principal); I10 Essential (primary) hypertension; E78.5 Hyperlipidemia, unspecified; R79.89 Other specified abnormal findings of blood chemistry; R15.9 Full incontinence of feces; Z79.4 Long term (current) use of insulin | CPT/HCPCS: 96127; 99212 ==

== ENCOUNTER 2025-02-09 07:52 | Outpatient (AMB) | payer OTHER, SELFPAY ==
--- NOTE | 2025-02-09 08:25 | A.OFFVIS_ITS ---
Vital Signs 02/09/25 08:30 Height 5 ft 3 in Weight 188 lb BMI 33.3 Intake Visit Reasons: Diabetes Type 2 Intake Note: Inna is a 59 year old female who presents today as a new patient for a diabetic foot evaluation. Patients last known A1c was 8.2% as of 12/22/24 and her glucose is currently at 314. She experiences bilateral tingling with burning in her feet. Patient reports an open cut on her left hallux at this time and she denies any previous medical history of amputation to her feet. She currently is not experiencing any back pain and she is still taking gabapentin. [employer] Required: Yes [facility] Services: [facility] Present [facility] Name: [id number] Allergies dexbrompheniramine (From [facility]-) Allergy (Verified 02/09/25 08:30) upset stomach metformin Adverse Reaction (Verified 02/09/25 08:30) upset stomach HPI HPI Diabetes Type 2: Details: The patient is a 59-year-old female past medical history of diabetes mellitus type 2 with polyneuropathy, breast cancer, HTN, hypercholesterolemia, presenting for annual diabetic foot evaluation. She reports persistent cramps in her feet which she attributes to her neuropathy. The patient has a history of hyperglycemia, with a recent A1c level around 8%, and her charge accounts audit clerk has increased her insulin dosage to address this. She noticed a cut to her left big toe last night, she is unsure of how it happened. The patient states she is unable to manage her foot care independently. [facility] Medical History COVID-19 Type 2 diabetes mellitus with diabetic neuropathy, unspecified Diabetes type 2, uncontrolled H/O breast lump DMII (diabetes mellitus, type 2) Hypertension High cholesterol Ovarian cyst Diabetes Physical exam Surgical History History of breast biopsy Hx of subtotal mastectomy of right breast (~2007) H/O eye surgery Hx of cholecystectomy History of section Family History Father Prostate cancer Mother Diabetes Brother Diabetes Social History Household Members: None Housing: Apartment Do you presently have visiting nurse or other home services: No Alcohol intake: never Patient Tobacco Use Status: Never used Tobacco Tobacco use type: Cigarette Cigarette Packs Per Day: 0 Years Smoked: 0 e-Cigarette/Vaping Use: Never Used Second Hand Smoke Exposure: No service: No Current occupational status: unemployed Sexual orientation: Straight/Heterosexual Gender identity: Female Cognitive needs: No Hearing needs: No Vision needs: Yes Review of Systems Const All systems reviewed & are unremarkable except as noted in HPI and below Physical Exam Extrem Other: *Bilateral Lower Extremity Focused Diabetic Foot Exam Vascular: DP/PT 2/4, CFT<3s to digits, TG warm to cool, no pedal edema, pedal hair present Derm: Skin: Dry xerotic skin bilateral feet, no annual scaling. Interdigital spaces: Clear, no maceration or fungal infection. Nails: Dystrophic, discolored, thickened elongated toenails times 10, worse to the left hallux which is 80% lifted. Neuro: [place]-yesi monofilament (10g) test 5/10 intact to right foot, 8/10 intact to left foot. Msk: Deformities: No evidence of hammertoes, bunions, Charcot changes, or other structural abnormalities. Muscle strength: 5/5 in all muscle groups. Gait: Normal, no antalgic or steppage gait observed. Footwear Assessment: Shoes inspected; appropriate fit, no excessive wear, or foreign objects noted. Office Procedures AMB Debridement/Avulsion Podia Details: Procedure: Callus debridement Location: 1 right foot, 2 left foot Anesthesia: N/A Description: The affected area was cleansed with an antiseptic solution. Using a sterile #15 blade, the hyperkeratotic tissue was radially debrided from the foot. All callused tissue was removed down to normal skin without causing bleeding or discomfort. The area was inspected for underlying ulceration or infection. Patient tolerated the procedure well. No complications noted. Tolerance: Patient tolerated procedure well, no immediate complications. Procedure: Nail debridement Location: 10 nails, bilateral feet Anesthesia: N/A Description: The affected toenails were cleansed with an antiseptic solution. Using sterile nail nippers and a rotary jenaro, dystrophic and mycotic nail material was carefully debrided and reduced in thickness. Care was taken to avoid trauma to the surrounding skin and nail bed. All debris was removed as tolerated. The area was inspected for signs of infection or ulceration. Patient tolerated the procedure well without complications. Tolerance: Patient tolerated procedure well, no immediate complications. Class B findings as per physical exam findings above. The patient has a diagnosis of diabetes mellitus and presents with elongated, thickened toenails. Due to underlying diabetic neuropathy and mild vascular disease findings, the patient is at increased risk for complications such as ulceration, infection, and difficulty with self-care. Debridement of elongated toenails is medically necessary to prevent development of pressure-related lesions, reduce risk of secondary infection, and maintain foot health in high- risk comorbidities. 98235-Hwhptiapxlx of Nail 6+ 55347-Bdtpltbncbc of Callus (2-4) Procedure code (CPT) selection complete Laceration Repair Procedure Location: left hallux Text: The left hallux was cleaned, prepped, and draped using sterile technique. The wound was debrided of any foreign material or devitalized tissue. Wound edges were approximated and closed using dermabond. Standard wound dressing was applied. The patient tolerated the procedure well. The patient was instructed to return for increased redness or red streaking, pain, swelling, pus, fevers, chills, or any other signs or symptoms of infection or worsening. 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 The patient has significant loss in protective sensation however she does not have signs of peripheral arterial disease. No plans for further testing/referrals for non-invasive vascular studies. Patient is at moderate risk for diabetic foot complications at this time. Recommendations: Continue routine foot care and daily self-inspection. Recommend moisturizing daily. Recommend supportive proper fitting shoe-wear. The patient may require diabetic shoes in the future. Reinforced diabetic foot education and risks from peripheral neuropathy. (2) Xerosis cutis: Code(s): L85.3 - Xerosis cutis Category: Medical Plan: * Rx ammonium lactate (3) Laceration of foot, left: Code(s): S91.312A - Laceration without foreign body, left foot, initial encounter Category: Medical Qualifiers: Encounter type: initial encounter Qualified Code(s): S91.312A - Laceration without foreign body, left foot, initial encounter Plan: * The left hallux was prepped and sterilized using alcohol. Dermabond was applied to reapproximate the laceration and it was dressed using a Band-Aid. Medications: New ammonium lactate 12% (AmLactin) Apply to the bottom of both feet daily 1 appl topical DAILY 225 grams 3RF Xerosis L85.3 - Xerosis cutis Coding Level of Care Code Est Pt Level 4 (26724) Diagnoses Type 2 diabetes mellitus with diabetic neuropathy, with long-term current use of insulin E11.40; Z79.4 Diabetes mellitus termite inspector insulin use: with snf use Xerosis cutis L85.3 Laceration of left foot, initial encounter S91.312A Encounter type: initial encounter CPT Codes Skin Debridement - CPT: 08168-Btnlasbfloz of Nail 6+ ([id number]) Skin Debridement - CPT: 09805-Lqgrdhlucim of Callus (2-4) ([id number]) Time Spent (min) 40 Comment G0168 dermabond closure
[2025-02-09 08:30] VITALS: BMI 33.3
--- OUTSIDE RECORDS SUMMARY | 2025-02-09 15:23 | XMS_ITS | Data Portability ---
Author Organization [employer] [facility], [facility] Address [address] [place] [phone] Care Team Providers Care Solar Designer Name Role Phone HIM TAWNYA OTHER Assessment Encounter Date Assessment Date Assessment LastModified by Organization Details LastModified Time 04/04/2024 04/04/2024 As noted, we were called to see this patient regarding concerns of cough and congestion. Evaluation in the field was performed by my forming acid dumper colleague, as noted above, I provided real-time [...] serious symptoms, particularly SOb and chest pain [email or web address] Not available 04/04/2024 11:15:35 Plan of Treatment Reminders Order Date Submit Date Provider Last Modified By Organization Details Last Modified Time Details Appointments None recorded. Lab rapid SARS CoV 2 Ag, QL IA, respiratory specimen 2024 025 [email or web address], [phone] 5 10:04:48 rapid flu (A+B) 2024 025 [email or web address] 7 [facility], [address] [place] [address], [phone] 5 10:04:48 rapid strep group A, throat 2024 025 [email or web address] [address], [phone] 5 10:04:48 Referral None recorded. Procedures None [...] Name and Address Organization Details Recorded Time 04895 acetamino phen medicatio n Not available Not available Not available 04/03/2024 161 RxNorm Not Available [facility] - production 21:45:45 99585 metformin medicatio n Not available Not available [...] % 16 /min 92 /min 99.1 [degF] 14866.1 12 g 126/72 mm[Hg] Not Available [facility] [...] ICD10 Code Diagnosis IMO Codes Diagnosis Note [id number] MARYLOU BOWERS MD Main - [address] [phone] 04/04/2024 10:01:53 04/04/2024 22:48:21 Viral upper respiratory tract infection [id number] J06.9 Health Concerns Section Related Observation LastModified by Organization Detai ls LastModified Time None Recorded Concern Status LastModified by Organization Details LastModified Time None Recorded Advance Directives Directive None Recorded Payers Insurance Date Sequence Insurance Name Policy Number Policy Matta Covered Member ID Matta Member ID Guarantor Name 04/04/2024 1 [facility] - DOS ON OR AFTER 2022 - DUAL ELIGIBLE - LONGTERM OPTIONS AND ONE CARE (MEDICARE REPLACEMENT/ADV ANTAGE - HMO) Inna Novak [id number] Inna Novak Notes Date Note Type Note Provider Name and Address Organization Details Recorded Time 04/04/2024 text/html ROS as noted in the HPI HPI: Member reports 2 days of sore throat, ear pain, cough, afebrile. She is requesting a home visit from [facility] in the AM. .................... .................... .................... .................... .................... .................... .................... . CRC Nurse Triage Notes (Sondra Laguerre - RN): Chief Complaints: Sore throat, Cough PMH: Cancer, Diabetes Mellitus Type 2, Hyperlipidemia, Asthma PMH Reviewed at 04/03/2024:45 Allergies Reviewed at 04/03/2024:45 Comments: CRC RN does not need additional information to process visit -Soo MCGINNIS [employer] Organization Information for Alexis Negrete Legal Name: [facility] Address: [address] [place] [address], [place] [address], Shear Operator: Daniel Strickland MD [facility] No.: [id number] [employer] POC Test Results from Alexis Negrete - VASILIY Rapid influenza antigen (09:58:51) Flu: - Rapid strep test (09:58:54) Strep: - Rapid COVID antigen (09:58:55) COVID: - .................... .................... .................... .................... .................... .................... .................... . [employer] Note From Alexis Negrete: Pt co sore throat NC and cough with clear production for 2 days. Pt has not tried OTC medication for symptom relief. Pt denies fever, body aches, NVD, CP, SOB, dizziness, Headache. Baseline vitals assessed, WNL, Afebrile, COvid, flu and strep swab negative. Lungs clear bilaterally. Good skin color and turgor. [facility] [place] and advised pt to continue with self care and monitor symptoms. Pt advised to try OTC medication for symptom relief. Pt advised if symptoms persist to contact PCP. Pt education on signs indicating the ER. .................... .................... .................... .................... .................... .................... .................... . [facility] Consulted: Marylou Bowers .................... .................... .................... .................... .................... .................... .................... . Disposition: Fulfilled MARYLOU BOWERS MD [address] [facility],[address] [facility], [place], [phone], [employer] PremiumMARCELA MCMILLAN 04/04/2024 11:15:44 OBGyn Episode No OBEpisode recorded.
== END 2025-02-09 08:55 | disposition home or self-care (01) ==
LOC: HO.HPODS 07:53
PROVIDERS: PCP Physician Assistant; Visit Provider Student in an Organized Health Care Education/Training Program
DX: E11.40 Type 2 diabetes mellitus with diabetic neuropathy, unspecified (principal); Z79.4 Long term (current) use of insulin; L85.3 Xerosis cutis; S91.312A Laceration without foreign body, left foot, initial encounter; L60.8 Other nail disorders
CPT/HCPCS: 11056; 11721; 99214

== ENCOUNTER → 2025-02-09 07:52 | Outpatient (BNVA) | payer OTHER, SELFPAY | PROVIDERS: PCP Physician Assistant; Visit Provider Student in an Organized Health Care Education/Training Program | DX: E11.40 Type 2 diabetes mellitus with diabetic neuropathy, unspecified (principal); Z79.4 Long term (current) use of insulin; L85.3 Xerosis cutis; S91.312A Laceration without foreign body, left foot, initial encounter; M77.8 Other enthesopathies, not elsewhere classified | CPT/HCPCS: 11056; 11721; 96127; 99212 ==

== ENCOUNTER 2025-02-09 13:22 | Outpatient (AMB) | payer OTHER, SELFPAY ==
[2025-02-09 13:33] VITALS: BP 132/78; PULSE 91; RESP 18; TEMP 36.3; O2SAT 99; BMI 32.1
--- NOTE | 2025-02-09 13:33 | A.OFFPC_ITS ---
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 Filter Washer And Presser Required: Yes Filter Washer And Presser Language: Cymraes Accompanied by: Son Allergies dexbrompheniramine (From Dologesic-DF) Allergy (Verified 02/09/25 13:38) upset stomach metformin Adverse Reaction (Verified 02/09/25 13:38) upset stomach Tobacco use date assessed: 02/09/25 Dental Screening Dental Screen Date: 02/09/25 Did you have a dental visit in the last 12 months?: No Did you have a dental problem in the last 6 months where you did not have access to dental care?: No Was dental information given to patient?: Patient has dentist HPI HPI Comments History of Present Illness Details The patient is a 59 year old female presenting for an evaluation of right shoulder tendinitis. She lacks the strength to lift her arm and experiences nerve pain when performing activities such as grasping a broom. This condition impacts her activities of daily living, including dressing and cleaning. The patient is able to bathe independently but uses a chair. [facility] Medical History (Updated 02/09/25 @ 09:02 by Benigno Weaver DPM) COVID-19 Type 2 diabetes mellitus with diabetic neuropathy, unspecified Diabetes type 2, uncontrolled H/O breast lump DMII (diabetes mellitus, type 2) Hypertension High cholesterol Ovarian cyst Diabetes Physical exam Surgical History History of breast biopsy Hx of subtotal mastectomy of right breast (~2007) H/O eye surgery Hx of cholecystectomy History of section Family History Father Prostate cancer Mother Diabetes Brother Diabetes Social History (Updated 02/09/25 @ 13:39 by Sina Handy CMA) Household Members: None Housing: Apartment Do you presently have visiting nurse or other home services: No Alcohol intake: never Patient Tobacco Use Status: Never used Tobacco Tobacco use type: Cigarette Cigarette Packs Per Day: 0 Years Smoked: 0 Packs Per Year: 0 e-Cigarette/Vaping Use: Never Used Second Hand Smoke Exposure: No Use of substances other than those prescribed or required for medical reasons: No service: No Current occupational status: unemployed Sexual orientation: Straight/Heterosexual Gender identity: Female Cognitive needs: No Hearing needs: No Vision needs: Yes Questionnaire PHQ-9 Over the last 2 weeks, how often have you been bothered by any of the following problems? 1. Little interest or pleasure in doing things: not at all 2. Feeling down, depressed, or hopeless: not at all 3. Trouble falling or staying asleep, or sleeping too much: not at all 4. Feeling tired or having little energy: not at all 5. Poor appetite or overeating: not at all 6. Feeling bad about yourself - or that you are a failure or have let yourself or your family down: not at all 7. Trouble concentrating on things, such as reading the newspaper or watching television: not at all 8. Moving or speaking so slowly that other people could have noticed. Or the opposite - being so fidgety or restless that you have been moving around a lot more than usual: not at all 9. Thoughts that you would be better off or of hurting yourself in some way: not at all Total score: 0 Depression Screening Interpretation: Negative Depression Screening Done: Yes 18292 - PHQ-9 Billing: Yes Source: Developed by Drs. Darrell Gomez, Peggy Ferrer, Lam Alvarado and colleagues, with an educational oren from [employer]. Thrive Questionnaire Date Thrive assessed: 09/28/24 I am a: Parent/Caregiver What is your living situation today?: I choose not to answer this question Within the past 12 months, did the food you bought not last and you didn't have the money to get more?: I choose not to answer this question Within the past 12 months, did you worry whether your food would run out before you got money to buy more?: I choose not to answer this question Do you have trouble paying for medicines?: I choose not to answer this question Do you have trouble getting transportation to medical appointments?: I choose not to answer this question Do you have trouble paying your heating and electricity bill?: I choose not to answer this question Do you have trouble taking care of your child, family member or friend?: I choose not to answer this question Do you have trouble with day-to-day activities such as bathing, preparing meals, shopping, managing finances, etc.?: I choose not to answer this question Are you currently unemployed and looking for a job?: I choose not to answer this question Are you interested in more education?: I choose not to answer this question Currently or been in a relationship where the following occur: I choose not to answer THRIVE Score: 0 JASON-7 AMB Questionnaire JASON-7 Date JASON - 7 assessed: 02/09/25 Feeling nervous, anxious, or on edge: 0 = Not at all Not being able to stop or control worryin = Not at all Worrying too much about different things: 0 = Not at all Trouble relaxin = Not at all Being so restless that it is hard to sit still: 0 = Not at all Becoming easily annoyed or irritable: 0 = Not at all Feeling afraid as if something awful might happen: 0 = Not at all Total JASON-7 score (0-4 normal; 5-9 mild; 10-14 moderate; 15-21 severe): 0 Source: Developed by Drs. Darrell Gomez, Peggy Ferrer, Lam Alvarado and colleagues, with an educational oren from [employer]. JASON-7 Assessment Billing JASON-7 Assessment Tool: JASON-7 Assessment 71237 Review of Systems Const All systems reviewed & are unremarkable except as noted in HPI and below Card Denies chest pain at rest, Denies chest pain with activity, Denies edema, Denies irregular heart rhythm, Denies claudication, Denies dyspnea, Denies dyspnea on exertion, Denies orthopnea, Denies paroxysmal nocturnal dyspnea and Denies slow heart rate Resp Denies cough, Denies dyspnea and Denies dyspnea on exertion Physical exam (Primary Care) Vital Signs: Last Vital Signs Temp 97.3 F 02/09/25 13:33 Pulse 91 02/09/25 13:33 Resp 18 02/09/25 13:33 BP 132/78 02/09/25 13:33 Pulse Ox 99 02/09/25 13:33 Oxygen Delivery Method Room Air 02/09/25 13:33 BMI result Body Mass Index 32.1 BMI Assessment/Plan discussion: High BMI High, discussed plan: lifestyle, weight reduction, dietary and physical activity Tobacco/Smoking Status: Tobacco use Status Tobacco use date assessed 02/09/25 02/09/25 13:40 Patient Tobacco Use Status Never used Tobacco 02/09/25 13:40 Tobacco use type Cigarette 02/09/25 13:40 e-Cigarette/Vaping Use Never Used 02/09/25 13:40 PHQ-9: PHQ-9 Score PHQ-9: Total score 0 02/09/25 15:49 Depression Screening Interpretation: Negative Thrive Assessment: Date of Thrive Assessment Date Thrive assessed 09/28/24 02/09/25 13:40 Currently or been in a relationship where the following occur: I choose not to answer Resp Effort & Inspection: normal respiratory effort Auscultation: clear to auscultation bilaterally Cardio Jugular venous distension: no JVD Rate: regular rate Rhythm: regular rhythm Heart sounds: S1 normal heart sound present and S2 normal heart sound present Extrem Right upper extremity: shoulder/upper arm Details: tenderness and abnormal ROM Details: pain with active ROM Details: in extension Coding Level of Care Code Est Pt Level 3 (90216) Diagnoses Right shoulder tendonitis M77.8 Additional Codes JASON-7 Assessment Billing - JASON-7 Assessment Tool: JASON-7 Assessment 47494 ([id number]) PHQ-9 - 72936 - PHQ-9 Billing: Yes ([id number]) Time Spent (min) 18 Assessment & Plan Assessment & Plan (1) Right shoulder tendonitis: Code(s): M77.8 - Other enthesopathies, not elsewhere classified Category: Medical Plan Consider physical therapy
== END 2025-02-09 14:23 | disposition home or self-care (01) ==
LOC: HO.HMCH 13:24
PROVIDERS: PCP Physician Assistant; Visit Provider Internal Medicine
DX: M77.8 Other enthesopathies, not elsewhere classified (principal)

== ENCOUNTER 2025-03-07 15:03 | Outpatient (AMB) | payer OTHER, SELFPAY ==
--- NOTE | 2025-03-07 15:22 | A.OFFVIS_ITS ---
Vital Signs 03/07/25 15:24 Height 5 ft 3 in Weight 182 lb 15.739 oz BMI 32.4 BP 126/74 Blood Pressure Location Lt brachial Position Sitting Pulse 95 Pulse Source Monitor Intake Visit Reasons: pre-op colonscopy dx chest pain High School Guidance Counselor Required: Yes High School Guidance Counselor Services: High School Guidance Counselor Offered & Declined High School Guidance Counselor Name: Daughter Interpreting Accompanied by: Daughter Allergies dexbrompheniramine (From Dologesic-DF) Allergy (Verified 03/07/25 15:28) upset stomach metformin Adverse Reaction (Verified 03/07/25 15:28) upset stomach Medication List - Last Reconciled 03/07/25 by CHAYITO Tierney albuterol sulfate 2.5 mg (3 mL) inhalation Q6H PRN 30 days albuterol sulfate 90 mcg/actuation 1 inh inhalation QID PRN 30 days ammonium lactate 12% (AmLactin) 1 appl topical DAILY blood sugar diagnostic As directed blood sugar diagnostic (S[employer] Medicaluch Ultra Test strips) Testing 4 times a day blood-glucose meter ([employer]ishing Hunter Ultra2 Meter) Testing 4 times a day blood-glucose sensor (Vinfolio G7 Sensor device) Use daily As directed to monitor glucose. change q 10 days cane As directed comp.stocking,knee,long,medium As directed cyclobenzaprine 5 mg PO BEDTIME PRN 30 days [Diabetic shoes & 3 pair inserts as directed] empagliflozin (Jardiance) 25 mg PO QAM 90 days furosemide (Lasix) 20 mg PO DAILY 90 days gabapentin 100 mg PO TID PRN ibuprofen 400 mg PO TID PRN insulin glargine (Lantus Solostar U-100 Insulin) 45 units (0.45 mL) subcut QPM ketorolac 10 mg PO Q8H lancets Testing 4 times a day lancets (MixwitTouch UltraSoft 2 Lancet) use 4x daily As directed to monitor blood sugars lisinopril 5 mg (2 x 2.5 mg) PO DAILY 90 days nebulizers (VixOne Nebulizer-Adult Mask) As directed nebulizers As directed Novolog FlexPen U-100 Insulin (insulin aspart U-100) inject 10 units with meals, HOLD if blood sugar is less than 100 30 days NS omeprazole 20 mg PO DAILY pen needle, diabetic (Comfort EZ Pen [place]) As directed [Pentips 32 gauge x5/32 in needles As directed] [raised toilet seat As directed] rosuvastatin 20 mg PO DAILY 90 days tirzepatide (Mounjaro) 15 mg (0.5 mL) subcut QWEEK [tub seat As directed] HPI HPI pre-op colonscopy dx chest pain: Details: The patient is a 59-year-old female presenting for a preoperative cardiology consultation for an upcoming colonoscopy. This is her first cardiology visit and she has no previously diagnosed heart problems. She reports experiencing chest pains described as tightness, which occurs when she is lying down. She also experiences exertional chest tightness and shortness of breath when walking too much or climbing stairs, which forces her to stop every couple of steps. The patient endorses palpitations, which feel like her heart is beating fast or irregularly, but denies any associated dizziness or fainting. She reports poor balance and falls at times. Recently, she has developed frequent fecal incontinence, promting the need for the colonoscopy. Her past medical history is significant for hypertension, hyperlipidemia,diabetes, obesity, and a history of breast cancer. Her most recent hemoglobin A1c is 8.4%, and is followed by endocrinology and her PCP. Her medications include furosemide, lisinopril, and rosuvastatin and other noncardiac meds. The patient is active, participating in a daily exercise program that includes light yoga and Audelia, and she feels well during these activities. She does not smoke or use alcohol. Her family history is notable for a grandmother who had a pacemaker. [facility] Medical History COVID-19 Type 2 diabetes mellitus with diabetic neuropathy, unspecified Diabetes type 2, uncontrolled H/O breast lump DMII (diabetes mellitus, type 2) Hypertension High cholesterol Ovarian cyst Diabetes Physical exam Surgical History History of breast biopsy Hx of subtotal mastectomy of right breast (~2007) H/O eye surgery Hx of cholecystectomy History of section Family History Father Prostate cancer Mother Diabetes Brother Diabetes Social History Household Members: None Housing: Apartment Do you presently have visiting nurse or other home services: No Alcohol intake: never Patient Tobacco Use Status: Never used Tobacco Tobacco use type: Cigarette Cigarette Packs Per Day: 0 Years Smoked: 0 e-Cigarette/Vaping Use: Never Used Second Hand Smoke Exposure: No service: No Current occupational status: unemployed Sexual orientation: Straight/Heterosexual Gender identity: Female Cognitive needs: No Hearing needs: No Vision needs: Yes Review of Systems Const All systems reviewed & are unremarkable except as noted in HPI and below Denies daytime sleepiness, Denies difficulty sleeping, Denies snoring, Denies stops breathing during sleep and Denies weakness Card Reports chest pain, Reports chest pain at rest, Reports chest pain with activity, Denies rapid heart rate, Denies irregular heart rhythm, Denies claudication, Denies leg edema, Denies lightheadedness, Denies palpitations, Denies dyspnea, Reports dyspnea on exertion, Denies orthopnea, Denies paroxysmal nocturnal dyspnea and Denies slow heart rate Resp Denies cough, Denies dyspnea, Reports dyspnea on exertion and Denies snoring GI Reports no additional complaints, Denies hematochezia, Denies change in stool character and Denies dyspepsia Musc Denies abnormal gait, Denies muscle weakness and Denies numbness Neuro Denies abnormal gait, Denies numbness and Denies weakness Endo Denies palpitations Physical Exam Vital Signs: Last Vital Signs Pulse 95 03/07/25 15:24 BP 126/74 03/07/25 15:24 BMI result Body Mass Index 32.4 Const General: cooperative, healthy appearing, comfortable and no acute distress Orientation/consciousness: patient oriented x3 Neck Neck: Yes normal visual inspection and Yes no JVD Resp Effort & Inspection: normal respiratory effort Auscultation: clear to auscultation bilaterally, no crackles, no rales, no rho nchi and no wheezes Cardio Rate: regular rate Rhythm: regular rhythm Heart sounds: S1 normal heart sound present, S2 normal heart sound present, no gallops, no murmurs and no rubs Neuro General: patient oriented x3 Extrem General: Yes normal to inspection, No no pedal edema and No calf tenderness Psych Appearance: grossly normal Mental Status: mental status grossly normal Speech and movement: Normal speech and movement present Office Procedures EKG Details: Today read by me, sinus rhythm with PAC, rate 95, can not exclude prior anterior infarct ( likely related to lead placement), rate 95, QTC 424 milliseconds [id number], Complete Assessment & Plan Assessment & Plan (1) Chest discomfort: Code(s): R07.89 - Other chest pain Category: Medical Plan: Reports of chest discomfort with typical and atypical features. Cardiac risk factors of hypertension, hyperlipidemia, diabetes, obesity. No prior known history of CAD. EKG today showing sinus rhythm, can not exclude prior anterior infarct which could be related to lead placement. For cardiac evaluation will order a pharmacological nuclear stress test and echocardiogram. Signs and symptoms of angina reviewed with her. Emergency care if needed for symptoms. Cardiology follow-up when test results are available. (2) Palpitations: Code(s): R00.2 - Palpitations Category: Medical Plan: Reports of heart palpitations like her heart is beating fast. One Pac noted on EKG today. Will check Holter monitor to assess for arrhythmia. (3) Hypertension: Code(s): I10 - Essential (primary) hypertension Category: Medical Qualifiers: Hypertension type: primary hypertension Qualified Code(s): I10 - Essential (primary) hypertension Plan: Blood pressure goal less than 130/80. Well controlled at present. No medication changes made. (4) Preop cardiovascular exam: Code(s): Z01.810 - Encounter for preprocedural cardiovascular examination Category: Medical Plan: Preop for colonoscopy. Cardiac testing pending then this note will be updated. Plan I discussed with the patient and her family member that her symptoms of chest tightness, shortness of breath and heart palpitations require further investigation before she can safely undergo her planned colonoscopy. I explained that I will order an ultrasound of the heart, a heart monitor that she will wear for a few days, and a nuclear stress test. I specified that the stress test will be done with medication and will not involve a treadmill. I informed them that our centralized scheduling department will contact her to arrange these appointments. Once we review the test results, we can determine the next steps regarding clearance for her procedure. The patient and her family acknowledged the plan and had no further questions. Orders: Orders ECG 3 day holter monitor Today I10 - Essential (primary) hypertension, R00.2 - Palpitations, R07.89 - Other chest pain CA echo transthoracic complete Today I10 - Essential (primary) hypertension, R00.2 - Palpitations, R07.89 - Other chest pain NM cardiolite stress test Today I10 - Essential (primary) hypertension, R00.2 - Palpitations, R07.89 - Other chest pain CA lexiscan stress w kalia Today I10 - Essential (primary) hypertension, R00.2 - Palpitations, R07.89 - Other chest pain Patient Instructions: - We need to do some tests on your heart before it is safe for you to have your colonoscopy because of your symptoms of chest tightness and shortness of breath. - We have ordered an echocardiogram, a heart monitor you will wear for a couple of days, and a nuclear stress test. - Our scheduling office will call you to set up appointments for these tests. - Continue to take your current medications as prescribed. Patient was informed and verbally consented to the use of an ambient scribe for clinic note documentation during this visit. Visit time spent on chart review, interview, assessment, orders, documentation. Coding Level of Care Code New Pt Level 4 (01127) Add On Problem Visit Only Diagnoses Chest discomfort R07.89 Palpitations R00.2 Primary hypertension I10 Hypertension type: primary hypertension Preop cardiovascular exam Z01.810 CPT Codes EKG - CPT: 19594-[id number], Complete ([id number]) Time Spent (min) 32
[2025-03-07 15:24] VITALS: BP 126/74; PULSE 95; BMI 32.4
--- OUTSIDE RECORDS SUMMARY | 2025-03-07 21:36 | XMS_ITS | Data Portability ---
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 Evaluation in the field was performed by my vice president of customer service colleague, as noted above, I provided real-time [...] serious symptoms, particularly SOb and chest pain [email or web address] Not available 04/04/2024 11:15:35 Plan of Treatment Reminders Order Date Submit Date Provider Last Modified By Organization Details Last Modified Time Details Appointments None recorded. Lab rapid SARS CoV 2 Ag, QL IA, respiratory specimen 2024 025 [email or web address] [address], [phone] 5 10:04:48 rapid flu (A+B) 2024 025 [email or web address] 7 [facility], [address] [place] [address], [phone] 5 10:04:48 rapid strep group A, throat 2024 025 [email or web address] [address], [phone] 5 10:04:48 Referral None recorded. Procedures None [...] Name and Address Organization Details Recorded Time 61641 acetamino phen medicatio n Not available Not available Not available 04/03/2024 161 RxNorm Not Available [facility] - production 21:45:45 60730 metformin medicatio n Not available Not available [...] t Available Vitals Date Recorded Oxygen saturation Respiratory rate Heart rate Body temperature Body weight Systolic And Diastolic Provider Name and Address Organization Details Last Updated DateTime 5 96 % 16 /min 92 /min 99.1 [degF] 25431.1 12 g 126/72 mm[Hg] Not Available [facility] [...] ICD10 Code Diagnosis IMO Codes Diagnosis Note [id number] MARYLOU BOWERS MD [facility] - [address] [phone] 04/04/2024 10:01:53 04/04/2024 22:48:21 Viral upper respiratory tract infection [id number] J06.9 Health Concerns Section Related Observation LastModified by Organization Detai ls LastModified Time None Recorded Concern Status LastModified by Organization Details LastModified Time None Recorded Advance Directives Directive None Recorded Payers Insurance Date Sequence Insurance Name Policy Number Policy Matta Covered Member ID Matta Member ID Guarantor Name 04/04/2024 1 [facility] - DOS ON OR AFTER 2022 - DUAL ELIGIBLE - [facility] OPTIONS AND ONE CARE (MEDICARE REPLACEMENT/ADV ANTAGE - HMO) Inna Novak [id number] Inna Novak Notes Date Note Type Note Provider Name and Address Organization Details Recorded Time 04/04/2024 text/html ROS as noted in the HPI HPI: Member reports 2 days of sore throat, ear pain, cough, afebrile. She [facility]. .................... .................... .................... .................... .................... .................... .................... . 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 .................... .................... .................... .................... .................... .................... . Finished Goods Stock Clerk Note From Alexis Negrete: Pt co sore throat NC and cough with clear production for 2 days. Pt has not tried OTC medication for symptom relief. Pt denies fever, body aches, NVD, CP, SOB, dizziness, Headache. Baseline vitals assessed, WNL, Afebrile, COvid, flu and strep swab negative. Lungs clear bilaterally. Good skin color and turgor. [facility] contacted and advised pt to continue with self care and monitor symptoms. Pt advised to try OTC medication for symptom relief. Pt advised if symptoms persist to contact PCP. Pt education on signs indicating the ER. .................... .................... .................... .................... .................... .................... .................... . [facility] Consulted: Marylou Bowers .................... .................... .................... .................... .................... .................... .................... . Disposition: Fulfilled MARYLOU BOWERS MD [address] [facility],[address] [facility], [place], [phone], [employer] TechnologiesMARCELA MCMILLAN 04/04/2024 11:15:44 OBGyn Episode No OBEpisode recorded.
== END 2025-03-07 15:49 | disposition home or self-care (01) ==
LOC: HO.HCS 15:04
PROVIDERS: PCP Physician Assistant; Visit Provider Nurse Practitioner Family
DX: R07.89 Other chest pain (principal); R00.2 Palpitations; I10 Essential (primary) hypertension; Z01.810 Encounter for preprocedural cardiovascular examination
CPT/HCPCS: 93010; 99204; G2211

== ENCOUNTER → 2025-03-07 15:03 | Outpatient (BNVA) | payer OTHER, SELFPAY | PROVIDERS: PCP Physician Assistant; Visit Provider Nurse Practitioner Family | DX: Z01.810 Encounter for preprocedural cardiovascular examination (principal); I10 Essential (primary) hypertension; R00.2 Palpitations; R07.89 Other chest pain | CPT/HCPCS: 93005; 99202 ==

== ENCOUNTER → 2025-03-14 08:50 | Outpatient (REF) | payer OTHER, SELFPAY ==
--- NOTE | ~2025-03-14 | NM_ITS ---
Lexiscan Myocardial perfusion study Indication: Preoperative cardiovascular stratification with chest pain Technique: The patient was brought in for a Lexiscan perfusion study on 03/14/2025 and was injected 0.4 mg of Lexiscan intravenously. Within a minute of this injection 25 mCi of sestamibi was given intravenously. Images were obtained using the SPECT gamma camera interlaced with the gating device. Images were obtained in supine position. Resting perfusion study was performed on 03/15/2025. Patient was administered 25 mCi of sestamibi intravenously at rest. Images were then obtained in supine position. Images were processed with the software and compared side to side in short axis, horizontal long axis and vertical long axis views. Images obtained without without CT attenuation. Total DLP 121 mGy-cm. Findings: The stress perfusion study showed nonattenuated images show overall normal uptake of radiotracer in all segments of the LV myocardium. Attenuated corrected images show mildly reduced uptake in the apex of the LV myocardium. There is suggestion of left ventricular hypertrophy. The gated study shows normal LV systolic function with calculated LVEF of 58%. LV cavity is normal in size. The gated study shows normal systolic wall thickening and contraction of segments. Resting study shows no change in perfusion pattern compared to stress perfusion study. Gating at rest reveals normal systolic wall motion with ejection fraction at 60%. The findings are consistent with no reversible ischemia. Normal myocardial perfusion. NM/NM cardiolite stress test Impression: 1. Myocardial perfusion imaging study shows normal myocardial perfusion 2. Gated LVEF is 58% 3. Transient ischemic dilatation not present Nondiagnostic for ischemia on EKG. Electronically signed by: Armand Freitas MD 03/15/2025 05:13 PM [facility]
--- NOTE | 2025-03-14 08:53 | CA_ITS ---
Acquisition Time: 2025-03-14 09:14:58 Total Exercise Time: 00:02:00 Test Indications: CP,Pre-Op Evaluation Medications: SEE H&P Protocol: LEXISCAN Max HR: 109 BPM 66% of Pred: 163 BPM Max BP: 116/78 mmHG Max Work Load: 1.0 METS Pharmacological stress test with Lexiscan while pt marches in her chair, with reports of abdominal discomfort, with isolated PACs, with normotensive response to injection. Nondiagnostic EKG for ischemia. In recovery, pt treated with IVP Aminophylline 75 mg to reverse Lexiscan after which pt feeling back to baseline. Nuclear images pending. Test reviewed with Dr. Freitas. Referred By: Catrachita Lim Electronically Signed By: Lv Walker
== END ==
LOC: HO.CARD 08:50
PROVIDERS: PCP Physician Assistant; Visit Provider Nurse Practitioner Family
DX: Z01.810 Encounter for preprocedural cardiovascular examination (principal); R07.89 Other chest pain; R00.2 Palpitations; I10 Essential (primary) hypertension
CPT/HCPCS: 78452; 93017; A9500; J0280; J2785

== ENCOUNTER → 2025-03-14 08:53 | Outpatient (BNV) | payer OTHER, SELFPAY | PROVIDERS: PCP Physician Assistant | DX: R07.89 Other chest pain (principal) | CPT/HCPCS: 78452; 93016; 93018 ==